=== PATIENT | male | born 1960 | race American Indian/Alaskan Native ===

== ENCOUNTER 2016-03-24 12:33 | Inpatient (IN) | payer SELFPAY ==
[2016-03-24] MEDS ORDERED: CORDARONE 150 MG in D5W 100 ML IV ONE (13:33)
[2016-03-24] MEDS ORDERED: LASIX IV ONE (13:33)
[2016-03-24] MEDS ORDERED: NITRO-BID 2% TP ONE (13:34)
--- NOTE | 2016-03-24 13:36 | Emergency Department Report ---
HPI - General Chief Complaint: Chest Pain Time Seen by Provider: 03/24/16 13:16 - HPI HPI: Chief complaint: Shortness of breath and chest pain HPI: Patient with a history of hypertension, atrial fibrillation, congestive heart failure and borderline diabetes states his been having chest pain and shortness of breath with increased swelling over the last 2 weeks. Patient states he has run out of all of his medications. Patient has been going to Hospital near his home in [facility] but his son brought him down here recently and he has not been seen in this hospital before. Patient describes the pain as a pressure and shortness of breath and pressure worse on exertion and patient is unable to lay flat. Mode of arrival: private car Source: Patient and nursing notes Began: 2 months Duration: Continuous Context: See above Quality: Pressure Severity: 10 out of 10 Improved with: Nothing Worsened with: See above Associated signs and symptoms: Increased pedal edema ED Past Medical Hx - Past Medical History Hx Hypertension: Yes Hx Congestive Heart Failure: Yes Hx Renal Disease: Yes Additional medical history: Atrial fibrillation, renal insufficiency - Medications Home Medications: Home Medications Medication Instructions Recorded Confirmed Last Taken Type Amiodarone [Cordarone 200 MG TAB] 200 mg PO QDAY 03/24/16 03/24/16 Unknown History Aspirin [Aspirin BABY CHEW TAB] 81 mg PO QDAY 03/24/16 03/24/16 Unknown History AtorvaSTATin [Lipitor] 20 mg PO QHS 03/24/16 03/24/16 Unknown History Ferrous Sulfate [Feosol] 325 mg PO BID 03/24/16 03/24/16 Unknown History Metoprolol Succinate 25 mg PO BID 03/24/16 03/24/16 Unknown History Potassium Chloride [Klor-Con 10] 20 meq PO QDAY 03/24/16 03/24/16 Unknown History Warfarin [Coumadin] 5 mg PO QDAY 03/24/16 03/24/16 Unknown History hydrALAZINE [Apresoline] 25 mg PO BID 03/24/16 03/24/16 Unknown History ED Review of Systems ROS: Stated complaint: CHF Other details as noted in HPI ROS Constitutional: No fever ENT: No uri symptoms Cardiovascular: chest pain Respiratory: No cough GI: No nausea vomiting or diarrhea : No dysuria frequency or urgency, Skin: No rash Neuro: No focal weakness or numbness Psych: No depression Eric/lymph: edema Physical Exam - Physical Exam Vital Signs: Vital Signs 03/24/16 13:05 Temperature 98.6 F Pulse Rate 134 H Respiratory 36 H Rate Blood Pressure 185/139 O2 Sat by Pulse 91 Oximetry Physical Exam: GENERAL: The patient is a morbidly obese -[place] male in respiratory distress HEENT: Normocephalic. Atraumatic. Extraocular motions are intact. Patient has moist mucous membranes. NECK: Supple. No meningitic signs are noted. There is no adenopathy noted. CHEST/LUNGS: Diminished throughout. There is mild to moderate respiratory distress noted. HEART/CARDIOVASCULAR: Regular. There is tachycardia. There is a gallop on no rub or murmur. ABDOMEN: Abdomen is soft, nontender. Patient has normal bowel sounds. There is no abdominal distention. SKIN: There is no rash. There is 2+ bilateral pedal edema. There is no diaphoresis. NEURO: The patient is awake, alert, and oriented. The patient is cooperative. The patient has no focal neurologic deficits. The patient has normal speech. MUSCULOSKELETAL: There is no tenderness or deformity. There is no evidence of acute injury. ED Course Vital Signs 03/24/16 13:05 Temperature 98.6 F Pulse Rate 134 H Respiratory 36 H Rate Blood Pressure 185/139 O2 Sat by Pulse 91 Oximetry - Reevaluation(s) Reevaluation #1: 03/24/16 13:42 Patient will be given 150 mg of IV amlodipine, 40 mg of Lasix and an inch of nitroglycerin paste. Patient will be admitted to the hospitalist. ED Medical Decision Making - EKG Data -: EKG Interpreted by Me Rate: tachycardia (134) - EKG Data When compared to previous EKG there are: previous EKG unavailable Interpretation: other (tachycardia possible atrial fibrillation or flutter. Right axis and nonspecific intraventricular block.) - Radiology Data interpreted by me: Chest x-ray shows cardiomegaly and bibasilar pulmonary edema. Critical care attestation.: If time is entered above; I have spent that time in minutes in the direct care of this critically ill patient, excluding procedure time. ED Disposition Clinical Impression: Acute on chronic congestive heart failure Qualifiers: Congestive heart failure type: unspecified congestive heart failure type Qualified Code(s): I50.9 - Heart failure, unspecified Disposition: OP ADMITTED IP TO THIS HOSP Is pt being admited?: Yes Does the pt Need Aspirin: Yes Condition: Fair Time of Disposition: 14:51 (admit to the hospitalist )
[2016-03-24] MEDS ORDERED: CORDARONE IV ONE (13:43)
[2016-03-24 14:00] LABS: Basophils % (Auto) 0.8 % (0.0-1.8); Eosinophils % (Auto) 0.3 % (0.0-4.3); Hematocrit 40.1 % (35.5-45.6); Hemoglobin 12.5 gm/dl (11.8-15.2); Mean Corpuscular HGB Conc 31 % (32-34); Mean Corpuscular Volume 72 fl (84-94); Platelet Count 244 K/mm3 (140-440); Red Blood Count 5.58 M/mm3 (3.65-5.03); Red Cell Distribution Width 15.8 % (13.2-15.2)
[2016-03-24 14:06] LABS: Mean Corpuscular Hemoglobin 22 pg (28-32)
[2016-03-24 14:08] LABS: INR 1.19 (0.87-1.13)
[2016-03-24 14:09] LABS: Partial Thromboplastin Time 26.4 Sec. (24.2-36.6)
[2016-03-24 14:16] LABS: BUN/Creatinine Ratio 23.12
--- NOTE | 2016-03-24 14:28 | XRay Report ---
AP chest History: Shortness of breath. Findings: Moderate cardiomegaly, moderate pulmonary venous congestion and small bilateral pleural effusions are identified. Impression: CHF.
[2016-03-24 14:50] LABS: Calcium 8.6 mg/dL (8.4-10.2); Chloride 104.1 mmol/L (98-107); Creatine Kinase MB 5.1 ng/mL (0.0-4.0); Potassium 4.5 mmol/L (3.6-5.0)
[2016-03-24] MEDS ORDERED: ASPIRIN PO ONE (15:08)
--- NOTE | 2016-03-24 15:27 | Admit Criteria Form ---
Admission Criteria Documentation: HEART FAILURE: COMMON COMPLICATIONS Clinical Indications for Inpatient Care (Place 'X' for any and all applicable criteria): Ongoing inpatient care may be indicated for heart failure with ANY ONE of the following (1)(2)(3)(4)(5): [ ]I. Ongoing need for care for primary condition requiring frequent therapy adjustments because of changes in cardiac function (eg, drug dosage changes for drugs that are renally metabolized) [ ]II. New-onset heart failure [ ]III. Heart failure with decreased urine output not responsive to attempts to optimize volume status [ ]IV. Acute cardiac ischemia causing or associated with failure [X ]V. Complications of heart failure, including ANY ONE of the following: [ ]a) Pericardial effusion [ ]b) Symptomatic pleural effusion [ ]c) O2 saturation <90% or PO2 < 60 mm Hg (8.0 kPa) on room air or require baseline supplemental O2 [ X]d) Tachypnea [ ]e) Dyspnea [ ]f) Syncope [ ]g) Change in mental status [ ]h) Acute renal insufficiency that is severe (reduction of more than 50% in estimated glomerular filtration rate from baseline) or progressive reduction of more than 25% in estimated glomerular filtration rate from baseline, with creatinine continuing to rise) [ ]i) Hemodynamic instability [ ]j) Anasarca [ ]k) Clinically significant metabolic abnormalities due to heart failure (eg, new-onset metabolic acidosis) Extended stay beyond goal length of stay for primary condition may be needed until ALL of the following are present(1)(3): [ ]a) Stable and effective diuretic regimen established (or patient on stable dialysis regimen if in chronic renal failure) [ ]b) Breathing comfortably at rest [ ]c) Saturation of arterial oxygen greater than 90% or at acceptable baseline [ ]d) Pulmonary edema absent or improved [ ]e) Hemodynamic stability [ ]f) Volume status acceptable on oral medication [ ]g) Peripheral or sacral edema absent or improved [ ]h) Renal function stable and manageable at a lower level of care [ ]i) Complications (eg, pleural effusion) resolved or manageable at a lower level of care [ ]j) Patient or caregiver has received written discharge instructions or educational material addressing activity level, diet, discharge medications, follow-up appointment, weight monitoring, and what to do if symptoms worsen The original [employer] content created by [employer] has been revised. The portions of the content which have been revised are identified through the use of italic text or in bold, and [facility] has neither reviewed nor approved the modified material.All other unmodified content is copyright [facility]. Please see references footnoted in the original [facility] edition 2016 Admission Criteria Met: Yes
--- NOTE | 2016-03-24 22:34 | Event Note ---
Date: 03/24/16 See H/p in reports HTN emergency Ac resp failure Chf exacerbation
[2016-03-24] MEDS ORDERED: ALUM-MAG HYDROX-SIMETH 200-200-20MG/5ML PO PRN (22:42)
[2016-03-24] MEDS ORDERED: MILK OF MAGNESIA PO PRN (22:42)
[2016-03-24] MEDS ORDERED: DULCOLAX PR PRN (22:42)
[2016-03-24] MEDS ORDERED: DILAUDID IV PRN (22:42)
[2016-03-24] MEDS ORDERED: DUONEB 0.5 MG-3 MG/3 ML SOLN IH PRN (22:47)
[2016-03-24] MEDS ORDERED: PROVENTIL IH PRN (22:55)
[2016-03-24] MEDS ORDERED: DUONEB 0.5 MG-3 MG/3 ML SOLN IH ONE (23:36)
[2016-03-24] MEDS: DUONEB 0.5 MG-3 MG/3 ML SOLN IH SCH (23:45)
[2016-03-25] MEDS: CARDENE DRIP 40 MG/200 ML 200 ML IV SCH ×2 (00:10→03:32)
[2016-03-25] MEDS: FEOSOL PO SCH ×3 (01:18→22:12)
[2016-03-25] MEDS: K-DUR PO SCH ×3 (01:18→22:13)
[2016-03-25] MEDS: TOPROL XL PO SCH ×2 (01:19→13:30)
[2016-03-25] MEDS: DILAUDID IV PRN (01:29)
[2016-03-25] MEDS: DUONEB 0.5 MG-3 MG/3 ML SOLN IH SCH ×4 (02:18→21:05)
[2016-03-25 04:50] LABS: Basophils % (Auto) 1.1 % (0.0-1.8); Eosinophils % (Auto) 0.6 % (0.0-4.3); Hematocrit 38.7 % (35.5-45.6); Hemoglobin 11.9 gm/dl (11.8-15.2); Mean Corpuscular HGB Conc 31 % (32-34); Mean Corpuscular Volume 72 fl (84-94); Platelet Count 225 K/mm3 (140-440); Red Blood Count 5.35 M/mm3 (3.65-5.03); Red Cell Distribution Width 16.1 % (13.2-15.2)
[2016-03-25 04:54] LABS: Mean Corpuscular Hemoglobin 22 pg (28-32)
[2016-03-25 04:59] LABS: Albumin 3.5 g/dL (3.9-5); Albumin/Globulin Ratio 1.1 %; BUN/Creatinine Ratio 19.47; Bilirubin,Total 1.3 mg/dL (0.1-1.2); Calcium 8.2 mg/dL (8.4-10.2); Potassium 4.3 mmol/L (3.6-5.0); Total Protein 6.7 g/dL (6.3-8.2)
[2016-03-25] MEDS: LASIX IV SCH ×2 (06:31→18:04)
--- NOTE | 2016-03-25 09:32 | Progress Note ---
Assessment and Plan Assessment and plan: 1. Accelerated hypertension. We will wean Cardene drip and start home medications of hydralazine and metoprolol. 2. Acute CHF exacerbation. Etiology is unknown whether it is systolic or diastolic. Check echocardiogram. Patient with elevated BNP > 4000. Continue Lasix daily. Chest x-ray revealed bilateral pleural effusions and pulmonary vascular congestion. Patient also with cardiomegaly. 3. Acute hypoxic respiratory failure compensated with O2. Continue O2 for supportive care. BiPAP when necessary. 4. DVT prophylaxis. Continue Lovenox. The high probability of a clinically significant, sudden or life threatening deterioration of the [cardiovascular] system(s) required my full and direct attention, intervention and personal management. The aggregate critical care time was [31] minutes. This time is in addition to time spent performing reported procedures but includes the following: [x] Data Review and interpretation [x] Patient assessment and monitoring of vital signs [x] Documentation [x] Medication orders and management History Interval history: 55-year-old male admitted with acute respiratory failure, accelerated hypertension requiring Cardizem drip and acute CHF exacerbation. Patient currently denies any chest pain or shortness of breath. Hospitalist Physical - Constitutional Vitals: Temp Pulse Resp BP Pulse Ox 98.2 F 133 H 21 127/94 97 03/25/16 08:00 03/25/16 09:00 03/25/16 09:00 03/25/16 09:00 03/25/16 09:00 General appearance: Present: no acute distress, well-nourished - EENT Eyes: Present: PERRL, EOM intact ENT: hearing intact, clear oral mucosa, dentition normal - Neck Neck: Present: supple, normal ROM - Respiratory Respiratory effort: normal Respiratory: bilateral: diminished, rales, rhonchi - Cardiovascular Rhythm: regular Heart Sounds: Present: S1 & S2. Absent: gallop, rub - Extremities Extremities: no ischemia, No edema, Full ROM - Abdominal General gastrointestinal: soft, non-tender, non-distended, normal bowel sounds - Integumentary Integumentary: Present: clear, warm, dry - Neurologic Neurologic: CNII-XII intact, moves all extremities Results - Labs CBC & Chem 7: 03/25/16 04:21 03/25/16 04:21 Labs: Laboratory Last Values WBC 8.0 K/mm3 (4.5-11.0) 03/25/16 04:21 RBC 5.35 M/mm3 (3.65-5.03) H 03/25/16 04:21 Hgb 11.9 gm/dl (11.8-15.2) 03/25/16 04:21 Hct 38.7 % (35.5-45.6) 03/25/16 04:21 MCV 72 fl (84-94) L 03/25/16 04:21 MCH 22 pg (28-32) L 03/25/16 04:21 MCHC 31 % (32-34) L 03/25/16 04:21 RDW 16.1 % (13.2-15.2) H 03/25/16 04:21 Plt Count 225 K/mm3 (140-440) 03/25/16 04:21 Lymph % (Auto) 16.3 % (13.4-35.0) 03/25/16 04:21 [place] % (Auto) 13.4 % (0.0-7.3) H 03/25/16 04:21 Eos % (Auto) 0.6 % (0.0-4.3) 03/25/16 04:21 Baso % (Auto) 1.1 % (0.0-1.8) 03/25/16 04:21 Lymph # 1.3 K/mm3 (1.2-5.4) 03/25/16 04:21 [place] # 1.1 K/mm3 (0.0-0.8) H 03/25/16 04:21 Eos # 0.0 K/mm3 (0.0-0.4) 03/25/16 04:21 Baso # 0.1 K/mm3 (0.0-0.1) 03/25/16 04:21 Seg Neutrophils % 68.6 % (40.0-70.0) 03/25/16 04:21 Seg Neutrophils # 5.5 K/mm3 (1.8-7.7) 03/25/16 04:21 PT 15.0 Sec. (12.2-14.9) H 03/24/16 13:35 INR 1.19 (0.87-1.13) H 03/24/16 13:35 APTT 26.4 Sec. (24.2-36.6) 03/24/16 13:35 Sodium 142 mmol/L (137-145) 03/25/16 04:21 Potassium 4.3 mmol/L (3.6-5.0) 03/25/16 04:21 Chloride 103.0 mmol/L (98-107) 03/25/16 04:21 Carbon Dioxide 25 mmol/L (22-30) 03/25/16 04:21 Anion Gap 18 mmol/L 03/25/16 04:21 BUN 37 mg/dL (9-20) H 03/25/16 04:21 Creatinine 1.9 mg/dL (0.8-1.5) H 03/25/16 04:21 Estimated GFR 45 ml/min 03/25/16 04:21 BUN/Creatinine Ratio 19.47 % 03/25/16 04:21 Glucose 113 mg/dL (75-100) H 03/25/16 04:21 POC Glucose 111 (70-105) H 03/25/16 08:21 Calcium 8.2 mg/dL (8.4-10.2) L 03/25/16 04:21 Total Bilirubin 1.3 mg/dL (0.1-1.2) H 03/25/16 04:21 AST 73 units/L (5-40) H 03/25/16 04:21 ALT 108 units/L (7-56) H 03/25/16 04:21 Alkaline Phosphatase 47 units/L (35-129) 03/25/16 04:21 Total Creatine Kinase 199 units/L (55-170) H 03/24/16 13:35 CK-MB (CK-2) 5.1 ng/mL (0.0-4.0) H 03/24/16 13:35 CK-MB (CK-2) Rel Index 2.5 (0-4) 03/24/16 13:35 Troponin T 0.052 ng/mL (0.00-0.029) H 03/24/16 13:35 NT-Pro-B Natriuret Pep 4652 pg/mL (0-900) H 03/24/16 13:35 Total Protein 6.7 g/dL (6.3-8.2) 03/25/16 04:21 Albumin 3.5 g/dL (3.9-5) L 03/25/16 04:21 Albumin/Globulin Ratio 1.1 % 03/25/16 04:21 Triglycerides 62 mg/dL (2-149) 03/24/16 13:35 Cholesterol 160 mg/dL (50-199) 03/24/16 13:35 LDL Cholesterol Direct 114 mg/dL (50-130) 03/24/16 13:35 HDL Cholesterol 37 mg/dL (40-59) L 03/24/16 13:35 Cholesterol/HDL Ratio 4.32 % 03/24/16 13:35
[2016-03-25] MEDS ORDERED: NON-FORMULARY (Potassium Chloride [Klor-Con 10] 20 MEQ) PO SCH (10:00)
[2016-03-25] MEDS ORDERED: K-DUR PO SCH (10:00)
[2016-03-25] MEDS: CORDARONE PO SCH (10:15)
[2016-03-25] MEDS: BABY ASPIRIN PO SCH (10:16)
[2016-03-25] MEDS: LOVENOX SUB-Q SCH (10:22)
--- NOTE | 2016-03-25 10:56 | Consultation ---
History of Present Illness Consult date: 03/25/16 Requesting physician: RUSSELL MEZA Reason for consult: other (Hypertensive Emergency) History of present illness: PULMONARY/CCM CONSULT NOTE (Full dictation # [id number]) Please see dictated notes for full details Medications and Allergies Allergies Allergy/AdvReac Type Severity Reaction Status Date / Time No Known Allergies Allergy Unverified 03/24/16 13:05 Home Medications Medication Instructions Recorded Confirmed Last Taken Type Amiodarone [Cordarone 200 MG TAB] 200 mg PO QDAY 03/24/16 03/24/16 Unknown History Aspirin [Aspirin BABY CHEW TAB] 81 mg PO QDAY 03/24/16 03/24/16 Unknown History AtorvaSTATin [Lipitor] 20 mg PO QHS 03/24/16 03/24/16 Unknown History Ferrous Sulfate [Feosol] 325 mg PO BID 03/24/16 03/24/16 Unknown History Metoprolol Succinate 25 mg PO BID 03/24/16 03/24/16 Unknown History Potassium Chloride [Klor-Con 10] 20 meq PO QDAY 03/24/16 03/24/16 Unknown History Warfarin [Coumadin] 5 mg PO QDAY 03/24/16 03/24/16 Unknown History hydrALAZINE [Apresoline] 25 mg PO BID 03/24/16 03/24/16 Unknown History Active Meds: Active Medications Al Hydrox/Mg Hydrox/Simethicone (Alum-Mag Hydrox-Simeth 201-937-20zg/5ml) 30 ml PO Q4H PRN PRN Reason: Indigestion Albuterol (Proventil) 2.5 mg IH Q3HRT PRN PRN Reason: Wheezing Albuterol/Ipratropium (Duoneb 0.5 Mg-3 Mg/3 Ml Soln) 1 ampul IH Q6HRT [facility] Last Admin: 03/25/16 08:45 Dose: 1 ampul Amiodarone HCl (Cordarone) 200 mg PO QDAY [facility] Last Admin: 03/25/16 10:15 Dose: 200 mg Aspirin (Baby Aspirin) 81 mg PO QDAY [facility] Last Admin: 03/25/16 10:16 Dose: 81 mg Atorvastatin Calcium (Lipitor) 20 mg PO QHS [facility] Bisacodyl (Dulcolax) 10 mg CO QDAY PRN PRN Reason: constipation unrelieved by MOM Enoxaparin Sodium (Lovenox) 40 mg SUB-Q QDAY [facility] Last Admin: 03/25/16 10:22 Dose: 40 mg Famotidine (Pepcid) 20 mg PO BID NORMA Ferrous Sulfate (Feosol) 325 mg PO BID [facility] Last Admin: 03/25/16 10:16 Dose: 325 mg Furosemide (Lasix) 40 mg IV 0600,1800 [facility] Last Admin: 03/25/16 06:31 Dose: 40 mg Hydralazine HCl (Apresoline) 25 mg PO Q12HR [facility] Hydromorphone HCl (Dilaudid) 0.5 mg IV Q3H PRN PRN Reason: Pain , Severe (7-10) Last Admin: 03/25/16 01:29 Dose: 0.5 mg Nicardipine/Sodium Chloride (Cardene Drip 40 Mg/200 Ml) 200 mls @ 25 mls/hr IV TITR NORMA; 5 MG/HR PRN Reason: Protocol Last Admin: 03/25/16 03:32 Dose: 25 mls/hr Influenza Virus Vaccine Quadrival (Fluarix Quad [id number](36 Mos+)) 60 mcg IM .ONCE ONE Stop: 03/25/16 12:01 Magnesium Hydroxide (Milk Of Magnesia) 30 ml PO Q4H PRN PRN Reason: Constipation Metoprolol Succinate (Toprol Xl) 25 mg PO BID [facility] Last Admin: 03/25/16 01:19 Dose: 25 mg Potassium Chloride (K-Dur) 20 meq PO Q12HR [facility] Last Admin: 03/25/16 10:19 Dose: 20 meq Warfarin Sodium (Coumadin) 5 mg PO QDAY@1700 NORMA PRN Reason: Protocol Physical Examination Vital signs: Vital Signs Temp Pulse Resp BP Pulse Ox 98.6 F 134 H 36 H 185/139 91 03/24/16 13:05 03/24/16 13:05 03/24/16 13:05 03/24/16 13:05 03/24/16 13:05 Results - Laboratory Findings CBC and BMP: 03/25/16 04:21 03/25/16 04:21 PT/INR, D-dimer PT 15.0 Sec. (12.2-14.9) H 03/24/16 13:35 INR 1.19 (0.87-1.13) H 03/24/16 13:35 Abnormal lab findings: Abnormal Labs 03/25/16 03/25/16 03/25/16 04:21 04:21 08:21 RBC 5.35 H MCV 72 L MCH 22 L MCHC 31 L RDW 16.1 H [place] % (Auto) 13.4 H [place] # 1.1 H BUN 37 H Creatinine 1.9 H Glucose 113 H POC Glucose 111 H Calcium 8.2 L Total Bilirubin 1.3 H AST 73 H ALT 108 H Albumin 3.5 L
[2016-03-25] MEDS ORDERED: FLUARIX QUAD 2016-2017(36 MOS+) IM ONE (12:00)
[2016-03-25] MEDS: APRESOLINE PO SCH ×2 (13:30→22:12)
[2016-03-25] MEDS ORDERED: CARDIZEM IV ONE (14:04)
--- NOTE | 2016-03-25 14:10 | History and Physical Report ---
CHIEF COMPLAINT: Severe shortness of breath. HISTORY OF PRESENT ILLNESS: A 55-year-old male with history of hypertension, atrial fibrillation, congestive heart failure, borderline diabetes, has been having chest pain and shortness of breath with increased swelling over the last 2 weeks. The patient stated that he ran out of all of his medications. He has been going to the hospital near his home in [facility], but his son brought him down here recently. He has not been in this hospital before. He complains of chest pain as a pressure. Also, low oxygen levels. Cough productive of mucoid sputum. PAST MEDICAL HISTORY: Significant for hypertension, congestive heart failure, renal disease, atrial fibrillation, and renal insufficiency. CURRENT MEDICATIONS: Cordarone 200 mg p.o. daily, aspirin 81 mg p.o. daily, Lipitor 20 mg p.o. at bedtime, ferrous sulfate 325 mg twice a day, metoprolol 25 mg twice a day, potassium 20 mEq p.o. daily, Coumadin 5 mg p.o. daily, hydralazine 25 mg twice a day. REVIEW OF SYSTEMS: Significant for severe shortness of breath and increased wheezing and respiratory distress at rest. Other than the shortness of breath and wheezing, review of systems is essentially negative. All systems reviewed. PHYSICAL EXAMINATION: GENERAL: Middle aged male, cooperative during examination, in moderate respiratory distress. VITAL SIGNS: Pulse is 134, temperature is 98.6, blood pressure is 185/139, respiratory rate is . HEENT: Unremarkable. Pupils equal and reactive. NECK: Supple, no lymphadenopathy, no thyromegaly. LUNGS: Clear to auscultation and percussion. Good air entry. CARDIOVASCULAR: S1, S2 heard. No gallop, no murmur, no rub. Apical impulse in left fifth intercostal space and midclavicular line. ABDOMEN: Soft and benign. No hepatosplenomegaly. No guarding, no rigidity. Hernial orifices are normal. EXTREMITIES: Good pedal pulses. No pedal edema. CENTRAL NERVOUS SYSTEM: Alert and oriented x 4. Nonfocal exam. SKIN: Normal. DIAGNOSTIC DATA: EKG shows sinus tachycardia with atrial fibrillation/flutter. Nonspecific intraventricular block. Chest x-ray shows cardiomegaly and bibasilar pulmonary edema. LABORATORY DATA: Significant for white count of 7000, H and H is 12.5 and 40.1, platelet count is 244,000. Protime is 15, INR is 1.19, PTT is 26.4. Sodium is 144, potassium is 4.5, chloride is 104, BUN and creatinine 37 and 1.6, glucose is 105. Creatinine kinase is 199. CK-MB is 5.1, troponin 0.052. BNP is 4652. ASSESSMENT AND PLAN: 1. Hypertensive emergency. The patient needs to be on Cardene drip. Cardizem drip was initiated because the blood pressure was not coming down. 2. Congestive heart failure exacerbation. Lasix 40 mg q. 12 ordered. 3. Atrial fibrillation. Amiodarone initiated again. 4. Hyperlipidemia. Continue 40 mg daily. 5. Chronic obstructive pulmonary disease. The patient on DuoNeb. ABG was not done, but patient was hypoxic 5. Renal insufficiency. IV fluid, gentle IV hydration. PROGNOSIS: Fair. CRITICAL CARE STATEMENT: The high probability of a clinically significant, sudden or life-threatening deterioration of the cardiorespiratory system required my full and direct attention, intervention, and personal management. The aggregate critical care time was 36 minutes. The time is in addition to time spent performing reported procedures, but includes the followin. Data review and interpretation. 2. The patient's assessment and monitoring of vital signs. 3. Documentation. 4. Medication orders and management. JOB# [id number] BARTOLO/[email or web address]
[2016-03-25] MEDS ORDERED: CARDIZEM/D5W 100MG/100ML 100 ML IV SCH (15:00)
--- NOTE | 2016-03-25 16:44 | Consultation ---
History of Present Illness Consult date: 03/25/16 Consult reason: hypertension History of present illness: This is a 55yr old male who presented to this hospital 03/24 with worsening shortness of breath admitted with CHF. Cardiac consultation requested for hypertension management. It's reported patient ran out of his medications. Systolic BP 185 on presentation. Currently on intravenous Cardene. His presenting ECG shows atrial tachycardia. On evaluation, his atrial tachycardia persists, rate 130s. Home medications include amiodarone, metoprolol and warfarin for unknown arrhythmia. Patient denies prior cardiac workup. He denies a history of coronary disease. Medications and Allergies Allergies Allergy/AdvReac Type Severity Reaction Status Date / Time No Known Allergies Allergy Unverified 03/24/16 13:05 Home Medications Medication Instructions Recorded Confirmed Last Taken Type Amiodarone [Cordarone 200 MG TAB] 200 mg PO QDAY 03/24/16 03/24/16 Unknown History Aspirin [Aspirin BABY CHEW TAB] 81 mg PO QDAY 03/24/16 03/24/16 Unknown History AtorvaSTATin [Lipitor] 20 mg PO QHS 03/24/16 03/24/16 Unknown History Ferrous Sulfate [Feosol] 325 mg PO BID 03/24/16 03/24/16 Unknown History Metoprolol Succinate 25 mg PO BID 03/24/16 03/24/16 Unknown History Potassium Chloride [Klor-Con 10] 20 meq PO QDAY 03/24/16 03/24/16 Unknown History Warfarin [Coumadin] 5 mg PO QDAY 03/24/16 03/24/16 Unknown History hydrALAZINE [Apresoline] 25 mg PO BID 03/24/16 03/24/16 Unknown History Active Meds: Active Medications Al Hydrox/Mg Hydrox/Simethicone (Alum-Mag Hydrox-Simeth 380-723-00th/5ml) 30 ml PO Q4H PRN PRN Reason: Indigestion Albuterol (Proventil) 2.5 mg IH Q3HRT PRN PRN Reason: Wheezing Albuterol/Ipratropium (Duoneb 0.5 Mg-3 Mg/3 Ml Soln) 1 ampul IH Q6HRT [facility] Last Admin: 03/25/16 14:45 Dose: 1 ampul Amiodarone HCl (Cordarone) 200 mg PO QDAY [facility] Last Admin: 03/25/16 10:15 Dose: 200 mg Aspirin (Baby Aspirin) 81 mg PO QDAY [facility] Last Admin: 03/25/16 10:16 Dose: 81 mg Atorvastatin Calcium (Lipitor) 20 mg PO QHS [facility]MA Bisacodyl (Dulcolax) 10 mg AR QDAY PRN PRN Reason: constipation unrelieved by MOM Enoxaparin Sodium (Lovenox) 40 mg SUB-Q QDAY [facility] Last Admin: 03/25/16 10:22 Dose: 40 mg Famotidine (Pepcid) 20 mg PO BID [facility]MA Ferrous Sulfate (Feosol) 325 mg PO BID [facility] Last Admin: 03/25/16 10:16 Dose: 325 mg Furosemide (Lasix) 40 mg IV 0600,1800 [facility] Last Admin: 03/25/16 06:31 Dose: 40 mg Hydralazine HCl (Apresoline) 25 mg PO Q12HR [facility] Last Admin: 03/25/16 13:30 Dose: 25 mg Hydromorphone HCl (Dilaudid) 0.5 mg IV Q3H PRN PRN Reason: Pain , Severe (7-10) Last Admin: 03/25/16 01:29 Dose: 0.5 mg Nicardipine/Sodium Chloride (Cardene Drip 40 Mg/200 Ml) 200 mls @ 25 mls/hr IV TITR NORMA; 5 MG/HR PRN Reason: Protocol Last Admin: 03/25/16 03:32 Dose: 25 mls/hr Diltiazem HCl (Cardizem/D5w 100mg/100ml) 100 mls @ 5 mls/hr IV TITR NORMA; 5 MG/ HR PRN Reason: Protocol Last Admin: 03/25/16 15:25 Dose: 5 mls/hr Magnesium Hydroxide (Milk Of Magnesia) 30 ml PO Q4H PRN PRN Reason: Constipation Metoprolol Succinate (Toprol Xl) 25 mg PO BID [facility] Last Admin: 03/25/16 13:30 Dose: 25 mg Potassium Chloride (K-Dur) 20 meq PO Q12HR [facility] Last Admin: 03/25/16 10:19 Dose: 20 meq Warfarin Sodium (Coumadin) 5 mg PO QDAY@1700 ONRMA PRN Reason: Protocol Physical Examination Vital Signs Temp Pulse Resp BP Pulse Ox 98.6 F 134 H 36 H 185/139 91 03/24/16 13:05 03/24/16 13:05 03/24/16 13:05 03/24/16 13:05 03/24/16 13:05 General appearance: mild distress HEENT: Positive: PERRL Cardiac: Positive: Tachycardia Results 03/25/16 04:21 03/25/16 04:21 Cardiac Enzymes 03/25/16 Range/Units 04:21 AST 73 H (5-40) units/L CBC 03/25/16 Range/Units 04:21 WBC 8.0 (4.5-11.0) K/mm3 RBC 5.35 H (3.65-5.03) M/mm3 Hgb 11.9 (11.8-15.2) gm/dl Hct 38.7 (35.5-45.6) % Plt Count 225 (140-440) K/mm3 Lymph # 1.3 (1.2-5.4) K/mm3 [place] # 1.1 H (0.0-0.8) K/mm3 Eos # 0.0 (0.0-0.4) K/mm3 Baso # 0.1 (0.0-0.1) K/mm3 Comprehensive Metabolic Panel 03/25/16 Range/Units 04:21 Sodium 142 (137-145) mmol/L Potassium 4.3 (3.6-5.0) mmol/L Chloride 103.0 (98-107) mmol/L Carbon Dioxide 25 (22-30) mmol/L BUN 37 H (9-20) mg/dL Creatinine 1.9 H (0.8-1.5) mg/dL Glucose 113 H (75-100) mg/dL Calcium 8.2 L (8.4-10.2) mg/dL AST 73 H (5-40) units/L ALT 108 H (7-56) units/L Alkaline Phosphatase 47 (35-129) units/L Total Protein 6.7 (6.3-8.2) g/dL Albumin 3.5 L (3.9-5) g/dL Assessment and Plan CHF exacerbation Persistent Atrial tachycardia given Adenosine 6mg then 12mg Hypertension -uncontrolled on IV cardene Non compliant with medications Recommendations Echocardiogram for LVEF assessment. We'll initiate IV cardizem for rate control of tachycardia. Obtain prior cardiac records for review.
[2016-03-25] MEDS: COUMADIN PO SCH (18:04)
--- NOTE | 2016-03-25 18:09 | Echocardiography Report ---
Transthoracic Echocardiogram Indication: CHF BP: 132/81 Conclusions *1. 4 chamber cardiomyopathy, EF 15%. *2. Moderate MR. *3. Moderate TR. *4. Mild pulm HTN. Findings Left Ventricle: The left ventricular chamber size is severely dilated. Moderate concentric left ventricular hypertrophy is observed. There is evidence of a dilated cardiomyopathy. Severe global hypokinesis of the left ventricle is observed. Global left ventricular systolic function is severely decreased. The estimated ejection fraction is 10-15%. Abnormal left ventricular diastolic function is observed. Left Atrium: The left atrium is severely dilated. Right Ventricle: The right ventricle is moderate to severely dilated. The right ventricular global systolic function is moderately reduced. Right Atrium: The right atrial cavity size is severely dilated. Aortic Valve: The aortic valve is trileaflet. The aortic valve leaflets are mildly thickened. There is no evidence of aortic regurgitation. There is no evidence of aortic stenosis. Mitral Valve: The mitral valve leaflets appear myxomatous. The mitral valve leaflets are mildly thickened. There is moderate mitral regurgitation. There is no evidence of mitral stenosis. Tricuspid Valve: The tricuspid valve leaflets are normal. There is moderate tricuspid regurgitation. The right ventricular systolic pressure is calculated at 38 mmHg. There is evidence of mild pulmonary hypertension. There is no tricuspid stenosis. Pulmonic Valve: The pulmonic valve appears normal. There is no evidence of pulmonic regurgitation. There is no pulmonic stenosis. Pericardium: There is no pericardial effusion. Aorta: There is no dilatation of the aortic root. Venous: The inferior vena cava is dilated. There is no change in the dimension of the inferior vena cava with respiration consistent with markedly increased right atrial pressure. Measurements Chambers MM Name Value Normal Range Ao root diameter (MM) 3.6 cm (2 - 3.7) LA dimension (AP) MM 5.1 cm (1.9 - 4) LA:Ao ratio (MM) 1.42 ratio - AV cusp separation (MM) 1.9 cm (1.5 - 2.6) Chambers 2D Name Value Normal Range RVIDd (AP) 2D 3.63 cm (0.9 - 2.6) IVSd (2D) 1.58 cm (0.6 - 1.1) LVPWd (2D) 1.64 cm (0.6 - 1.1) IVS:LVPW ratio (2D) 0.96 ratio - LVIDd (2D) 6.47 cm (3.7 - 5.6) LVIDs (2D) 6.05 cm (2 - 3.8) LV FS (Teichholz) (2D) 6.49 % - LV FS (cube) (2D) 6.49 % - EF Teichholz (2D) 14.5 % - Ao root diameter (2D) 3.3 cm (2 - 3.7) LA dimension (AP) 2D 5.2 cm (1.9 - 4) LA:Ao ratio (2D) 1.58 ratio - Volumes/Mass Name Value Normal Range LA ESV SP 4CH (MOD) 139 ml - LA ESV SP 2CH (MOD) 128 ml - LA ESV BP (MOD) 134 ml - LA ESV BP (MOD) index 51.5 ml/m2 - Diastolic/Systolic Function Name Value Normal Range MV E-wave Vmax 1.05 m/sec - MV deceleration time 92 msec - LV septal e' Vmax 0.06 m/sec - LV lateral e' Vmax 0.08 m/sec - LV E:e' septal ratio 17.9 ratio - LV E:e' lateral ratio 13.1 ratio - Aortic Valve Name Value Normal Range AV VTI 16.8 cm - AV mean gradient 4 mmHg - LVOT diameter 2.2 cm - LVOT VTI 11.9 cm - LVOT mean gradient 2 mmHg - SV LVOT 45 ml - AMILCAR (continuity VTI) 2.69 cm2 - Mitral Valve Name Value Normal Range MV PHT 48 msec - MR Vmax 4.67 m/sec - MR VTI 115 cm - MVA (PHT) 4.58 cm2 - Tricuspid Valve Name Value Normal Range TR Vmax 2.41 m/sec - TR peak gradient 23 mmHg - RAP 15 mmHg - RVSP 38 mmHg - Pulmonic Valve/Qp:Qs Name Value Normal Range PV Vmax 0.95 m/sec - PV peak gradient 4 mmHg - PV acceleration time 123 msec -
[2016-03-25] MEDS ORDERED: LOPRESSOR IV PRN (18:14)
[2016-03-25] MEDS: DIOVAN PO SCH (20:25)
[2016-03-25] MEDS: COREG PO SCH (22:12)
[2016-03-25] MEDS: PEPCID PO SCH (22:20)
[2016-03-26] MEDS: DUONEB 0.5 MG-3 MG/3 ML SOLN IH SCH ×4 (02:29→21:17)
[2016-03-26 05:05] LABS: Basophils % (Auto) 0.4 % (0.0-1.8); Eosinophils % (Auto) 1.5 % (0.0-4.3); Hematocrit 34.6 % (35.5-45.6); Hemoglobin 10.6 gm/dl (11.8-15.2); Mean Corpuscular HGB Conc 31 % (32-34); Mean Corpuscular Volume 73 fl (84-94); Red Blood Count 4.74 M/mm3 (3.65-5.03); Red Cell Distribution Width 16.2 % (13.2-15.2); White Blood Count 5.5 K/mm3 (4.5-11.0)
[2016-03-26 05:06] LABS: Mean Corpuscular Hemoglobin 22 pg (28-32); Platelet Count 200 K/mm3 (140-440)
[2016-03-26 05:18] LABS: BUN/Creatinine Ratio 20.62; Calcium 7.5 mg/dL (8.4-10.2); Chloride 106.4 mmol/L (98-107); Potassium 4.4 mmol/L (3.6-5.0)
[2016-03-26 05:20] LABS: INR 1.14 (0.87-1.13)
[2016-03-26] MEDS: LASIX IV SCH ×2 (05:41→19:25)
[2016-03-26] MEDS: PRIMACOR 20 MG in D5W 80 ML IV SCH ×3 (07:58→21:09)
[2016-03-26] MEDS: FEOSOL PO SCH ×2 (09:35→22:21)
[2016-03-26] MEDS: CORDARONE PO SCH (09:35)
[2016-03-26] MEDS: COREG PO SCH ×2 (09:36→23:35)
[2016-03-26] MEDS: PEPCID PO SCH ×2 (09:36→22:21)
[2016-03-26] MEDS: BABY ASPIRIN PO SCH (09:36)
[2016-03-26] MEDS: K-DUR PO SCH ×2 (09:36→22:21)
[2016-03-26] MEDS: DIOVAN PO SCH (09:38)
[2016-03-26] MEDS: LOVENOX SUB-Q SCH (09:40)
--- NOTE | 2016-03-26 09:41 | Progress Note ---
Assessment and Plan - Patient Problems (1) Acute on chronic congestive heart failure Current Visit: Yes Status: Acute Qualifiers: Congestive heart failure type: unspecified congestive heart failure type Qualified Code(s): I50.9 - Heart failure, unspecified Plan to address problem: - continue diuresis - on milrinone - per cardiology recs (2) Atrial fibrillation Current Visit: Yes Status: Acute Plan to address problem: - on cardizem drip - per cardiology recs (3) RAJANI (obstructive sleep apnea) Current Visit: Yes Status: Acute Plan to address problem: - outpatient PSG - weight loss counselled ....transfer out of ICU once off vasoactive drugs if being titrated Subjective Date of service: 03/26/16 Principal diagnosis: Hypertensive Urgency; SVT Interval history: Seen and examined at bedside; 24 hour events reviewed; nursing and respiratory care staff consulted; no adverse overnight events reported to me; reamisn on cardizem drip; denies acute chest pains or increased SOB Objective Vital Signs - 12hr 03/25/16 03/25/16 03/25/16 22:00 22:06 22:12 Temperature Pulse Rate 101 H 130 H 100 H Pulse Rate [ Anterior Bilateral Throughout] Respiratory 26 H 26 H Rate Respiratory Rate [Anterior Bilateral Throughout] Blood Pressure 134/80 134/80 134/80 O2 Sat by Pulse 96 88 Oximetry 03/25/16 03/25/16 03/25/16 22:14 23:00 23:54 Temperature Pulse Rate 131 H 84 98 H Pulse Rate [ Anterior Bilateral Throughout] Respiratory 23 28 H 19 Rate Respiratory Rate [Anterior Bilateral Throughout] Blood Pressure 134/80 123/82 121/76 O2 Sat by Pulse 95 95 95 Oximetry 03/26/16 03/26/16 03/26/16 00:00 00:01 00:04 Temperature 98.2 F Pulse Rate 94 H 92 H 93 H Pulse Rate [ Anterior Bilateral Throughout] Respiratory 15 13 27 H Rate Respiratory Rate [Anterior Bilateral Throughout] Blood Pressure 128/72 128/72 128/72 O2 Sat by Pulse 95 95 97 Oximetry 03/26/16 03/26/16 03/26/16 00:06 00:28 01:00 Temperature Pulse Rate 96 H 107 H 87 Pulse Rate [ Anterior Bilateral Throughout] Respiratory 28 H 25 H 16 Rate Respiratory Rate [Anterior Bilateral Throughout] Blood Pressure 128/72 113/80 123/70 O2 Sat by Pulse 97 94 97 Oximetry 03/26/16 03/26/16 03/26/16 01:22 01:24 01:34 Temperature Pulse Rate 66 82 65 Pulse Rate [ Anterior Bilateral Throughout] Respiratory 15 14 16 Rate Respiratory Rate [Anterior Bilateral Throughout] Blood Pressure 127/95 127/95 137/90 O2 Sat by Pulse 96 96 96 Oximetry 03/26/16 03/26/16 03/26/16 01:36 01:42 01:44 Temperature Pulse Rate 87 87 88 Pulse Rate [ Anterior Bilateral Throughout] Respiratory 17 18 18 Rate Respiratory Rate [Anterior Bilateral Throughout] Blood Pressure 137/90 137/90 137/90 O2 Sat by Pulse 95 97 97 Oximetry 03/26/16 03/26/16 03/26/16 01:56 02:00 02:29 Temperature Pulse Rate 87 84 Pulse Rate [ 88 Anterior Bilateral Throughout] Respiratory 16 17 Rate Respiratory 16 Rate [Anterior Bilateral Throughout] Blood Pressure 126/80 130/77 O2 Sat by Pulse 96 96 Oximetry 03/26/16 03/26/16 03/26/16 02:37 03:00 03:12 Temperature Pulse Rate 86 87 Pulse Rate [ 88 Anterior Bilateral Throughout] Respiratory 15 22 Rate Respiratory 16 Rate [Anterior Bilateral Throughout] Blood Pressure 122/80 132/81 O2 Sat by Pulse 95 96 Oximetry 03/26/16 03/26/16 03/26/16 03:24 04:00 04:01 Temperature 97.2 F L Pulse Rate 87 89 Pulse Rate [ Anterior Bilateral Throughout] Respiratory 16 16 18 Rate Respiratory Rate [Anterior Bilateral Throughout] Blood Pressure 136/88 129/81 O2 Sat by Pulse 96 100 96 Oximetry 03/26/16 03/26/16 03/26/16 04:36 05:00 05:40 Temperature Pulse Rate 107 H 88 100 H Pulse Rate [ Anterior Bilateral Throughout] Respiratory 23 43 H 23 Rate Respiratory Rate [Anterior Bilateral Throughout] Blood Pressure 124/79 123/80 119/72 O2 Sat by Pulse 95 96 98 Oximetry 03/26/16 03/26/16 03/26/16 05:51 05:52 06:00 Temperature Pulse Rate 88 100 H 95 H Pulse Rate [ Anterior Bilateral Throughout] Respiratory 23 26 H 23 Rate Respiratory Rate [Anterior Bilateral Throughout] Blood Pressure 135/77 135/77 135/77 O2 Sat by Pulse 97 97 99 Oximetry 03/26/16 03/26/16 03/26/16 06:40 06:45 07:00 Temperature Pulse Rate 98 H 91 H 119 H Pulse Rate [ Anterior Bilateral Throughout] Respiratory 23 25 H 25 H Rate Respiratory Rate [Anterior Bilateral Throughout] Blood Pressure 144/94 132/90 133/104 O2 Sat by Pulse 97 98 98 Oximetry 03/26/16 03/26/16 03/26/16 07:16 07:30 07:46 Temperature Pulse Rate 108 H 107 H 128 H Pulse Rate [ Anterior Bilateral Throughout] Respiratory 25 H 25 H 26 H Rate Respiratory Rate [Anterior Bilateral Throughout] Blood Pressure 128/92 129/91 142/97 O2 Sat by Pulse 98 99 97 Oximetry 03/26/16 03/26/16 03/26/16 07:47 08:01 08:15 Temperature 98.2 F Pulse Rate 98 H 101 H Pulse Rate [ Anterior Bilateral Throughout] Respiratory 23 24 Rate Respiratory Rate [Anterior Bilateral Throughout] Blood Pressure 129/94 119/95 O2 Sat by Pulse 94 97 Oximetry 03/26/16 03/26/16 03/26/16 08:31 08:33 08:34 Temperature Pulse Rate 126 H Pulse Rate [ 97 H Anterior Bilateral Throughout] Respiratory 19 Rate Respiratory 18 Rate [Anterior Bilateral Throughout] Blood Pressure 115/73 O2 Sat by Pulse 95 92 Oximetry 03/26/16 03/26/16 03/26/16 08:45 09:01 09:36 Temperature Pulse Rate 132 H 131 H 134 H Pulse Rate [ Anterior Bilateral Throughout] Respiratory 28 H 24 Rate Respiratory Rate [Anterior Bilateral Throughout] Blood Pressure 112/67 139/58 131/66 O2 Sat by Pulse 100 99 Oximetry 03/26/16 09:38 Temperature Pulse Rate 134 H Pulse Rate [ Anterior Bilateral Throughout] Respiratory Rate Respiratory Rate [Anterior Bilateral Throughout] Blood Pressure 131/66 O2 Sat by Pulse Oximetry Constitutional: no acute distress Eyes: non-icteric ENT: oropharynx moist Neck: supple, no lymphadenopathy Effort: normal Ascultation: Bilateral: clear Cardiovascular: regular rate and rhythm Gastrointestinal: normoactive bowel sounds, soft, non-tender Integumentary: normal Extremities: no cyanosis, no edema, pulses normal, no ischemia or petechiae Neurologic: normal mental status, non-focal exam, pupils equal and round, motor strength normal and Psychiatric: mood appropriate, affect normal CBC and BMP: 03/26/16 04:36 03/26/16 04:36 ABG, PT/INR, D-dimer: PT/INR, D-dimer PT 14.5 Sec. (12.2-14.9) 03/26/16 04:36 INR 1.14 (0.87-1.13) H 03/26/16 04:36 Abnormal lab findings: Abnormal Labs 03/25/16 03/25/16 03/25/16 04:21 04:21 08:21 RBC 5.35 H Hgb Hct MCV 72 L MCH 22 L MCHC 31 L RDW 16.1 H [place] % (Auto) 13.4 H Lymph # [place] # 1.1 H Seg Neutrophils % INR Heparin Anti-Xa Level BUN 37 H Creatinine 1.9 H Glucose 113 H POC Glucose 111 H Calcium 8.2 L Total Bilirubin 1.3 H AST 73 H ALT 108 H Albumin 3.5 L 03/25/16 03/25/16 03/26/16 11:35 15:30 04:36 RBC Hgb 10.6 L Hct 34.6 L MCV 73 L MCH 22 L MCHC 31 L RDW 16.2 H [place] % (Auto) 11.7 H Lymph # 0.9 L [place] # Seg Neutrophils % 70.3 H INR Heparin Anti-Xa Level BUN Creatinine Glucose POC Glucose 141 H 121 H Calcium Total Bilirubin AST ALT Albumin 03/26/16 03/26/16 04:36 04:36 RBC Hgb Hct MCV MCH MCHC RDW [place] % (Auto) Lymph # [place] # Seg Neutrophils % INR 1.14 H Heparin Anti-Xa Level < 0.10 L BUN 33 H Creatinine 1.6 H Glucose POC Glucose Calcium 7.5 L Total Bilirubin AST ALT Albumin
--- NOTE | 2016-03-26 09:42 | Progress Note ---
Assessment and Plan Assessment and plan: 1. SVT. Patient received adenosine yesterday with no relief. Patient's rate is controlled with Cardizem. Follow-up echocardiogram. Cardiology following. Obtain old records for previous ischemic cardiac workup. 2. Accelerated hypertension. Resolved. Blood pressure improved with Cardizem drip. 3. Acute CHF exacerbation. Etiology is unknown whether it is systolic or diastolic. Check echocardiogram. Patient with elevated BNP > 4000. Continue Lasix daily. Chest x-ray revealed bilateral pleural effusions and pulmonary vascular congestion. Patient also with cardiomegaly. 4. Acute hypoxic respiratory failure compensated with O2. Continue O2 for supportive care. BiPAP when necessary. 5. DVT prophylaxis. Continue Lovenox. The high probability of a clinically significant, sudden or life threatening deterioration of the [cardiovascular] system(s) required my full and direct attention, intervention and personal management. The aggregate critical care time was [31] minutes. This time is in addition to time spent performing reported procedures but includes the following: [x] Data Review and interpretation [x] Patient assessment and monitoring of vital signs [x] Documentation [x] Medication orders and management History Interval history: 55-year-old male admitted with acute respiratory failure, accelerated hypertension requiring Cardizem drip and acute CHF exacerbation. Patient currently denies any chest pain or shortness of breath. Hospitalist Physical - Constitutional Vitals: Temp Pulse Resp BP Pulse Ox 98.2 F 134 H 24 131/66 99 03/26/16 07:47 03/26/16 09:38 03/26/16 09:01 03/26/16 09:38 03/26/16 09:01 General appearance: Present: mild distress - EENT Eyes: Present: PERRL, EOM intact ENT: hearing intact, clear oral mucosa, dentition normal - Neck Neck: Present: supple, normal ROM - Respiratory Respiratory effort: normal Respiratory: bilateral: CTA - Cardiovascular Rhythm: irregularly irregular Heart Sounds: Present: S1 & S2. Absent: gallop, rub - Extremities Extremities: no ischemia, No edema, Full ROM - Abdominal General gastrointestinal: soft, non-tender, non-distended, normal bowel sounds - Integumentary Integumentary: Present: clear, warm, dry - Neurologic Neurologic: CNII-XII intact, moves all extremities Results - Labs CBC & Chem 7: 03/26/16 04:36 03/26/16 04:36 Labs: Laboratory Last Values WBC 5.5 K/mm3 (4.5-11.0) 03/26/16 04:36 RBC 4.74 M/mm3 (3.65-5.03) 03/26/16 04:36 Hgb 10.6 gm/dl (11.8-15.2) L 03/26/16 04:36 Hct 34.6 % (35.5-45.6) L 03/26/16 04:36 MCV 73 fl (84-94) L 03/26/16 04:36 MCH 22 pg (28-32) L 03/26/16 04:36 MCHC 31 % (32-34) L 03/26/16 04:36 RDW 16.2 % (13.2-15.2) H 03/26/16 04:36 Plt Count 200 K/mm3 (140-440) 03/26/16 04:36 Lymph % (Auto) 16.1 % (13.4-35.0) 03/26/16 04:36 [place] % (Auto) 11.7 % (0.0-7.3) H 03/26/16 04:36 Eos % (Auto) 1.5 % (0.0-4.3) 03/26/16 04:36 Baso % (Auto) 0.4 % (0.0-1.8) 03/26/16 04:36 Lymph # 0.9 K/mm3 (1.2-5.4) L 03/26/16 04:36 [place] # 0.6 K/mm3 (0.0-0.8) 03/26/16 04:36 Eos # 0.1 K/mm3 (0.0-0.4) 03/26/16 04:36 Baso # 0.0 K/mm3 (0.0-0.1) 03/26/16 04:36 Seg Neutrophils % 70.3 % (40.0-70.0) H 03/26/16 04:36 Seg Neutrophils # 3.9 K/mm3 (1.8-7.7) 03/26/16 04:36 PT 14.5 Sec. (12.2-14.9) 03/26/16 04:36 INR 1.14 (0.87-1.13) H 03/26/16 04:36 APTT 26.4 Sec. (24.2-36.6) 03/24/16 13:35 Heparin Anti-Xa Level < 0.10 U.I./ml (0.3-0.7) L 03/26/16 04:36 Sodium 145 mmol/L (137-145) 03/26/16 04:36 Potassium 4.4 mmol/L (3.6-5.0) 03/26/16 04:36 Chloride 106.4 mmol/L (98-107) 03/26/16 04:36 Carbon Dioxide 27 mmol/L (22-30) 03/26/16 04:36 Anion Gap 16 mmol/L 03/26/16 04:36 BUN 33 mg/dL (9-20) H 03/26/16 04:36 Creatinine 1.6 mg/dL (0.8-1.5) H 03/26/16 04:36 Estimated GFR 54 ml/min 03/26/16 04:36 BUN/Creatinine Ratio 20.62 % 03/26/16 04:36 Glucose 95 mg/dL (75-100) 03/26/16 04:36 POC Glucose 93 (70-105) 03/26/16 07:36 Calcium 7.5 mg/dL (8.4-10.2) L 03/26/16 04:36 Total Bilirubin 1.3 mg/dL (0.1-1.2) H 03/25/16 04:21 AST 73 units/L (5-40) H 03/25/16 04:21 ALT 108 units/L (7-56) H 03/25/16 04:21 Alkaline Phosphatase 47 units/L (35-129) 03/25/16 04:21 Total Creatine Kinase 199 units/L (55-170) H 03/24/16 13:35 CK-MB (CK-2) 5.1 ng/mL (0.0-4.0) H 03/24/16 13:35 CK-MB (CK-2) Rel Index 2.5 (0-4) 03/24/16 13:35 Troponin T 0.052 ng/mL (0.00-0.029) H 03/24/16 13:35 NT-Pro-B Natriuret Pep 4652 pg/mL (0-900) H 03/24/16 13:35 Total Protein 6.7 g/dL (6.3-8.2) 03/25/16 04:21 Albumin 3.5 g/dL (3.9-5) L 03/25/16 04:21 Albumin/Globulin Ratio 1.1 % 03/25/16 04:21 Triglycerides 62 mg/dL (2-149) 03/24/16 13:35 Cholesterol 160 mg/dL (50-199) 03/24/16 13:35 LDL Cholesterol Direct 114 mg/dL (50-130) 03/24/16 13:35 HDL Cholesterol 37 mg/dL (40-59) L 03/24/16 13:35 Cholesterol/HDL Ratio 4.32 % 03/24/16 13:35
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
--- NOTE | 2016-03-26 10:03 | Progress Note ---
Assessment and Plan CHF exacerbation initiated on IV milrinone Persistent Atrial tachycardia given Adenosine 6mg then 12mg on IV cardizem Hypertension Non compliant with medications Recommendations IV cardizem for rate control of tachycardia. Obtain prior cardiac records for review of left ventricle function assessment and previous ischemic cardiac workup. Strict I's and O's Daily weights Subjective Date of service: 03/26/16 Principal diagnosis: Hypertensive Urgency; SVT Interval history: Atrial tachycardia persists on telemetry monitoring. Objective Vital Signs Temp Pulse Pulse Pulse Pulse Pulse Pulse 03/26/16 09:38 134 H 03/26/16 09:36 134 H 03/26/16 09:01 131 H 03/26/16 08:45 132 H 03/26/16 08:34 03/26/16 08:33 97 H 03/26/16 08:31 126 H 03/26/16 08:15 101 H 03/26/16 08:01 98 H 03/26/16 07:47 98.2 F 03/26/16 07:46 128 H 03/26/16 07:30 107 H 03/26/16 07:16 108 H 03/26/16 07:00 119 H 03/26/16 06:45 91 H 03/26/16 06:40 98 H 03/26/16 06:00 95 H 03/26/16 05:52 100 H 03/26/16 05:51 88 03/26/16 05:40 100 H 03/26/16 05:00 88 03/26/16 04:36 107 H 03/26/16 04:01 89 03/26/16 04:00 97.2 F L 03/26/16 03:24 87 03/26/16 03:12 87 03/26/16 03:00 86 03/26/16 02:37 88 03/26/16 02:29 88 03/26/16 02:00 84 03/26/16 01:56 87 03/26/16 01:44 88 03/26/16 01:42 87 03/26/16 01:36 87 03/26/16 01:34 65 03/26/16 01:24 82 03/26/16 01:22 66 03/26/16 01:00 87 03/26/16 00:28 107 H 03/26/16 00:06 96 H 03/26/16 00:04 93 H 03/26/16 00:01 92 H 03/26/16 00:00 98.2 F 94 H 03/25/16 23:54 98 H 03/25/16 23:00 84 03/25/16 22:14 131 H 03/25/16 22:12 100 H 03/25/16 22:06 130 H 03/25/16 22:00 101 H 03/25/16 21:26 03/25/16 21:20 99 H 03/25/16 21:07 88 03/25/16 21:00 88 03/25/16 20:25 101 H 03/25/16 20:20 102 H 03/25/16 20:00 98.3 F 94 H 20 L 20 L 20 L 20 L 03/25/16 19:56 89 03/25/16 19:00 92 H 03/25/16 18:00 101 H 03/25/16 17:22 100 H 03/25/16 17:00 104 H 03/25/16 16:00 100 H 03/25/16 15:43 97.6 F 03/25/16 15:25 131 H 03/25/16 15:24 131 H 03/25/16 15:00 131 H 03/25/16 14:00 131 H 03/25/16 13:30 132 H 03/25/16 13:00 131 H 03/25/16 12:00 131 H 03/25/16 11:47 97.3 F L 03/25/16 11:00 130 H Resp Resp BP Pulse Ox 03/26/16 09:38 131/66 03/26/16 09:36 131/66 03/26/16 09:01 24 139/58 99 03/26/16 08:45 28 H 112/67 100 03/26/16 08:34 92 03/26/16 08:33 18 03/26/16 08:31 19 115/73 95 03/26/16 08:15 24 119/95 97 03/26/16 08:01 23 129/94 94 03/26/16 07:47 03/26/16 07:46 26 H 142/97 97 03/26/16 07:30 25 H 129/91 99 03/26/16 07:16 25 H 128/92 98 03/26/16 07:00 25 H 133/104 98 03/26/16 06:45 25 H 132/90 98 03/26/16 06:40 23 144/94 97 03/26/16 06:00 23 135/77 99 03/26/16 05:52 26 H 135/77 97 03/26/16 05:51 23 135/77 97 03/26/16 05:40 23 119/72 98 03/26/16 05:00 43 H 123/80 96 03/26/16 04:36 23 124/79 95 03/26/16 04:01 18 129/81 96 03/26/16 04:00 16 100 03/26/16 03:24 16 136/88 96 03/26/16 03:12 22 132/81 96 03/26/16 03:00 15 122/80 95 03/26/16 02:37 16 03/26/16 02:29 16 03/26/16 02:00 17 130/77 96 03/26/16 01:56 16 126/80 96 03/26/16 01:44 18 137/90 97 03/26/16 01:42 18 137/90 97 03/26/16 01:36 17 137/90 95 03/26/16 01:34 16 137/90 96 03/26/16 01:24 14 127/95 96 03/26/16 01:22 15 127/95 96 03/26/16 01:00 16 123/70 97 03/26/16 00:28 25 H 113/80 94 03/26/16 00:06 28 H 128/72 97 03/26/16 00:04 27 H 128/72 97 03/26/16 00:01 13 128/72 95 03/26/16 00:00 15 128/72 95 03/25/16 23:54 19 121/76 95 03/25/16 23:00 28 H 123/82 95 03/25/16 22:14 23 134/80 95 03/25/16 22:12 134/80 03/25/16 22:06 26 H 134/80 88 03/25/16 22:00 26 H 134/80 96 03/25/16 21:26 97 03/25/16 21:20 19 03/25/16 21:07 16 03/25/16 21:00 20 120/77 88 12/29/16 20:25 120/87 03/25/16 20:20 22 120/87 96 03/25/16 20:00 24 121/85 100 03/25/16 19:56 19 103/82 96 03/25/16 19:00 19 123/86 94 03/25/16 18:00 25 H 100/76 95 03/25/16 17:22 18 162/87 95 03/25/16 17:00 22 157/85 95 03/25/16 16:00 25 H 140/82 94 03/25/16 15:43 03/25/16 15:25 140/96 03/25/16 15:24 140/96 03/25/16 15:00 16 130/107 97 03/25/16 14:00 25 H 158/104 94 03/25/16 13:30 146/104 03/25/16 13:00 29 H 144/92 94 03/25/16 12:00 20 121/79 94 03/25/16 11:47 03/25/16 11:00 18 135/78 66 L - Physical Examination General: No Apparent Distress HEENT: Positive: PERRL Cardiac: Positive: Tachycardia - Labs and Meds Coagulation 03/26/16 Range/Units 04:36 PT 14.5 (12.2-14.9) Sec. INR 1.14 H (0.87-1.13) CBC 03/26/16 Range/Units 04:36 WBC 5.5 (4.5-11.0) K/mm3 RBC 4.74 (3.65-5.03) M/mm3 Hgb 10.6 L (11.8-15.2) gm/dl Hct 34.6 L (35.5-45.6) % Plt Count 200 (140-440) K/mm3 Lymph # 0.9 L (1.2-5.4) K/mm3 [place] # 0.6 (0.0-0.8) K/mm3 Eos # 0.1 (0.0-0.4) K/mm3 Baso # 0.0 (0.0-0.1) K/mm3 Comprehensive Metabolic Panel 03/26/16 Range/Units 04:36 Sodium 145 (137-145) mmol/L Potassium 4.4 (3.6-5.0) mmol/L Chloride 106.4 (98-107) mmol/L Carbon Dioxide 27 (22-30) mmol/L BUN 33 H (9-20) mg/dL Creatinine 1.6 H (0.8-1.5) mg/dL Glucose 95 (75-100) mg/dL Calcium 7.5 L (8.4-10.2) mg/dL
[2016-03-26] MEDS: APRESOLINE PO SCH (11:30)
[2016-03-26] MEDS ORDERED: NACL 0.9% 500 ML IV ONE (14:00)
[2016-03-26] MEDS ORDERED: CORDARONE 150 MG in D5W 97 ML IV ONE (14:21)
[2016-03-26] MEDS: LANOXIN IV SCH ×2 (15:17→18:58)
[2016-03-26] MEDS: CORDARONE 900 MG in D5W 482 ML IV SCH ×2 (16:15→22:15)
[2016-03-26] MEDS: COUMADIN PO SCH (17:57)
[2016-03-27] MEDS: DUONEB 0.5 MG-3 MG/3 ML SOLN IH SCH ×4 (02:29→20:17)
[2016-03-27] MEDS: PRIMACOR 20 MG in D5W 80 ML IV SCH ×2 (03:53→11:06)
[2016-03-27] MEDS: LASIX IV SCH ×2 (05:58→17:42)
[2016-03-27 06:03] LABS: INR 1.17 (0.87-1.13)
--- NOTE | 2016-03-27 09:26 | Progress Note ---
Assessment and Plan Assessment and plan: 1. Persistent atrial tachycardia. Patient with narrow complex tachycardia which required IV Cardizem therapy. Continue regular control with Cardizem, digoxin, amiodarone and beta blockers. Cardiology following. 2. Hypotension. Etiology cardiogenic. Continue milrinone per cardiology. 3. Severe dilated cardiomyopathy. Echocardiogram reveals ejection fraction of 15%. Continue milrinone and diuretic therapy. 4. Acute systolic CHF exacerbation. As above. 5. Acute hypoxic respiratory failure compensated with O2. Continue O2 for supportive care. BiPAP when necessary. 6. DVT prophylaxis. Continue Lovenox. The high probability of a clinically significant, sudden or life threatening deterioration of the [cardiovascular] system(s) required my full and direct attention, intervention and personal management. The aggregate critical care time was [31] minutes. This time is in addition to time spent performing reported procedures but includes the following: [x] Data Review and interpretation [x] Patient assessment and monitoring of vital signs [x] Documentation [x] Medication orders and management History Interval history: 55-year-old male admitted with acute respiratory failure, accelerated hypertension requiring Cardizem drip and acute CHF exacerbation. Patient currently denies any chest pain or shortness of breath. Hospitalist Physical - Constitutional Vitals: Temp Pulse Resp BP Pulse Ox 98.3 F 130 H 18 104/70 97 03/27/16 04:00 03/27/16 07:54 03/27/16 07:54 03/27/16 06:00 03/27/16 07:55 General appearance: Present: mild distress - EENT Eyes: Present: PERRL, EOM intact ENT: hearing intact, clear oral mucosa, dentition normal - Neck Neck: Present: supple, normal ROM - Respiratory Respiratory effort: normal Respiratory: bilateral: diminished, rales - Cardiovascular Rhythm: regular Heart Sounds: Present: S1 & S2. Absent: gallop, rub - Extremities Extremities: no ischemia, No edema, Full ROM - Abdominal General gastrointestinal: soft, non-tender, non-distended, normal bowel sounds - Integumentary Integumentary: Present: clear, warm, dry - Neurologic Neurologic: CNII-XII intact, moves all extremities Results - Labs CBC & Chem 7: 03/26/16 04:36 03/26/16 04:36 Labs: Laboratory Last Values WBC 5.5 K/mm3 (4.5-11.0) 03/26/16 04:36 RBC 4.74 M/mm3 (3.65-5.03) 03/26/16 04:36 Hgb 10.6 gm/dl (11.8-15.2) L 03/26/16 04:36 Hct 34.6 % (35.5-45.6) L 03/26/16 04:36 MCV 73 fl (84-94) L 03/26/16 04:36 MCH 22 pg (28-32) L 03/26/16 04:36 MCHC 31 % (32-34) L 03/26/16 04:36 RDW 16.2 % (13.2-15.2) H 03/26/16 04:36 Plt Count 200 K/mm3 (140-440) 03/26/16 04:36 Lymph % (Auto) 16.1 % (13.4-35.0) 03/26/16 04:36 [place] % (Auto) 11.7 % (0.0-7.3) H 03/26/16 04:36 Eos % (Auto) 1.5 % (0.0-4.3) 03/26/16 04:36 Baso % (Auto) 0.4 % (0.0-1.8) 03/26/16 04:36 Lymph # 0.9 K/mm3 (1.2-5.4) L 03/26/16 04:36 [place] # 0.6 K/mm3 (0.0-0.8) 03/26/16 04:36 Eos # 0.1 K/mm3 (0.0-0.4) 03/26/16 04:36 Baso # 0.0 K/mm3 (0.0-0.1) 03/26/16 04:36 Seg Neutrophils % 70.3 % (40.0-70.0) H 03/26/16 04:36 Seg Neutrophils # 3.9 K/mm3 (1.8-7.7) 03/26/16 04:36 PT 14.8 Sec. (12.2-14.9) 03/27/16 05:17 INR 1.17 (0.87-1.13) H 03/27/16 05:17 APTT 26.4 Sec. (24.2-36.6) 03/24/16 13:35 Heparin Anti-Xa Level < 0.10 U.I./ml (0.3-0.7) L 03/26/16 04:36 Sodium 145 mmol/L (137-145) 03/26/16 04:36 Potassium 4.4 mmol/L (3.6-5.0) 03/26/16 04:36 Chloride 106.4 mmol/L (98-107) 03/26/16 04:36 Carbon Dioxide 27 mmol/L (22-30) 03/26/16 04:36 Anion Gap 16 mmol/L 03/26/16 04:36 BUN 33 mg/dL (9-20) H 03/26/16 04:36 Creatinine 1.6 mg/dL (0.8-1.5) H 03/26/16 04:36 Estimated GFR 54 ml/min 03/26/16 04:36 BUN/Creatinine Ratio 20.62 % 03/26/16 04:36 Glucose 95 mg/dL (75-100) 03/26/16 04:36 POC Glucose 111 (70-105) H 03/26/16 21:20 Calcium 7.5 mg/dL (8.4-10.2) L 03/26/16 04:36 Total Bilirubin 1.3 mg/dL (0.1-1.2) H 03/25/16 04:21 AST 73 units/L (5-40) H 03/25/16 04:21 ALT 108 units/L (7-56) H 03/25/16 04:21 Alkaline Phosphatase 47 units/L (35-129) 03/25/16 04:21 Total Creatine Kinase 199 units/L (55-170) H 03/24/16 13:35 CK-MB (CK-2) 5.1 ng/mL (0.0-4.0) H 03/24/16 13:35 CK-MB (CK-2) Rel Index 2.5 (0-4) 03/24/16 13:35 Troponin T 0.052 ng/mL (0.00-0.029) H 03/24/16 13:35 NT-Pro-B Natriuret Pep 4652 pg/mL (0-900) H 03/24/16 13:35 Total Protein 6.7 g/dL (6.3-8.2) 03/25/16 04:21 Albumin 3.5 g/dL (3.9-5) L 03/25/16 04:21 Albumin/Globulin Ratio 1.1 % 03/25/16 04:21 Triglycerides 62 mg/dL (2-149) 03/24/16 13:35 Cholesterol 160 mg/dL (50-199) 03/24/16 13:35 LDL Cholesterol Direct 114 mg/dL (50-130) 03/24/16 13:35 HDL Cholesterol 37 mg/dL (40-59) L 03/24/16 13:35 Cholesterol/HDL Ratio 4.32 % 03/24/16 13:35
[2016-03-27] MEDS: COREG PO SCH ×2 (10:19→22:00)
[2016-03-27] MEDS: K-DUR PO SCH ×2 (10:19→22:00)
[2016-03-27] MEDS: BABY ASPIRIN PO SCH (10:19)
[2016-03-27] MEDS: PEPCID PO SCH ×2 (10:19→22:00)
[2016-03-27] MEDS: FEOSOL PO SCH ×2 (10:19→22:00)
[2016-03-27] MEDS: LOVENOX SUB-Q SCH (10:20)
[2016-03-27] MEDS: DIOVAN PO SCH (10:20)
--- NOTE | 2016-03-27 11:17 | Progress Note ---
Assessment and Plan Assessment and Plan CHF exacerbation Persistent Atrial tachycardia Hypertension Non compliant with medications Recommendations Continue present management Subjective Date of service: 03/27/16 Principal diagnosis: Hypertensive Urgency; SVT Interval history: No cardiac complains. Objective Vital Signs Temp Pulse Pulse Pulse Pulse Pulse Pulse 03/27/16 08:00 98.0 F 61 03/27/16 07:55 03/27/16 07:54 130 H 03/27/16 07:40 131 H 03/27/16 06:00 102 H 03/27/16 05:45 100 H 03/27/16 05:31 129 H 03/27/16 05:15 129 H 03/27/16 05:01 128 H 03/27/16 04:45 94 H 03/27/16 04:30 114 H 03/27/16 04:23 128 H 03/27/16 04:15 122 H 03/27/16 04:00 98.3 F 129 H 03/27/16 03:45 116 H 03/27/16 03:43 99 H 03/27/16 03:31 104 H 03/27/16 03:15 76 03/27/16 03:00 121 H 03/27/16 02:46 88 03/27/16 02:45 86 03/27/16 02:31 100 H 88 03/27/16 02:15 90 03/27/16 02:01 130 H 03/27/16 01:45 107 H 03/27/16 01:35 130 H 03/27/16 01:31 130 H 03/27/16 01:15 131 H 03/27/16 01:01 130 H 03/27/16 00:45 130 H 03/27/16 00:31 130 H 03/27/16 00:15 130 H 03/27/16 00:01 130 H 03/27/16 00:00 98.7 F 03/26/16 23:45 130 H 03/26/16 23:35 132 H 03/26/16 23:30 129 H 03/26/16 23:15 128 H 03/26/16 23:01 113 H 03/26/16 22:45 114 H 03/26/16 22:30 122 H 03/26/16 22:15 85 03/26/16 22:01 127 H 03/26/16 21:45 107 H 03/26/16 21:35 109 H 03/26/16 21:31 100 H 03/26/16 21:19 124 H 03/26/16 21:18 124 H 03/26/16 21:17 124 H 03/26/16 21:15 128 H 03/26/16 21:03 125 H 03/26/16 21:01 113 H 03/26/16 20:56 90 03/26/16 20:45 128 H 03/26/16 20:31 104 H 03/26/16 20:15 104 H 03/26/16 20:01 122 H 03/26/16 20:00 98.2 F 105 H 111 H 108 H 113 H 03/26/16 19:45 98 H 03/26/16 19:31 97 H 03/26/16 19:15 85 03/26/16 19:05 117 H 03/26/16 19:01 107 H 03/26/16 18:58 116 H 03/26/16 18:54 102 H 03/26/16 18:45 117 H 03/26/16 18:31 104 H 03/26/16 18:15 110 H 03/26/16 18:01 103 H 03/26/16 17:45 88 03/26/16 17:31 108 H 03/26/16 17:15 76 03/26/16 17:01 112 H 03/26/16 16:45 131 H 03/26/16 16:30 120 H 03/26/16 16:15 117 H 03/26/16 16:14 96 H 03/26/16 16:01 114 H 03/26/16 16:00 97.0 F L 03/26/16 15:45 118 H 03/26/16 15:31 110 H 03/26/16 15:17 133 H 03/26/16 15:15 132 H 03/26/16 15:00 132 H 03/26/16 14:45 131 H 03/26/16 14:30 131 H 03/26/16 14:15 131 H 03/26/16 14:00 133 H 03/26/16 13:45 133 H 03/26/16 13:30 132 H 03/26/16 13:19 133 H 03/26/16 13:15 133 H 03/26/16 13:00 135 H 03/26/16 12:45 134 H 12/30/16 12:30 135 H 03/26/16 12:15 134 H 03/26/16 12:01 134 H 03/26/16 12:00 97.4 F L 03/26/16 11:45 134 H 03/26/16 11:31 134 H 03/26/16 11:30 133 H 03/26/16 11:15 134 H Resp Resp BP BP Pulse Ox 03/27/16 08:00 20 157/80 93 03/27/16 07:55 97 03/27/16 07:54 18 03/27/16 07:40 21 03/27/16 06:00 21 104/70 96 03/27/16 05:45 22 110/69 96 03/27/16 05:31 20 116/68 96 03/27/16 05:15 16 116/68 96 03/27/16 05:01 35 H 102/63 97 03/27/16 04:45 20 92/63 96 03/27/16 04:30 22 99/71 94 03/27/16 04:23 20 100/72 95 03/27/16 04:15 13 100/72 94 03/27/16 04:00 21 97/67 95 03/27/16 03:45 19 96/50 95 03/27/16 03:43 19 96/50 95 03/27/16 03:31 18 96/50 93 03/27/16 03:15 19 96/46 83 L 03/27/16 03:00 20 98/54 94 03/27/16 02:46 20 03/27/16 02:45 20 98/54 96 03/27/16 02:31 19 18 92/52 100 03/27/16 02:15 14 78/46 96 03/27/16 02:01 24 78/46 95 03/27/16 01:45 22 109/66 96 03/27/16 01:35 21 109/66 96 03/27/16 01:31 22 109/66 96 03/27/16 01:15 25 H 124/73 96 03/27/16 01:01 24 146/93 96 03/27/16 00:45 25 H 148/69 95 03/27/16 00:31 19 155/83 97 03/27/16 00:15 22 157/85 96 03/27/16 00:01 28 H 157/85 94 03/27/16 00:00 100 03/26/16 23:45 25 H 157/85 98 03/26/16 23:35 156/81 03/26/16 23:30 22 148/91 96 03/26/16 23:15 21 148/91 96 03/26/16 23:01 21 144/81 99 03/26/16 22:45 23 163/85 95 03/26/16 22:30 21 132/81 97 03/26/16 22:15 18 102/59 94 03/26/16 22:01 18 115/70 97 03/26/16 21:45 32 H 102/59 96 03/26/16 21:35 19 03/26/16 21:31 26 H 105/65 100 03/26/16 21:19 16 105/65 100 03/26/16 21:18 19 96 03/26/16 21:17 24 105/65 98 03/26/16 21:15 26 H 105/65 97 03/26/16 21:03 20 105/61 97 03/26/16 21:01 17 115/68 97 03/26/16 20:56 21 115/68 96 03/26/16 20:45 17 136/90 97 03/26/16 20:31 26 H 125/62 92 03/26/16 20:15 22 125/62 97 03/26/16 20:01 32 H 128/63 95 03/26/16 20:00 21 100 03/26/16 19:45 29 H 146/91 93 03/26/16 19:31 29 H 146/91 88 03/26/16 19:15 20 106/61 96 03/26/16 19:05 20 106/61 95 03/26/16 19:01 17 106/61 94 03/26/16 18:58 97/67 03/26/16 18:54 21 97/67 94 03/26/16 18:45 21 97/67 95 03/26/16 18:31 24 98/51 97 03/26/16 18:15 19 99/62 94 03/26/16 18:01 21 100/71 94 03/26/16 17:45 16 112/54 93 03/26/16 17:31 20 112/54 94 03/26/16 17:15 22 104/67 90 03/26/16 17:01 22 91/32 95 03/26/16 16:45 17 83/39 96 03/26/16 16:30 20 77/45 100 03/26/16 16:15 20 78/34 99 03/26/16 16:14 21 03/26/16 16:01 17 70/50 95 03/26/16 16:00 18 96 03/26/16 15:45 20 69/40 96 03/26/16 15:31 20 92/48 94 03/26/16 15:17 98/66 03/26/16 15:15 22 98/66 96 03/26/16 15:00 28 H 98/66 95 03/26/16 14:45 25 H 84/63 95 03/26/16 14:30 13 89/60 95 03/26/16 14:15 16 83/39 96 03/26/16 14:00 22 87/39 96 03/26/16 13:45 18 71/44 95 03/26/16 13:30 17 82/49 96 03/26/16 13:19 23 81/42 94 03/26/16 13:15 22 81/42 94 03/26/16 13:00 19 113/74 95 03/26/16 12:45 22 113/74 93 03/26/16 12:30 18 113/74 95 03/26/16 12:15 19 110/61 92 03/26/16 12:01 17 92/62 94 03/26/16 12:00 20 03/26/16 11:45 22 92/62 95 03/26/16 11:31 26 H 83/44 95 03/26/16 11:30 83/44 03/26/16 11:15 19 98/22 95 - Physical Examination General: No Apparent Distress HEENT: Positive: PERRL Neck: Positive: neck supple, trachea midline Cardiac: Positive: Regular Rate, S1/S2, Laterally Displaced Lungs: Positive: clear to auscultation, No Wheeze, Rales, Rhonchi Neuro: Positive: Grossly Intact Abdomen: Positive: Unremarkable, Active Bowel Sounds - Labs and Meds Coagulation 03/27/16 Range/Units 05:17 PT 14.8 (12.2-14.9) Sec. INR 1.17 H (0.87-1.13)
--- NOTE | 2016-03-27 11:19 | Progress Note ---
Assessment and Plan (1) Acute on chronic congestive heart failure Current Visit: Yes Status: Acute Qualifiers: Congestive heart failure type: unspecified congestive heart failure type Qualified Code(s): I50.9 - Heart failure, unspecified Plan to address problem: - continue diuresis - repeat CXT prn - supplemental oxygen to keep sats > 92% - per cardiology recs (2) Atrial fibrillation Current Visit: Yes Status: Acute Plan to address problem: - on amiodarone - per cardiology recs (3) RAJANI (obstructive sleep apnea) Current Visit: Yes Status: Acute Plan to address problem: - outpatient PSG - weight loss counselled Subjective Date of service: 03/27/16 Principal diagnosis: Hypertensive Urgency; SVT Interval history: Seen and examined at bedside; 24 hour events reviewed; nursing and respiratory care staff consulted; no adverse overnight events reported to me; states that he feels better; on supplemental oxygen; no N/V/F/C/acute chest pains Objective Vital Signs - 12hr 03/26/16 03/26/16 03/26/16 23:30 23:35 23:45 Temperature Pulse Rate 129 H 132 H 130 H Pulse Rate [ Anterior Bilateral Throughout] Pulse Rate [ Right Dorsalis Pedis] Respiratory 22 25 H Rate Respiratory Rate [Anterior Bilateral Throughout] Blood Pressure 148/91 156/81 157/85 Blood Pressure [Left Arm] O2 Sat by Pulse 96 98 Oximetry 03/27/16 03/27/16 03/27/16 00:00 00:01 00:15 Temperature 98.7 F Pulse Rate 130 H 130 H Pulse Rate [ Anterior Bilateral Throughout] Pulse Rate [ Right Dorsalis Pedis] Respiratory 28 H 22 Rate Respiratory Rate [Anterior Bilateral Throughout] Blood Pressure 157/85 157/85 Blood Pressure [Left Arm] O2 Sat by Pulse 100 94 96 Oximetry 03/27/16 03/27/16 03/27/16 00:31 00:45 01:01 Temperature Pulse Rate 130 H 130 H 130 H Pulse Rate [ Anterior Bilateral Throughout] Pulse Rate [ Right Dorsalis Pedis] Respiratory 19 25 H 24 Rate Respiratory Rate [Anterior Bilateral Throughout] Blood Pressure 155/83 148/69 146/93 Blood Pressure [Left Arm] O2 Sat by Pulse 97 95 96 Oximetry 03/27/16 03/27/16 03/27/16 01:15 01:31 01:35 Temperature Pulse Rate 131 H 130 H 130 H Pulse Rate [ Anterior Bilateral Throughout] Pulse Rate [ Right Dorsalis Pedis] Respiratory 25 H 22 21 Rate Respiratory Rate [Anterior Bilateral Throughout] Blood Pressure 124/73 109/66 109/66 Blood Pressure [Left Arm] O2 Sat by Pulse 96 96 96 Oximetry 03/27/16 03/27/16 03/27/16 01:45 02:01 02:15 Temperature Pulse Rate 107 H 130 H 90 Pulse Rate [ Anterior Bilateral Throughout] Pulse Rate [ Right Dorsalis Pedis] Respiratory 22 24 14 Rate Respiratory Rate [Anterior Bilateral Throughout] Blood Pressure 109/66 78/46 78/46 Blood Pressure [Left Arm] O2 Sat by Pulse 96 95 96 Oximetry 03/27/16 03/27/16 03/27/16 02:31 02:45 02:46 Temperature Pulse Rate 100 H 86 Pulse Rate [ 88 88 Anterior Bilateral Throughout] Pulse Rate [ Right Dorsalis Pedis] Respiratory 19 20 Rate Respiratory 18 20 Rate [Anterior Bilateral Throughout] Blood Pressure 92/52 98/54 Blood Pressure [Left Arm] O2 Sat by Pulse 100 96 Oximetry 03/27/16 03/27/16 03/27/16 03:00 03:15 03:31 Temperature Pulse Rate 121 H 76 104 H Pulse Rate [ Anterior Bilateral Throughout] Pulse Rate [ Right Dorsalis Pedis] Respiratory 20 19 18 Rate Respiratory Rate [Anterior Bilateral Throughout] Blood Pressure 98/54 96/46 96/50 Blood Pressure [Left Arm] O2 Sat by Pulse 94 83 L 93 Oximetry 03/27/16 03/27/16 03/27/16 03:43 03:45 04:00 Temperature 98.3 F Pulse Rate 99 H 116 H 129 H Pulse Rate [ Anterior Bilateral Throughout] Pulse Rate [ Right Dorsalis Pedis] Respiratory 19 19 21 Rate Respiratory Rate [Anterior Bilateral Throughout] Blood Pressure 96/50 96/50 97/67 Blood Pressure [Left Arm] O2 Sat by Pulse 95 95 95 Oximetry 03/27/16 03/27/16 03/27/16 04:15 04:23 04:30 Temperature Pulse Rate 122 H 128 H 114 H Pulse Rate [ Anterior Bilateral Throughout] Pulse Rate [ Right Dorsalis Pedis] Respiratory 13 20 22 Rate Respiratory Rate [Anterior Bilateral Throughout] Blood Pressure 100/72 100/72 99/71 Blood Pressure [Left Arm] O2 Sat by Pulse 94 95 94 Oximetry 03/27/16 03/27/16 03/27/16 04:45 05:01 05:15 Temperature Pulse Rate 94 H 128 H 129 H Pulse Rate [ Anterior Bilateral Throughout] Pulse Rate [ Right Dorsalis Pedis] Respiratory 20 35 H 16 Rate Respiratory Rate [Anterior Bilateral Throughout] Blood Pressure 92/63 102/63 116/68 Blood Pressure [Left Arm] O2 Sat by Pulse 96 97 96 Oximetry 03/27/16 03/27/16 03/27/16 05:31 05:45 06:00 Temperature Pulse Rate 129 H 100 H 102 H Pulse Rate [ Anterior Bilateral Throughout] Pulse Rate [ Right Dorsalis Pedis] Respiratory 20 22 21 Rate Respiratory Rate [Anterior Bilateral Throughout] Blood Pressure 116/68 110/69 104/70 Blood Pressure [Left Arm] O2 Sat by Pulse 96 96 96 Oximetry 03/27/16 03/27/16 03/27/16 07:40 07:54 07:55 Temperature Pulse Rate Pulse Rate [ 131 H 130 H Anterior Bilateral Throughout] Pulse Rate [ Right Dorsalis Pedis] Respiratory Rate Respiratory 21 18 Rate [Anterior Bilateral Throughout] Blood Pressure Blood Pressure [Left Arm] O2 Sat by Pulse 97 Oximetry 03/27/16 08:00 Temperature 98.0 F Pulse Rate Pulse Rate [ Anterior Bilateral Throughout] Pulse Rate [ 61 Right Dorsalis Pedis] Respiratory 20 Rate Respiratory Rate [Anterior Bilateral Throughout] Blood Pressure Blood Pressure 157/80 [Left Arm] O2 Sat by Pulse 93 Oximetry Constitutional: no acute distress, alert Eyes: non-icteric ENT: oropharynx moist Neck: supple, no lymphadenopathy Effort: mildly labored Ascultation: Bilateral: diminished breath sounds, rhonchi (bases) Cardiovascular: regular rate and rhythm Gastrointestinal: normoactive bowel sounds, soft, non-tender, non-distended Integumentary: normal Extremities: no cyanosis, pulses normal, no ischemia or petechiae, edema (trace) Neurologic: normal mental status, non-focal exam, pupils equal and round, motor strength normal and Psychiatric: mood appropriate, affect normal CBC and BMP: 03/26/16 04:36 03/26/16 04:36 ABG, PT/INR, D-dimer: PT/INR, D-dimer PT 14.8 Sec. (12.2-14.9) 03/27/16 05:17 INR 1.17 (0.87-1.13) H 03/27/16 05:17 Abnormal lab findings: Abnormal Labs 03/25/16 03/25/16 03/25/16 04:21 04:21 08:21 RBC 5.35 H Hgb Hct MCV 72 L MCH 22 L MCHC 31 L RDW 16.1 H [place] % (Auto) 13.4 H Lymph # [place] # 1.1 H Seg Neutrophils % INR Heparin Anti-Xa Level BUN 37 H Creatinine 1.9 H Glucose 113 H POC Glucose 111 H Calcium 8.2 L Total Bilirubin 1.3 H AST 73 H ALT 108 H Albumin 3.5 L 03/25/16 03/25/16 03/26/16 11:35 15:30 04:36 RBC Hgb 10.6 L Hct 34.6 L MCV 73 L MCH 22 L MCHC 31 L RDW 16.2 H [place] % (Auto) 11.7 H Lymph # 0.9 L [place] # Seg Neutrophils % 70.3 H INR Heparin Anti-Xa Level BUN Creatinine Glucose POC Glucose 141 H 121 H Calcium Total Bilirubin AST ALT Albumin 03/26/16 03/26/16 03/26/16 04:36 04:36 16:13 RBC Hgb Hct MCV MCH MCHC RDW [place] % (Auto) Lymph # [place] # Seg Neutrophils % INR 1.14 H Heparin Anti-Xa Level < 0.10 L BUN 33 H Creatinine 1.6 H Glucose POC Glucose 138 H Calcium 7.5 L Total Bilirubin AST ALT Albumin 03/26/16 03/27/16 21:20 05:17 RBC Hgb Hct MCV MCH MCHC RDW [place] % (Auto) Lymph # [place] # Seg Neutrophils % INR 1.17 H Heparin Anti-Xa Level BUN Creatinine Glucose POC Glucose 111 H Calcium Total Bilirubin AST ALT Albumin Chest x-ray: image reviewed
[2016-03-27] MEDS ORDERED: PROVENTIL IH PRN (14:32)
[2016-03-27] MEDS: LANOXIN PO SCH (17:41)
[2016-03-27] MEDS: COUMADIN PO SCH (17:41)
[2016-03-28] MEDS: PRIMACOR 20 MG in D5W 80 ML IV SCH ×4 (01:34→23:40)
[2016-03-28] MEDS: DUONEB 0.5 MG-3 MG/3 ML SOLN IH SCH ×4 (01:58→20:03)
[2016-03-28] MEDS: LASIX IV SCH ×2 (06:00→18:06)
--- NOTE | 2016-03-28 10:33 | Progress Note ---
Assessment and Plan Assessment and plan: 1. Persistent atrial tachycardia. Patient with narrow complex tachycardia which required IV Cardizem therapy. Continue regular control with Cardizem, digoxin, amiodarone and beta blockers. Cardiology following. 2. Hypotension. Etiology cardiogenic. Continue milrinone per cardiology. 3. Severe dilated cardiomyopathy. Echocardiogram reveals ejection fraction of 15%. Continue milrinone and diuretic therapy per cardiology. 4. Acute systolic CHF exacerbation. As above. 5. Acute hypoxic respiratory failure compensated with O2. Continue O2 for supportive care. BiPAP when necessary. 6. DVT prophylaxis. Continue Lovenox. History Interval history: 55-year-old male admitted with acute respiratory failure, accelerated hypertension and acute CHF exacerbation. Patient currently denies any chest pain or shortness of breath. Patient currently on milrinone and Cardizem drips Hospitalist Physical - Constitutional Vitals: Temp Pulse Resp BP Pulse Ox 98.3 F 66 20 142/93 99 03/28/16 08:33 03/28/16 10:23 03/28/16 10:23 03/28/16 08:33 03/28/16 10:12 General appearance: Present: no acute distress - EENT Eyes: Present: PERRL, EOM intact ENT: hearing intact, clear oral mucosa, dentition normal - Neck Neck: Present: supple, normal ROM - Respiratory Respiratory effort: normal Respiratory: bilateral: diminished, rales - Cardiovascular Rhythm: regular Heart Sounds: Present: S1 & S2. Absent: gallop, rub - Extremities Extremities: no ischemia, No edema, Full ROM - Abdominal General gastrointestinal: soft, non-tender, non-distended, normal bowel sounds - Integumentary Integumentary: Present: clear, warm, dry - Neurologic Neurologic: CNII-XII intact, moves all extremities Results - Labs CBC & Chem 7: 03/26/16 04:36 03/26/16 04:36 Labs: Laboratory Last Values WBC 5.5 K/mm3 (4.5-11.0) 03/26/16 04:36 RBC 4.74 M/mm3 (3.65-5.03) 03/26/16 04:36 Hgb 10.6 gm/dl (11.8-15.2) L 03/26/16 04:36 Hct 34.6 % (35.5-45.6) L 03/26/16 04:36 MCV 73 fl (84-94) L 03/26/16 04:36 MCH 22 pg (28-32) L 03/26/16 04:36 MCHC 31 % (32-34) L 03/26/16 04:36 RDW 16.2 % (13.2-15.2) H 03/26/16 04:36 Plt Count 200 K/mm3 (140-440) 03/26/16 04:36 Lymph % (Auto) 16.1 % (13.4-35.0) 03/26/16 04:36 [place] % (Auto) 11.7 % (0.0-7.3) H 03/26/16 04:36 Eos % (Auto) 1.5 % (0.0-4.3) 03/26/16 04:36 Baso % (Auto) 0.4 % (0.0-1.8) 03/26/16 04:36 Lymph # 0.9 K/mm3 (1.2-5.4) L 03/26/16 04:36 [place] # 0.6 K/mm3 (0.0-0.8) 03/26/16 04:36 Eos # 0.1 K/mm3 (0.0-0.4) 03/26/16 04:36 Baso # 0.0 K/mm3 (0.0-0.1) 03/26/16 04:36 Seg Neutrophils % 70.3 % (40.0-70.0) H 03/26/16 04:36 Seg Neutrophils # 3.9 K/mm3 (1.8-7.7) 03/26/16 04:36 PT 14.8 Sec. (12.2-14.9) 03/27/16 05:17 INR 1.17 (0.87-1.13) H 03/27/16 05:17 APTT 26.4 Sec. (24.2-36.6) 03/24/16 13:35 Heparin Anti-Xa Level < 0.10 U.I./ml (0.3-0.7) L 03/26/16 04:36 Sodium 145 mmol/L (137-145) 03/26/16 04:36 Potassium 4.4 mmol/L (3.6-5.0) 03/26/16 04:36 Chloride 106.4 mmol/L (98-107) 03/26/16 04:36 Carbon Dioxide 27 mmol/L (22-30) 03/26/16 04:36 Anion Gap 16 mmol/L 03/26/16 04:36 BUN 33 mg/dL (9-20) H 03/26/16 04:36 Creatinine 1.6 mg/dL (0.8-1.5) H 03/26/16 04:36 Estimated GFR 54 ml/min 03/26/16 04:36 BUN/Creatinine Ratio 20.62 % 03/26/16 04:36 Glucose 95 mg/dL (75-100) 03/26/16 04:36 POC Glucose 126 (70-105) H 03/27/16 22:11 Calcium 7.5 mg/dL (8.4-10.2) L 03/26/16 04:36 Total Bilirubin 1.3 mg/dL (0.1-1.2) H 03/25/16 04:21 AST 73 units/L (5-40) H 03/25/16 04:21 ALT 108 units/L (7-56) H 03/25/16 04:21 Alkaline Phosphatase 47 units/L (35-129) 03/25/16 04:21 Total Creatine Kinase 199 units/L (55-170) H 03/24/16 13:35 CK-MB (CK-2) 5.1 ng/mL (0.0-4.0) H 03/24/16 13:35 CK-MB (CK-2) Rel Index 2.5 (0-4) 03/24/16 13:35 Troponin T 0.052 ng/mL (0.00-0.029) H 03/24/16 13:35 NT-Pro-B Natriuret Pep 4652 pg/mL (0-900) H 03/24/16 13:35 Total Protein 6.7 g/dL (6.3-8.2) 03/25/16 04:21 Albumin 3.5 g/dL (3.9-5) L 03/25/16 04:21 Albumin/Globulin Ratio 1.1 % 03/25/16 04:21 Triglycerides 62 mg/dL (2-149) 03/24/16 13:35 Cholesterol 160 mg/dL (50-199) 03/24/16 13:35 LDL Cholesterol Direct 114 mg/dL (50-130) 03/24/16 13:35 HDL Cholesterol 37 mg/dL (40-59) L 03/24/16 13:35 Cholesterol/HDL Ratio 4.32 % 03/24/16 13:35
[2016-03-28] MEDS: COREG PO SCH ×2 (10:46→21:19)
[2016-03-28] MEDS: FEOSOL PO SCH ×2 (10:46→21:21)
[2016-03-28] MEDS: PEPCID PO SCH ×2 (10:46→21:19)
[2016-03-28] MEDS: DIOVAN PO SCH (10:46)
[2016-03-28] MEDS: BABY ASPIRIN PO SCH (10:46)
[2016-03-28] MEDS: K-DUR PO SCH ×2 (10:47→21:21)
[2016-03-28] MEDS: CORDARONE PO SCH (10:47)
[2016-03-28] MEDS: LOVENOX SUB-Q SCH (10:47)
[2016-03-28 11:04] LABS: INR > 17.67 (0.87-1.13)
--- NOTE | 2016-03-28 12:46 | Progress Note ---
Assessment and Plan 1. Acute decompensated chronic combined systolic and diastolic heart failure. 2. Dilated cardiomyopathy with four-chamber dilation LV ejection fraction 10-15 % 3. Persistent Atrial fibrillation a rapid ventricular response 114 4. Essential hypertension 5. Moderate to severe obesity 6. Obstructive sleep apnea Plan. Patient's [place] better. We will continue diuresis and IV Milirone drip. Continue to monitor daily weight. Subjective Date of service: 03/28/16 Principal diagnosis: Cardiomyopathy Interval history: No cardiac complains. Objective Vital Signs Temp Pulse Pulse Pulse Pulse Resp Resp 03/28/16 10:46 118 H 03/28/16 10:23 66 20 03/28/16 10:13 86 20 03/28/16 10:12 03/28/16 08:33 98.3 F 67 20 03/28/16 08:20 118 H 18 03/28/16 08:13 118 H 03/28/16 00:31 98.8 F 65 18 03/27/16 22:00 122 H 03/27/16 20:43 03/27/16 20:19 67 20 03/27/16 20:00 98.2 F 129 H 19 03/27/16 17:41 122 H 03/27/16 16:00 98.9 F 126 H 20 03/27/16 14:35 60 20 03/27/16 14:30 03/27/16 14:24 103 H 20 BP BP Pulse Ox 03/28/16 10:46 142/92 03/28/16 10:23 03/28/16 10:13 03/28/16 10:12 99 03/28/16 08:33 142/93 97 03/28/16 08:20 98 03/28/16 08:13 03/28/16 00:31 104/53 03/27/16 22:00 125/94 03/27/16 20:43 95 03/27/16 20:19 03/27/16 20:00 122/80 99 03/27/16 17:41 147/78 03/27/16 16:00 129/89 96 03/27/16 14:35 03/27/16 14:30 94 03/27/16 14:24 - Physical Examination General: No Apparent Distress, Other (Obese) HEENT: Positive: PERRL Neck: Positive: neck supple, trachea midline. Negative: JVD/HJR Cardiac: Positive: irregularly irregular, S1/S2, S3, Gallop, PMI, Dilated, Laterally Displaced Lungs: Positive: clear to auscultation, No Wheeze, Rales, Rhonchi Neuro: Positive: Grossly Intact Abdomen: Positive: Unremarkable, Active Bowel Sounds Extremities: Present: +2 Edema - Labs and Meds Coagulation 03/28/16 Range/Units 09:13 PT > 120.0 H (12.2-14.9) Sec. INR > 17.67 H* (0.87-1.13) - Telemetry EKG Rhythm: Atrial Fibrillation
--- NOTE | 2016-03-28 14:10 | Progress Note ---
Assessment and Plan - Patient Problems (1) Acute on chronic congestive heart failure Current Visit: Yes Status: Acute Qualifiers: Congestive heart failure type: unspecified congestive heart failure type Qualified Code(s): I50.9 - Heart failure, unspecified Plan to address problem: - continue diuresis - on milrinone - follow cardiology recs (2) Atrial fibrillation Current Visit: Yes Status: Acute Plan to address problem: - on amiodarone now - on coreg re: CHF - per cardiology recs (3) RAJANI (obstructive sleep apnea) Current Visit: Yes Status: Acute Plan to address problem: - outpatient PSG - weight loss counselled - home oxygen evaluation before discharge Subjective Date of service: 03/28/16 Principal diagnosis: RAJANI; Cardiomyopathy Interval history: Seen and examined at bedside; 24 hour events reviewed; nursing and respiratory care staff consulted; no adverse overnight events reported to me;feels a little better; on milrinone; no chest pains or hemoptysis Objective Vital Signs - 12hr 03/28/16 03/28/16 03/28/16 08:13 08:20 08:33 Temperature 98.3 F Pulse Rate 118 H Pulse Rate [ Anterior Bilateral Throughout] Pulse Rate [ 67 Right Dorsalis Pedis] Pulse Rate [ 118 H Right Radial] Respiratory 18 20 Rate Respiratory Rate [Anterior Bilateral Throughout] Respiratory Rate [Chest] Blood Pressure Blood Pressure 142/93 [Left Arm] O2 Sat by Pulse 98 97 Oximetry 03/28/16 03/28/16 03/28/16 10:00 10:12 10:13 Temperature Pulse Rate 94 H Pulse Rate [ 86 Anterior Bilateral Throughout] Pulse Rate [ Right Dorsalis Pedis] Pulse Rate [ Right Radial] Respiratory Rate Respiratory 20 Rate [Anterior Bilateral Throughout] Respiratory 20 Rate [Chest] Blood Pressure Blood Pressure [Left Arm] O2 Sat by Pulse 99 Oximetry 03/28/16 03/28/16 10:23 10:46 Temperature Pulse Rate 118 H Pulse Rate [ 66 Anterior Bilateral Throughout] Pulse Rate [ Right Dorsalis Pedis] Pulse Rate [ Right Radial] Respiratory Rate Respiratory 20 Rate [Anterior Bilateral Throughout] Respiratory Rate [Chest] Blood Pressure 142/92 Blood Pressure [Left Arm] O2 Sat by Pulse Oximetry Constitutional: no acute distress Eyes: non-icteric ENT: oropharynx moist Neck: supple, no lymphadenopathy Effort: mildly labored Ascultation: Bilateral: diminished breath sounds, rhonchi (bases) Cardiovascular: regular rate and rhythm Gastrointestinal: normoactive bowel sounds, soft, non-tender Integumentary: normal Extremities: no cyanosis, no edema, pulses normal, no ischemia or petechiae Neurologic: normal mental status, non-focal exam, pupils equal and round, motor strength normal and Psychiatric: mood appropriate, affect normal CBC and BMP: 03/26/16 04:36 03/26/16 04:36 ABG, PT/INR, D-dimer: PT/INR, D-dimer PT > 120.0 Sec. (12.2-14.9) H 03/28/16 09:13 INR > 17.67 (0.87-1.13) H* 03/28/16 09:13 Abnormal lab findings: Abnormal Labs 03/25/16 03/25/16 03/25/16 04:21 04:21 08:21 RBC 5.35 H Hgb Hct MCV 72 L MCH 22 L MCHC 31 L RDW 16.1 H [place] % (Auto) 13.4 H Lymph # [place] # 1.1 H Seg Neutrophils % PT INR Heparin Anti-Xa Level BUN 37 H Creatinine 1.9 H Glucose 113 H POC Glucose 111 H Calcium 8.2 L Total Bilirubin 1.3 H AST 73 H ALT 108 H Albumin 3.5 L 03/25/16 03/25/16 03/26/16 11:35 15:30 04:36 RBC Hgb 10.6 L Hct 34.6 L MCV 73 L MCH 22 L MCHC 31 L RDW 16.2 H [place] % (Auto) 11.7 H Lymph # 0.9 L [place] # Seg Neutrophils % 70.3 H PT INR Heparin Anti-Xa Level BUN Creatinine Glucose POC Glucose 141 H 121 H Calcium Total Bilirubin AST ALT Albumin 03/26/16 03/26/16 03/26/16 04:36 04:36 16:13 RBC Hgb Hct MCV MCH MCHC RDW [place] % (Auto) Lymph # [place] # Seg Neutrophils % PT INR 1.14 H Heparin Anti-Xa Level < 0.10 L BUN 33 H Creatinine 1.6 H Glucose POC Glucose 138 H Calcium 7.5 L Total Bilirubin AST ALT Albumin 03/26/16 03/27/16 03/27/16 21:20 05:17 08:54 RBC Hgb Hct MCV MCH MCHC RDW [place] % (Auto) Lymph # [place] # Seg Neutrophils % PT INR 1.17 H Heparin Anti-Xa Level BUN Creatinine Glucose POC Glucose 111 H 136 H Calcium Total Bilirubin AST ALT Albumin 03/27/16 03/27/16 03/27/16 11:49 17:11 22:11 RBC Hgb Hct MCV MCH MCHC RDW [place] % (Auto) Lymph # [place] # Seg Neutrophils % PT INR Heparin Anti-Xa Level BUN Creatinine Glucose POC Glucose 109 H 108 H 126 H Calcium Total Bilirubin AST ALT Albumin 03/28/16 09:13 RBC Hgb Hct MCV MCH MCHC RDW [place] % (Auto) Lymph # [place] # Seg Neutrophils % PT > 120.0 H INR > 17.67 H* Heparin Anti-Xa Level BUN Creatinine Glucose POC Glucose Calcium Total Bilirubin AST ALT Albumin
[2016-03-28 16:29] LABS: INR 1.23 (0.87-1.13)
[2016-03-28] MEDS: LANOXIN PO SCH (18:05)
[2016-03-29] MEDS: DUONEB 0.5 MG-3 MG/3 ML SOLN IH SCH ×4 (02:57→20:04)
[2016-03-29] MEDS: PRIMACOR 20 MG in D5W 80 ML IV SCH ×2 (05:51→18:13)
[2016-03-29] MEDS: LASIX IV SCH ×2 (05:51→17:19)
[2016-03-29 08:09] LABS: INR 1.21 (0.87-1.13)
[2016-03-29] MEDS: CORDARONE PO SCH (09:00)
[2016-03-29] MEDS: BABY ASPIRIN PO SCH (09:00)
[2016-03-29] MEDS: K-DUR PO SCH ×2 (09:00→22:38)
[2016-03-29] MEDS: PEPCID PO SCH ×2 (09:01→23:39)
[2016-03-29] MEDS: DIOVAN PO SCH (09:01)
[2016-03-29] MEDS: FEOSOL PO SCH ×2 (09:01→22:40)
[2016-03-29] MEDS: COREG PO SCH ×2 (10:20→22:39)
[2016-03-29] MEDS: LOVENOX SUB-Q SCH (10:50)
--- NOTE | 2016-03-29 10:53 | Progress Note ---
Assessment and Plan 1. Acute decompensated chronic combined systolic and diastolic heart failure. 2. Dilated cardiomyopathy with four-chamber dilation LV ejection fraction 10-15 % 3. Persistent Atrial fibrillation a rapid ventricular response 114 4. Essential hypertension 5. Moderate to severe obesity 6. Obstructive sleep apnea Plan. Patient's [place] better. We will continue diuresis and IV Milirone drip. Continue to monitor daily weight. Subjective Date of service: 03/29/16 Principal diagnosis: RAJANI; Cardiomyopathy Interval history: No cardiac complains. He states he feels much better Objective Vital Signs Temp Pulse Pulse Pulse Pulse Resp Resp 03/29/16 09:01 60 03/29/16 08:00 98.2 F 60 20 03/29/16 07:56 60 20 03/29/16 07:46 03/29/16 07:43 107 H 18 03/29/16 05:50 98.6 F 58 L 20 03/29/16 03:12 61 17 03/29/16 02:56 61 16 03/29/16 01:10 97.6 F 65 18 03/28/16 22:00 119 H 119 H 18 03/28/16 21:19 119 H 03/28/16 20:25 66 18 03/28/16 20:24 98.9 F 63 20 03/28/16 18:05 110 H 03/28/16 16:44 97.6 F 63 20 03/28/16 15:07 63 18 03/28/16 14:52 60 18 03/28/16 11:30 97.7 F 66 20 Resp BP BP Pulse Ox 03/29/16 09:01 144/93 03/29/16 08:00 144/93 96 03/29/16 07:56 03/29/16 07:46 95 03/29/16 07:43 03/29/16 05:50 110/84 100 03/29/16 03:12 03/29/16 02:56 03/29/16 01:10 131/71 92 03/28/16 22:00 20 98 03/28/16 21:19 128/69 03/28/16 20:25 03/28/16 20:24 128/69 93 03/28/16 18:05 03/28/16 16:44 113/67 97 03/28/16 15:07 03/28/16 14:52 03/28/16 11:30 100/53 92 - Physical Examination General: No Apparent Distress, Other (Obese) HEENT: Positive: PERRL Neck: Positive: neck supple, trachea midline. Negative: JVD/HJR Cardiac: Positive: Regular Rate, S1/S2, PMI, Laterally Displaced Lungs: Positive: clear to auscultation, No Wheeze, Rales, Rhonchi Neuro: Positive: Grossly Intact Abdomen: Positive: Unremarkable, Soft, Active Bowel Sounds Extremities: Present: +2 Edema - Labs and Meds Coagulation 03/28/16 03/28/16 03/29/16 Range/Units 09:13 15:04 07:29 PT > 120.0 H 15.4 H 15.2 H (12.2-14.9) Sec. INR > 17.67 H* 1.23 H 1.21 H (0.87-1.13)
--- NOTE | 2016-03-29 13:08 | Progress Note ---
Assessment and Plan Assessment and plan: 1. Persistent atrial tachycardia. Patient with narrow complex tachycardia which required IV Cardizem therapy. Continue rate control with Cardizem, digoxin, amiodarone and beta blockers. Cardiology following. 2. Hypotension. Etiology cardiogenic. Continue milrinone per cardiology. 3. Severe dilated cardiomyopathy. Echocardiogram reveals ejection fraction of 15%. Continue milrinone and diuretic therapy per cardiology. 4. Acute systolic CHF exacerbation. As above. 5. Acute hypoxic respiratory failure compensated with O2. Continue O2 for supportive care. BiPAP when necessary. 6. DVT prophylaxis. Continue Lovenox. History Interval history: 55-year-old male admitted with acute respiratory failure, accelerated hypertension and acute CHF exacerbation. Patient currently denies any chest pain or shortness of breath. Patient currently on milrinone drip Hospitalist Physical - Constitutional Vitals: Temp Pulse Resp BP Pulse Ox 98.2 F 60 20 144/93 96 03/29/16 08:00 03/29/16 09:01 03/29/16 08:00 03/29/16 09:01 03/29/16 08:00 General appearance: Present: no acute distress - EENT Eyes: Present: PERRL, EOM intact ENT: hearing intact, clear oral mucosa, dentition normal - Neck Neck: Present: supple, normal ROM - Respiratory Respiratory effort: normal Respiratory: bilateral: CTA - Cardiovascular Rhythm: regular Heart Sounds: Present: S1 & S2. Absent: gallop, rub - Extremities Extremities: no ischemia, No edema, Full ROM - Abdominal General gastrointestinal: soft, non-tender, non-distended, normal bowel sounds - Integumentary Integumentary: Present: clear, warm, dry - Neurologic Neurologic: CNII-XII intact, moves all extremities Results - Labs CBC & Chem 7: 03/26/16 04:36 03/26/16 04:36 Labs: Laboratory Last Values WBC 5.5 K/mm3 (4.5-11.0) 03/26/16 04:36 RBC 4.74 M/mm3 (3.65-5.03) 03/26/16 04:36 Hgb 10.6 gm/dl (11.8-15.2) L 03/26/16 04:36 Hct 34.6 % (35.5-45.6) L 03/26/16 04:36 MCV 73 fl (84-94) L 03/26/16 04:36 MCH 22 pg (28-32) L 03/26/16 04:36 MCHC 31 % (32-34) L 03/26/16 04:36 RDW 16.2 % (13.2-15.2) H 03/26/16 04:36 Plt Count 200 K/mm3 (140-440) 03/26/16 04:36 Lymph % (Auto) 16.1 % (13.4-35.0) 03/26/16 04:36 [place] % (Auto) 11.7 % (0.0-7.3) H 03/26/16 04:36 Eos % (Auto) 1.5 % (0.0-4.3) 03/26/16 04:36 Baso % (Auto) 0.4 % (0.0-1.8) 03/26/16 04:36 Lymph # 0.9 K/mm3 (1.2-5.4) L 03/26/16 04:36 [place] # 0.6 K/mm3 (0.0-0.8) 03/26/16 04:36 Eos # 0.1 K/mm3 (0.0-0.4) 03/26/16 04:36 Baso # 0.0 K/mm3 (0.0-0.1) 03/26/16 04:36 Seg Neutrophils % 70.3 % (40.0-70.0) H 03/26/16 04:36 Seg Neutrophils # 3.9 K/mm3 (1.8-7.7) 03/26/16 04:36 PT 15.2 Sec. (12.2-14.9) H 03/29/16 07:29 INR 1.21 (0.87-1.13) H 03/29/16 07:29 APTT 26.4 Sec. (24.2-36.6) 03/24/16 13:35 Heparin Anti-Xa Level < 0.10 U.I./ml (0.3-0.7) L 03/26/16 04:36 Sodium 145 mmol/L (137-145) 03/26/16 04:36 Potassium 4.4 mmol/L (3.6-5.0) 03/26/16 04:36 Chloride 106.4 mmol/L (98-107) 03/26/16 04:36 Carbon Dioxide 27 mmol/L (22-30) 03/26/16 04:36 Anion Gap 16 mmol/L 03/26/16 04:36 BUN 33 mg/dL (9-20) H 03/26/16 04:36 Creatinine 1.6 mg/dL (0.8-1.5) H 03/26/16 04:36 Estimated GFR 54 ml/min 03/26/16 04:36 BUN/Creatinine Ratio 20.62 % 03/26/16 04:36 Glucose 95 mg/dL (75-100) 03/26/16 04:36 POC Glucose 145 (70-105) H 03/28/16 23:35 Calcium 7.5 mg/dL (8.4-10.2) L 03/26/16 04:36 Total Bilirubin 1.3 mg/dL (0.1-1.2) H 03/25/16 04:21 AST 73 units/L (5-40) H 03/25/16 04:21 ALT 108 units/L (7-56) H 03/25/16 04:21 Alkaline Phosphatase 47 units/L (35-129) 03/25/16 04:21 Total Creatine Kinase 199 units/L (55-170) H 03/24/16 13:35 CK-MB (CK-2) 5.1 ng/mL (0.0-4.0) H 03/24/16 13:35 CK-MB (CK-2) Rel Index 2.5 (0-4) 03/24/16 13:35 Troponin T 0.052 ng/mL (0.00-0.029) H 03/24/16 13:35 NT-Pro-B Natriuret Pep 4652 pg/mL (0-900) H 03/24/16 13:35 Total Protein 6.7 g/dL (6.3-8.2) 03/25/16 04:21 Albumin 3.5 g/dL (3.9-5) L 03/25/16 04:21 Albumin/Globulin Ratio 1.1 % 03/25/16 04:21 Triglycerides 62 mg/dL (2-149) 03/24/16 13:35 Cholesterol 160 mg/dL (50-199) 03/24/16 13:35 LDL Cholesterol Direct 114 mg/dL (50-130) 03/24/16 13:35 HDL Cholesterol 37 mg/dL (40-59) L 03/24/16 13:35 Cholesterol/HDL Ratio 4.32 % 03/24/16 13:35
--- NOTE | 2016-03-29 13:56 | Progress Note ---
Assessment and Plan Patient awake. Presently receiving aerosol treatment.O2 satuaration 98% on 2 litres O2. No acute respiratory distress at rest. Patient has Cardiomyopathy and CHF.Management as per cardiology. Patient Obese, Patient may have sleep apnea. Recommend sleep study as outpatient. Subjective Date of service: 03/29/16 Principal diagnosis: RAJANI; Cardiomyopathy Interval history: Patient awake. Presently receiving aerosol treatment.O2 satuaration 98% on 2 litres O2. No acute respiratory distress at rest. Objective Vital Signs - 12hr 03/29/16 03/29/16 03/29/16 02:56 03:12 05:50 Temperature 98.6 F Pulse Rate Pulse Rate [ 61 61 Anterior Bilateral Throughout] Pulse Rate [ 58 L Right Dorsalis Pedis] Respiratory 20 Rate Respiratory 16 17 Rate [Anterior Bilateral Throughout] Blood Pressure Blood Pressure 110/84 [Left Arm] O2 Sat by Pulse 100 Oximetry 03/29/16 03/29/16 03/29/16 07:43 07:46 07:56 Temperature Pulse Rate Pulse Rate [ 107 H 60 Anterior Bilateral Throughout] Pulse Rate [ Right Dorsalis Pedis] Respiratory Rate Respiratory 18 20 Rate [Anterior Bilateral Throughout] Blood Pressure Blood Pressure [Left Arm] O2 Sat by Pulse 95 Oximetry 03/29/16 03/29/16 03/29/16 08:00 09:01 10:20 Temperature 98.2 F Pulse Rate 60 60 Pulse Rate [ Anterior Bilateral Throughout] Pulse Rate [ 60 Right Dorsalis Pedis] Respiratory 20 Rate Respiratory Rate [Anterior Bilateral Throughout] Blood Pressure 144/93 144/93 Blood Pressure 144/93 [Left Arm] O2 Sat by Pulse 96 Oximetry 03/29/16 11:30 Temperature 97.3 F L Pulse Rate Pulse Rate [ Anterior Bilateral Throughout] Pulse Rate [ 65 Right Dorsalis Pedis] Respiratory 20 Rate Respiratory Rate [Anterior Bilateral Throughout] Blood Pressure Blood Pressure 157/101 [Left Arm] O2 Sat by Pulse 98 Oximetry Constitutional: no acute distress, alert Eyes: non-icteric ENT: oropharynx moist Neck: supple, no lymphadenopathy Effort: normal Ascultation: Bilateral: rales Cardiovascular: regular rate and rhythm Gastrointestinal: normoactive bowel sounds, soft, non-tender Integumentary: normal Extremities: no cyanosis, pulses normal, no ischemia or petechiae, edema Neurologic: normal mental status, non-focal exam, pupils equal and round, motor strength normal and Psychiatric: mood appropriate, affect normal CBC and BMP: 03/26/16 04:36 03/26/16 04:36 ABG, PT/INR, D-dimer: PT/INR, D-dimer PT 15.2 Sec. (12.2-14.9) H 03/29/16 07:29 INR 1.21 (0.87-1.13) H 03/29/16 07:29 Abnormal lab findings: Abnormal Labs 03/25/16 03/25/16 03/25/16 04:21 04:21 08:21 RBC 5.35 H Hgb Hct MCV 72 L MCH 22 L MCHC 31 L RDW 16.1 H [place] % (Auto) 13.4 H Lymph # [place] # 1.1 H Seg Neutrophils % PT INR Heparin Anti-Xa Level BUN 37 H Creatinine 1.9 H Glucose 113 H POC Glucose 111 H Calcium 8.2 L Total Bilirubin 1.3 H AST 73 H ALT 108 H Albumin 3.5 L 03/25/16 03/25/16 03/26/16 11:35 15:30 04:36 RBC Hgb 10.6 L Hct 34.6 L MCV 73 L MCH 22 L MCHC 31 L RDW 16.2 H [place] % (Auto) 11.7 H Lymph # 0.9 L [place] # Seg Neutrophils % 70.3 H PT INR Heparin Anti-Xa Level BUN Creatinine Glucose POC Glucose 141 H 121 H Calcium Total Bilirubin AST ALT Albumin 03/26/16 03/26/16 03/26/16 04:36 04:36 16:13 RBC Hgb Hct MCV MCH MCHC RDW [place] % (Auto) Lymph # [place] # Seg Neutrophils % PT INR 1.14 H Heparin Anti-Xa Level < 0.10 L BUN 33 H Creatinine 1.6 H Glucose POC Glucose 138 H Calcium 7.5 L Total Bilirubin AST ALT Albumin 03/26/16 03/27/16 03/27/16 21:20 05:17 08:54 RBC Hgb Hct MCV MCH MCHC RDW [place] % (Auto) Lymph # [place] # Seg Neutrophils % PT INR 1.17 H Heparin Anti-Xa Level BUN Creatinine Glucose POC Glucose 111 H 136 H Calcium Total Bilirubin AST ALT Albumin 03/27/16 03/27/16 03/27/16 11:49 17:11 22:11 RBC Hgb Hct MCV MCH MCHC RDW [place] % (Auto) Lymph # [place] # Seg Neutrophils % PT INR Heparin Anti-Xa Level BUN Creatinine Glucose POC Glucose 109 H 108 H 126 H Calcium Total Bilirubin AST ALT Albumin 03/28/16 03/28/16 03/28/16 08:15 09:13 15:04 RBC Hgb Hct MCV MCH MCHC RDW [place] % (Auto) Lymph # [place] # Seg Neutrophils % PT > 120.0 H 15.4 H INR > 17.67 H* 1.23 H Heparin Anti-Xa Level BUN Creatinine Glucose POC Glucose 107 H Calcium Total Bilirubin AST ALT Albumin 03/28/16 03/28/16 03/29/16 16:17 23:35 07:29 RBC Hgb Hct MCV MCH MCHC RDW [place] % (Auto) Lymph # [place] # Seg Neutrophils % PT 15.2 H INR 1.21 H Heparin Anti-Xa Level BUN Creatinine Glucose POC Glucose 118 H 145 H Calcium Total Bilirubin AST ALT Albumin Chest x-ray: report reviewed (CHF), image reviewed
[2016-03-29] MEDS: COUMADIN PO SCH (17:19)
[2016-03-29] MEDS: LANOXIN PO SCH (17:41)
[2016-03-30] MEDS: PRIMACOR 20 MG in D5W 80 ML IV SCH ×4 (00:20→22:11)
[2016-03-30] MEDS: DUONEB 0.5 MG-3 MG/3 ML SOLN IH SCH ×4 (02:15→21:25)
[2016-03-30] MEDS: LASIX IV SCH ×2 (06:06→17:29)
[2016-03-30] MEDS: DILAUDID IV PRN (08:54)
[2016-03-30 09:02] LABS: Basophils % (Auto) 0.9 % (0.0-1.8); Hematocrit 35.6 % (35.5-45.6); Hemoglobin 10.9 gm/dl (11.8-15.2); Mean Corpuscular HGB Conc 31 % (32-34); Mean Corpuscular Volume 73 fl (84-94); Platelet Count 234 K/mm3 (140-440); Red Blood Count 4.88 M/mm3 (3.65-5.03); Red Cell Distribution Width 16.2 % (13.2-15.2); White Blood Count 6.1 K/mm3 (4.5-11.0)
[2016-03-30 09:11] LABS: Mean Corpuscular Hemoglobin 22 pg (28-32)
[2016-03-30 09:20] LABS: BUN/Creatinine Ratio 15.33; Calcium 8.2 mg/dL (8.4-10.2); Chloride 99.4 mmol/L (98-107); Potassium 3.9 mmol/L (3.6-5.0)
[2016-03-30 09:23] LABS: INR 1.16 (0.87-1.13)
[2016-03-30] MEDS: K-DUR PO SCH ×2 (09:52→22:12)
[2016-03-30] MEDS: BABY ASPIRIN PO SCH (09:52)
[2016-03-30] MEDS: COREG PO SCH ×2 (09:52→22:13)
[2016-03-30] MEDS: PEPCID PO SCH ×2 (09:52→22:12)
[2016-03-30] MEDS: CORDARONE PO SCH (09:52)
[2016-03-30] MEDS: FEOSOL PO SCH ×2 (09:53→22:12)
[2016-03-30] MEDS: DIOVAN PO SCH (09:53)
[2016-03-30] MEDS: LOVENOX SUB-Q SCH (09:53)
[2016-03-30 10:35] LABS: ISTAT Base Excess 11; ISTAT DEVICE 0; ISTAT HCO3 35.2; ISTAT PCO2 51.9 (35-45); ISTAT PO2 42 (80-105); ISTAT SO2 79; ISTAT TCO2 37
[2016-03-30 10:35] LABS: ISTAT Base Excess 8; ISTAT DEVICE 0; ISTAT HCO3 33.2; ISTAT PCO2 54.1 (35-45); ISTAT PH 7.395 (7.35-7.45); ISTAT PO2 60 (80-105); ISTAT SO2 90; ISTAT TCO2 35
--- NOTE | 2016-03-30 13:47 | Progress Note ---
Assessment and Plan - Patient Problems (1) Acute on chronic congestive heart failure Current Visit: Yes Status: Acute Qualifiers: Congestive heart failure type: unspecified congestive heart failure type Qualified Code(s): I50.9 - Heart failure, unspecified Plan to address problem: Continue medical therapy including diuretics, afterload reducing agents and beta blockers. We are still awaiting patient's records of prior cardiac workup. Persantine thallium stress test will be ordered to assess for ischemia as a basis for his underlying cardiomyopathy. (2) Atrial fibrillation Current Visit: Yes Status: Acute Plan to address problem: Continue rate control agents, and long-term oral anticoagulation. Subjective Date of service: 03/30/16 Principal diagnosis: RAJANI; Cardiomyopathy Interval history: The patient looks and feels comfortable, shortness of breath has greatly improved. He remains in atrial fibrillation, but now with a well-controlled ventricular response on oral medications. Milrinone drip at this ongoing for his heart failure and systolic LV dysfunction. Objective Vital Signs Temp Pulse Pulse Pulse Pulse Pulse Resp 03/30/16 13:37 59 L 03/30/16 12:16 98.6 F 49 L 20 03/30/16 10:06 14 03/30/16 10:05 101 H 03/30/16 09:24 101 H 03/30/16 09:09 101 H 03/30/16 08:36 58 L 03/30/16 08:08 98.7 F 69 20 03/30/16 08:00 57 L 03/30/16 06:04 98.4 F 57 L 18 03/30/16 01:18 97.5 F L 66 18 03/29/16 22:39 130 H 03/29/16 22:00 107 H 107 H 20 03/29/16 20:54 98.8 F 54 L 18 03/29/16 20:15 68 03/29/16 20:04 66 03/29/16 17:41 56 L 03/29/16 16:30 98.0 F 56 L 18 03/29/16 14:07 66 03/29/16 13:51 64 Resp BP BP BP Pulse Ox 03/30/16 13:37 18 03/30/16 12:16 132/64 96 03/30/16 10:06 03/30/16 10:05 03/30/16 09:24 03/30/16 09:09 03/30/16 08:36 17 03/30/16 08:08 106/82 94 03/30/16 08:00 17 03/30/16 06:04 142/94 94 03/30/16 01:18 117/81 92 03/29/16 22:39 151/84 03/29/16 22:00 03/29/16 20:54 151/84 94 03/29/16 20:15 20 03/29/16 20:04 18 97 03/29/16 17:41 03/29/16 16:30 146/70 89 03/29/16 14:07 18 03/29/16 13:51 18 - Physical Examination General: No Apparent Distress, Other (Obese) HEENT: Positive: PERRL Neck: Positive: neck supple, trachea midline. Negative: JVD/HJR Cardiac: Positive: irregularly irregular Lungs: Positive: Decreased Breath Sounds Neuro: Positive: Grossly Intact Abdomen: Positive: Unremarkable, Soft, Active Bowel Sounds Extremities: Present: +1 Edema - Labs and Meds Coagulation 03/30/16 Range/Units 08:46 PT 14.7 (12.2-14.9) Sec. INR 1.16 H (0.87-1.13) CBC 03/30/16 Range/Units 08:46 WBC 6.1 (4.5-11.0) K/mm3 RBC 4.88 (3.65-5.03) M/mm3 Hgb 10.9 L (11.8-15.2) gm/dl Hct 35.6 (35.5-45.6) % Plt Count 234 (140-440) K/mm3 Lymph # 1.0 L (1.2-5.4) K/mm3 [place] # 0.7 (0.0-0.8) K/mm3 Eos # 0.2 (0.0-0.4) K/mm3 Baso # 0.1 (0.0-0.1) K/mm3 Comprehensive Metabolic Panel 03/30/16 Range/Units 08:46 Sodium 141 (137-145) mmol/L Potassium 3.9 (3.6-5.0) mmol/L Chloride 99.4 (98-107) mmol/L Carbon Dioxide 31 H (22-30) mmol/L BUN 23 H (9-20) mg/dL Creatinine 1.5 (0.8-1.5) mg/dL Glucose 161 H (75-100) mg/dL Calcium 8.2 L (8.4-10.2) mg/dL
--- NOTE | 2016-03-30 14:26 | Progress Note ---
Assessment and Plan Patient sleeping at this time.O2 satuaration 96% on 2 litres O2. No acute respiratory distress .. Patient has Cardiomyopathy and CHF.Management as per cardiology. Patient Obese, Patient may have sleep apnea. Recommend sleep study as outpatient. - Patient Problems (1) Acute on chronic congestive heart failure Current Visit: Yes Status: Acute Qualifiers: Congestive heart failure type: unspecified congestive heart failure type Qualified Code(s): I50.9 - Heart failure, unspecified Plan to address problem: Management as per cardiology. (2) RAJANI (obstructive sleep apnea) Current Visit: Yes Status: Acute Plan to address problem: Recommend sleep study as out patient. Recommend to loose weight. Subjective Date of service: 03/30/16 Principal diagnosis: RAJANI; Cardiomyopathy Interval history: Patient sleeping at this time.O2 satuaration 96% on 2 litres O2. No acute respiratory distress .. Objective Vital Signs - 12hr 03/30/16 03/30/16 03/30/16 06:04 08:00 08:08 Temperature 98.4 F 98.7 F Pulse Rate Pulse Rate [ 57 L Anterior Bilateral Throughout] Pulse Rate [ Left Radial] Pulse Rate [ 57 L 69 Right Radial] Respiratory 18 20 Rate Respiratory 17 Rate [Anterior Bilateral Throughout] Blood Pressure [Left Arm] Blood Pressure 142/94 106/82 [Right Arm] O2 Sat by Pulse 94 94 Oximetry 03/30/16 03/30/16 03/30/16 08:36 09:09 09:24 Temperature Pulse Rate 101 H 101 H Pulse Rate [ 58 L Anterior Bilateral Throughout] Pulse Rate [ Left Radial] Pulse Rate [ Right Radial] Respiratory Rate Respiratory 17 Rate [Anterior Bilateral Throughout] Blood Pressure [Left Arm] Blood Pressure [Right Arm] O2 Sat by Pulse Oximetry 03/30/16 03/30/16 03/30/16 10:05 10:06 12:16 Temperature 98.6 F Pulse Rate 101 H Pulse Rate [ Anterior Bilateral Throughout] Pulse Rate [ 49 L Left Radial] Pulse Rate [ Right Radial] Respiratory 14 20 Rate Respiratory Rate [Anterior Bilateral Throughout] Blood Pressure 132/64 [Left Arm] Blood Pressure [Right Arm] O2 Sat by Pulse 96 Oximetry 03/30/16 13:37 Temperature Pulse Rate Pulse Rate [ 59 L Anterior Bilateral Throughout] Pulse Rate [ Left Radial] Pulse Rate [ Right Radial] Respiratory Rate Respiratory 18 Rate [Anterior Bilateral Throughout] Blood Pressure [Left Arm] Blood Pressure [Right Arm] O2 Sat by Pulse Oximetry Constitutional: no acute distress, alert Eyes: non-icteric ENT: oropharynx moist Neck: supple, no lymphadenopathy Effort: normal Ascultation: Bilateral: clear, diminished breath sounds, rales, rhonchi (bases) Cardiovascular: regular rate and rhythm Gastrointestinal: normoactive bowel sounds, soft, non-tender Integumentary: normal Extremities: no cyanosis, pulses normal, no ischemia or petechiae, edema Neurologic: normal mental status, non-focal exam, pupils equal and round, motor strength normal and Psychiatric: mood appropriate, affect normal CBC and BMP: 03/30/16 08:46 03/30/16 08:46 ABG, PT/INR, D-dimer: ABG POC ABG pH 7.395 (7.35-7.45) 03/30/16 10:27 POC ABG pCO2 54.1 (35-45) H 03/30/16 10:27 POC ABG pO2 60 (80-105) L 03/30/16 10:27 POC ABG HCO3 33.2 03/30/16 10:27 POC ABG Total CO2 35 03/30/16 10:27 POC ABG O2 Sat 90 03/30/16 10:27 PT/INR, D-dimer PT 14.7 Sec. (12.2-14.9) 03/30/16 08:46 INR 1.16 (0.87-1.13) H 03/30/16 08:46 Abnormal lab findings: Abnormal Labs 03/25/16 03/25/16 03/25/16 04:21 04:21 08:21 RBC 5.35 H Hgb Hct MCV 72 L MCH 22 L MCHC 31 L RDW 16.1 H [place] % (Auto) 13.4 H Lymph # [place] # 1.1 H Seg Neutrophils % PT INR Heparin Anti-Xa Level POC ABG pCO2 POC ABG pO2 Carbon Dioxide BUN 37 H Creatinine 1.9 H Glucose 113 H POC Glucose 111 H Calcium 8.2 L Total Bilirubin 1.3 H AST 73 H ALT 108 H Albumin 3.5 L 03/25/16 03/25/16 03/26/16 11:35 15:30 04:36 RBC Hgb 10.6 L Hct 34.6 L MCV 73 L MCH 22 L MCHC 31 L RDW 16.2 H [place] % (Auto) 11.7 H Lymph # 0.9 L [place] # Seg Neutrophils % 70.3 H PT INR Heparin Anti-Xa Level POC ABG pCO2 POC ABG pO2 Carbon Dioxide BUN Creatinine Glucose POC Glucose 141 H 121 H Calcium Total Bilirubin AST ALT Albumin 03/26/16 03/26/16 03/26/16 04:36 04:36 16:13 RBC Hgb Hct MCV MCH MCHC RDW [place] % (Auto) Lymph # [place] # Seg Neutrophils % PT INR 1.14 H Heparin Anti-Xa Level < 0.10 L POC ABG pCO2 POC ABG pO2 Carbon Dioxide BUN 33 H Creatinine 1.6 H Glucose POC Glucose 138 H Calcium 7.5 L Total Bilirubin AST ALT Albumin 03/26/16 03/27/16 03/27/16 21:20 05:17 08:54 RBC Hgb Hct MCV MCH MCHC RDW [place] % (Auto) Lymph # [place] # Seg Neutrophils % PT INR 1.17 H Heparin Anti-Xa Level POC ABG pCO2 POC ABG pO2 Carbon Dioxide BUN Creatinine Glucose POC Glucose 111 H 136 H Calcium Total Bilirubin AST ALT Albumin 03/27/16 03/27/16 03/27/16 11:49 17:11 22:11 RBC Hgb Hct MCV MCH MCHC RDW [place] % (Auto) Lymph # [place] # Seg Neutrophils % PT INR Heparin Anti-Xa Level POC ABG pCO2 POC ABG pO2 Carbon Dioxide BUN Creatinine Glucose POC Glucose 109 H 108 H 126 H Calcium Total Bilirubin AST ALT Albumin 03/28/16 03/28/16 03/28/16 08:15 09:13 15:04 RBC Hgb Hct MCV MCH MCHC RDW [place] % (Auto) Lymph # [place] # Seg Neutrophils % PT > 120.0 H 15.4 H INR > 17.67 H* 1.23 H Heparin Anti-Xa Level POC ABG pCO2 POC ABG pO2 Carbon Dioxide BUN Creatinine Glucose POC Glucose 107 H Calcium Total Bilirubin AST ALT Albumin 03/28/16 03/28/16 03/29/16 16:17 23:35 07:29 RBC Hgb Hct MCV MCH MCHC RDW [place] % (Auto) Lymph # [place] # Seg Neutrophils % PT 15.2 H INR 1.21 H Heparin Anti-Xa Level POC ABG pCO2 POC ABG pO2 Carbon Dioxide BUN Creatinine Glucose POC Glucose 118 H 145 H Calcium Total Bilirubin AST ALT Albumin 03/29/16 03/29/16 03/29/16 12:40 16:42 21:43 RBC Hgb Hct MCV MCH MCHC RDW [place] % (Auto) Lymph # [place] # Seg Neutrophils % PT INR Heparin Anti-Xa Level POC ABG pCO2 POC ABG pO2 Carbon Dioxide BUN Creatinine Glucose POC Glucose 110 H 232 H 120 H Calcium Total Bilirubin AST ALT Albumin 03/30/16 03/30/16 03/30/16 08:46 08:46 08:46 RBC Hgb 10.9 L Hct MCV 73 L MCH 22 L MCHC 31 L RDW 16.2 H [place] % (Auto) 12.2 H Lymph # 1.0 L [place] # Seg Neutrophils % PT INR 1.16 H Heparin Anti-Xa Level POC ABG pCO2 POC ABG pO2 Carbon Dioxide 31 H BUN 23 H Creatinine Glucose 161 H POC Glucose Calcium 8.2 L Total Bilirubin AST ALT Albumin 03/30/16 03/30/16 10:17 10:27 RBC Hgb Hct MCV MCH MCHC RDW [place] % (Auto) Lymph # [place] # Seg Neutrophils % PT INR Heparin Anti-Xa Level POC ABG pCO2 51.9 H 54.1 H POC ABG pO2 42 L 60 L Carbon Dioxide BUN Creatinine Glucose POC Glucose Calcium Total Bilirubin AST ALT Albumin
--- NOTE | 2016-03-30 16:32 | Progress Note ---
Assessment and Plan Assessment and plan: 1. P. Atrial fibrillation - cotn amidarone; digoxin; f/u cardiology; will need terminal make up operator anticoagulation as per cardiology 2. Severe dilated cardiomyopathy. Echocardiogram reveals ejection fraction of 15%. Continue milrinone and diuretic therapy per cardiology. COnt IV lasix; for ischemia eval prior to d/c as per cardiology 3. Acute systolic CHF exacerbation -manx as above; cotn coreg and loasarta; 4. Acute hypoxic respiratory failure compensated with O2. Continue O2 for supportive care. BiPAP when necessary. 5. DVT prophylaxis. Continue Lovenox. History Interval history: f/u CMP, EF 15%; Atrial tachycardia PAtient seen at the bedside; complained of painful swelling to LT UE where he had IV Hospitalist Physical - Constitutional Vitals: Temp Pulse Resp BP Pulse Ox 98.6 F 59 L 18 132/64 96 03/30/16 12:16 03/30/16 13:37 03/30/16 13:37 03/30/16 12:16 03/30/16 12:16 General appearance: Present: no acute distress, obese - EENT Eyes: Present: PERRL, EOM intact. Absent: scleral icterus, conjunctival injection ENT: hearing intact, clear oral mucosa, no oropharyngeal erythema, no poor dentition - Neck Neck: Present: supple, normal ROM. Absent: enlarged thyroid, masses or JVD - Respiratory Respiratory effort: normal Respiratory: negative: diminished, rales, rhonchi, wheezing - Cardiovascular Rhythm: regular Heart Sounds: Present: S1 & S2. Absent: gallop - Extremities Extremities: no ischemia, pulses intact, pulses symmetrical, abnormal (LT UE swollen; tender) Peripheral Pulses: within normal limits - Abdominal General gastrointestinal: soft, non-tender, non-distended - Integumentary Integumentary: Present: clear - Psychiatric Psychiatric: appropriate mood/affect, intact judgment & insight - Neurologic Neurologic: CNII-XII intact, moves all extremities Results - Labs CBC & Chem 7: 03/30/16 08:46 03/30/16 08:46 Labs: Laboratory Last Values WBC 6.1 K/mm3 (4.5-11.0) 03/30/16 08:46 RBC 4.88 M/mm3 (3.65-5.03) 03/30/16 08:46 Hgb 10.9 gm/dl (11.8-15.2) L 03/30/16 08:46 Hct 35.6 % (35.5-45.6) 03/30/16 08:46 MCV 73 fl (84-94) L 03/30/16 08:46 MCH 22 pg (28-32) L 03/30/16 08:46 MCHC 31 % (32-34) L 03/30/16 08:46 RDW 16.2 % (13.2-15.2) H 03/30/16 08:46 Plt Count 234 K/mm3 (140-440) 03/30/16 08:46 Lymph % (Auto) 16.9 % (13.4-35.0) 03/30/16 08:46 [place] % (Auto) 12.2 % (0.0-7.3) H 03/30/16 08:46 Eos % (Auto) 4.0 % (0.0-4.3) 03/30/16 08:46 Baso % (Auto) 0.9 % (0.0-1.8) 03/30/16 08:46 Lymph # 1.0 K/mm3 (1.2-5.4) L 03/30/16 08:46 [place] # 0.7 K/mm3 (0.0-0.8) 03/30/16 08:46 Eos # 0.2 K/mm3 (0.0-0.4) 03/30/16 08:46 Baso # 0.1 K/mm3 (0.0-0.1) 03/30/16 08:46 Seg Neutrophils % 66.0 % (40.0-70.0) 03/30/16 08:46 Seg Neutrophils # 4.0 K/mm3 (1.8-7.7) 03/30/16 08:46 PT 14.7 Sec. (12.2-14.9) 03/30/16 08:46 INR 1.16 (0.87-1.13) H 03/30/16 08:46 APTT 26.4 Sec. (24.2-36.6) 03/24/16 13:35 Heparin Anti-Xa Level < 0.10 U.I./ml (0.3-0.7) L 03/26/16 04:36 POC ABG pH 7.395 (7.35-7.45) 03/30/16 10:27 POC ABG pCO2 54.1 (35-45) H 03/30/16 10:27 POC ABG pO2 60 (80-105) L 03/30/16 10:27 POC ABG HCO3 33.2 03/30/16 10:27 POC ABG Total CO2 35 03/30/16 10:27 POC ABG O2 Sat 90 03/30/16 10:27 POC ABG Base Excess 8 03/30/16 10:27 FiO2 21 % 03/30/16 10:27 Sodium 141 mmol/L (137-145) 03/30/16 08:46 Potassium 3.9 mmol/L (3.6-5.0) 03/30/16 08:46 Chloride 99.4 mmol/L (98-107) 03/30/16 08:46 Carbon Dioxide 31 mmol/L (22-30) H 03/30/16 08:46 Anion Gap 15 mmol/L 03/30/16 08:46 BUN 23 mg/dL (9-20) H 03/30/16 08:46 Creatinine 1.5 mg/dL (0.8-1.5) 03/30/16 08:46 Estimated GFR 59 ml/min 03/30/16 08:46 BUN/Creatinine Ratio 15.33 % 03/30/16 08:46 Glucose 161 mg/dL (75-100) H 03/30/16 08:46 POC Glucose 120 (70-105) H 03/29/16 21:43 Calcium 8.2 mg/dL (8.4-10.2) L 03/30/16 08:46 Total Bilirubin 1.3 mg/dL (0.1-1.2) H 03/25/16 04:21 AST 73 units/L (5-40) H 03/25/16 04:21 ALT 108 units/L (7-56) H 03/25/16 04:21 Alkaline Phosphatase 47 units/L (35-129) 03/25/16 04:21 Total Creatine Kinase 199 units/L (55-170) H 03/24/16 13:35 CK-MB (CK-2) 5.1 ng/mL (0.0-4.0) H 03/24/16 13:35 CK-MB (CK-2) Rel Index 2.5 (0-4) 03/24/16 13:35 Troponin T 0.052 ng/mL (0.00-0.029) H 03/24/16 13:35 NT-Pro-B Natriuret Pep 4652 pg/mL (0-900) H 03/24/16 13:35 Total Protein 6.7 g/dL (6.3-8.2) 03/25/16 04:21 Albumin 3.5 g/dL (3.9-5) L 03/25/16 04:21 Albumin/Globulin Ratio 1.1 % 03/25/16 04:21 Triglycerides 62 mg/dL (2-149) 03/24/16 13:35 Cholesterol 160 mg/dL (50-199) 03/24/16 13:35 LDL Cholesterol Direct 114 mg/dL (50-130) 03/24/16 13:35 HDL Cholesterol 37 mg/dL (40-59) L 03/24/16 13:35 Cholesterol/HDL Ratio 4.32 % 03/24/16 13:35 VASCULAR LAB.PRELIMINARY REPORT.LUE VENOUS DUPLEX DONE.NO EVIDENCE OF DVT . SVT NOTED IN THE LT.CEPHALIC VEIN AT ANTECUBITAL FOSSA AND IN THE LT.BASILIC VEIN FROM TAKE-OFF UP TO THE LT.PROXIMAL FOREARM. Initialized on 03/30/16 12:57 - END OF NOTE
[2016-03-30] MEDS: LANOXIN PO SCH (17:29)
[2016-03-30] MEDS: COUMADIN PO SCH (17:29)
[2016-03-31] MEDS: PRIMACOR 20 MG in D5W 80 ML IV SCH (05:30)
[2016-03-31] MEDS: LASIX IV SCH ×2 (05:51→17:17)
[2016-03-31] MEDS: DUONEB 0.5 MG-3 MG/3 ML SOLN IH SCH ×3 (07:37→20:47)
[2016-03-31 07:51] LABS: INR 1.2 (0.87-1.13)
[2016-03-31 07:58] LABS: BUN/Creatinine Ratio 15.33; Calcium 8.3 mg/dL (8.4-10.2); Potassium 4.2 mmol/L (3.6-5.0)
[2016-03-31] MEDS: DIOVAN PO SCH (09:22)
[2016-03-31] MEDS: LOVENOX SUB-Q SCH (09:22)
[2016-03-31] MEDS: CORDARONE PO SCH (09:22)
[2016-03-31] MEDS: COREG PO SCH ×2 (09:22→21:10)
[2016-03-31] MEDS: BABY ASPIRIN PO SCH (09:22)
[2016-03-31] MEDS: FEOSOL PO SCH ×2 (09:22→21:09)
[2016-03-31] MEDS: PEPCID PO SCH ×2 (09:22→21:10)
[2016-03-31] MEDS: K-DUR PO SCH ×2 (09:39→21:10)
--- NOTE | 2016-03-31 11:00 | Progress Note ---
Assessment and Plan CHF exacerbation initiated on IV milrinone Patient is still volume overloaded Cardiomyopathy, LVEF 10-15% ? etiology Persistent Atrial fibrillation on amiodarone, carvedilol, digoxin and coumadin Hypertension Non compliant with medications Recommendations Discontinue amiodarone (patient is still in afib/flutter) Add metolazone to current diuretic regimen Add lisinopril for afterload reduction Ischemic work-up once stable from a heart failure standpoint Strict Is and Os Daily BMP Subjective Date of service: 03/31/16 Principal diagnosis: RAJANI; Cardiomyopathy Interval history: Patient reports feeling better although his edema appears to be stagnant and not improving Tele is showing afib/flutter Objective Vital Signs Temp Pulse Pulse Pulse Pulse Pulse Resp 03/31/16 10:06 89 03/31/16 09:35 03/31/16 08:10 88 03/31/16 08:00 89 03/31/16 07:37 98.5 F 70 20 03/31/16 04:00 98.5 F 81 18 03/31/16 00:21 98.0 F 42 L 18 03/31/16 00:03 03/30/16 22:13 81 03/30/16 21:30 87 03/30/16 21:21 92 H 03/30/16 20:09 78 03/30/16 20:00 98.2 F 81 81 18 03/30/16 17:37 88 03/30/16 13:37 59 L 03/30/16 12:16 98.6 F 49 L 20 Resp BP BP BP Pulse Ox 03/31/16 10:06 03/31/16 09:35 98 03/31/16 08:10 18 03/31/16 08:00 18 03/31/16 07:37 128/84 93 03/31/16 04:00 157/87 97 03/31/16 00:21 162/68 98 03/31/16 00:03 97 03/30/16 22:13 125/78 03/30/16 21:30 18 03/30/16 21:21 18 03/30/16 20:09 03/30/16 20:00 125/78 98 03/30/16 17:37 158/79 03/30/16 13:37 18 03/30/16 12:16 132/64 96 - Physical Examination General: No Apparent Distress, Other (Obese) HEENT: Positive: PERRL Neck: Positive: neck supple, trachea midline. Negative: JVD/HJR Cardiac: Positive: irregularly irregular Lungs: Positive: Normal Breath Sounds Neuro: Positive: Grossly Intact Abdomen: Positive: Unremarkable, Soft, Active Bowel Sounds Extremities: Present: +1 Edema - Labs and Meds Coagulation 03/31/16 Range/Units 06:37 PT 15.1 H (12.2-14.9) Sec. INR 1.20 H (0.87-1.13) Comprehensive Metabolic Panel 03/31/16 Range/Units 06:37 Sodium 140 (137-145) mmol/L Potassium 4.2 (3.6-5.0) mmol/L Chloride 98.0 (98-107) mmol/L Carbon Dioxide 30 (22-30) mmol/L BUN 23 H (9-20) mg/dL Creatinine 1.5 (0.8-1.5) mg/dL Glucose 116 H (75-100) mg/dL Calcium 8.3 L (8.4-10.2) mg/dL
[2016-03-31] MEDS: ZAROXOLYN PO SCH (11:27)
--- NOTE | 2016-03-31 11:29 | XRay Report ---
CHEST 2 VIEWS: FINDINGS: The heart remains enlarged. Compared to the previous study on March 24, there has been minimal improvement in vascular congestion with persistent small pleural effusions. IMPRESSION: Minimal improvement in CHF pattern.
--- NOTE | 2016-03-31 14:34 | Progress Note ---
Assessment and Plan Assessment and plan: 1. P. 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 Severe dilated cardiomyopathy. Echocardiogram reveals ejection fraction of 15%. Continue milrinone and diuretic therapy per cardiology. Started on metolazone as per cardiology; COnt IV lasix; for ischemia eval prior to d/c as per cardiology when stable 3. Acute systolic CHF exacerbation -manx as above; cotn coreg and losartan; lisinopril added by cardiology 4. Acute hypoxic respiratory failure compensated with O2. Continue O2 for supportive care. BiPAP when necessary. 5. DVT prophylaxis. Continue Lovenox. History Interval history: f/u CMP, EF 15%; Atrial tachycardia Patient seen at the bedside; complained of painful swelling to RT UE today; has warm compress on LT UE Hospitalist Physical - Constitutional Vitals: Temp Pulse Resp BP Pulse Ox 98.0 F 66 20 170/86 96 03/31/16 11:57 03/31/16 11:57 03/31/16 11:57 03/31/16 11:57 03/31/16 11:57 General appearance: Present: no acute distress, obese - EENT Eyes: Present: PERRL, EOM intact. Absent: scleral icterus, conjunctival injection ENT: hearing intact, clear oral mucosa, no oropharyngeal erythema, no poor dentition - Neck Neck: Present: supple, normal ROM. Absent: enlarged thyroid, masses or JVD - Respiratory Respiratory effort: normal Respiratory: negative: diminished, rales, rhonchi, wheezing - Cardiovascular Rhythm: regular Heart Sounds: Present: S1 & S2. Absent: gallop - Extremities Extremities: no ischemia, pulses intact, pulses symmetrical Peripheral Pulses: within normal limits - Abdominal General gastrointestinal: soft, non-tender, non-distended - Integumentary Integumentary: Present: clear - Psychiatric Psychiatric: appropriate mood/affect, intact judgment & insight, memory intact - Neurologic Neurologic: CNII-XII intact, moves all extremities Results - Labs CBC & Chem 7: 03/30/16 08:46 03/31/16 06:37 Labs: Laboratory Last Values WBC 6.1 K/mm3 (4.5-11.0) 03/30/16 08:46 RBC 4.88 M/mm3 (3.65-5.03) 03/30/16 08:46 Hgb 10.9 gm/dl (11.8-15.2) L 03/30/16 08:46 Hct 35.6 % (35.5-45.6) 03/30/16 08:46 MCV 73 fl (84-94) L 03/30/16 08:46 MCH 22 pg (28-32) L 03/30/16 08:46 MCHC 31 % (32-34) L 03/30/16 08:46 RDW 16.2 % (13.2-15.2) H 03/30/16 08:46 Plt Count 234 K/mm3 (140-440) 03/30/16 08:46 Lymph % (Auto) 16.9 % (13.4-35.0) 03/30/16 08:46 [place] % (Auto) 12.2 % (0.0-7.3) H 03/30/16 08:46 Eos % (Auto) 4.0 % (0.0-4.3) 03/30/16 08:46 Baso % (Auto) 0.9 % (0.0-1.8) 03/30/16 08:46 Lymph # 1.0 K/mm3 (1.2-5.4) L 03/30/16 08:46 [place] # 0.7 K/mm3 (0.0-0.8) 03/30/16 08:46 Eos # 0.2 K/mm3 (0.0-0.4) 03/30/16 08:46 Baso # 0.1 K/mm3 (0.0-0.1) 03/30/16 08:46 Seg Neutrophils % 66.0 % (40.0-70.0) 03/30/16 08:46 Seg Neutrophils # 4.0 K/mm3 (1.8-7.7) 03/30/16 08:46 PT 15.1 Sec. (12.2-14.9) H 03/31/16 06:37 INR 1.20 (0.87-1.13) H 03/31/16 06:37 APTT 26.4 Sec. (24.2-36.6) 03/24/16 13:35 Heparin Anti-Xa Level < 0.10 U.I./ml (0.3-0.7) L 03/26/16 04:36 POC ABG pH 7.395 (7.35-7.45) 03/30/16 10:27 POC ABG pCO2 54.1 (35-45) H 03/30/16 10:27 POC ABG pO2 60 (80-105) L 03/30/16 10:27 POC ABG HCO3 33.2 03/30/16 10:27 POC ABG Total CO2 35 03/30/16 10:27 POC ABG O2 Sat 90 03/30/16 10:27 POC ABG Base Excess 8 03/30/16 10:27 FiO2 21 % 03/30/16 10:27 Sodium 140 mmol/L (137-145) 03/31/16 06:37 Potassium 4.2 mmol/L (3.6-5.0) 03/31/16 06:37 Chloride 98.0 mmol/L (98-107) 03/31/16 06:37 Carbon Dioxide 30 mmol/L (22-30) 03/31/16 06:37 Anion Gap 16 mmol/L 03/31/16 06:37 BUN 23 mg/dL (9-20) H 03/31/16 06:37 Creatinine 1.5 mg/dL (0.8-1.5) 03/31/16 06:37 Estimated GFR 59 ml/min 03/31/16 06:37 BUN/Creatinine Ratio 15.33 % 03/31/16 06:37 Glucose 116 mg/dL (75-100) H 03/31/16 06:37 POC Glucose 113 (70-105) H 03/31/16 11:56 Calcium 8.3 mg/dL (8.4-10.2) L 03/31/16 06:37 Total Bilirubin 1.3 mg/dL (0.1-1.2) H 03/25/16 04:21 AST 73 units/L (5-40) H 03/25/16 04:21 ALT 108 units/L (7-56) H 03/25/16 04:21 Alkaline Phosphatase 47 units/L (35-129) 03/25/16 04:21 Total Creatine Kinase 199 units/L (55-170) H 03/24/16 13:35 CK-MB (CK-2) 5.1 ng/mL (0.0-4.0) H 03/24/16 13:35 CK-MB (CK-2) Rel Index 2.5 (0-4) 03/24/16 13:35 Troponin T 0.052 ng/mL (0.00-0.029) H 03/24/16 13:35 NT-Pro-B Natriuret Pep 4652 pg/mL (0-900) H 03/24/16 13:35 Total Protein 6.7 g/dL (6.3-8.2) 03/25/16 04:21 Albumin 3.5 g/dL (3.9-5) L 03/25/16 04:21 Albumin/Globulin Ratio 1.1 % 03/25/16 04:21 Triglycerides 62 mg/dL (2-149) 03/24/16 13:35 Cholesterol 160 mg/dL (50-199) 03/24/16 13:35 LDL Cholesterol Direct 114 mg/dL (50-130) 03/24/16 13:35 HDL Cholesterol 37 mg/dL (40-59) L 03/24/16 13:35 Cholesterol/HDL Ratio 4.32 % 03/24/16 13:35 VASCULAR LAB.PRELIMINARY REPORT.RUE VENOUS DUPLEX DONE. NO EVIDENCE OF DVT IN VESSELS VISUALIZED. SVT NOTED IN THE RT.CEPHALIC VEIN AT MID TO DISTAL FOREARM WHERE IV CATH IS LOCATED. Initialized on 03/31/16 14:06 - END OF NOTE
[2016-03-31] MEDS: COUMADIN PO SCH (17:16)
[2016-03-31] MEDS: LANOXIN PO SCH (17:16)
--- NOTE | 2016-03-31 20:24 | Progress Note ---
Assessment and Plan Patient resting at this time on room air..O2 satuaration 98%. No acute respiratory distress .. Patient has Cardiomyopathy and CHF.Management as per cardiology. Patient Obese, Patient may have sleep apnea. Recommend sleep study as outpatient. - Patient Problems (1) Acute on chronic congestive heart failure Current Visit: Yes Status: Acute Qualifiers: Congestive heart failure type: unspecified congestive heart failure type Qualified Code(s): I50.9 - Heart failure, unspecified Plan to address problem: Management as per cardiology. (2) RAJANI (obstructive sleep apnea) Current Visit: Yes Status: Acute Plan to address problem: Recommend sleep study as out patient. Recommend to loose weight. Subjective Date of service: 03/31/16 Principal diagnosis: RAJANI; Cardiomyopathy Interval history: Patient resting on room air at this time.O2 satuaration 98% on 2 litres O2. No acute respiratory distress .. Objective Vital Signs - 12hr 03/31/16 03/31/16 03/31/16 09:35 10:06 11:57 Temperature 98.0 F Pulse Rate 89 Pulse Rate [ Anterior Bilateral Throughout] Pulse Rate [ 66 Right Radial] Respiratory 20 Rate Respiratory Rate [Anterior Bilateral Throughout] Blood Pressure 170/86 [Right Arm] O2 Sat by Pulse 98 96 Oximetry 03/31/16 03/31/16 03/31/16 13:20 13:40 17:04 Temperature 98.5 F Pulse Rate Pulse Rate [ 72 74 Anterior Bilateral Throughout] Pulse Rate [ 56 L Right Radial] Respiratory 20 Rate Respiratory 18 16 Rate [Anterior Bilateral Throughout] Blood Pressure 138/76 [Right Arm] O2 Sat by Pulse 98 Oximetry Constitutional: no acute distress, alert Eyes: non-icteric ENT: oropharynx moist Neck: supple, no lymphadenopathy Effort: normal Ascultation: Bilateral: diminished breath sounds, rales, rhonchi (bases) Cardiovascular: regular rate and rhythm Gastrointestinal: normoactive bowel sounds, soft, non-tender Integumentary: normal Extremities: no cyanosis, pulses normal, no ischemia or petechiae, edema Neurologic: normal mental status, non-focal exam, pupils equal and round, motor strength normal and Psychiatric: mood appropriate, affect normal CBC and BMP: 03/30/16 08:46 03/31/16 06:37 ABG, PT/INR, D-dimer: ABG POC ABG pH 7.395 (7.35-7.45) 03/30/16 10:27 POC ABG pCO2 54.1 (35-45) H 03/30/16 10:27 POC ABG pO2 60 (80-105) L 03/30/16 10:27 POC ABG HCO3 33.2 03/30/16 10:27 POC ABG Total CO2 35 03/30/16 10:27 POC ABG O2 Sat 90 03/30/16 10:27 PT/INR, D-dimer PT 15.1 Sec. (12.2-14.9) H 03/31/16 06:37 INR 1.20 (0.87-1.13) H 03/31/16 06:37 Abnormal lab findings: Abnormal Labs 03/25/16 03/25/16 03/25/16 04:21 04:21 08:21 RBC 5.35 H Hgb Hct MCV 72 L MCH 22 L MCHC 31 L RDW 16.1 H [place] % (Auto) 13.4 H Lymph # [place] # 1.1 H Seg Neutrophils % PT INR Heparin Anti-Xa Level POC ABG pCO2 POC ABG pO2 Carbon Dioxide BUN 37 H Creatinine 1.9 H Glucose 113 H POC Glucose 111 H Calcium 8.2 L Total Bilirubin 1.3 H AST 73 H ALT 108 H Albumin 3.5 L 03/25/16 03/25/16 03/26/16 11:35 15:30 04:36 RBC Hgb 10.6 L Hct 34.6 L MCV 73 L MCH 22 L MCHC 31 L RDW 16.2 H [place] % (Auto) 11.7 H Lymph # 0.9 L [place] # Seg Neutrophils % 70.3 H PT INR Heparin Anti-Xa Level POC ABG pCO2 POC ABG pO2 Carbon Dioxide BUN Creatinine Glucose POC Glucose 141 H 121 H Calcium Total Bilirubin AST ALT Albumin 03/26/16 03/26/16 03/26/16 04:36 04:36 16:13 RBC Hgb Hct MCV MCH MCHC RDW [place] % (Auto) Lymph # [place] # Seg Neutrophils % PT INR 1.14 H Heparin Anti-Xa Level < 0.10 L POC ABG pCO2 POC ABG pO2 Carbon Dioxide BUN 33 H Creatinine 1.6 H Glucose POC Glucose 138 H Calcium 7.5 L Total Bilirubin AST ALT Albumin 03/26/16 03/27/16 03/27/16 21:20 05:17 08:54 RBC Hgb Hct MCV MCH MCHC RDW [place] % (Auto) Lymph # [place] # Seg Neutrophils % PT INR 1.17 H Heparin Anti-Xa Level POC ABG pCO2 POC ABG pO2 Carbon Dioxide BUN Creatinine Glucose POC Glucose 111 H 136 H Calcium Total Bilirubin AST ALT Albumin 03/27/16 03/27/16 03/27/16 11:49 17:11 22:11 RBC Hgb Hct MCV MCH MCHC RDW [place] % (Auto) Lymph # [place] # Seg Neutrophils % PT INR Heparin Anti-Xa Level POC ABG pCO2 POC ABG pO2 Carbon Dioxide BUN Creatinine Glucose POC Glucose 109 H 108 H 126 H Calcium Total Bilirubin AST ALT Albumin 03/28/16 03/28/16 03/28/16 08:15 09:13 15:04 RBC Hgb Hct MCV MCH MCHC RDW [place] % (Auto) Lymph # [place] # Seg Neutrophils % PT > 120.0 H 15.4 H INR > 17.67 H* 1.23 H Heparin Anti-Xa Level POC ABG pCO2 POC ABG pO2 Carbon Dioxide BUN Creatinine Glucose POC Glucose 107 H Calcium Total Bilirubin AST ALT Albumin 03/28/16 03/28/16 03/29/16 16:17 23:35 07:29 RBC Hgb Hct MCV MCH MCHC RDW [place] % (Auto) Lymph # [place] # Seg Neutrophils % PT 15.2 H INR 1.21 H Heparin Anti-Xa Level POC ABG pCO2 POC ABG pO2 Carbon Dioxide BUN Creatinine Glucose POC Glucose 118 H 145 H Calcium Total Bilirubin AST ALT Albumin 03/29/16 03/29/16 03/29/16 12:40 16:42 21:43 RBC Hgb Hct MCV MCH MCHC RDW [place] % (Auto) Lymph # [place] # Seg Neutrophils % PT INR Heparin Anti-Xa Level POC ABG pCO2 POC ABG pO2 Carbon Dioxide BUN Creatinine Glucose POC Glucose 110 H 232 H 120 H Calcium Total Bilirubin AST ALT Albumin 03/30/16 03/30/16 03/30/16 08:13 08:46 08:46 RBC Hgb 10.9 L Hct MCV 73 L MCH 22 L MCHC 31 L RDW 16.2 H [place] % (Auto) 12.2 H Lymph # 1.0 L [place] # Seg Neutrophils % PT INR 1.16 H Heparin Anti-Xa Level POC ABG pCO2 POC ABG pO2 Carbon Dioxide BUN Creatinine Glucose POC Glucose 156 H Calcium Total Bilirubin AST ALT Albumin 03/30/16 03/30/16 03/30/16 08:46 10:17 10:27 RBC Hgb Hct MCV MCH MCHC RDW [place] % (Auto) Lymph # [place] # Seg Neutrophils % PT INR Heparin Anti-Xa Level POC ABG pCO2 51.9 H 54.1 H POC ABG pO2 42 L 60 L Carbon Dioxide 31 H BUN 23 H Creatinine Glucose 161 H POC Glucose Calcium 8.2 L Total Bilirubin AST ALT Albumin 03/30/16 03/31/16 03/31/16 19:50 06:37 06:37 RBC Hgb Hct MCV MCH MCHC RDW [place] % (Auto) Lymph # [place] # Seg Neutrophils % PT 15.1 H INR 1.20 H Heparin Anti-Xa Level POC ABG pCO2 POC ABG pO2 Carbon Dioxide BUN 23 H Creatinine Glucose 116 H POC Glucose 125 H Calcium 8.3 L Total Bilirubin AST ALT Albumin 03/31/16 03/31/16 11:56 16:19 RBC Hgb Hct MCV MCH MCHC RDW [place] % (Auto) Lymph # [place] # Seg Neutrophils % PT INR Heparin Anti-Xa Level POC ABG pCO2 POC ABG pO2 Carbon Dioxide BUN Creatinine Glucose POC Glucose 113 H 125 H Calcium Total Bilirubin AST ALT Albumin Chest x-ray: report reviewed (Minimal improvement in CHF.), image reviewed
[2016-04-01] MEDS: LASIX IV SCH ×2 (05:16→17:35)
[2016-04-01 06:31] LABS: INR 1.3 (0.87-1.13)
[2016-04-01 06:34] LABS: BUN/Creatinine Ratio 13.33; Calcium 8.9 mg/dL (8.4-10.2); Chloride 97.6 mmol/L (98-107)
--- NOTE | 2016-04-01 08:47 | Vascular Lab Report ---
RIGHT UPPER EXTREMITY VENOUS DUPLEX: REASON FOR EXAM: Pain and swelling of the right upper extremity COMMENTS ON THE RIGHT: All arm veins visualized are freely compressible without evidence of internal echogenicity. The subclavian and internal jugular veins are free of thrombus. Flow is spontaneous and phasic throughout. Superficial thrombophlebitis noted in the very distal cephalic vein COMMENTS ON THE LEFT: The subclavian and internal jugular veins are free of thrombus. IMPRESSION: No evidence of acute or chronic deep venous thrombosis in the right upper extremity. Right superficial thrombophlebitis
--- NOTE | 2016-04-01 08:55 | Vascular Lab Report ---
LEFT UPPER EXTREMITY VENOUS DUPLEX: REASON FOR EXAM: Pain and swelling of the left upper extremity COMMENTS ON THE LEFT: All arm veins visualized are freely compressible without evidence of internal echogenicity. The subclavian and internal jugular veins are free of thrombus. Flow is spontaneous and phasic throughout. Superficial thrombophlebitis was noted the left cephalic and basilic veins COMMENTS ON THE RIGHT: The subclavian and internal jugular veins are free of thrombus. IMPRESSION: No evidence of acute or chronic deep venous thrombosis in the left upper extremity. Left upper extremity superficial phlebitis.
[2016-04-01] MEDS: DUONEB 0.5 MG-3 MG/3 ML SOLN IH SCH ×3 (09:43→20:33)
[2016-04-01] MEDS ORDERED: ZESTRIL PO SCH (10:00)
[2016-04-01] MEDS: DIOVAN PO SCH (10:03)
[2016-04-01] MEDS: ZAROXOLYN PO SCH (10:03)
[2016-04-01] MEDS: PEPCID PO SCH ×2 (10:04→21:44)
[2016-04-01] MEDS: K-DUR PO SCH ×2 (10:04→21:44)
[2016-04-01] MEDS: COREG PO SCH ×2 (10:04→21:44)
[2016-04-01] MEDS: BABY ASPIRIN PO SCH (10:04)
[2016-04-01] MEDS: FEOSOL PO SCH ×2 (10:06→21:44)
[2016-04-01] MEDS: LOVENOX SUB-Q SCH (10:07)
--- NOTE | 2016-04-01 11:45 | Progress Note ---
Assessment and Plan - Patient Problems (1) Acute on chronic congestive heart failure Current Visit: Yes Status: Acute Qualifiers: Congestive heart failure type: unspecified congestive heart failure type Qualified Code(s): I50.9 - Heart failure, unspecified Plan to address problem: Heart failure is resolved on medical therapy. (2) Atrial fibrillation Current Visit: Yes Status: Acute Plan to address problem: Continue rate control and oral anticoagulation. (3) Dilated cardiomyopathy Current Visit: Yes Status: Acute Plan to address problem: Persantine thallium in the morning for ischemic assessment of his cardiomyopathy. Subjective Date of service: 04/01/16 Principal diagnosis: RAJANI; Cardiomyopathy Interval history: Patient is comfortable, looks and feels better, his shortness of breath has resolved. Objective Vital Signs Temp Pulse Pulse Pulse Pulse Resp Resp 04/01/16 10:02 54 L 16 04/01/16 09:43 54 L 16 04/01/16 07:47 98.7 F 48 L 20 04/01/16 05:54 97.6 F 58 L 18 04/01/16 01:01 97.6 F 64 18 03/31/16 22:00 86 18 03/31/16 21:00 63 18 03/31/16 20:47 65 18 03/31/16 20:31 97.6 F 48 L 20 03/31/16 17:04 98.5 F 56 L 20 03/31/16 13:40 74 16 03/31/16 13:20 72 18 03/31/16 11:57 98.0 F 66 20 BP Pulse Ox 04/01/16 10:02 04/01/16 09:43 04/01/16 07:47 163/103 97 04/01/16 05:54 167/89 99 04/01/16 01:01 162/106 95 03/31/16 22:00 03/31/16 21:00 03/31/16 20:47 03/31/16 20:31 142/87 94 03/31/16 17:04 138/76 98 03/31/16 13:40 03/31/16 13:20 03/31/16 11:57 170/86 96 - Physical Examination General: No Apparent Distress, Other (Obese) HEENT: Positive: PERRL Neck: Positive: neck supple, trachea midline. Negative: JVD/HJR Cardiac: Positive: irregularly irregular Lungs: Positive: Decreased Breath Sounds Neuro: Positive: Grossly Intact Abdomen: Positive: Unremarkable, Soft, Active Bowel Sounds Skin: Positive: Clear Extremities: Absent: edema - Labs and Meds Coagulation 04/01/16 Range/Units 05:55 PT 16.1 H (12.2-14.9) Sec. INR 1.30 H (0.87-1.13) Comprehensive Metabolic Panel 04/01/16 Range/Units 05:55 Sodium 141 (137-145) mmol/L Potassium 4.0 (3.6-5.0) mmol/L Chloride 97.6 L (98-107) mmol/L Carbon Dioxide 33 H (22-30) mmol/L BUN 24 H (9-20) mg/dL Creatinine 1.8 H (0.8-1.5) mg/dL Glucose 107 H (75-100) mg/dL Calcium 8.9 (8.4-10.2) mg/dL
--- NOTE | 2016-04-01 13:27 | Progress Note ---
Assessment and Plan - Patient Problems (1) Acute on chronic congestive heart failure Current Visit: Yes Status: Acute Qualifiers: Congestive heart failure type: unspecified congestive heart failure type Qualified Code(s): I50.9 - Heart failure, unspecified (2) Atrial fibrillation Current Visit: Yes Status: Acute (3) RAJANI (obstructive sleep apnea) Current Visit: Yes Status: Acute Subjective Date of service: 04/01/16 Principal diagnosis: RAJANI; Cardiomyopathy Interval history: Seen and examined at bedside; 24 hour events reviewed; nursing and respiratory care staff consulted; no adverse overnight events reported to me; Objective Vital Signs - 12hr 04/01/16 04/01/16 04/01/16 05:54 07:47 09:43 Temperature 97.6 F 98.7 F Pulse Rate [ 54 L Anterior Bilateral Throughout] Pulse Rate [ 58 L 48 L Apical] Respiratory 18 20 Rate Respiratory 16 Rate [Anterior Bilateral Throughout] Blood Pressure 167/89 163/103 [Right Arm] O2 Sat by Pulse 99 97 Oximetry 04/01/16 04/01/16 10:02 11:44 Temperature 98.3 F Pulse Rate [ 54 L Anterior Bilateral Throughout] Pulse Rate [ 90 Apical] Respiratory 20 Rate Respiratory 16 Rate [Anterior Bilateral Throughout] Blood Pressure 146/74 [Right Arm] O2 Sat by Pulse 98 Oximetry Constitutional: no acute distress, alert Eyes: non-icteric ENT: oropharynx moist Neck: supple, no lymphadenopathy Effort: normal Ascultation: Bilateral: clear, diminished breath sounds, rales, rhonchi (bases) Cardiovascular: regular rate and rhythm Gastrointestinal: normoactive bowel sounds, soft, non-tender Integumentary: normal Extremities: no cyanosis, pulses normal, no ischemia or petechiae, edema Neurologic: normal mental status, non-focal exam, pupils equal and round, motor strength normal and Psychiatric: mood appropriate, affect normal CBC and BMP: 03/30/16 08:46 04/01/16 05:55 ABG, PT/INR, D-dimer: ABG POC ABG pH 7.395 (7.35-7.45) 03/30/16 10:27 POC ABG pCO2 54.1 (35-45) H 03/30/16 10:27 POC ABG pO2 60 (80-105) L 03/30/16 10:27 POC ABG HCO3 33.2 03/30/16 10:27 POC ABG Total CO2 35 03/30/16 10:27 POC ABG O2 Sat 90 03/30/16 10:27 PT/INR, D-dimer PT 16.1 Sec. (12.2-14.9) H 04/01/16 05:55 INR 1.30 (0.87-1.13) H 04/01/16 05:55 Abnormal lab findings: Abnormal Labs 03/25/16 03/25/16 03/25/16 04:21 04:21 08:21 RBC 5.35 H Hgb Hct MCV 72 L MCH 22 L MCHC 31 L RDW 16.1 H [place] % (Auto) 13.4 H Lymph # [place] # 1.1 H Seg Neutrophils % PT INR Heparin Anti-Xa Level POC ABG pCO2 POC ABG pO2 Chloride Carbon Dioxide BUN 37 H Creatinine 1.9 H Glucose 113 H POC Glucose 111 H Calcium 8.2 L Total Bilirubin 1.3 H AST 73 H ALT 108 H Albumin 3.5 L 03/25/16 03/25/16 03/26/16 11:35 15:30 04:36 RBC Hgb 10.6 L Hct 34.6 L MCV 73 L MCH 22 L MCHC 31 L RDW 16.2 H [place] % (Auto) 11.7 H Lymph # 0.9 L [place] # Seg Neutrophils % 70.3 H PT INR Heparin Anti-Xa Level POC ABG pCO2 POC ABG pO2 Chloride Carbon Dioxide BUN Creatinine Glucose POC Glucose 141 H 121 H Calcium Total Bilirubin AST ALT Albumin 03/26/16 03/26/16 03/26/16 04:36 04:36 16:13 RBC Hgb Hct MCV MCH MCHC RDW [place] % (Auto) Lymph # [place] # Seg Neutrophils % PT INR 1.14 H Heparin Anti-Xa Level < 0.10 L POC ABG pCO2 POC ABG pO2 Chloride Carbon Dioxide BUN 33 H Creatinine 1.6 H Glucose POC Glucose 138 H Calcium 7.5 L Total Bilirubin AST ALT Albumin 03/26/16 03/27/16 03/27/16 21:20 05:17 08:54 RBC Hgb Hct MCV MCH MCHC RDW [place] % (Auto) Lymph # [place] # Seg Neutrophils % PT INR 1.17 H Heparin Anti-Xa Level POC ABG pCO2 POC ABG pO2 Chloride Carbon Dioxide BUN Creatinine Glucose POC Glucose 111 H 136 H Calcium Total Bilirubin AST ALT Albumin 03/27/16 03/27/16 03/27/16 11:49 17:11 22:11 RBC Hgb Hct MCV MCH MCHC RDW [place] % (Auto) Lymph # [place] # Seg Neutrophils % PT INR Heparin Anti-Xa Level POC ABG pCO2 POC ABG pO2 Chloride Carbon Dioxide BUN Creatinine Glucose POC Glucose 109 H 108 H 126 H Calcium Total Bilirubin AST ALT Albumin 03/28/16 03/28/16 03/28/16 08:15 09:13 15:04 RBC Hgb Hct MCV MCH MCHC RDW [place] % (Auto) Lymph # [place] # Seg Neutrophils % PT > 120.0 H 15.4 H INR > 17.67 H* 1.23 H Heparin Anti-Xa Level POC ABG pCO2 POC ABG pO2 Chloride Carbon Dioxide BUN Creatinine Glucose POC Glucose 107 H Calcium Total Bilirubin AST ALT Albumin 03/28/16 03/28/16 03/29/16 16:17 23:35 07:29 RBC Hgb Hct MCV MCH MCHC RDW [place] % (Auto) Lymph # [place] # Seg Neutrophils % PT 15.2 H INR 1.21 H Heparin Anti-Xa Level POC ABG pCO2 POC ABG pO2 Chloride Carbon Dioxide BUN Creatinine Glucose POC Glucose 118 H 145 H Calcium Total Bilirubin AST ALT Albumin 03/29/16 03/29/16 03/29/16 12:40 16:42 21:43 RBC Hgb Hct MCV MCH MCHC RDW [place] % (Auto) Lymph # [place] # Seg Neutrophils % PT INR Heparin Anti-Xa Level POC ABG pCO2 POC ABG pO2 Chloride Carbon Dioxide BUN Creatinine Glucose POC Glucose 110 H 232 H 120 H Calcium Total Bilirubin AST ALT Albumin 03/30/16 03/30/16 03/30/16 08:13 08:46 08:46 RBC Hgb 10.9 L Hct MCV 73 L MCH 22 L MCHC 31 L RDW 16.2 H [place] % (Auto) 12.2 H Lymph # 1.0 L [place] # Seg Neutrophils % PT INR 1.16 H Heparin Anti-Xa Level POC ABG pCO2 POC ABG pO2 Chloride Carbon Dioxide BUN Creatinine Glucose POC Glucose 156 H Calcium Total Bilirubin AST ALT Albumin 03/30/16 03/30/16 03/30/16 08:46 10:17 10:27 RBC Hgb Hct MCV MCH MCHC RDW [place] % (Auto) Lymph # [place] # Seg Neutrophils % PT INR Heparin Anti-Xa Level POC ABG pCO2 51.9 H 54.1 H POC ABG pO2 42 L 60 L Chloride Carbon Dioxide 31 H BUN 23 H Creatinine Glucose 161 H POC Glucose Calcium 8.2 L Total Bilirubin AST ALT Albumin 03/30/16 03/31/16 03/31/16 19:50 06:37 06:37 RBC Hgb Hct MCV MCH MCHC RDW [place] % (Auto) Lymph # [place] # Seg Neutrophils % PT 15.1 H INR 1.20 H Heparin Anti-Xa Level POC ABG pCO2 POC ABG pO2 Chloride Carbon Dioxide BUN 23 H Creatinine Glucose 116 H POC Glucose 125 H Calcium 8.3 L Total Bilirubin AST ALT Albumin 03/31/16 03/31/16 03/31/16 11:56 16:19 21:37 RBC Hgb Hct MCV MCH MCHC RDW [place] % (Auto) Lymph # [place] # Seg Neutrophils % PT INR Heparin Anti-Xa Level POC ABG pCO2 POC ABG pO2 Chloride Carbon Dioxide BUN Creatinine Glucose POC Glucose 113 H 125 H 128 H Calcium Total Bilirubin AST ALT Albumin 04/01/16 04/01/16 04/01/16 05:55 05:55 11:27 RBC Hgb Hct MCV MCH MCHC RDW [place] % (Auto) Lymph # [place] # Seg Neutrophils % PT 16.1 H INR 1.30 H Heparin Anti-Xa Level POC ABG pCO2 POC ABG pO2 Chloride 97.6 L Carbon Dioxide 33 H BUN 24 H Creatinine 1.8 H Glucose 107 H POC Glucose 120 H Calcium Total Bilirubin AST ALT Albumin
[2016-04-01] MEDS: COUMADIN PO SCH (17:35)
[2016-04-01] MEDS: LANOXIN PO SCH (17:35)
--- NOTE | 2016-04-01 17:44 | Progress Note ---
Assessment and Plan Assessment and plan: 1. P. Atrial fibrillation-cardiology f/u noted; amiodarone stopped by cardiology ; digoxin; will need continuous churn buttermaker anticoagulation as per cardiology 2. Severe dilated cardiomyopathy. Echocardiogram reveals ejection fraction of 15%; diuretic therapy per cardiology. Cont on metolazone as per cardiology; Cont IV lasix; for ischemia eval prior to d/c as per cardiology when stable 3. Acute systolic CHF exacerbation -manx as above; cotn coreg and losartan; lisinopril; f/u by cardiology 4. Acute hypoxic respiratory failure compensated with O2. Continue O2 for supportive care. BiPAP when necessary. 5. DVT prophylaxis. Continue Lovenox. History Interval history: f/u CMP, EF 15%; Atrial tachycardia Patient seen at the bedside; no complaints today; off milrinone Hospitalist Physical - Constitutional Vitals: Temp Pulse Resp BP Pulse Ox 98.3 F 54 L 16 146/74 98 04/01/16 11:44 04/01/16 15:02 04/01/16 15:02 04/01/16 11:44 04/01/16 11:44 General appearance: Present: no acute distress, obese - EENT Eyes: Present: PERRL, EOM intact. Absent: scleral icterus, conjunctival injection ENT: hearing intact, clear oral mucosa, no oropharyngeal erythema, no poor dentition - Neck Neck: Present: supple, normal ROM. Absent: enlarged thyroid, masses or JVD - Respiratory Respiratory effort: normal Respiratory: negative: diminished, rales, rhonchi, wheezing - Cardiovascular Rhythm: regular Heart Sounds: Present: S1 & S2. Absent: gallop - Extremities Extremities: no ischemia, pulses intact, pulses symmetrical, No edema Peripheral Pulses: within normal limits - Abdominal General gastrointestinal: soft, non-tender, non-distended, normal bowel sounds - Integumentary Integumentary: Present: clear - Psychiatric Psychiatric: appropriate mood/affect, intact judgment & insight, cooperative - Neurologic Neurologic: CNII-XII intact, moves all extremities Results - Labs CBC & Chem 7: 03/30/16 08:46 04/01/16 05:55 Labs: Laboratory Last Values WBC 6.1 K/mm3 (4.5-11.0) 03/30/16 08:46 RBC 4.88 M/mm3 (3.65-5.03) 03/30/16 08:46 Hgb 10.9 gm/dl (11.8-15.2) L 03/30/16 08:46 Hct 35.6 % (35.5-45.6) 03/30/16 08:46 MCV 73 fl (84-94) L 03/30/16 08:46 MCH 22 pg (28-32) L 03/30/16 08:46 MCHC 31 % (32-34) L 03/30/16 08:46 RDW 16.2 % (13.2-15.2) H 03/30/16 08:46 Plt Count 234 K/mm3 (140-440) 03/30/16 08:46 Lymph % (Auto) 16.9 % (13.4-35.0) 03/30/16 08:46 [place] % (Auto) 12.2 % (0.0-7.3) H 03/30/16 08:46 Eos % (Auto) 4.0 % (0.0-4.3) 03/30/16 08:46 Baso % (Auto) 0.9 % (0.0-1.8) 03/30/16 08:46 Lymph # 1.0 K/mm3 (1.2-5.4) L 03/30/16 08:46 [place] # 0.7 K/mm3 (0.0-0.8) 03/30/16 08:46 Eos # 0.2 K/mm3 (0.0-0.4) 03/30/16 08:46 Baso # 0.1 K/mm3 (0.0-0.1) 03/30/16 08:46 Seg Neutrophils % 66.0 % (40.0-70.0) 03/30/16 08:46 Seg Neutrophils # 4.0 K/mm3 (1.8-7.7) 03/30/16 08:46 PT 16.1 Sec. (12.2-14.9) H 04/01/16 05:55 INR 1.30 (0.87-1.13) H 04/01/16 05:55 APTT 26.4 Sec. (24.2-36.6) 03/24/16 13:35 Heparin Anti-Xa Level < 0.10 U.I./ml (0.3-0.7) L 03/26/16 04:36 POC ABG pH 7.395 (7.35-7.45) 03/30/16 10:27 POC ABG pCO2 54.1 (35-45) H 03/30/16 10:27 POC ABG pO2 60 (80-105) L 03/30/16 10:27 POC ABG HCO3 33.2 03/30/16 10:27 POC ABG Total CO2 35 03/30/16 10:27 POC ABG O2 Sat 90 03/30/16 10:27 POC ABG Base Excess 8 03/30/16 10:27 FiO2 21 % 03/30/16 10:27 Sodium 141 mmol/L (137-145) 04/01/16 05:55 Potassium 4.0 mmol/L (3.6-5.0) 04/01/16 05:55 Chloride 97.6 mmol/L (98-107) L 04/01/16 05:55 Carbon Dioxide 33 mmol/L (22-30) H 04/01/16 05:55 Anion Gap 14 mmol/L 04/01/16 05:55 BUN 24 mg/dL (9-20) H 04/01/16 05:55 Creatinine 1.8 mg/dL (0.8-1.5) H 04/01/16 05:55 Estimated GFR 47 ml/min 04/01/16 05:55 BUN/Creatinine Ratio 13.33 % 04/01/16 05:55 Glucose 107 mg/dL (75-100) H 04/01/16 05:55 POC Glucose 120 (70-105) H 04/01/16 11:27 Calcium 8.9 mg/dL (8.4-10.2) 04/01/16 05:55 Total Bilirubin 1.3 mg/dL (0.1-1.2) H 03/25/16 04:21 AST 73 units/L (5-40) H 03/25/16 04:21 ALT 108 units/L (7-56) H 03/25/16 04:21 Alkaline Phosphatase 47 units/L (35-129) 03/25/16 04:21 Total Creatine Kinase 199 units/L (55-170) H 03/24/16 13:35 CK-MB (CK-2) 5.1 ng/mL (0.0-4.0) H 03/24/16 13:35 CK-MB (CK-2) Rel Index 2.5 (0-4) 03/24/16 13:35 Troponin T 0.052 ng/mL (0.00-0.029) H 03/24/16 13:35 NT-Pro-B Natriuret Pep 4652 pg/mL (0-900) H 03/24/16 13:35 Total Protein 6.7 g/dL (6.3-8.2) 03/25/16 04:21 Albumin 3.5 g/dL (3.9-5) L 03/25/16 04:21 Albumin/Globulin Ratio 1.1 % 03/25/16 04:21 Triglycerides 62 mg/dL (2-149) 03/24/16 13:35 Cholesterol 160 mg/dL (50-199) 03/24/16 13:35 LDL Cholesterol Direct 114 mg/dL (50-130) 03/24/16 13:35 HDL Cholesterol 37 mg/dL (40-59) L 03/24/16 13:35 Cholesterol/HDL Ratio 4.32 % 03/24/16 13:35
[2016-04-02] MEDS: LASIX IV SCH (05:54)
[2016-04-02 07:32] LABS: INR 1.22 (0.87-1.13)
[2016-04-02 07:48] LABS: Chloride 94.4 mmol/L (98-107); Potassium 4.1 mmol/L (3.6-5.0)
[2016-04-02] MEDS ORDERED: LEXISCAN IV ONE ×2 (08:03→08:05)
--- NOTE | 2016-04-02 08:31 | Progress Note ---
Assessment and Plan CHF exacerbation - resolved Cardiomyopathy, LVEF 10-15% ? etiology MPI results are pending Persistent Atrial fibrillation Patient reverted to SR today Hypertension - controlled Non compliant with medications Recommendations Resume po amiodarone now that patient is back in SR Change metolazone to every 48 hours Change lasix to po Demadex 40 mg daily Discontinue diovan and increase lisinopril to 10 mg po daily Check digoxin level Subjective Date of service: 04/02/16 Principal diagnosis: RAJANI; Cardiomyopathy Interval history: Patient is comfortable this morning. He denies chest pain or shortness of breath. His diuresis has improved significantly on metolazone. Objective Vital Signs Temp Pulse Pulse Pulse Pulse Resp Resp 04/02/16 05:17 98.2 F 84 21 04/02/16 00:00 98 F 78 20 04/01/16 22:00 64 04/01/16 20:48 57 L 16 04/01/16 20:33 56 L 16 04/01/16 20:00 98.9 F 60 21 04/01/16 15:02 54 L 16 04/01/16 14:50 45 L 16 04/01/16 11:44 98.3 F 90 20 04/01/16 10:02 54 L 16 04/01/16 10:00 97 H 04/01/16 09:43 54 L 16 BP Pulse Ox 04/02/16 05:17 115/71 96 04/02/16 00:00 126/84 91 04/01/16 22:00 04/01/16 20:48 04/01/16 20:33 04/01/16 20:00 138/72 98 04/01/16 15:02 04/01/16 14:50 04/01/16 11:44 146/74 98 04/01/16 10:02 04/01/16 10:00 04/01/16 09:43 - Physical Examination General: No Apparent Distress, Other (Obese) HEENT: Positive: PERRL Neck: Positive: neck supple, trachea midline. Negative: JVD/HJR Cardiac: Positive: Reg Rate and Rhythm Lungs: Positive: Normal Exam Neuro: Positive: Grossly Intact Abdomen: Positive: Unremarkable, Soft, Active Bowel Sounds Skin: Positive: Clear Extremities: Absent: edema - Labs and Meds Coagulation 04/02/16 Range/Units 07:02 PT 15.3 H (12.2-14.9) Sec. INR 1.22 H (0.87-1.13) Comprehensive Metabolic Panel 04/02/16 Range/Units 07:02 Sodium 141 (137-145) mmol/L Potassium 4.1 (3.6-5.0) mmol/L Chloride 94.4 L (98-107) mmol/L Carbon Dioxide 31 H (22-30) mmol/L BUN 27 H (9-20) mg/dL Creatinine 1.8 H (0.8-1.5) mg/dL Glucose 104 H (75-100) mg/dL Calcium 9.0 (8.4-10.2) mg/dL
[2016-04-02] MEDS ORDERED: ZESTRIL PO SCH (08:33)
[2016-04-02] MEDS ORDERED: ZAROXOLYN PO SCH (09:00)
[2016-04-02] MEDS ORDERED: CORDARONE PO SCH (10:00)
[2016-04-02] MEDS ORDERED: DEMADEX PO SCH (10:00)
[2016-04-02] MEDS: DUONEB 0.5 MG-3 MG/3 ML SOLN IH SCH ×2 (10:40→13:56)
--- NOTE | 2016-04-02 10:43 | Discharge Summary ---
Providers - Providers Date of Admission: 03/24/16 22:50 Date of discharge: 04/02/16 Attending physician: SOURAV BOWLING Primary care physician: MANAGER PLAY Hospitalization Reason for admission: hypertensive emergency, atrial fibrillation with rapid ventricular response Condition: Fair Pertinent studies: cxr- congestion Echocardiogram-moderate MR four-chamber cardiomyopathy, ejection fraction 15%. Moderate TR. Mild pulmonary hypertension Hospital course: Mr Caicedo is a 55-year-old gentleman who presented to the emergency room with shortness of breath and was diagnosed with hypertensive emergency with atrial fibrillation and rapid ventricular response. He was admitted to the ICU. He was started on IV amiodarone and IV antihypertensive medications. He was seen by the financial underwriter as well as the plumber and tinner. Patient subsequently converted to sinus. He was transferred to the telemetry floor where he was kind. To be treated. He also received milrinone for 48 hours. He was also given IV Lasix for diuresis. He had a stress test done which showed no ischemia. He shortness of breath resolved prior to discharge. He was cleared for discharge by the financial underwriter. condition at discharge-stable 32 minutes spent on dicharge Disposition: DISCHARGED TO HOME OR SELFCARE - Discharge Diagnoses (1) Acute on chronic congestive heart failure Status: Acute Qualifiers: Congestive heart failure type: unspecified congestive heart failure type Qualified Code(s): I50.9 - Heart failure, unspecified (2) Atrial fibrillation Status: Acute (3) Dilated cardiomyopathy Status: Acute Core Measure Documentation - Palliative Care Palliative Care/ Comfort Measures: Not Applicable - Core Measures Any of the following diagnoses?: none Exam - Constitutional Vitals: Temp Pulse Resp BP Pulse Ox 98.2 F 84 21 115/71 96 04/02/16 05:17 04/02/16 05:17 04/02/16 05:17 04/02/16 05:17 04/02/16 05:17 General appearance: Present: no acute distress - EENT Eyes: Present: PERRL, EOM intact. Absent: scleral icterus, conjunctival injection ENT: hearing intact, clear oral mucosa, no oropharyngeal erythema, no poor dentition - Neck Neck: Present: supple, normal ROM. Absent: enlarged thyroid, masses or JVD - Respiratory Respiratory effort: normal Respiratory: negative: diminished, rales, rhonchi, wheezing - Cardiovascular Rhythm: regular Heart Sounds: Present: S1 & S2. Absent: gallop - Extremities Extremities: no ischemia, pulses intact, pulses symmetrical, No edema Peripheral Pulses: within normal limits - Abdominal General gastrointestinal: Present: soft, non-tender, non-distended Male genitourinary: Present: deferred - Rectal Rectal Exam: deferred - Integumentary Integumentary: Present: clear - Musculoskeletal Musculoskeletal: strength equal bilaterally - Psychiatric Psychiatric: appropriate mood/affect, intact judgment & insight - Neurologic Neurologic: CNII-XII intact Plan Activity: no restrictions Diet: low salt Additional Instructions: f/u cardiology for INR check on 04/05/16 Follow up with: RACHELLE SULLIVAN MD [Staff Physician] - 04/05/16 PRIMARY CARE, [Primary Care Provider] - 7 Days Forms: Warfarin Discharge Instruction Prescriptions: Amiodarone [Cordarone 200 MG TAB] 200 mg PO BID #60 tablet Carvedilol [Coreg] 12.5 mg PO BID #60 tablet Digoxin [Lanoxin] 0.125 mg PO DAILY@1700 #30 tablet Famotidine [Pepcid] 20 mg PO BID #30 tablet Lisinopril [Zestril TAB] 10 mg PO QDAY #30 tablet Metolazone [Zaroxolyn] 5 mg PO Q48H 30 Days Potassium Chloride 20 meq PO QDAY #30 packet Torsemide [Demadex] 40 mg PO DAILY 30 Days Warfarin [Coumadin] 6 mg PO DAILY@1700 30 Days
[2016-04-02] MEDS: BABY ASPIRIN PO SCH (10:52)
[2016-04-02] MEDS: LOVENOX SUB-Q SCH (10:53)
[2016-04-02] MEDS: FEOSOL PO SCH (10:53)
[2016-04-02] MEDS: COREG PO SCH (10:53)
[2016-04-02] MEDS: PEPCID PO SCH (10:53)
[2016-04-02] MEDS: K-DUR PO SCH (10:53)
--- NOTE | 2016-04-02 12:06 | Treadmill Report ---
INDICATION: Cardiomyopathy, congestive heart failure. ORDERING PHYSICIAN: Natty Toussaint MD FINDINGS: There is no scintigraphic evidence of myocardial ischemia. There is evidence of a large fixed inferior and inferolateral wall defect likely secondary to diaphragmatic attenuation. The left ventricular cavity is dilated with the left ventricular ejection fraction measured at 25% and severe global left ventricular hypokinesis. CONCLUSION: 1. Dilated left ventricular cavity with severe global left ventricular hypokinesis and an ejection fraction measured at 25%. 2. No scintigraphic evidence of myocardial ischemia suggesting a nonischemic etiology of the patient's underlying cardiomyopathy. 3. Large fixed inferior and inferolateral wall defect likely due to diaphragmatic attenuation artifact. [facility]# [id number] NALDO/GABBIE
--- NOTE | 2016-04-02 12:21 | Progress Note ---
Assessment and Plan - Patient Problems (1) Acute on chronic congestive heart failure Current Visit: Yes Status: Acute Qualifiers: Congestive heart failure type: unspecified congestive heart failure type Qualified Code(s): I50.9 - Heart failure, unspecified (2) Atrial fibrillation Current Visit: Yes Status: Acute (3) RAJANI (obstructive sleep apnea) Current Visit: Yes Status: Acute Subjective Date of service: 04/02/16 Principal diagnosis: RAJANI; Cardiomyopathy Interval history: Seen and examined at bedside; 24 hour events reviewed; nursing and respiratory care staff consulted; no adverse overnight events reported to me; Objective Vital Signs - 12hr 04/02/16 04/02/16 04/02/16 05:17 08:20 08:25 Temperature 98.2 F Pulse Rate 68 76 Pulse Rate [ Apical] Pulse Rate [ 84 Right Radial] Respiratory 21 Rate Blood Pressure 149/95 145/94 Blood Pressure 115/71 [Right Arm] O2 Sat by Pulse 96 Oximetry 04/02/16 04/02/16 04/02/16 08:26 08:27 08:28 Temperature Pulse Rate 88 86 78 Pulse Rate [ Apical] Pulse Rate [ Right Radial] Respiratory Rate Blood Pressure 126/81 150/85 152/92 Blood Pressure [Right Arm] O2 Sat by Pulse Oximetry 04/02/16 04/02/16 04/02/16 08:29 10:00 10:30 Temperature 97.3 F L Pulse Rate 76 Pulse Rate [ 84 76 Apical] Pulse Rate [ Right Radial] Respiratory 20 Rate Blood Pressure 145/94 Blood Pressure 122/60 [Right Arm] O2 Sat by Pulse 97 Oximetry 04/02/16 10:44 Temperature Pulse Rate 74 Pulse Rate [ Apical] Pulse Rate [ Right Radial] Respiratory Rate Blood Pressure Blood Pressure [Right Arm] O2 Sat by Pulse Oximetry Constitutional: no acute distress, alert Eyes: non-icteric ENT: oropharynx moist Neck: supple, no lymphadenopathy Effort: normal Ascultation: Bilateral: clear, diminished breath sounds, rales, rhonchi (bases) Cardiovascular: regular rate and rhythm Gastrointestinal: normoactive bowel sounds, soft, non-tender Integumentary: normal Extremities: no cyanosis, pulses normal, no ischemia or petechiae, edema Neurologic: normal mental status, non-focal exam, pupils equal and round, motor strength normal and Psychiatric: mood appropriate, affect normal CBC and BMP: 03/30/16 08:46 04/02/16 07:02 ABG, PT/INR, D-dimer: ABG POC ABG pH 7.395 (7.35-7.45) 03/30/16 10:27 POC ABG pCO2 54.1 (35-45) H 03/30/16 10:27 POC ABG pO2 60 (80-105) L 03/30/16 10:27 POC ABG HCO3 33.2 03/30/16 10:27 POC ABG Total CO2 35 03/30/16 10:27 POC ABG O2 Sat 90 03/30/16 10:27 PT/INR, D-dimer PT 15.3 Sec. (12.2-14.9) H 04/02/16 07:02 INR 1.22 (0.87-1.13) H 04/02/16 07:02 Abnormal lab findings: Abnormal Labs 03/25/16 03/25/16 03/25/16 04:21 04:21 08:21 RBC 5.35 H Hgb Hct MCV 72 L MCH 22 L MCHC 31 L RDW 16.1 H [place] % (Auto) 13.4 H Lymph # [place] # 1.1 H Seg Neutrophils % PT INR Heparin Anti-Xa Level POC ABG pCO2 POC ABG pO2 Chloride Carbon Dioxide BUN 37 H Creatinine 1.9 H Glucose 113 H POC Glucose 111 H Calcium 8.2 L Total Bilirubin 1.3 H AST 73 H ALT 108 H Albumin 3.5 L 03/25/16 03/25/16 03/26/16 11:35 15:30 04:36 RBC Hgb 10.6 L Hct 34.6 L MCV 73 L MCH 22 L MCHC 31 L RDW 16.2 H [place] % (Auto) 11.7 H Lymph # 0.9 L [place] # Seg Neutrophils % 70.3 H PT INR Heparin Anti-Xa Level POC ABG pCO2 POC ABG pO2 Chloride Carbon Dioxide BUN Creatinine Glucose POC Glucose 141 H 121 H Calcium Total Bilirubin AST ALT Albumin 03/26/16 03/26/16 03/26/16 04:36 04:36 16:13 RBC Hgb Hct MCV MCH MCHC RDW [place] % (Auto) Lymph # [place] # Seg Neutrophils % PT INR 1.14 H Heparin Anti-Xa Level < 0.10 L POC ABG pCO2 POC ABG pO2 Chloride Carbon Dioxide BUN 33 H Creatinine 1.6 H Glucose POC Glucose 138 H Calcium 7.5 L Total Bilirubin AST ALT Albumin 03/26/16 03/27/16 03/27/16 21:20 05:17 08:54 RBC Hgb Hct MCV MCH MCHC RDW [place] % (Auto) Lymph # [place] # Seg Neutrophils % PT INR 1.17 H Heparin Anti-Xa Level POC ABG pCO2 POC ABG pO2 Chloride Carbon Dioxide BUN Creatinine Glucose POC Glucose 111 H 136 H Calcium Total Bilirubin AST ALT Albumin 03/27/16 03/27/16 03/27/16 11:49 17:11 22:11 RBC Hgb Hct MCV MCH MCHC RDW [place] % (Auto) Lymph # [place] # Seg Neutrophils % PT INR Heparin Anti-Xa Level POC ABG pCO2 POC ABG pO2 Chloride Carbon Dioxide BUN Creatinine Glucose POC Glucose 109 H 108 H 126 H Calcium Total Bilirubin AST ALT Albumin 03/28/16 03/28/16 03/28/16 08:15 09:13 15:04 RBC Hgb Hct MCV MCH MCHC RDW [place] % (Auto) Lymph # [place] # Seg Neutrophils % PT > 120.0 H 15.4 H INR > 17.67 H* 1.23 H Heparin Anti-Xa Level POC ABG pCO2 POC ABG pO2 Chloride Carbon Dioxide BUN Creatinine Glucose POC Glucose 107 H Calcium Total Bilirubin AST ALT Albumin 03/28/16 03/28/16 03/29/16 16:17 23:35 07:29 RBC Hgb Hct MCV MCH MCHC RDW [place] % (Auto) Lymph # [place] # Seg Neutrophils % PT 15.2 H INR 1.21 H Heparin Anti-Xa Level POC ABG pCO2 POC ABG pO2 Chloride Carbon Dioxide BUN Creatinine Glucose POC Glucose 118 H 145 H Calcium Total Bilirubin AST ALT Albumin 03/29/16 03/29/16 03/29/16 12:40 16:42 21:43 RBC Hgb Hct MCV MCH MCHC RDW [place] % (Auto) Lymph # [place] # Seg Neutrophils % PT INR Heparin Anti-Xa Level POC ABG pCO2 POC ABG pO2 Chloride Carbon Dioxide BUN Creatinine Glucose POC Glucose 110 H 232 H 120 H Calcium Total Bilirubin AST ALT Albumin 03/30/16 03/30/16 03/30/16 08:13 08:46 08:46 RBC Hgb 10.9 L Hct MCV 73 L MCH 22 L MCHC 31 L RDW 16.2 H [place] % (Auto) 12.2 H Lymph # 1.0 L [place] # Seg Neutrophils % PT INR 1.16 H Heparin Anti-Xa Level POC ABG pCO2 POC ABG pO2 Chloride Carbon Dioxide BUN Creatinine Glucose POC Glucose 156 H Calcium Total Bilirubin AST ALT Albumin 03/30/16 03/30/16 03/30/16 08:46 10:17 10:27 RBC Hgb Hct MCV MCH MCHC RDW [place] % (Auto) Lymph # [place] # Seg Neutrophils % PT INR Heparin Anti-Xa Level POC ABG pCO2 51.9 H 54.1 H POC ABG pO2 42 L 60 L Chloride Carbon Dioxide 31 H BUN 23 H Creatinine Glucose 161 H POC Glucose Calcium 8.2 L Total Bilirubin AST ALT Albumin 03/30/16 03/31/16 03/31/16 19:50 06:37 06:37 RBC Hgb Hct MCV MCH MCHC RDW [place] % (Auto) Lymph # [place] # Seg Neutrophils % PT 15.1 H INR 1.20 H Heparin Anti-Xa Level POC ABG pCO2 POC ABG pO2 Chloride Carbon Dioxide BUN 23 H Creatinine Glucose 116 H POC Glucose 125 H Calcium 8.3 L Total Bilirubin AST ALT Albumin 03/31/16 03/31/16 03/31/16 11:56 16:19 21:37 RBC Hgb Hct MCV MCH MCHC RDW [place] % (Auto) Lymph # [place] # Seg Neutrophils % PT INR Heparin Anti-Xa Level POC ABG pCO2 POC ABG pO2 Chloride Carbon Dioxide BUN Creatinine Glucose POC Glucose 113 H 125 H 128 H Calcium Total Bilirubin AST ALT Albumin 04/01/16 04/01/16 04/01/16 05:55 05:55 11:27 RBC Hgb Hct MCV MCH MCHC RDW [place] % (Auto) Lymph # [place] # Seg Neutrophils % PT 16.1 H INR 1.30 H Heparin Anti-Xa Level POC ABG pCO2 POC ABG pO2 Chloride 97.6 L Carbon Dioxide 33 H BUN 24 H Creatinine 1.8 H Glucose 107 H POC Glucose 120 H Calcium Total Bilirubin AST ALT Albumin 04/01/16 04/01/16 04/02/16 17:20 20:39 07:02 RBC Hgb Hct MCV MCH MCHC RDW [place] % (Auto) Lymph # [place] # Seg Neutrophils % PT INR Heparin Anti-Xa Level POC ABG pCO2 POC ABG pO2 Chloride 94.4 L Carbon Dioxide 31 H BUN 27 H Creatinine 1.8 H Glucose 104 H POC Glucose 107 H 128 H Calcium Total Bilirubin AST ALT Albumin 04/02/16 07:02 RBC Hgb Hct MCV MCH MCHC RDW [place] % (Auto) Lymph # [place] # Seg Neutrophils % PT 15.3 H INR 1.22 H Heparin Anti-Xa Level POC ABG pCO2 POC ABG pO2 Chloride Carbon Dioxide BUN Creatinine Glucose POC Glucose Calcium Total Bilirubin AST ALT Albumin
[2016-04-02 12:24] VITALS: BP 120/71
[2016-04-02] MEDS ORDERED: COUMADIN ONE ×2 (14:33)
[2016-04-02] MEDS ORDERED: COUMADIN PO SCH (17:00)
[2016-04-02] MEDS: LANOXIN PO SCH (17:47)
== END 2016-04-02 18:27 | disposition home or self-care (01) | DRG 291 ==
LOC: ED 12:33 → CC1 22:50 → 4A 03-27 09:11
PROVIDERS: ADMIT Internal Medicine; ATTEND Hospitalist
PROC: 4A02XM4 Measurement of Cardiac Total Activity, External Approach (ICD-10-PCS; principal; 2016-04-01)
DX: I11.0 Hypertensive heart disease with heart failure (principal); J96.01 Acute respiratory failure with hypoxia; I16.1 Hypertensive emergency; I47.1 Supraventricular tachycardia; I48.1 Persistent atrial fibrillation; Z68.41 Body mass index [BMI] 40.0-44.9, adult; I50.43 Acute on chronic combined systolic (congestive) and diastolic (congestive) heart failure; I42.0 Dilated cardiomyopathy; E11.9 Type 2 diabetes mellitus without complications; E78.5 Hyperlipidemia, unspecified; J44.9 Chronic obstructive pulmonary disease, unspecified; N28.9 Disorder of kidney and ureter, unspecified; I95.9 Hypotension, unspecified; E66.01 Morbid (severe) obesity due to excess calories; G47.33 Obstructive sleep apnea (adult) (pediatric); Z91.14 Patient's other noncompliance with medication regimen
CPT/HCPCS: 36415; 36600; 71010; 71020; 78452; 80048; 80053; 80061; 80162; 82550; 82553; 82803; 82962; 83880; 84484; 85025; 85520; 85610; 85730; 90686; 93005; 93010; 93017; 93306; 94640; 94760; 96365; 96375; A9270-GY; A9502; J0153; J0282; J1160; J1170; J1650; J1815; J1940; J2260; J2785; J7040; J7060

== ENCOUNTER 2016-04-29 10:34 | Inpatient (IN) | payer OTHER ==
[2016-04-29 11:30] LABS: Basophils % (Auto) 0.9 % (0.0-1.8); Eosinophils % (Auto) 1.1 % (0.0-4.3); Mean Corpuscular HGB Conc 31 % (32-34); Mean Corpuscular Volume 72 fl (84-94); Platelet Count 188 K/mm3 (140-440); Red Blood Count 5.39 M/mm3 (3.65-5.03); Red Cell Distribution Width 17.4 % (13.2-15.2); White Blood Count 5.3 K/mm3 (4.5-11.0)
--- NOTE | 2016-04-29 11:34 | XRay Report ---
CHEST 2 VIEWS INDICATION: Shortness of breath. COMPARISON: 03/30/2016 FINDINGS: Frontal and lateral chest radiographs now demonstrate mild congestive increased bronchovascular prominence while small hazy pleural effusions/opacities at the lung bases again noted, right more than left. Grossly stable cardiomediastinal silhouette/possible cardiomegaly, borders now somewhat indistinct. Stable bones, including mild thoracic dextroscoliosis apex about T7. CONCLUSION: Mild interval radiographic worsening of CHF pattern, as described. Please correlate. Thank you for the opportunity to participate in this patient's care.
[2016-04-29 11:35] LABS: INR 1.2 (0.87-1.13)
[2016-04-29 11:36] LABS: Partial Thromboplastin Time 23.4 Sec. (24.2-36.6)
[2016-04-29 11:47] LABS: Hematocrit 38.8 % (35.5-45.6); Hemoglobin 11.9 gm/dl (11.8-15.2); Mean Corpuscular Hemoglobin 22 pg (28-32)
[2016-04-29 11:50] LABS: Anion Gap 21 mmol/L; Blood Urea Nitrogen 30 mg/dL (9-20); Calcium 8.6 mg/dL (8.4-10.2); Carbon Dioxide 22 mmol/L (22-30); Chloride 104.2 mmol/L (98-107); Glucose 114 mg/dL (75-100); Potassium 3.7 mmol/L (3.6-5.0); Sodium 143 mmol/L (137-145)
[2016-04-29] MEDS ORDERED: LASIX IV ONE (12:12)
--- NOTE | 2016-04-29 12:26 | Emergency Department Report ---
HPI - General Chief Complaint: Dyspnea/Respdistress Time Seen by Provider: 04/29/16 12:11 - HPI HPI: The patient is a 55 yo male with a history of CHF, who presents for evaluation of dyspnea. The patient reports 2 weeks of progressive dyspnea, constant and severe for the past one day, exacerbated with lying flat or exertion, improved with sitting up and rest. He also complains of palpitations and increased leg swelling from baseline. The patient denies fever, syncope, chest pain, hemoptysis, unilateral leg swelling, recent immobilization, recent cancer. ED Past Medical Hx - Past Medical History Hx Hypertension: Yes Hx Congestive Heart Failure: Yes Hx Diabetes: Yes (pre-diabetic) Hx Renal Disease: Yes Hx Asthma: No Hx COPD: No Additional medical history: Atrial fibrillation, renal insufficiency. ENLARGED PROSTATE - Surgical History Past Surgical History?: No - Social History Smoking Status: Never Smoker Substance Use Type: None - Medications Home Medications: Home Medications Medication Instructions Recorded Confirmed Last Taken Type Aspirin [Aspirin BABY CHEW TAB] 81 mg PO QDAY 03/24/16 03/24/16 Unknown History AtorvaSTATin [Lipitor] 20 mg PO QHS 03/24/16 03/24/16 Unknown History Ferrous Sulfate [Feosol 325 MG tab] 325 mg PO BID 03/24/16 03/24/16 Unknown History Amiodarone [Cordarone 200 MG TAB] 200 mg PO BID #60 tablet 04/02/16 Unknown Rx Carvedilol [Coreg] 12.5 mg PO BID #60 tablet 04/02/16 Unknown Rx Digoxin [Lanoxin] 0.125 mg PO DAILY@1700 #30 tablet 04/02/16 Unknown Rx Famotidine [Pepcid] 20 mg PO BID #30 tablet 04/02/16 Unknown Rx Lisinopril [Zestril TAB] 10 mg PO QDAY #30 tablet 04/02/16 Unknown Rx Metolazone [Zaroxolyn] 5 mg PO Q48H 30 Days 04/02/16 Unknown Rx Potassium Chloride 20 meq PO QDAY #30 packet 04/02/16 Unknown Rx Torsemide [Demadex] 40 mg PO DAILY 30 Days 04/02/16 Unknown Rx Warfarin [Coumadin] 6 mg PO DAILY@1700 30 Days 04/02/16 Unknown Rx ED Review of Systems ROS: Stated complaint: CHF Other details as noted in HPI Constitutional: denies: fever ENT: denies: throat or neck pain Respiratory: reports shortness of breath Cardiovascular: denies: chest pain Endocrine: denies unexplained weight loss or gain Gastrointestinal: denies: abdominal pain, nausea Genitourinary: denies: dysuria Musculoskeletal: reports leg swelling Skin: denies: rash Neurological: denies: headache Hematological/Lymphatic: denies: easy bleeding or easy bruising Psych: denies sadness or hopelessness Physical Exam - Physical Exam Vital Signs: Vital Signs 04/29/16 10:42 Temperature 98.3 F Pulse Rate 115 H Respiratory 30 H Rate Blood Pressure 189/123 O2 Sat by Pulse 94 Oximetry Physical Exam: General: well-nourished, well-developed, no acute distress Head: Normocephalic, atraumatic Eyes: normal sclera ENT: Mucous membranes are pink and moist Neck: trachea midline, neck supple, No neck stiffness, no cervical adenopathy Respiratory: Diminished breath sounds and crackles present to basilar lung [place] bilaterally Cardio: S1 and S2 present, no murmurs, rubs, gallops, capillary refill is brisk Abdomen: Normoactive bowel sounds, soft abdomen, no rigidity, no guarding or rebound tenderness Musc: 1+ pitting edema of bilateral legs present Skin: No rash Neuro: no facial drooping, normal speech Psych: Normal affect ED Course Vital Signs 04/29/16 10:42 Temperature 98.3 F Pulse Rate 115 H Respiratory 30 H Rate Blood Pressure 189/123 O2 Sat by Pulse 94 Oximetry ED Medical Decision Making - Lab Data Result diagrams: 04/29/16 11:11 04/29/16 11:11 - Medical Decision Making The patient was seen and examined by myself. The patient is placed on a bus monitor and continuous pulse ox. On initial evaluation, the patient was found to be in no distress. Evaluation orders were placed. EKG is exhibits irregularly irregular narrow complex QRS with significant tachycardia, consistent with atrial fibrillation with RVR. An amiodarone bolus and drip are ordered for the patient. CXR exhibitsd pulm vasc congestion, and mild basilar pleural effusions. Lab results reveal elevated BNP 5200, consistent with CHF, and otherwise labs are grossly not concerning. The patient given IV Lasix for CHF. The on-call hospitalist service was contacted. They agreed to admit the patient for further treatment and close monitoring. The ED admit order was placed. The patient was admitted in guarded condition. Critical care attestation.: If time is entered above; I have spent that time in minutes in the direct care of this critically ill patient, excluding procedure time. ED Disposition Clinical Impression: Atrial fibrillation with rapid ventricular response, Hypertensive emergency Acute on chronic congestive heart failure Qualifiers: Congestive heart failure type: unspecified congestive heart failure type Qualified Code(s): I50.9 - Heart failure, unspecified Disposition: OP ADMITTED IP TO THIS HOSP Is pt being admited?: Yes Does the pt Need Aspirin: Yes Condition: Serious Time of Disposition: 12:21
--- NOTE | 2016-04-29 12:43 | Admit Criteria Form ---
Admission Criteria Documentation: HEART FAILURE: COMMON COMPLICATIONS Clinical Indications for Inpatient Care (Place 'X' for any and all applicable criteria): Ongoing inpatient care may be indicated for heart failure with ANY ONE of the following (1)(2)(3)(4)(5): [ ]I. Ongoing need for care for primary condition requiring frequent therapy adjustments because of changes in cardiac function (eg, drug dosage changes for drugs that are renally metabolized) [ ]II. New-onset heart failure [ ]III. Heart failure with decreased urine output not responsive to attempts to optimize volume status [ ]IV. Acute cardiac ischemia causing or associated with failure [ X]V. Complications of heart failure, including ANY ONE of the following: [ ]a) Pericardial effusion [ ]b) Symptomatic pleural effusion [ ]c) O2 saturation <90% or PO2 < 60 mm Hg (8.0 kPa) on room air or require baseline supplemental O2 [X]d) Tachypnea [X ]e) Dyspnea [ ]f) Syncope [ ]g) Change in mental status [ ]h) Acute renal insufficiency that is severe (reduction of more than 50% in estimated glomerular filtration rate from baseline) or progressive reduction of more than 25% in estimated glomerular filtration rate from baseline, with creatinine continuing to rise) [ ]i) Hemodynamic instability [ ]j) Anasarca [ ]k) Clinically significant metabolic abnormalities due to heart failure (eg, new-onset metabolic acidosis) Extended stay beyond goal length of stay for primary condition may be needed until ALL of the following are present(1)(3): [ ]a) Stable and effective diuretic regimen established (or patient on stable dialysis regimen if in chronic renal failure) [ ]b) Breathing comfortably at rest [ ]c) Saturation of arterial oxygen greater than 90% or at acceptable baseline [ ]d) Pulmonary edema absent or improved [ ]e) Hemodynamic stability [ ]f) Volume status acceptable on oral medication [ ]g) Peripheral or sacral edema absent or improved [ ]h) Renal function stable and manageable at a lower level of care [ ]i) Complications (eg, pleural effusion) resolved or manageable at a lower level of care [ ]j) Patient or caregiver has received written discharge instructions or educational material addressing activity level, diet, discharge medications, follow-up appointment, weight monitoring, and what to do if symptoms worsen The original [employer] content created by [employer] has been revised. The portions of the content which have been revised are identified through the use of italic text or in bold, and [facility] has neither reviewed nor approved the modified material.All other unmodified content is copyright [facility]. Please see references footnoted in the original [facility] edition 2016 Admission Criteria Met: Yes
[2016-04-29] MEDS ORDERED: BABY ASPIRIN PO ONE (12:47)
[2016-04-29 13:13] LABS: Cholesterol < 4 mg/dL (50-199); LDL Cholesterol,Direct 4 mg/dL (50-130); Triglycerides < 9 mg/dL (2-149)
[2016-04-29] MEDS ORDERED: CORDARONE 150 MG in D5W 100 ML IV ONE (13:22)
[2016-04-29 13:32] LABS: HDL Cholesterol 31 mg/dL (40-59)
[2016-04-29] MEDS ORDERED: CORDARONE 900 MG in D5W 482 ML IV SCH (14:00)
--- NOTE | 2016-04-29 17:16 | History and Physical Report ---
History of Present Illness Date of examination: 04/29/16 Date of admission: 04/29/16 12:48 Chief complaint: SOB History of present illness: Patient is a 55-year-old man with a history of atrial fibrillation, chronic kidney disease stage III, BPH, [id number] diabetes mellitus, heart failure, dyslipidemia and hypertension who presents with progressively worse Severe constant shortness of breath that started 1 week ago associated with left -sided chest pains that started 2 weeks ago but none today; there is no aggravating or relieving factors. CHF showing worse CHF. 03/24/16 TTE: 4 chamber cardiomyopathy, EF 15%, moderate MR, TR, mild pulm hypertension. 04/02/16 Stress test: Dilated left ventricle with severe global left ventricular hypokinesis, ef measured at 25%, large fixed inferior and inferolateral wall defect due to diaphragmatic artifact, no evidence of DE. Discharged on 04/02/16 Past History Past Medical History: other (as hpi) Past Surgical History: No surgical history Social history: full code. denies: smoking, alcohol abuse, prescription drug abuse, IV drug use Family history: no significant family history Medications and Allergies Allergies Allergy/AdvReac Type Severity Reaction Status Date / Time No Known Allergies Allergy Verified 04/29/16 10:41 Home Medications Medication Instructions Recorded Confirmed Last Taken Type Aspirin [Aspirin BABY CHEW TAB] 81 mg PO QDAY 03/24/16 03/24/16 Unknown History AtorvaSTATin [Lipitor] 20 mg PO QHS 03/24/16 03/24/16 Unknown History Ferrous Sulfate [Feosol 325 MG tab] 325 mg PO BID 03/24/16 03/24/16 Unknown History Amiodarone [Cordarone 200 MG TAB] 200 mg PO BID #60 tablet 04/02/16 Unknown Rx Carvedilol [Coreg] 12.5 mg PO BID #60 tablet 04/02/16 Unknown Rx Digoxin [Lanoxin] 0.125 mg PO DAILY@1700 #30 tablet 04/02/16 Unknown Rx Famotidine [Pepcid] 20 mg PO BID #30 tablet 04/02/16 Unknown Rx Lisinopril [Zestril TAB] 10 mg PO QDAY #30 tablet 04/02/16 Unknown Rx Metolazone [Zaroxolyn] 5 mg PO Q48H 30 Days 04/02/16 Unknown Rx Potassium Chloride 20 meq PO QDAY #30 packet 04/02/16 Unknown Rx Torsemide [Demadex] 40 mg PO DAILY 30 Days 04/02/16 Unknown Rx Warfarin [Coumadin] 6 mg PO DAILY@1700 30 Days 04/02/16 Unknown Rx Active Meds: Active Medications Amiodarone HCl 900 mg/ (Dextrose) 500 mls @ 33.33 mls/hr IV DIRECT NORMA; 1 MG /MIN PRN Reason: Protocol Last Admin: 04/29/16 13:58 Dose: 33.33 mls/hr Review of Systems All systems: negative (as HPI and all other ROS reviewed and negative.) Exam - Physical Exam Narrative exam: GEN: obese, ill appearing, NAD, AWAKE, ALERT, ORIENTATED x 3 HEENT: NCAT, PERRL, EOMI, OP CLEAR NECK: SUPPLE, NO THYROMEGALY, +JVD, NO LAD CVS: irregular irregular NORMAL S1S2 LUNGS/CHEST: bibasilar crackles, NORMAL CHEST EXPANSION B, diminished AIR ENTRY B ABD: SOFT NTND, GBS, NO REBOUND OR GUARDING EXT/SKIN: ble edema MSK: FROM X 4 EXTREMITIES NEURO: CN 2-12 GROSSLY INTACT, NO new FOCAL DEFICITS PSY: CALM - Constitutional Vitals: Temp Pulse Resp BP Pulse Ox 98.3 F 129 H 26 H 150/109 96 04/29/16 10:42 04/29/16 16:00 04/29/16 16:00 04/29/16 16:00 04/29/16 16:00 Results - Labs CBC & Chem 7: 04/29/16 11:11 04/29/16 11:11 - Imaging and Cardiology EKG: image reviewed Chest x-ray: report reviewed Assessment and Plan Patient is a 55-year-old man with a history of atrial fibrillation, chronic kidney disease stage III, BPH, [id number] diabetes mellitus, heart failure, dyslipidemia and hypertension who presents with progressively worse Severe constant shortness of breath that started 1 week ago associated with left -sided chest pains that started 2 weeks ago but none today; there is no aggravating or relieving factors. CHF showing worse CHF. prior records: Discharged on 04/02/16 03/24/16 TTE: 4 chamber cardiomyopathy, EF 15%, moderate MR, TR, mild pulm hypertension. 04/02/16 Stress test: Dilated left ventricle with severe global left ventricular hypokinesis, ef measured at 25%, large fixed inferior and inferolateral wall defect due to diaphragmatic artifact, no evidence of DE. 1. Acute on chronic combined heart failure: iv lasix and consult cardiology 2. Aflutter RVR: given amiodarone, counselled compliance 3. Accelerated hypertension related to the above
[2016-04-29] MEDS ORDERED: PNEUMOVAX 23 IM ONE (19:09)
[2016-04-29] MEDS: LASIX IV SCH (19:40)
[2016-04-29] MEDS ORDERED: DUONEB 0.5 MG-3 MG/3 ML SOLN IH SCH (20:00)
[2016-04-29] MEDS: ATROVENT IH SCH (20:51)
[2016-04-29] MEDS: PEPCID PO SCH (21:10)
[2016-04-29] MEDS: COREG PO SCH (21:10)
[2016-04-29] MEDS: ZAROXOLYN PO SCH (21:10)
[2016-04-29] MEDS: CORDARONE PO SCH (21:10)
[2016-04-30] MEDS: ATROVENT IH SCH ×3 (01:13→08:31)
[2016-04-30] MEDS: LASIX IV SCH ×2 (06:08→17:08)
[2016-04-30] MEDS ORDERED: PNEUMOVAX 23 IM ONE (06:15)
[2016-04-30 07:57] LABS: Mean Corpuscular HGB Conc 31 % (32-34); Mean Corpuscular Volume 73 fl (84-94); Platelet Count 184 K/mm3 (140-440); Red Blood Count 5.03 M/mm3 (3.65-5.03); Red Cell Distribution Width 16.8 % (13.2-15.2); White Blood Count 5.2 K/mm3 (4.5-11.0)
[2016-04-30 08:17] LABS: Hemoglobin 11.2 gm/dl (11.8-15.2)
[2016-04-30 08:18] LABS: Calcium 8.3 mg/dL (8.4-10.2); Chloride 104.5 mmol/L (98-107); Hematocrit 36.6 % (35.5-45.6); Mean Corpuscular Hemoglobin 22 pg (28-32); Potassium 3.8 mmol/L (3.6-5.0)
[2016-04-30] MEDS: PEPCID PO SCH ×2 (10:24→22:40)
[2016-04-30] MEDS: BABY ASPIRIN PO SCH (10:24)
[2016-04-30] MEDS: ZESTRIL PO SCH (10:24)
[2016-04-30] MEDS: CORDARONE PO SCH ×2 (10:24→22:40)
[2016-04-30] MEDS: POTASSIUM CHLORIDE PO SCH (10:24)
[2016-04-30] MEDS ORDERED: ATROVENT IH PRN (10:24)
[2016-04-30] MEDS: COREG PO SCH ×2 (10:24→22:40)
--- NOTE | 2016-04-30 12:07 | Consultation ---
History of Present Illness Consult date: 04/30/16 Consult reason: congestive heart failure History of present illness: This is a 55yr old man with a history of heart failure and paroxysmal atrial fibrillation/flutter on Coumadin therapy. Patient reports he has been poorly compliant dietary restrictions and with his medical therapy including his oral anticoagulation. Latest cardiac workup was done at this hospital a month ago. He had a persantine stress thallium that reports no ischemic. Left ventricular ejection fraction 10-15% on echocardiogram. He is admitted to the hospital at this time with shortness of breath, evidence of congestive heart failure. His ECG shows atrial flutter with a 2:1AV conduction. Patient reports his shortness of breath has improved since his initial treatment in the ED. He denies chest pain. Cardiology consultation requested for CHF. Past History Past Medical History: other (as hpi) Past Surgical History: No surgical history Social history: full code. denies: smoking, alcohol abuse, prescription drug abuse, IV drug use Family history: no significant family history Medications and Allergies Allergies Allergy/AdvReac Type Severity Reaction Status Date / Time No Known Allergies Allergy Verified 04/29/16 10:41 Home Medications Medication Instructions Recorded Confirmed Last Taken Type Aspirin [Aspirin BABY CHEW TAB] 81 mg PO QDAY 03/24/16 03/24/16 Unknown History AtorvaSTATin [Lipitor] 20 mg PO QHS 03/24/16 03/24/16 Unknown History Ferrous Sulfate [Feosol 325 MG tab] 325 mg PO BID 03/24/16 03/24/16 Unknown History Amiodarone [Cordarone 200 MG TAB] 200 mg PO BID #60 tablet 04/02/16 Unknown Rx Carvedilol [Coreg] 12.5 mg PO BID #60 tablet 04/02/16 Unknown Rx Digoxin [Lanoxin] 0.125 mg PO DAILY@1700 #30 tablet 04/02/16 Unknown Rx Famotidine [Pepcid] 20 mg PO BID #30 tablet 04/02/16 Unknown Rx Lisinopril [Zestril TAB] 10 mg PO QDAY #30 tablet 04/02/16 Unknown Rx Metolazone [Zaroxolyn] 5 mg PO Q48H 30 Days 04/02/16 Unknown Rx Potassium Chloride 20 meq PO QDAY #30 packet 04/02/16 Unknown Rx Torsemide [Demadex] 40 mg PO DAILY 30 Days 04/02/16 Unknown Rx Warfarin [Coumadin] 6 mg PO DAILY@1700 30 Days 04/02/16 Unknown Rx Active Meds: Active Medications Amiodarone HCl (Cordarone) 200 mg PO BID [facility] Last Admin: 04/30/16 10:24 Dose: 200 mg Aspirin (Baby Aspirin) 81 mg PO QDAY [facility] Last Admin: 04/30/16 10:24 Dose: 81 mg Atorvastatin Calcium (Lipitor) 20 mg PO QHS [facility] Last Admin: 04/29/16 21:10 Dose: 20 mg Carvedilol (Coreg) 12.5 mg PO BID [facility] Last Admin: 04/30/16 10:24 Dose: 12.5 mg Digoxin (Lanoxin) 0.125 mg PO DAILY@1700 [facility] Famotidine (Pepcid) 20 mg PO BID [facility] Last Admin: 04/30/16 10:24 Dose: 20 mg Furosemide (Lasix) 40 mg IV 0600,1800 [facility] Last Admin: 04/30/16 06:08 Dose: 40 mg Ipratropium [place] (Atrovent) 0.5 mg IH Q4HRT PRN PRN Reason: Shortness Of Breath Lisinopril (Zestril) 10 mg PO QDAY [facility] Last Admin: 04/30/16 10:24 Dose: 10 mg Metolazone (Zaroxolyn) 5 mg PO Q48H [facility] Last Admin: 04/29/16 21:10 Dose: 5 mg Potassium Chloride (Potassium Chloride) 20 meq PO QDAY [facility] Last Admin: 04/30/16 10:24 Dose: 20 meq Physical Examination Vital Signs Temp Pulse Resp BP Pulse Ox 98.3 F 115 H 30 H 189/123 94 04/29/16 10:42 04/29/16 10:42 04/29/16 10:42 04/29/16 10:42 04/29/16 10:42 General appearance: mild distress HEENT: Positive: PERRL Neck: Positive: trachea midline Cardiac: Positive: irregularly irregular Lungs: Positive: Decreased Breath Sounds Neuro: Positive: Grossly Intact Extremities: Present: edema Results 04/30/16 06:08 04/30/16 06:08 CBC 04/30/16 Range/Units 06:08 WBC 5.2 (4.5-11.0) K/mm3 RBC 5.03 (3.65-5.03) M/mm3 Hgb 11.2 L (11.8-15.2) gm/dl Hct 36.6 (35.5-45.6) % Plt Count 184 (140-440) K/mm3 Comprehensive Metabolic Panel 04/30/16 Range/Units 06:08 Sodium 145 (137-145) mmol/L Potassium 3.8 (3.6-5.0) mmol/L Carbon Dioxide 22 (22-30) mmol/L BUN 27 H (9-20) mg/dL Creatinine 1.8 H (0.8-1.5) mg/dL Glucose 98 (75-100) mg/dL Calcium 8.3 L (8.4-10.2) mg/dL Assessment and Plan CHF exacerbation Cardiomyopathy, LVEF 10-15% no ischemia on MPI done 03/2016 Paroxysmal Atrial fibrillation/flutter on warfarin at home for anticoagulation Hypertension Non compliant with medications and dietary restrictions
[2016-04-30] MEDS ORDERED: COUMADIN PO SCH (17:00)
[2016-04-30] MEDS ORDERED: LANOXIN PO SCH (17:00)
[2016-04-30] MEDS: COUMADIN PO SCH (17:08)
--- NOTE | 2016-04-30 19:54 | Progress Note ---
Assessment and Plan - Patient Problems (1) Acute on chronic congestive heart failure Current Visit: Yes Status: Acute Qualifiers: Congestive heart failure type: unspecified congestive heart failure type Qualified Code(s): I50.9 - Heart failure, unspecified Plan to address problem: CHF protocol: Cardiology consulted, fluid restriction, low sodium diet, diuretics, supportive care, monitor uop q shift, daily weights, telemetry (2) Atrial fibrillation with rapid ventricular response Current Visit: Yes Status: Acute Plan to address problem: uncontrolled: Increased digoxin, continue amiodarone, telemetry (3) Noncompliance Current Visit: Yes Status: Acute Plan to address problem: Pt counseled, (4) Hypertensive emergency Current Visit: Yes Status: Acute (5) RAJANI (obstructive sleep apnea) Current Visit: No Status: Acute Plan to address problem: NIPPV qhs, as clinically indicated, (6) DVT prophylaxis Current Visit: Yes Status: Acute History Interval history: Pt resting in bed, Pt denies CP, fever, chills, Palpitations, NVD, No reported nursing events. Hospitalist Physical - Constitutional Vitals: Temp Pulse Resp BP Pulse Ox 98.0 F 123 H 18 115/81 98 04/30/16 16:00 04/30/16 16:00 04/30/16 16:00 04/30/16 16:00 04/30/16 16:00 General appearance: Present: mild distress, obese - EENT Eyes: Present: PERRL, EOM intact ENT: hearing intact - Neck Neck: Present: supple - Respiratory Respiratory: bilateral: CTA - Cardiovascular Rhythm: irregularly irregular - Extremities Extremities: no ischemia Extremity abnormal: edema Peripheral Pulses: within normal limits - Abdominal General gastrointestinal: soft, non-tender, non-distended, no hepatomegaly, no splenomegaly - Integumentary Integumentary: Present: clear, warm, dry - Psychiatric Psychiatric: appropriate mood/affect, cooperative - Neurologic Neurologic: CNII-XII intact, moves all extremities Results - Labs CBC & Chem 7: 04/30/16 06:08 04/30/16 06:08 Labs: Laboratory Last Values WBC 5.2 K/mm3 (4.5-11.0) 04/30/16 06:08 RBC 5.03 M/mm3 (3.65-5.03) 04/30/16 06:08 Hgb 11.2 gm/dl (11.8-15.2) L 04/30/16 06:08 Hct 36.6 % (35.5-45.6) 04/30/16 06:08 MCV 73 fl (84-94) L 04/30/16 06:08 MCH 22 pg (28-32) L 04/30/16 06:08 MCHC 31 % (32-34) L 04/30/16 06:08 RDW 16.8 % (13.2-15.2) H 04/30/16 06:08 Plt Count 184 K/mm3 (140-440) 04/30/16 06:08 Lymph % (Auto) 17.4 % (13.4-35.0) 04/29/16 11:11 Bell % (Auto) 11.5 % (0.0-7.3) H 04/29/16 11:11 Eos % (Auto) 1.1 % (0.0-4.3) 04/29/16 11:11 Baso % (Auto) 0.9 % (0.0-1.8) 04/29/16 11:11 Lymph # 0.9 K/mm3 (1.2-5.4) L 04/29/16 11:11 Bell # 0.6 K/mm3 (0.0-0.8) 04/29/16 11:11 Eos # 0.1 K/mm3 (0.0-0.4) 04/29/16 11:11 Baso # 0.0 K/mm3 (0.0-0.1) 04/29/16 11:11 Seg Neutrophils % 69.1 % (40.0-70.0) 04/29/16 11:11 Seg Neutrophils # 3.7 K/mm3 (1.8-7.7) 04/29/16 11:11 PT 15.1 Sec. (12.2-14.9) H 04/29/16 11:11 INR 1.20 (0.87-1.13) H 04/29/16 11:11 APTT 23.4 Sec. (24.2-36.6) L 04/29/16 11:11 Sodium 145 mmol/L (137-145) 04/30/16 06:08 Potassium 3.8 mmol/L (3.6-5.0) 04/30/16 06:08 Chloride 104.2 mmol/L (98-107) 04/29/16 11:11 Carbon Dioxide 22 mmol/L (22-30) 04/30/16 06:08 Anion Gap 21 mmol/L 04/29/16 11:11 BUN 27 mg/dL (9-20) H 04/30/16 06:08 Creatinine 1.8 mg/dL (0.8-1.5) H 04/30/16 06:08 Estimated GFR 47 ml/min 04/30/16 06:08 BUN/Creatinine Ratio 15.00 % 04/30/16 06:08 Glucose 98 mg/dL (75-100) 04/30/16 06:08 POC Glucose 116 (70-105) H 04/29/16 10:50 Calcium 8.3 mg/dL (8.4-10.2) L 04/30/16 06:08 Troponin T 0.148 ng/mL (0.00-0.029) H* 04/30/16 06:08 NT-Pro-B Natriuret Pep 5293 pg/mL (0-900) H 04/29/16 11:11 Triglycerides < 9 mg/dL (2-149) 04/29/16 11:11 Cholesterol < 4 mg/dL (50-199) L 04/29/16 11:11 LDL Cholesterol Direct 4 mg/dL (50-130) L 04/29/16 11:11 HDL Cholesterol 31 mg/dL (40-59) L 04/29/16 11:11 Cholesterol/HDL Ratio 5.67 % 04/29/16 11:11
[2016-05-01] MEDS: LASIX IV SCH ×2 (06:31→17:41)
[2016-05-01 08:55] LABS: INR 1.18 (0.87-1.13)
[2016-05-01] MEDS: PEPCID PO SCH ×2 (10:47→21:40)
[2016-05-01] MEDS: BABY ASPIRIN PO SCH (10:47)
[2016-05-01] MEDS: COREG PO SCH ×2 (10:47→21:40)
[2016-05-01] MEDS: ZESTRIL PO SCH (10:47)
[2016-05-01] MEDS: POTASSIUM CHLORIDE PO SCH (10:47)
[2016-05-01] MEDS: CORDARONE PO SCH ×2 (10:47→21:40)
--- NOTE | 2016-05-01 13:04 | Progress Note ---
Assessment and Plan CHF exacerbation Cardiomyopathy, LVEF 10-15% no ischemia on MPI done 03/2016 Paroxysmal Atrial fibrillation/flutter on warfarin at home for anticoagulation Hypertension Profound non-compliance -Non compliant with medications and dietary restrictions Discussed extensively with patient Continue rate control with amiodarone and BB. Continue anticoagulation with coumadin. Goal INR 2-3. Continue medical therapy with BB, ACEi as tolerated. Gentle diuresis as needed. Subjective Date of service: 05/01/16 Interval history: No acute events. Resting comfortably. No chest pain or SOB. Objective Vital Signs Temp Pulse Pulse Pulse Resp BP BP 05/01/16 13:01 20 F L 101 H 20 05/01/16 10:52 102 H 05/01/16 10:00 102 H 05/01/16 08:50 96.9 F L 123 H 99 H 05/01/16 08:30 05/01/16 06:03 97.3 F L 123 H 22 106/75 05/01/16 01:28 97.5 F L 129 H 20 113/78 05/01/16 00:18 125 H 04/30/16 22:40 124 H 128/92 04/30/16 22:00 04/30/16 21:50 98.2 F 124 H 22 128/92 04/30/16 16:00 98.0 F 123 H 18 115/81 BP Pulse Ox 05/01/16 13:01 112/82 05/01/16 10:52 05/01/16 10:00 05/01/16 08:50 129/92 99 05/01/16 08:30 100 05/01/16 06:03 97 05/01/16 01:28 99 05/01/16 00:18 04/30/16 22:40 04/30/16 22:00 100 04/30/16 21:50 94 04/30/16 16:00 98 - Physical Examination HEENT: Positive: PERRL Neck: Positive: trachea midline Neuro: Positive: Grossly Intact Extremities: Present: edema - Labs and Meds Coagulation 05/01/16 Range/Units 08:22 PT 14.9 (12.2-14.9) Sec. INR 1.18 H (0.87-1.13) - Imaging and Cardiology EKG: image reviewed
[2016-05-01] MEDS: COUMADIN PO SCH (17:41)
[2016-05-01] MEDS: LANOXIN PO SCH (17:42)
[2016-05-01] MEDS: ZAROXOLYN PO SCH (19:27)
--- NOTE | 2016-05-02 00:13 | Progress Note ---
Assessment and Plan CHF exacerbation Cardiomyopathy, LVEF 10-15% no ischemia on MPI done 03/2016 Paroxysmal Atrial fibrillation/flutter on warfarin at home for anticoagulation Hypertension Profound non-compliance -Non compliant with medications and dietary restrictions Discussed extensively with patient Continue rate control with amiodarone and BB. Continue anticoagulation with coumadin. Goal INR 2-3. Patient may be discharged home with coumadin and lovenox bridge. Follow up in clinic on tuesday with INR check. Continue medical therapy with BB, ACEi as tolerated. Gentle diuresis as needed. Subjective Date of service: 05/02/16 Interval history: No acute events. Resting comfortably. No chest pain or SOB. Objective Vital Signs Temp Pulse Pulse Pulse Resp Resp BP 05/01/16 21:56 97.5 F L 124 H 20 05/01/16 21:40 124 H 112/75 05/01/16 19:29 114 H 20 20 05/01/16 19:08 103 H 05/01/16 13:01 20 F L 101 H 20 05/01/16 10:52 102 H 05/01/16 10:00 102 H 05/01/16 08:50 96.9 F L 123 H 99 H 05/01/16 08:30 05/01/16 06:03 97.3 F L 123 H 22 05/01/16 01:28 97.5 F L 129 H 20 05/01/16 00:18 125 H BP BP Pulse Ox 05/01/16 21:56 112/75 95 05/01/16 21:40 05/01/16 19:29 97 05/01/16 19:08 05/01/16 13:01 112/82 05/01/16 10:52 05/01/16 10:00 05/01/16 08:50 129/92 99 05/01/16 08:30 100 05/01/16 06:03 106/75 97 05/01/16 01:28 113/78 99 05/01/16 00:18 - Physical Examination HEENT: Positive: PERRL Neck: Positive: trachea midline Neuro: Positive: Grossly Intact Extremities: Present: edema - Labs and Meds Coagulation 05/01/16 Range/Units 08:22 PT 14.9 (12.2-14.9) Sec. INR 1.18 H (0.87-1.13) - Imaging and Cardiology EKG: image reviewed
[2016-05-02] MEDS: LASIX IV SCH ×2 (05:45→17:16)
--- NOTE | 2016-05-02 07:52 | Progress Note ---
Assessment and Plan - Patient Problems (1) Acute on chronic congestive heart failure Current Visit: Yes Status: Acute Qualifiers: Congestive heart failure type: unspecified congestive heart failure type Qualified Code(s): I50.9 - Heart failure, unspecified Plan to address problem: CHF protocol: Cardiology consulted, fluid restriction, low sodium diet, diuretics, supportive care, monitor uop q shift, daily weights, telemetry (2) Atrial fibrillation with rapid ventricular response Current Visit: Yes Status: Acute Plan to address problem: uncontrolled: Increased digoxin, continue amiodarone, telemetry (3) Noncompliance Current Visit: Yes Status: Acute Plan to address problem: Pt counseled, (4) Hypertensive emergency Current Visit: Yes Status: Acute (5) RAJANI (obstructive sleep apnea) Current Visit: No Status: Acute Plan to address problem: NIPPV qhs, as clinically indicated, (6) DVT prophylaxis Current Visit: Yes Status: Acute History Interval history: Pt resting in bed, Pt denies CP, fever, chills, Palpitations, NVD, No reported nursing events. Hospitalist Physical - Constitutional Vitals: Temp Pulse Resp BP Pulse Ox 97.7 F 116 H 22 133/87 98 05/02/16 06:09 05/02/16 07:45 05/02/16 06:09 05/02/16 06:09 05/02/16 06:09 General appearance: Present: mild distress, obese - EENT Eyes: Present: PERRL, EOM intact ENT: hearing intact - Neck Neck: Present: supple - Respiratory Respiratory effort: normal Respiratory: bilateral: diminished - Cardiovascular Rhythm: irregularly irregular - Extremities Extremities: no ischemia Extremity abnormal: edema Peripheral Pulses: within normal limits - Abdominal General gastrointestinal: soft, non-tender, non-distended - Integumentary Integumentary: Present: clear, dry - Psychiatric Psychiatric: appropriate mood/affect, cooperative - Neurologic Neurologic: CNII-XII intact Results - Labs CBC & Chem 7: 04/30/16 06:08 04/30/16 06:08 Labs: Laboratory Last Values WBC 5.2 K/mm3 (4.5-11.0) 04/30/16 06:08 RBC 5.03 M/mm3 (3.65-5.03) 04/30/16 06:08 Hgb 11.2 gm/dl (11.8-15.2) L 04/30/16 06:08 Hct 36.6 % (35.5-45.6) 04/30/16 06:08 MCV 73 fl (84-94) L 04/30/16 06:08 MCH 22 pg (28-32) L 04/30/16 06:08 MCHC 31 % (32-34) L 04/30/16 06:08 RDW 16.8 % (13.2-15.2) H 04/30/16 06:08 Plt Count 184 K/mm3 (140-440) 04/30/16 06:08 Lymph % (Auto) 17.4 % (13.4-35.0) 04/29/16 11:11 [place] % (Auto) 11.5 % (0.0-7.3) H 04/29/16 11:11 Eos % (Auto) 1.1 % (0.0-4.3) 04/29/16 11:11 Baso % (Auto) 0.9 % (0.0-1.8) 04/29/16 11:11 Lymph # 0.9 K/mm3 (1.2-5.4) L 04/29/16 11:11 [place] # 0.6 K/mm3 (0.0-0.8) 04/29/16 11:11 Eos # 0.1 K/mm3 (0.0-0.4) 04/29/16 11:11 Baso # 0.0 K/mm3 (0.0-0.1) 04/29/16 11:11 Seg Neutrophils % 69.1 % (40.0-70.0) 04/29/16 11:11 Seg Neutrophils # 3.7 K/mm3 (1.8-7.7) 04/29/16 11:11 PT 14.9 Sec. (12.2-14.9) 05/01/16 08:22 INR 1.18 (0.87-1.13) H 05/01/16 08:22 APTT 23.4 Sec. (24.2-36.6) L 04/29/16 11:11 Sodium 145 mmol/L (137-145) 04/30/16 06:08 Potassium 3.8 mmol/L (3.6-5.0) 04/30/16 06:08 Chloride 104.2 mmol/L (98-107) 04/29/16 11:11 Carbon Dioxide 22 mmol/L (22-30) 04/30/16 06:08 Anion Gap 21 mmol/L 04/29/16 11:11 BUN 27 mg/dL (9-20) H 04/30/16 06:08 Creatinine 1.8 mg/dL (0.8-1.5) H 04/30/16 06:08 Estimated GFR 47 ml/min 04/30/16 06:08 BUN/Creatinine Ratio 15.00 % 04/30/16 06:08 Glucose 98 mg/dL (75-100) 04/30/16 06:08 POC Glucose 116 (70-105) H 04/29/16 10:50 Calcium 8.3 mg/dL (8.4-10.2) L 04/30/16 06:08 Troponin T 0.148 ng/mL (0.00-0.029) H* 04/30/16 06:08 NT-Pro-B Natriuret Pep 5293 pg/mL (0-900) H 04/29/16 11:11 Triglycerides < 9 mg/dL (2-149) 04/29/16 11:11 Cholesterol < 4 mg/dL (50-199) L 04/29/16 11:11 LDL Cholesterol Direct 4 mg/dL (50-130) L 04/29/16 11:11 HDL Cholesterol 31 mg/dL (40-59) L 04/29/16 11:11 Cholesterol/HDL Ratio 5.67 % 04/29/16 11:11
[2016-05-02] MEDS: POTASSIUM CHLORIDE PO SCH (09:33)
[2016-05-02] MEDS: COREG PO SCH ×2 (09:33→21:10)
[2016-05-02] MEDS: PEPCID PO SCH ×2 (09:33→21:10)
[2016-05-02] MEDS: BABY ASPIRIN PO SCH (09:33)
[2016-05-02] MEDS: ZESTRIL PO SCH (09:33)
[2016-05-02] MEDS: CORDARONE PO SCH ×2 (09:33→21:11)
[2016-05-02 14:36] LABS: INR 1.18 (0.87-1.13)
--- NOTE | 2016-05-02 16:41 | Progress Note ---
Assessment and Plan - Patient Problems (1) Acute on chronic congestive heart failure Current Visit: Yes Status: Acute Qualifiers: Congestive heart failure type: unspecified congestive heart failure type Qualified Code(s): I50.9 - Heart failure, unspecified Plan to address problem: CHF protocol: Cardiology consulted, fluid restriction, low sodium diet, diuretics, supportive care, monitor uop q shift, daily weights, telemetry (2) Atrial fibrillation with rapid ventricular response Current Visit: Yes Status: Acute Plan to address problem: uncontrolled: Increased digoxin, continue amiodarone, telemetry (3) Noncompliance Current Visit: Yes Status: Acute Plan to address problem: Pt counseled, (4) Hypertensive emergency Current Visit: Yes Status: Acute (5) RAJANI (obstructive sleep apnea) Current Visit: No Status: Acute Plan to address problem: NIPPV qhs, as clinically indicated, (6) Hypercoagulable state Current Visit: Yes Status: Acute Plan to address problem: subtherapeutic INR. continue therapeutic anticoagulation (7) DVT prophylaxis Current Visit: Yes Status: Acute History Interval history: Pt resting in bed, Pt denies CP, fever, chills, Palpitations, NVD, No reported nursing events. Hospitalist Physical - Constitutional Vitals: Temp Pulse Resp BP Pulse Ox 97.9 F 116 H 16 110/77 95 05/02/16 08:39 05/02/16 07:45 05/02/16 08:39 05/02/16 08:39 05/02/16 10:00 General appearance: Present: mild distress, obese - EENT Eyes: Present: PERRL ENT: hearing intact - Neck Neck: Present: supple - Respiratory Respiratory effort: normal Respiratory: bilateral: CTA - Cardiovascular Rhythm: irregularly irregular - Extremities Extremities: no ischemia Peripheral Pulses: within normal limits - Abdominal General gastrointestinal: soft, non-tender, non-distended - Integumentary Integumentary: Present: clear, warm, dry - Psychiatric Psychiatric: appropriate mood/affect, cooperative - Neurologic Neurologic: CNII-XII intact Results - Labs CBC & Chem 7: 04/30/16 06:08 04/30/16 06:08 Labs: Laboratory Last Values WBC 5.2 K/mm3 (4.5-11.0) 04/30/16 06:08 RBC 5.03 M/mm3 (3.65-5.03) 04/30/16 06:08 Hgb 11.2 gm/dl (11.8-15.2) L 04/30/16 06:08 Hct 36.6 % (35.5-45.6) 04/30/16 06:08 MCV 73 fl (84-94) L 04/30/16 06:08 MCH 22 pg (28-32) L 04/30/16 06:08 MCHC 31 % (32-34) L 04/30/16 06:08 RDW 16.8 % (13.2-15.2) H 04/30/16 06:08 Plt Count 184 K/mm3 (140-440) 04/30/16 06:08 Lymph % (Auto) 17.4 % (13.4-35.0) 04/29/16 11:11 [place] % (Auto) 11.5 % (0.0-7.3) H 04/29/16 11:11 Eos % (Auto) 1.1 % (0.0-4.3) 04/29/16 11:11 Baso % (Auto) 0.9 % (0.0-1.8) 04/29/16 11:11 Lymph # 0.9 K/mm3 (1.2-5.4) L 04/29/16 11:11 [place] # 0.6 K/mm3 (0.0-0.8) 04/29/16 11:11 Eos # 0.1 K/mm3 (0.0-0.4) 04/29/16 11:11 Baso # 0.0 K/mm3 (0.0-0.1) 04/29/16 11:11 Seg Neutrophils % 69.1 % (40.0-70.0) 04/29/16 11:11 Seg Neutrophils # 3.7 K/mm3 (1.8-7.7) 04/29/16 11:11 PT 14.9 Sec. (12.2-14.9) 05/02/16 14:06 INR 1.18 (0.87-1.13) H 05/02/16 14:06 APTT 23.4 Sec. (24.2-36.6) L 04/29/16 11:11 Sodium 145 mmol/L (137-145) 04/30/16 06:08 Potassium 3.8 mmol/L (3.6-5.0) 04/30/16 06:08 Chloride 104.2 mmol/L (98-107) 04/29/16 11:11 Carbon Dioxide 22 mmol/L (22-30) 04/30/16 06:08 Anion Gap 21 mmol/L 04/29/16 11:11 BUN 27 mg/dL (9-20) H 04/30/16 06:08 Creatinine 1.8 mg/dL (0.8-1.5) H 04/30/16 06:08 Estimated GFR 47 ml/min 04/30/16 06:08 BUN/Creatinine Ratio 15.00 % 04/30/16 06:08 Glucose 98 mg/dL (75-100) 04/30/16 06:08 POC Glucose 116 (70-105) H 04/29/16 10:50 Calcium 8.3 mg/dL (8.4-10.2) L 04/30/16 06:08 Troponin T 0.148 ng/mL (0.00-0.029) H* 04/30/16 06:08 NT-Pro-B Natriuret Pep 5293 pg/mL (0-900) H 04/29/16 11:11 Triglycerides < 9 mg/dL (2-149) 04/29/16 11:11 Cholesterol < 4 mg/dL (50-199) L 04/29/16 11:11 LDL Cholesterol Direct 4 mg/dL (50-130) L 04/29/16 11:11 HDL Cholesterol 31 mg/dL (40-59) L 04/29/16 11:11 Cholesterol/HDL Ratio 5.67 % 04/29/16 11:11
[2016-05-02] MEDS ORDERED: COUMADIN PO SCH (17:00)
[2016-05-02] MEDS: LANOXIN PO SCH (17:16)
[2016-05-03] MEDS: LASIX IV SCH (06:11)
[2016-05-03 07:21] LABS: INR 1.34 (0.87-1.13)
[2016-05-03 10:23] VITALS: BP 91/50
[2016-05-03] MEDS: BABY ASPIRIN PO SCH (10:31)
[2016-05-03] MEDS: PEPCID PO SCH (10:32)
[2016-05-03] MEDS: COREG PO SCH (10:32)
[2016-05-03] MEDS: CORDARONE PO SCH (10:32)
[2016-05-03] MEDS: POTASSIUM CHLORIDE PO SCH (10:32)
[2016-05-03] MEDS: ZESTRIL PO SCH (10:33)
--- NOTE | 2016-05-03 11:18 | Discharge Summary ---
Providers - Providers Date of Admission: 04/29/16 12:48 Attending physician: IVAN STOKES 04/29/16 18:07 Consult to Physician [CONS] Routine Consulting Provider: ANDRY CURRAN Reason For Exam: chf, pt known to you Place consult to:: Breana CHRISTY Notified:: Breana CHRISTY Primary care physician: ROOM SERVICE MANAGER Hospitalization Condition: Serious Disposition: STILL A PATIENT - Discharge Diagnoses (1) Acute on chronic congestive heart failure Status: Acute Qualifiers: Congestive heart failure type: unspecified congestive heart failure type Qualified Code(s): I50.9 - Heart failure, unspecified (2) Atrial fibrillation with rapid ventricular response Status: Acute (3) Noncompliance Status: Acute (4) Hypertensive emergency Status: Acute (5) RAJANI (obstructive sleep apnea) Status: Acute (6) Hypercoagulable state Status: Acute (7) DVT prophylaxis Status: Acute Exam - Constitutional Vitals: Temp Pulse Resp BP Pulse Ox 97.5 F L 85 18 91/50 92 05/03/16 10:20 05/03/16 10:20 05/03/16 10:20 05/03/16 10:33 05/03/16 10:20 Plan Follow up with: NIKKI GARCÍA MD [Primary Care Provider] - 3-5 Days Forms: Warfarin Discharge Instruction Prescriptions: Apixaban [Eliquis] 2.5 mg PO BID #60 tablet
--- NOTE | 2016-05-03 11:46 | Progress Note ---
Assessment and Plan CHF exacerbation Cardiomyopathy, LVEF 10-15% no ischemia on MPI done 03/2016 Paroxysmal Atrial fibrillation/flutter on warfarin at home for anticoagulation Hypertension Non compliant with medications and dietary restrictions Recommendations: Dietary and fluid restrictions. Continue medical therapy for systolic heart failure. Continue warfarin for afib. Stable, cardiac almanza. F/U with [facility] as scheduled on May 07. Subjective Date of service: 05/03/16 Interval history: Patient reports he is feeling better. For planned discharge home today. Objective Vital Signs Temp Pulse Pulse Pulse Pulse Resp Resp 05/03/16 11:28 05/03/16 10:33 05/03/16 10:32 05/03/16 10:20 97.5 F L 85 18 05/03/16 09:56 05/03/16 05:52 97.3 F L 58 L 20 05/03/16 01:46 97.8 F 58 L 20 05/02/16 21:34 05/02/16 21:10 70 05/02/16 20:54 98 F 70 21 05/02/16 20:32 88 22 05/02/16 20:31 22 05/02/16 19:12 106 H 05/02/16 18:18 97.9 F 20 BP BP BP Pulse Ox 05/03/16 11:28 97 05/03/16 10:33 91/50 05/03/16 10:32 91/50 05/03/16 10:20 91/50 92 05/03/16 09:56 97 05/03/16 05:52 93/57 93 05/03/16 01:46 116/57 97 05/02/16 21:34 93 05/02/16 21:10 127/68 05/02/16 20:54 127/68 98 05/02/16 20:32 96 05/02/16 20:31 05/02/16 19:12 05/02/16 18:18 116/80 93 - Physical Examination General: No Apparent Distress HEENT: Positive: PERRL Neck: Positive: trachea midline Cardiac: Positive: irregularly irregular Lungs: Positive: Decreased Breath Sounds Neuro: Positive: Grossly Intact Extremities: Present: edema - Labs and Meds Coagulation 05/02/16 05/03/16 Range/Units 14:06 06:24 PT 14.9 16.5 H (12.2-14.9) Sec. INR 1.18 H 1.34 H (0.87-1.13) - Imaging and Cardiology EKG: image reviewed
[2016-05-03] MEDS ORDERED: ELIQUIS PO SCH (22:00)
== END 2016-05-03 13:30 | disposition home or self-care (01) | DRG 291 ==
LOC: ED 10:34 → 4A 12:48
PROVIDERS: ADMIT Internal Medicine; ATTEND Internal Medicine
DX: I13.0 Hypertensive heart and chronic kidney disease with heart failure and stage 1 through stage 4 chronic kidney disease, or unspecified chronic kidney disease (principal); I50.43 Acute on chronic combined systolic (congestive) and diastolic (congestive) heart failure; I16.1 Hypertensive emergency; D68.59 Other primary thrombophilia; I48.92 Unspecified atrial flutter; N40.0 Benign prostatic hyperplasia without lower urinary tract symptoms; E11.22 Type 2 diabetes mellitus with diabetic chronic kidney disease; N18.3 Chronic kidney disease, stage 3 (moderate); E78.5 Hyperlipidemia, unspecified; I48.0 Paroxysmal atrial fibrillation; I42.9 Cardiomyopathy, unspecified; G47.33 Obstructive sleep apnea (adult) (pediatric); Z91.14 Patient's other noncompliance with medication regimen
CPT/HCPCS: 36415; 71020; 80048; 80061; 82962; 83880; 84484; 85025; 85027; 85610; 85730; 90732; 93005; 93010; 94640; 94760; 96374; 96375; A9270-GY; J0282; J1940; J7060

== ENCOUNTER 2016-11-06 15:42 | Inpatient (IN) | payer OTHER ==
[2016-11-06 16:47] LABS: Basophils % (Auto) 0.8 % (0.0-1.8); Eosinophils % (Auto) 2.9 % (0.0-4.3); Hematocrit 40.7 % (35.5-45.6); Hemoglobin 12.6 gm/dl (11.8-15.2); Mean Corpuscular HGB Conc 31 % (32-34); Mean Corpuscular Volume 71 fl (84-94); Platelet Count 184 K/mm3 (140-440); Red Blood Count 5.72 M/mm3 (3.65-5.03); Red Cell Distribution Width 14.8 % (13.2-15.2); White Blood Count 4.8 K/mm3 (4.5-11.0)
[2016-11-06 17:07] LABS: Anion Gap 17 mmol/L; BUN/Creatinine Ratio 21.87; Blood Urea Nitrogen 35 mg/dL (9-20); Calcium 9.1 mg/dL (8.4-10.2); Carbon Dioxide 25 mmol/L (22-30); Chloride 106.8 mmol/L (98-107); Glucose 131 mg/dL (75-100); Potassium 3.9 mmol/L (3.6-5.0); Sodium 145 mmol/L (137-145)
[2016-11-06 17:11] LABS: Mean Corpuscular Hemoglobin 22 pg (28-32)
[2016-11-06] MEDS ORDERED: LASIX IV ONE (17:24)
--- NOTE | 2016-11-06 17:25 | Emergency Department Report ---
ED Chest Pain HPI - General Chief Complaint: Chest Pain Stated Complaint: CHEST PAIN/SOB Time Seen by Provider: 11/06/16 16:07 Source: patient Mode of arrival: Ambulatory Limitations: No Limitations - History of Present Illness Initial Comments: Patient is a 56-year-old male with medical history of congestive heart failure who presents with left-sided chest pain who presents with chest pain and shortness of breath has been going on for the last couple hours. He states that he is short of breath it is worse with exertion and rest makes it better. He also notices some leg swelling. Patient's left-sided chest pain as a 9 out of 10 sharp type of chest pain that radiates down his left arm. Nothing makes his chest pain better or worse. He denies having any nausea or vomiting. He has a history of atrial flutter and A. fib with RVR and takes Coumadin. Severity scale (0 -10): 9 - Related Data Home Medications Medication Instructions Recorded Confirmed Last Taken Aspirin [Aspirin BABY CHEW TAB] 81 mg PO QDAY 03/24/16 04/30/16 Unknown AtorvaSTATin [Lipitor] 20 mg PO QHS 03/24/16 04/30/16 Unknown Ferrous Sulfate [Feosol 325 MG tab] 325 mg PO BID 03/24/16 04/30/16 Unknown Previous Rx's Medication Instructions Recorded Last Taken Type Amiodarone [Cordarone 200 MG TAB] 200 mg PO BID #60 tablet 04/02/16 Unknown Rx Carvedilol [Coreg] 12.5 mg PO BID #60 tablet 04/02/16 Unknown Rx Digoxin [Lanoxin] 0.125 mg PO DAILY@1700 #30 tablet 04/02/16 Unknown Rx Famotidine [Pepcid] 20 mg PO BID #30 tablet 04/02/16 Unknown Rx Lisinopril [Zestril TAB] 10 mg PO QDAY #30 tablet 04/02/16 Unknown Rx Metolazone [Zaroxolyn] 5 mg PO Q48H 30 Days 04/02/16 Unknown Rx Potassium Chloride 20 meq PO QDAY #30 packet 04/02/16 Unknown Rx Torsemide [Demadex] 40 mg PO DAILY 30 Days 04/02/16 Unknown Rx Apixaban [Eliquis] 2.5 mg PO BID #60 tablet 05/03/16 Unknown Rx Allergies Allergy/AdvReac Type Severity Reaction Status Date / Time No Known Allergies Allergy Verified 04/29/16 10:41 Heart Score - HEART Score History: Moderately suspicious EKG: Non-specific Age: 45-65 Risk factors: > 3 risk factors or hx of atherosclerotic disease Troponin: < normal limit HEART Score: 5 ED Review of Systems ROS: Stated complaint: CHEST PAIN/SOB Other details as noted in HPI Constitutional: denies: chills, fever Eyes: denies: eye pain, eye discharge, vision change ENT: denies: ear pain, throat pain Respiratory: shortness of breath, SOB at rest. denies: cough, wheezing Cardiovascular: chest pain, palpitations Endocrine: no symptoms reported Gastrointestinal: denies: abdominal pain, nausea, diarrhea Genitourinary: denies: urgency, dysuria Musculoskeletal: denies: back pain, joint swelling, arthralgia Skin: denies: rash, lesions Neurological: denies: headache, weakness, paresthesias Psychiatric: denies: anxiety, depression Hematological/Lymphatic: denies: easy bleeding, easy bruising ED Past Medical Hx - Past Medical History Hx Hypertension: Yes Hx Congestive Heart Failure: Yes Hx Diabetes: Yes (pre-diabetic) Hx Renal Disease: Yes Hx Asthma: No Hx COPD: No Additional medical history: Atrial fibrillation, renal insufficiency. ENLARGED PROSTATE - Surgical History Past Surgical History?: No - Social History Smoking Status: Never Smoker Substance Use Type: None - Medications Home Medications: Home Medications Medication Instructions Recorded Confirmed Last Taken Type Aspirin [Aspirin BABY CHEW TAB] 81 mg PO QDAY 03/24/16 04/30/16 Unknown History AtorvaSTATin [Lipitor] 20 mg PO QHS 03/24/16 04/30/16 Unknown History Ferrous Sulfate [Feosol 325 MG tab] 325 mg PO BID 03/24/16 04/30/16 Unknown History Amiodarone [Cordarone 200 MG TAB] 200 mg PO BID #60 tablet 04/02/16 04/30/16 Unknown Rx Carvedilol [Coreg] 12.5 mg PO BID #60 tablet 04/02/16 04/30/16 Unknown Rx Digoxin [Lanoxin] 0.125 mg PO DAILY@1700 #30 tablet 04/02/16 04/30/16 Unknown Rx Famotidine [Pepcid] 20 mg PO BID #30 tablet 04/02/16 04/30/16 Unknown Rx Lisinopril [Zestril TAB] 10 mg PO QDAY #30 tablet 04/02/16 04/30/16 Unknown Rx Metolazone [Zaroxolyn] 5 mg PO Q48H 30 Days 04/02/16 04/30/16 Unknown Rx Potassium Chloride 20 meq PO QDAY #30 packet 04/02/16 04/30/16 Unknown Rx Torsemide [Demadex] 40 mg PO DAILY 30 Days 04/02/16 04/30/16 Unknown Rx Apixaban [Eliquis] 2.5 mg PO BID #60 tablet 05/03/16 Unknown Rx ED Physical Exam - General Limitations: No Limitations General appearance: alert, in no apparent distress - Head Head exam: Present: atraumatic, normocephalic - Eye Eye exam: Present: normal appearance, EOMI - ENT ENT exam: Present: normal exam - Neck Neck exam: Present: normal inspection - Cardiovascular Cardiovascular Exam: Present: tachycardia, irregular rhythm - GI/Abdominal GI/Abdominal exam: Present: soft - Rectal Rectal exam: Present: deferred - Extremities Exam Extremities exam: Present: pedal edema (2+ edema) - Back Exam Back exam: Present: normal inspection - Neurological Exam Neurological exam: Present: alert, oriented X3, CN II-XII intact ED Course Vital Signs 11/06/16 11/06/16 11/06/16 15:49 16:18 16:30 Temperature 98.2 F Pulse Rate 134 H 135 H Respiratory 22 24 Rate Blood Pressure 198/146 148/110 148/110 O2 Sat by Pulse 95 97 Oximetry 11/06/16 11/06/16 11/06/16 16:42 17:00 17:30 Temperature Pulse Rate 117 H 118 H Respiratory 18 22 23 Rate Blood Pressure 148/110 121/86 O2 Sat by Pulse 98 97 96 Oximetry 11/06/16 11/06/16 11/06/16 18:00 18:30 18:31 Temperature Pulse Rate 119 H 106 H Respiratory 18 13 18 Rate Blood Pressure 138/82 150/107 O2 Sat by Pulse 97 96 Oximetry - Reevaluation(s) Reevaluation #1: 11/06/16 17:29 Age and still states that he is short of breath and feels like a heart failure exacerbation PATIENT IV Lasix. Reevaluation #2: 11/06/16 20:02 We'll give patient IV metoprolol due to have an A. fib with RVR will discuss with hospitalist and patient will need admission. EV score - Ev Score Age > 65: (0) No Aspirin use within the Past 7 Days: (1) Yes 3 or more CAD Risk Factors: (1) Yes 2 or more Angina events in past 24 hrs: (1) Yes Known CAD with more than 50% Stenosis: (0) No Elevated Cardiac Markers: (0) No ST Deviation Greater than 0.5mm: (0) No EV Score: 3 ED Medical Decision Making - Lab Data Result diagrams: 11/06/16 16:35 11/06/16 16:35 Lab Results 11/06/16 11/06/16 Range/Units 16:35 16:35 WBC 4.8 (4.5-11.0) K/mm3 RBC 5.72 H (3.65-5.03) M/mm3 Hgb 12.6 (11.8-15.2) gm/dl Hct 40.7 (35.5-45.6) % MCV 71 L (84-94) fl MCH 22 L (28-32) pg MCHC 31 L (32-34) % RDW 14.8 (13.2-15.2) % Plt Count 184 (140-440) K/mm3 Lymph % (Auto) 33.5 (13.4-35.0) % [place] % (Auto) 10.9 H (0.0-7.3) % Eos % (Auto) 2.9 (0.0-4.3) % Baso % (Auto) 0.8 (0.0-1.8) % Lymph # 1.6 (1.2-5.4) K/mm3 [place] # 0.5 (0.0-0.8) K/mm3 Eos # 0.1 (0.0-0.4) K/mm3 Baso # 0.0 (0.0-0.1) K/mm3 Seg Neutrophils % 51.9 (40.0-70.0) % Seg Neutrophils # 2.5 (1.8-7.7) K/mm3 Sodium 145 (137-145) mmol/L Potassium 3.9 (3.6-5.0) mmol/L Chloride 106.8 (98-107) mmol/L Carbon Dioxide 25 (22-30) mmol/L Anion Gap 17 mmol/L BUN 35 H (9-20) mg/dL Creatinine 1.6 H (0.8-1.5) mg/dL Estimated GFR 54 ml/min BUN/Creatinine Ratio 21.87 % Glucose 131 H (75-100) mg/dL Calcium 9.1 (8.4-10.2) mg/dL Troponin T < 0.010 (0.00-0.029) ng/mL - EKG Data -: EKG Interpreted by Me - EKG Data 11/06/16 17:30 EKG shows atrial fibrillation with RVR 11/06/16 20:08 - Radiology Data Radiology results: image reviewed Chest x-ray shows: Cardiomegaly no findings of pulmonary edema. - Medical Decision Making Chief medical diagnosis: Non-STEMI Differential diagnosis: Congestive heart failure, pericarditis, pneumothorax, hypertensive urgency I will get CBC, CMP, troponin, EKG, IV Lasix, Patient's clinical symptoms and history are concerning for atrial fibrillation with RVR. The patient will require IV metoprolol, IV morphine, and IV Lasix and admission to the hospital. Critical Care Time: Yes Critical care time in (mins) excluding proc time.: 30 Critical care attestation.: If time is entered above; I have spent that time in minutes in the direct care of this critically ill patient, excluding procedure time. Time spent at patient's bedside 20 minutes Time spent with consultants 5 minutes Time spent reviewing laboratory findings 5 minutes I'm time spent with patient's family at 0 minutes ED Disposition Clinical Impression: Atrial fibrillation with rapid ventricular response Acute on chronic congestive heart failure Qualifiers: Congestive heart failure type: systolic Qualified Code(s): I50.23 - Acute on chronic systolic (congestive) heart failure Chest pain Qualifiers: Chest pain type: other chest pain Qualified Code(s): R07.89 - Other chest pain Disposition: 09 OP ADMIT IP TO THIS HOSP Is pt being admited?: No Does the pt Need Aspirin: No Condition: Stable Instructions: Chest Pain (ED) Referrals: PRIMARY CARE, [Primary Care Provider] - 3-5 Days Time of Disposition: 20:08
[2016-11-06] MEDS ORDERED: MORPHINE IV ONE (17:33)
[2016-11-06] MEDS ORDERED: LOPRESSOR IV ONE (17:34)
[2016-11-06 18:01] LABS: INR 1.08 (0.87-1.13)
[2016-11-06 18:02] LABS: Partial Thromboplastin Time 27.5 Sec. (24.2-36.6)
[2016-11-06] MEDS ORDERED: BABY ASPIRIN PO ONE (20:05)
--- NOTE | 2016-11-06 20:34 | History and Physical Report ---
History of Present Illness Date of examination: 11/06/16 Date of admission: 11/06/16 Chief complaint: L sided chest pain-3 hrs Palpitations 3 hrs History of present illness: - History of Present Illness Initial Comments: Patient is a 56-year-old male with past medical history of congestive heart failure presents with left-sided chest pain and shortness of breath for the last couple hours. He states that he is short of breath and is worse with exertion and rest makes it better. He also notices some leg swelling. Patient' s left-sided chest pain as a 9 out of 10 sharp type of chest pain that radiates down his left arm. Nothing makes his chest pain better or worse. He denies having any nausea or vomiting. He has a history of atrial flutter and A. fib with RVR and takes Eliquis Severity scale (0 -10): 9 HEART Score History: Moderately suspicious EKG: Non-specific Age: 45-65 Risk factors: > 3 risk factors or hx of atherosclerotic disease Troponin: < normal limit HEART Score: 5 - Past Medical History Hx Hypertension: Yes Hx Congestive Heart Failure: Yes Hx Diabetes: Yes (pre-diabetic) Hx Renal Disease: Yes Hx Asthma: No Hx COPD: No Additional medical history: Atrial fibrillation, renal insufficiency. ENLARGED PROSTATE - Surgical History Past Surgical History?: No - Social History Smoking Status: Never Smoker Substance Use Type: None - Medications Home Medications: Home Medications Medication Instructions Recorded Confirmed Last Taken Type Aspirin [Aspirin BABY CHEW TAB] 81 mg PO QDAY 03/24/16 04/30/16 Unknown History AtorvaSTATin [Lipitor] 20 mg PO QHS 03/24/16 04/30/16 Unknown History Ferrous Sulfate [Feosol 325 MG tab] 325 mg PO BID 03/24/16 04/30/16 Unknown History Amiodarone [Cordarone 200 MG TAB] 200 mg PO BID #60 tablet 04/02/16 04/30/16 Unknown Rx Carvedilol [Coreg] 12.5 mg PO BID #60 tablet 04/02/16 04/30/16 Unknown Rx Digoxin [Lanoxin] 0.125 mg PO DAILY@1700 #30 tablet 04/02/16 04/30/16 Unknown Rx Famotidine [Pepcid] 20 mg PO BID #30 tablet 04/02/16 04/30/16 Unknown Rx Lisinopril [Zestril TAB] 10 mg PO QDAY #30 tablet 04/02/16 04/30/16 Unknown Rx Metolazone [Zaroxolyn] 5 mg PO Q48H 30 Days 04/02/16 04/30/16 Unknown Rx Potassium Chloride 20 meq PO QDAY #30 packet 04/02/16 04/30/16 Unknown Rx Torsemide [Demadex] 40 mg PO DAILY 30 Days 04/02/16 04/30/16 Unknown Rx Apixaban [Eliquis] 2.5 mg PO BID #60 tablet 05/03/16 Unknown Rx Review of Systems Stated complaint: CHEST PAIN/SOB Other details as noted in HPI Constitutional: denies: chills, fever Eyes: denies: eye pain, eye discharge, vision change ENT: denies: ear pain, throat pain Respiratory: shortness of breath, SOB at rest. denies: cough, wheezing Cardiovascular: chest pain, palpitations Endocrine: no symptoms reported Gastrointestinal: denies: abdominal pain, nausea, diarrhea Genitourinary: denies: urgency, dysuria Musculoskeletal: denies: back pain, joint swelling, arthralgia Skin: denies: rash, lesions Neurological: denies: headache, weakness, paresthesias Psychiatric: denies: anxiety, depression Hematological/Lymphatic: denies: easy bleeding, easy bruisin Medications and Allergies Allergies Allergy/AdvReac Type Severity Reaction Status Date / Time No Known Allergies Allergy Verified 04/29/16 10:41 Home Medications Medication Instructions Recorded Confirmed Last Taken Type Aspirin [Aspirin BABY CHEW TAB] 81 mg PO QDAY 03/24/16 11/06/16 10/23/16 History AtorvaSTATin [Lipitor] 20 mg PO QHS 03/24/16 11/06/16 10/23/16 History Ferrous Sulfate [Feosol 325 MG tab] 325 mg PO BID 03/24/16 11/06/16 10/23/16 History Amiodarone [Cordarone 200 MG TAB] 200 mg PO BID #60 tablet 04/02/16 11/06/16 Rx Carvedilol [Coreg] 12.5 mg PO BID #60 tablet 04/02/16 11/06/16 10/23/16 Rx Digoxin [Lanoxin] 0.125 mg PO DAILY@1700 #30 tablet 04/02/16 11/06/16 10/23/16 Rx Famotidine [Pepcid] 20 mg PO BID #30 tablet 04/02/16 11/06/16 10/23/16 Rx Lisinopril [Zestril TAB] 10 mg PO QDAY #30 tablet 04/02/16 11/06/16 10/23/16 Rx Metolazone [Zaroxolyn] 5 mg PO Q48H 30 Days 04/02/16 11/06/16 10/23/16 Rx Potassium Chloride 20 meq PO QDAY #30 packet 04/02/16 11/06/16 10/23/16 Rx Torsemide [Demadex] 40 mg PO DAILY 30 Days 04/02/16 11/06/16 10/23/16 Rx Apixaban [Eliquis] 2.5 mg PO BID #60 tablet 05/03/16 11/06/16 10/23/16 Rx Exam - Physical Exam Narrative exam: Lying comfortably - Constitutional Vitals: Temp Pulse Resp BP Pulse Ox 98.2 F 106 H 18 150/107 96 11/06/16 15:49 11/06/16 18:30 11/06/16 18:31 11/06/16 18:30 11/06/16 18:30 General appearance: Present: no acute distress, well-nourished - EENT Eyes: Present: PERRL ENT: hearing intact, clear oral mucosa - Neck Neck: Present: supple, normal ROM - Respiratory Respiratory effort: normal Respiratory: bilateral: CTA - Cardiovascular Heart rate: 72 (Was 136/min resolved with IV Lopressor 5 mg) Rhythm: irregularly irregular Heart Sounds: Present: S1 & S2. Absent: rub, click - Extremities Extremities: pulses symmetrical, No edema Peripheral Pulses: within normal limits - Abdominal General gastrointestinal: Present: soft, non-tender, non-distended, normal bowel sounds Male genitourinary: Present: normal - Integumentary Integumentary: Present: clear, warm, dry - Musculoskeletal Musculoskeletal: gait normal, strength equal bilaterally - Psychiatric Psychiatric: appropriate mood/affect, intact judgment & insight - Neurologic Neurologic: CNII-XII intact, moves all extremities - Allied Health Allied health notes reviewed: nursing, case management Results - Labs CBC & Chem 7: 11/07/16 03:00 11/07/16 03:00 Labs: Laboratory Last Values WBC 4.8 K/mm3 (4.5-11.0) 11/06/16 16:35 RBC 5.72 M/mm3 (3.65-5.03) H 11/06/16 16:35 Hgb 12.6 gm/dl (11.8-15.2) 11/06/16 16:35 Hct 40.7 % (35.5-45.6) 11/06/16 16:35 MCV 71 fl (84-94) L 11/06/16 16:35 MCH 22 pg (28-32) L 11/06/16 16:35 MCHC 31 % (32-34) L 11/06/16 16:35 RDW 14.8 % (13.2-15.2) 11/06/16 16:35 Plt Count 184 K/mm3 (140-440) 11/06/16 16:35 Lymph % (Auto) 33.5 % (13.4-35.0) 11/06/16 16:35 [place] % (Auto) 10.9 % (0.0-7.3) H 11/06/16 16:35 Eos % (Auto) 2.9 % (0.0-4.3) 11/06/16 16:35 Baso % (Auto) 0.8 % (0.0-1.8) 11/06/16 16:35 Lymph # 1.6 K/mm3 (1.2-5.4) 11/06/16 16:35 [place] # 0.5 K/mm3 (0.0-0.8) 11/06/16 16:35 Eos # 0.1 K/mm3 (0.0-0.4) 11/06/16 16:35 Baso # 0.0 K/mm3 (0.0-0.1) 11/06/16 16:35 Seg Neutrophils % 51.9 % (40.0-70.0) 11/06/16 16:35 Seg Neutrophils # 2.5 K/mm3 (1.8-7.7) 11/06/16 16:35 PT 13.9 Sec. (12.2-14.9) 11/06/16 17:41 INR 1.08 (0.87-1.13) 11/06/16 17:41 APTT 27.5 Sec. (24.2-36.6) 11/06/16 17:41 Sodium 145 mmol/L (137-145) 11/06/16 16:35 Potassium 3.9 mmol/L (3.6-5.0) 11/06/16 16:35 Chloride 106.8 mmol/L (98-107) 11/06/16 16:35 Carbon Dioxide 25 mmol/L (22-30) 11/06/16 16:35 Anion Gap 17 mmol/L 11/06/16 16:35 BUN 35 mg/dL (9-20) H 11/06/16 16:35 Creatinine 1.6 mg/dL (0.8-1.5) H 11/06/16 16:35 Estimated GFR 54 ml/min 11/06/16 16:35 BUN/Creatinine Ratio 21.87 % 11/06/16 16:35 Glucose 131 mg/dL (75-100) H 11/06/16 16:35 Calcium 9.1 mg/dL (8.4-10.2) 11/06/16 16:35 Troponin T < 0.010 ng/mL (0.00-0.029) 11/06/16 18:48 NT-Pro-B Natriuret Pep 743.6 pg/mL (0-900) 11/06/16 16:35 - Imaging and Cardiology EKG: report reviewed (SVT with fusion complexes incompleteLBBb) Chest x-ray: report reviewed (Mild PVC) Assessment and Plan Advance Directives: Yes (Full code) VTE prophylaxis?: Chemical - Patient Problems (1) Atrial fibrillation with rapid ventricular response Current Visit: No Status: Acute Plan to address problem: Resolved in ER with one dose of IV Lopressor 5mg Patient on Amiodarone and Digoxin (2) Acute coronary syndrome Current Visit: Yes Status: Acute Plan to address problem: Patient to get serial CE's and Lexiscan in AM (3) CHF (congestive heart failure) Current Visit: Yes Status: Chronic Qualifiers: Congestive heart failure type: combined Congestive heart failure chronicity : acute on chronic Qualified Code(s): I50.43 - Acute on chronic combined systolic (congestive) and diastolic (congestive) heart failure Plan to address problem: Will cut down Torsemide to 20 mg po qd b/c of increasing creatinine to 1.7.Willincrease to 40 mg if CHF worsens. Echo ordered (4) CABRERA (acute kidney injury) Current Visit: Yes Status: Acute Plan to address problem: Sec to Torsemide of 40 mg .Will decrease to 20mg po qd (5) Atrial fibrillation Current Visit: No Status: Chronic Qualifiers: Atrial fibrillation type: chronic Qualified Code(s): I48.2 - Chronic atrial fibrillation Plan to address problem: Patient on Amiodarone Digoxin and Eliquis (6) HTN (hypertension) Current Visit: Yes Status: Chronic Qualifiers: Hypertension type: essential hypertension Qualified Code(s): I10 - Essential (primary) hypertension Plan to address problem: Cont Coreg Lisinopril (7) T2DM (type 2 diabetes mellitus) Current Visit: Yes Status: Chronic Qualifiers: Diabetes mellitus complication status: without complication Diabetes mellitus complication detail: D Diabetic retinopathy severity: D Proliferative retinopathy type: P Diabetes mellitus macular edema: D Diabetes mellitus usp insulin use: D Laterality: L Chronic kidney disease stage: C Plan to address problem: Hba1c below 6.0 (8) Anemia Current Visit: Yes Status: Chronic Qualifiers: Anemia type: iron deficiency Iron deficiency anemia type: I Vitamin B12 deficiency anemia type: V Folate deficiency anemia type: F Bone marrow failure anemia type: B Hemolytic anemia type: H Other causes of anemia: O Chronic kidney disease stage: C Plan to address problem: On Iron supplement (9) DVT prophylaxis Current Visit: Yes Status: Acute Plan to address problem: On Eliquis
[2016-11-06] MEDS ORDERED: TYLENOL PO PRN (20:37)
[2016-11-06] MEDS ORDERED: AMBIEN PO PRN (20:37)
[2016-11-06] MEDS ORDERED: ZOFRAN IV PRN (20:37)
[2016-11-06] MEDS ORDERED: DULCOLAX PR PRN (20:37)
[2016-11-06] MEDS ORDERED: DILAUDID IV PRN (20:37)
[2016-11-06] MEDS ORDERED: MILK OF MAGNESIA PO PRN (20:37)
[2016-11-06 21:19] LABS: Creatine Kinase MB 2.5 ng/mL (0.0-4.0)
[2016-11-06 21:21] LABS: Creatine Kinase 331 units/L (55-170)
[2016-11-06] MEDS ORDERED: PEPCID ONE (21:23)
[2016-11-06] MEDS ORDERED: BABY ASPIRIN ONE (21:23)
[2016-11-06] MEDS ORDERED: COREG ONE (21:23)
[2016-11-06] MEDS: BABY ASPIRIN PO SCH (21:31)
[2016-11-06] MEDS: COREG PO SCH (22:14)
[2016-11-06] MEDS: ELIQUIS PO SCH (23:12)
[2016-11-06] MEDS: ZAROXOLYN PO SCH (23:13)
[2016-11-06] MEDS: FEOSOL PO SCH (23:13)
[2016-11-06] MEDS: CORDARONE PO SCH (23:13)
[2016-11-07 03:18] LABS: Basophils % (Auto) 1.2 % (0.0-1.8); Eosinophils % (Auto) 3.4 % (0.0-4.3); Hematocrit 41.3 % (35.5-45.6); Hemoglobin 13.1 gm/dl (11.8-15.2); Mean Corpuscular HGB Conc 32 % (32-34); Mean Corpuscular Volume 71 fl (84-94); Platelet Count 168 K/mm3 (140-440); Red Blood Count 5.86 M/mm3 (3.65-5.03); Red Cell Distribution Width 15.4 % (13.2-15.2); White Blood Count 4.2 K/mm3 (4.5-11.0)
[2016-11-07 03:50] LABS: Mean Corpuscular Hemoglobin 22 pg (28-32)
[2016-11-07 04:04] LABS: Creatine Kinase MB 2.3 ng/mL (0.0-4.0)
[2016-11-07 04:07] LABS: Albumin 3.9 g/dL (3.9-5); Albumin/Globulin Ratio 1.1 %; Bilirubin,Total 0.3 mg/dL (0.1-1.2); Calcium 8.7 mg/dL (8.4-10.2); Creatine Kinase 305 units/L (55-170); Potassium 4.2 mmol/L (3.6-5.0); Total Protein 7.5 g/dL (6.3-8.2)
[2016-11-07] MEDS ORDERED: LEXISCAN IV ONE ×2 (08:09→08:27)
--- NOTE | 2016-11-07 09:14 | XRay Report ---
Single view chest: Compared to 04/29/16. History: Difficulty breathing. Findings: Cardiomegaly. Trachea is midline. No consolidation, pneumothorax or pleural effusion. Impression: Cardiomegaly. No definite acute lung changes.
[2016-11-07] MEDS ORDERED: LOVENOX SUB-Q SCH (10:00)
[2016-11-07] MEDS ORDERED: K-DUR PO SCH (10:00)
--- NOTE | 2016-11-07 12:17 | Progress Note ---
Assessment and Plan Assessment and plan: 56M w pmh of sytolic chf ef of 10%, PAF on eliquis, CKD stage 2-3, recent negative MPI on 04/13 who presents with CP Paroxysmal Atrial fibrillation with rapid ventricular response Resolved in ER with one dose of IV Lopressor 5mg Patient on Amiodarone and Digoxin check dig level cardiology consult, may need ICD Chest pain Acute coronary syndrome ruled out serial troponins negative fup MPI CHF (congestive heart failure) continue CRISTIAN and diuretics and digoxin Fup cardiology consult CKD stage 2-3 CABRERA (acute kidney injury) ruled out creatinine at BL continue current meds HTN (hypertension) Cont Coreg and Lisinopril Pre- T2DM (type 2 diabetes mellitus) Hba1c below 6.0, continue lifestyle modification Anemia On Iron supplement DVT prophylaxis fully anticoagulated, On Eliquis History Interval history: Chest pain has now resolved, denies shortness of breath Hospitalist Physical - Physical exam Narrative exam: General: Patient appears well in no distress HEENT: MMM, EOMI cardiac: S1-S2 heard lungs: clear to auscultation, abdomen: soft, nontender, nondistended bowel sounds positive extremities: no edema clubbing or cyanosis Skin: no rash or lesion Neuro: no focal deficit Psych: appropriate behavior and mood, cognition intact - Constitutional Vitals: Temp Pulse Resp BP Pulse Ox 98.0 F 87 20 141/90 97 11/07/16 08:35 11/07/16 10:08 11/07/16 08:35 11/07/16 10:08 11/07/16 08:35 General appearance: Present: no acute distress, well-nourished Results - Labs CBC & Chem 7: 11/07/16 03:00 11/07/16 03:00 Labs: Laboratory Last Values WBC 4.2 K/mm3 (4.5-11.0) L 11/07/16 03:00 RBC 5.86 M/mm3 (3.65-5.03) H 11/07/16 03:00 Hgb 13.1 gm/dl (11.8-15.2) 11/07/16 03:00 Hct 41.3 % (35.5-45.6) 11/07/16 03:00 MCV 71 fl (84-94) L 11/07/16 03:00 MCH 22 pg (28-32) L 11/07/16 03:00 MCHC 32 % (32-34) 11/07/16 03:00 RDW 15.4 % (13.2-15.2) H 11/07/16 03:00 Plt Count 168 K/mm3 (140-440) 11/07/16 03:00 Lymph % (Auto) 42.6 % (13.4-35.0) H 11/07/16 03:00 [place] % (Auto) 10.9 % (0.0-7.3) H 11/07/16 03:00 Eos % (Auto) 3.4 % (0.0-4.3) 11/07/16 03:00 Baso % (Auto) 1.2 % (0.0-1.8) 11/07/16 03:00 Lymph # 1.8 K/mm3 (1.2-5.4) 11/07/16 03:00 [place] # 0.5 K/mm3 (0.0-0.8) 11/07/16 03:00 Eos # 0.1 K/mm3 (0.0-0.4) 11/07/16 03:00 Baso # 0.1 K/mm3 (0.0-0.1) 11/07/16 03:00 Seg Neutrophils % 41.9 % (40.0-70.0) 11/07/16 03:00 Seg Neutrophils # 1.8 K/mm3 (1.8-7.7) 11/07/16 03:00 PT 13.9 Sec. (12.2-14.9) 11/06/16 17:41 INR 1.08 (0.87-1.13) 11/06/16 17:41 APTT 27.5 Sec. (24.2-36.6) 11/06/16 17:41 Sodium 143 mmol/L (137-145) 11/07/16 03:00 Potassium 4.2 mmol/L (3.6-5.0) 11/07/16 03:00 Chloride 104.0 mmol/L (98-107) 11/07/16 03:00 Carbon Dioxide 26 mmol/L (22-30) 11/07/16 03:00 Anion Gap 17 mmol/L 11/07/16 03:00 BUN 32 mg/dL (9-20) H 11/07/16 03:00 Creatinine 1.6 mg/dL (0.8-1.5) H 11/07/16 03:00 Estimated GFR 54 ml/min 11/07/16 03:00 BUN/Creatinine Ratio 20.00 % 11/07/16 03:00 Glucose 101 mg/dL (75-100) H 11/07/16 03:00 Hemoglobin A1c 5.6 % (4-6) 11/06/16 20:53 Calcium 8.7 mg/dL (8.4-10.2) 11/07/16 03:00 Total Bilirubin 0.30 mg/dL (0.1-1.2) 11/07/16 03:00 AST 18 units/L (5-40) 11/07/16 03:00 ALT 11 units/L (7-56) 11/07/16 03:00 Alkaline Phosphatase 40 units/L (35-129) 11/07/16 03:00 Total Creatine Kinase 305 units/L (55-170) H 11/07/16 03:00 CK-MB (CK-2) 2.3 ng/mL (0.0-4.0) 11/07/16 03:00 CK-MB (CK-2) Rel Index 0.7 (0-4) 11/07/16 03:00 Troponin T < 0.010 ng/mL (0.00-0.029) 11/07/16 03:00 NT-Pro-B Natriuret Pep 743.6 pg/mL (0-900) 11/06/16 16:35 Total Protein 7.5 g/dL (6.3-8.2) 11/07/16 03:00 Albumin 3.9 g/dL (3.9-5) 11/07/16 03:00 Albumin/Globulin Ratio 1.1 % 11/07/16 03:00
[2016-11-07] MEDS: DEMADEX PO SCH (12:37)
[2016-11-07] MEDS: ZESTRIL PO SCH (12:38)
[2016-11-07] MEDS: FEOSOL PO SCH ×2 (12:38→21:48)
[2016-11-07] MEDS: BABY ASPIRIN PO SCH (12:39)
[2016-11-07] MEDS: PEPCID PO SCH (12:39)
[2016-11-07] MEDS: ELIQUIS PO SCH ×2 (12:39→21:48)
[2016-11-07] MEDS: COREG PO SCH ×2 (12:43→21:48)
[2016-11-07] MEDS: CORDARONE PO SCH ×2 (12:43→21:48)
[2016-11-07] MEDS: LANOXIN PO SCH (18:01)
--- NOTE | 2016-11-08 01:43 | Treadmill Report ---
LEXISCAN STRESS TEST REASON FOR STUDY: Chest pain. STRESS TEST PROTOCOL: The patient received 0.4 mg of Lexiscan intravenously over 10 seconds. Technetium-99 Tetrofosmin was subsequently injected. Baseline EKG, atrial flutter with nonspecific ST segment and T-wave abnormalities. Lexiscan EKG, no significant change from baseline. No chest pain. No arrhythmias other than baseline atrial fibrillation. IMPRESSION: Nondiagnostic due to baseline EKG abnormalities. Nuclear imaging report to follow. [facility]# [id number] AGO/NTS
--- NOTE | 2016-11-08 01:58 | Admit Criteria Form ---
Admission Criteria Documentation: CHEST PAIN Clinical Indications for Admission to Inpatient Care ([place]/check or initial the applicable condition/criteria) Admission is indicated for chest pain and ANY ONE of the following (1)(2)(3)(4)( 5)(6)(7): [X]I. Angina with acute coronary syndrome (Also use Myocardial Infarction or Angina guideline) [ ]II. Hemodynamic instability [ ]III. Respiratory distress [ ]IV. Chest pain indicative of serious diagnosis other than coronary artery disease (e.g., aorticdissection) Extended stay beyond goal length of stay may be needed for(3)(4)(10)(45)(48) [ ]a) Unstable angina [ ]b) Continued suspicion of acute coronary syndrome with inability to complete needed cardiac evaluation (eg, patient clinically unable to undergo stress testing) [ ]c) Myocardial infarction [ ]d) Specific condition diagnosed after evaluation (eg, pulmonary embolism, aortic dissection)(49)(50)(51) The original [facility] content created by [employer] has been revised. The portions of the content which have been revised are identified through the use of italic text or in bold, and [employer] has neither reviewed nor approved the modified material. All other unmodified content is copyright [employer]. Please see references footnoted in the original [employer] edition 2017 Admission Criteria Met: Yes
--- NOTE | 2016-11-08 02:00 | Treadmill Report ---
THALLIUM REPORT REASON FOR STUDY: Chest pain. IMAGING PROTOCOL: The patient received Tc-99m Tetrofosmin for rest and stress imaging. Imaging for all procedures ____. NUCLEAR IMAGING RESULTS: The left ventricular cavity appears mildly dilated with stress imaging. There is no significant change with rest imaging. Distribution of radionuclide within the left ventricle revealed a large area of photo-induction involving the inferior and inferoapical wall. The degree of photo-induction is moderate to severe. Rest imaging showed only minimal to mild improvement in this defect. There is also a small area of photo-induction involving the inferolateral wall. The degree of photo-induction is moderate to severe. Rest imaging does not show any significant improvement in this defect. Gated SPECT imaging revealed severe global left ventricular systolic dysfunction with akinesis of the apex while all the LV manjarrez appear severely hypokinetic. The calculated left ventricular ejection fraction is 17%. IMPRESSION: Dilated left ventricular cavity. Large, predominantly fixed, minimally reversible inferior and inferoapical defect. Small fixed inferolateral defect. Severe global left ventricular systolic dysfunction with septal akinesis. EF 17%. These findings suggest prior infarction with minimal residual ischemia in the right coronary artery territory. A small area of prior infarction may also be present in the left circumflex coronary artery territory. In addition, a cardiomyopathic process may be present in this patient. JOB# [id number] MOOKIE/NTS
--- NOTE | 2016-11-08 09:56 | Progress Note ---
Assessment and Plan Assessment and plan: 56M w pmh of sytolic chf ef of 10%, PAF on eliquis, CKD stage 2-3, recent negative MPI on 04/13 who presents with CP Paroxysmal Atrial fibrillation with rapid ventricular response Resolved in ER with one dose of IV Lopressor 5mg Patient on Amiodarone and Digoxin check dig level cardiology consult appreciated Chest pain Acute coronary syndrome ruled out serial troponins negative For cath on tuesday, eliquis must be on hold for 48 hours eliquis dc today CHF (congestive heart failure) continue CRISTIAN and diuretics and digoxin Fup cardiology consult, ICD eval as outpatient CKD stage 2-3 CABRERA (acute kidney injury) ruled out creatinine at BL continue current meds HTN (hypertension) Cont Coreg and Lisinopril Pre- T2DM (type 2 diabetes mellitus) Hba1c below 6.0, continue lifestyle modification Anemia On Iron supplement DVT prophylaxis fully anticoagulated, On Eliquis History Interval history: Chest pain has now resolved, denies shortness of breath Hospitalist Physical - Physical exam Narrative exam: General: Patient appears well in no distress HEENT: MMM, EOMI cardiac: S1-S2 heard lungs: clear to auscultation, abdomen: soft, nontender, nondistended bowel sounds positive extremities: no edema clubbing or cyanosis Skin: no rash or lesion Neuro: no focal deficit Psych: appropriate behavior and mood, cognition intact - Constitutional Vitals: Temp Pulse Resp BP Pulse Ox 97.3 F L 56 L 20 116/57 96 11/08/16 04:00 11/08/16 04:00 11/08/16 04:00 11/08/16 04:00 11/08/16 04:00 General appearance: Present: no acute distress, well-nourished Results - Labs CBC & Chem 7: 11/07/16 03:00 11/07/16 03:00 Labs: Laboratory Last Values WBC 4.2 K/mm3 (4.5-11.0) L 11/07/16 03:00 RBC 5.86 M/mm3 (3.65-5.03) H 11/07/16 03:00 Hgb 13.1 gm/dl (11.8-15.2) 11/07/16 03:00 Hct 41.3 % (35.5-45.6) 11/07/16 03:00 MCV 71 fl (84-94) L 11/07/16 03:00 MCH 22 pg (28-32) L 11/07/16 03:00 MCHC 32 % (32-34) 11/07/16 03:00 RDW 15.4 % (13.2-15.2) H 11/07/16 03:00 Plt Count 168 K/mm3 (140-440) 11/07/16 03:00 Lymph % (Auto) 42.6 % (13.4-35.0) H 11/07/16 03:00 [place] % (Auto) 10.9 % (0.0-7.3) H 11/07/16 03:00 Eos % (Auto) 3.4 % (0.0-4.3) 11/07/16 03:00 Baso % (Auto) 1.2 % (0.0-1.8) 11/07/16 03:00 Lymph # 1.8 K/mm3 (1.2-5.4) 11/07/16 03:00 [place] # 0.5 K/mm3 (0.0-0.8) 11/07/16 03:00 Eos # 0.1 K/mm3 (0.0-0.4) 11/07/16 03:00 Baso # 0.1 K/mm3 (0.0-0.1) 11/07/16 03:00 Seg Neutrophils % 41.9 % (40.0-70.0) 11/07/16 03:00 Seg Neutrophils # 1.8 K/mm3 (1.8-7.7) 11/07/16 03:00 PT 13.9 Sec. (12.2-14.9) 11/06/16 17:41 INR 1.08 (0.87-1.13) 11/06/16 17:41 APTT 27.5 Sec. (24.2-36.6) 11/06/16 17:41 Sodium 143 mmol/L (137-145) 11/07/16 03:00 Potassium 4.2 mmol/L (3.6-5.0) 11/07/16 03:00 Chloride 104.0 mmol/L (98-107) 11/07/16 03:00 Carbon Dioxide 26 mmol/L (22-30) 11/07/16 03:00 Anion Gap 17 mmol/L 11/07/16 03:00 BUN 32 mg/dL (9-20) H 11/07/16 03:00 Creatinine 1.6 mg/dL (0.8-1.5) H 11/07/16 03:00 Estimated GFR 54 ml/min 11/07/16 03:00 BUN/Creatinine Ratio 20.00 % 11/07/16 03:00 Glucose 101 mg/dL (75-100) H 11/07/16 03:00 Hemoglobin A1c 5.6 % (4-6) 11/06/16 20:53 Calcium 8.7 mg/dL (8.4-10.2) 11/07/16 03:00 Total Bilirubin 0.30 mg/dL (0.1-1.2) 11/07/16 03:00 AST 18 units/L (5-40) 11/07/16 03:00 ALT 11 units/L (7-56) 11/07/16 03:00 Alkaline Phosphatase 40 units/L (35-129) 11/07/16 03:00 Total Creatine Kinase 305 units/L (55-170) H 11/07/16 03:00 CK-MB (CK-2) 2.3 ng/mL (0.0-4.0) 11/07/16 03:00 CK-MB (CK-2) Rel Index 0.7 (0-4) 11/07/16 03:00 Troponin T < 0.010 ng/mL (0.00-0.029) 11/07/16 03:00 NT-Pro-B Natriuret Pep 743.6 pg/mL (0-900) 11/06/16 16:35 Total Protein 7.5 g/dL (6.3-8.2) 11/07/16 03:00 Albumin 3.9 g/dL (3.9-5) 11/07/16 03:00 Albumin/Globulin Ratio 1.1 % 11/07/16 03:00 Digoxin 0.4 ng/mL (0.9-2.0) L 11/07/16 12:55
[2016-11-08] MEDS: BABY ASPIRIN PO SCH (10:41)
[2016-11-08] MEDS: ZESTRIL PO SCH (10:41)
[2016-11-08] MEDS: DEMADEX PO SCH (10:41)
[2016-11-08] MEDS: CORDARONE PO SCH ×2 (10:42→22:48)
[2016-11-08] MEDS: PEPCID PO SCH (10:42)
[2016-11-08] MEDS: COREG PO SCH ×2 (10:42→22:46)
[2016-11-08] MEDS: ELIQUIS PO SCH (10:42)
[2016-11-08] MEDS: FEOSOL PO SCH ×2 (10:43→22:46)
--- NOTE | 2016-11-08 14:49 | Consultation ---
History of Present Illness Consult date: 11/08/16 Consult reason: atrial fibrillation, chest pain History of present illness: This is a 56yr old man with a history of nonischemic cardiomyopathy and paroxysmal atrial fibrillation/flutter on eliquis therapy for oral anticoagulation. He presents to this hospital with syncope. Patient reports he was dizzy just prior to passing out. His ECG shows atrial flutter with mild rapid ventricular response. Cardiac consultation requested. Medications and Allergies Allergies Allergy/AdvReac Type Severity Reaction Status Date / Time No Known Allergies Allergy Verified 04/29/16 10:41 Home Medications Medication Instructions Recorded Confirmed Last Taken Type Aspirin [Aspirin BABY CHEW TAB] 81 mg PO QDAY 03/24/16 11/06/16 10/23/16 History AtorvaSTATin [Lipitor] 20 mg PO QHS 03/24/16 11/06/16 10/23/16 History Ferrous Sulfate [Feosol 325 MG tab] 325 mg PO BID 03/24/16 11/06/16 10/23/16 History Amiodarone [Cordarone 200 MG TAB] 200 mg PO BID #60 tablet 04/02/16 11/06/16 Rx Carvedilol [Coreg] 12.5 mg PO BID #60 tablet 04/02/16 11/06/16 10/23/16 Rx Digoxin [Lanoxin] 0.125 mg PO DAILY@1700 #30 tablet 04/02/16 11/06/16 10/23/16 Rx Famotidine [Pepcid] 20 mg PO BID #30 tablet 04/02/16 11/06/16 10/23/16 Rx Lisinopril [Zestril TAB] 10 mg PO QDAY #30 tablet 04/02/16 11/06/16 10/23/16 Rx Metolazone [Zaroxolyn] 5 mg PO Q48H 30 Days 04/02/16 11/06/16 10/23/16 Rx Potassium Chloride 20 meq PO QDAY #30 packet 04/02/16 11/06/16 10/23/16 Rx Torsemide [Demadex] 40 mg PO DAILY 30 Days 04/02/16 11/06/16 10/23/16 Rx Apixaban [Eliquis] 2.5 mg PO BID #60 tablet 05/03/16 11/06/16 10/23/16 Rx Active Meds: Active Medications Acetaminophen (Tylenol) 650 mg PO Q4H PRN PRN Reason: Pain MILD(1-3)/Fever >100.5/REINA Amiodarone HCl (Cordarone) 200 mg PO BID [facility] Last Admin: 11/08/16 10:42 Dose: 200 mg Apixaban (Eliquis) 2.5 mg PO BID [facility] PRN Reason: Protocol Last Admin: 11/08/16 10:42 Dose: 2.5 mg Aspirin (Baby Aspirin) 81 mg PO QDAY [facility] Last Admin: 11/08/16 10:41 Dose: 81 mg Atorvastatin Calcium (Lipitor) 20 mg PO QHS [facility] Last Admin: 11/07/16 22:07 Dose: Not Given Bisacodyl (Dulcolax) 10 mg [facility] QDAY PRN PRN Reason: Constipation unrelieved by MOM Carvedilol (Coreg) 12.5 mg PO BID [facility] Last Admin: 11/08/16 10:42 Dose: 12.5 mg Digoxin (Lanoxin) 0.125 mg PO DAILY@1700 [facility] Last Admin: 11/07/16 18:01 Dose: 0.125 mg Famotidine (Pepcid) 20 mg PO QAM [facility] Last Admin: 11/08/16 10:42 Dose: 20 mg Ferrous Sulfate (Feosol) 325 mg PO BID [facility] Last Admin: 11/08/16 10:43 Dose: 325 mg Hydromorphone HCl (Dilaudid) 0.5 mg IV Q3H PRN PRN Reason: Pain , Severe (7-10) Lisinopril (Zestril) 10 mg PO QDAY [facility] Last Admin: 11/08/16 10:41 Dose: 10 mg Magnesium Hydroxide (Milk Of Magnesia) 30 ml PO Q4H PRN PRN Reason: Constipation Metolazone (Zaroxolyn) 5 mg PO Q48H [facility] Last Admin: 11/06/16 23:13 Dose: 5 mg Ondansetron HCl (Zofran) 4 mg IV Q8H PRN PRN Reason: N/V unrelieved by Reglan Oxycodone/Acetaminophen (Percocet 5/325) 1 tab PO Q6H PRN PRN Reason: Pain, Moderate (4-6) Torsemide (Demadex) 40 mg PO DAILY [facility] Last Admin: 11/08/16 10:41 Dose: 40 mg Zolpidem Tartrate (Ambien) 5 mg PO QHS PRN PRN Reason: Insomnia Physical Examination Vital Signs Temp Pulse Resp BP Pulse Ox 98.2 F 134 H 22 198/146 95 11/06/16 15:49 11/06/16 15:49 11/06/16 15:49 11/06/16 15:49 11/06/16 15:49 Results 11/07/16 03:00 11/07/16 03:00 Assessment and Plan Syncope Nonischemic Cardiomyopathy, LVEF 10-15% Paroxysmal Atrial fibrillation/flutter on eliquis at home for anticoagulation Hypertension
[2016-11-08] MEDS: LANOXIN PO SCH (17:48)
[2016-11-08] MEDS: ZAROXOLYN PO SCH (22:47)
--- NOTE | 2016-11-09 09:53 | Progress Note ---
Assessment and Plan Assessment and plan: 56M w pmh of sytolic chf ef of 10%, PAF on eliquis, CKD stage 2-3, recent negative MPI on 04/13 who presents with CP Paroxysmal Atrial fibrillation with rapid ventricular response Resolved in ER with one dose of IV Lopressor 5mg continue Amiodarone and Digoxin dig level is 0.4 cardiology consult appreciated Chest pain Acute coronary syndrome ruled out serial troponins negative For cath on tuesday, eliquis must be on hold for 48 hours eliquis on hold for cath on tuesday CHF (congestive heart failure) chronic systolic continue CRISTIAN and diuretics and digoxin cardiology consult appreciated, ICD eval as outpatient CKD stage 2-3 CABRERA (acute kidney injury) ruled out creatinine at BL continue current meds HTN (hypertension) Cont Coreg and Lisinopril Pre- T2DM (type 2 diabetes mellitus) Hba1c below 6.0, continue lifestyle modification Anemia On Iron supplement DVT prophylaxis fully anticoagulated, Eliquis to be restarted after cath History Interval history: Chest pain has now resolved, denies shortness of breath Hospitalist Physical - Physical exam Narrative exam: General: Patient appears well in no distress HEENT: MMM, EOMI cardiac: S1-S2 heard lungs: clear to auscultation, abdomen: soft, nontender, nondistended bowel sounds positive extremities: no edema clubbing or cyanosis Skin: no rash or lesion Neuro: no focal deficit Psych: appropriate behavior and mood, cognition intact - Constitutional Vitals: Temp Pulse Resp BP Pulse Ox 98.7 F 58 L 20 104/56 98 11/09/16 09:00 11/09/16 09:00 11/09/16 09:00 11/09/16 09:00 11/09/16 09:00 General appearance: Present: no acute distress, well-nourished Results - Labs CBC & Chem 7: 11/07/16 03:00 11/09/16 10:47 Labs: Laboratory Last Values WBC 4.2 K/mm3 (4.5-11.0) L 11/07/16 03:00 RBC 5.86 M/mm3 (3.65-5.03) H 11/07/16 03:00 Hgb 13.1 gm/dl (11.8-15.2) 11/07/16 03:00 Hct 41.3 % (35.5-45.6) 11/07/16 03:00 MCV 71 fl (84-94) L 11/07/16 03:00 MCH 22 pg (28-32) L 11/07/16 03:00 MCHC 32 % (32-34) 11/07/16 03:00 RDW 15.4 % (13.2-15.2) H 11/07/16 03:00 Plt Count 168 K/mm3 (140-440) 11/07/16 03:00 Lymph % (Auto) 42.6 % (13.4-35.0) H 11/07/16 03:00 [place] % (Auto) 10.9 % (0.0-7.3) H 11/07/16 03:00 Eos % (Auto) 3.4 % (0.0-4.3) 11/07/16 03:00 Baso % (Auto) 1.2 % (0.0-1.8) 11/07/16 03:00 Lymph # 1.8 K/mm3 (1.2-5.4) 11/07/16 03:00 [place] # 0.5 K/mm3 (0.0-0.8) 11/07/16 03:00 Eos # 0.1 K/mm3 (0.0-0.4) 11/07/16 03:00 Baso # 0.1 K/mm3 (0.0-0.1) 11/07/16 03:00 Seg Neutrophils % 41.9 % (40.0-70.0) 11/07/16 03:00 Seg Neutrophils # 1.8 K/mm3 (1.8-7.7) 11/07/16 03:00 PT 13.9 Sec. (12.2-14.9) 11/06/16 17:41 INR 1.08 (0.87-1.13) 11/06/16 17:41 APTT 27.5 Sec. (24.2-36.6) 11/06/16 17:41 Sodium 143 mmol/L (137-145) 11/07/16 03:00 Potassium 4.2 mmol/L (3.6-5.0) 11/07/16 03:00 Chloride 104.0 mmol/L (98-107) 11/07/16 03:00 Carbon Dioxide 26 mmol/L (22-30) 11/07/16 03:00 Anion Gap 17 mmol/L 11/07/16 03:00 BUN 32 mg/dL (9-20) H 11/07/16 03:00 Creatinine 1.6 mg/dL (0.8-1.5) H 11/07/16 03:00 Estimated GFR 54 ml/min 11/07/16 03:00 BUN/Creatinine Ratio 20.00 % 11/07/16 03:00 Glucose 101 mg/dL (75-100) H 11/07/16 03:00 Hemoglobin A1c 5.6 % (4-6) 11/06/16 20:53 Calcium 8.7 mg/dL (8.4-10.2) 11/07/16 03:00 Total Bilirubin 0.30 mg/dL (0.1-1.2) 11/07/16 03:00 AST 18 units/L (5-40) 11/07/16 03:00 ALT 11 units/L (7-56) 11/07/16 03:00 Alkaline Phosphatase 40 units/L (35-129) 11/07/16 03:00 Total Creatine Kinase 305 units/L (55-170) H 11/07/16 03:00 CK-MB (CK-2) 2.3 ng/mL (0.0-4.0) 11/07/16 03:00 CK-MB (CK-2) Rel Index 0.7 (0-4) 11/07/16 03:00 Troponin T < 0.010 ng/mL (0.00-0.029) 11/07/16 03:00 NT-Pro-B Natriuret Pep 743.6 pg/mL (0-900) 11/06/16 16:35 Total Protein 7.5 g/dL (6.3-8.2) 11/07/16 03:00 Albumin 3.9 g/dL (3.9-5) 11/07/16 03:00 Albumin/Globulin Ratio 1.1 % 11/07/16 03:00 Digoxin 0.4 ng/mL (0.9-2.0) L 11/07/16 12:55
[2016-11-09] MEDS: CORDARONE PO SCH ×2 (11:09→21:48)
[2016-11-09] MEDS: DEMADEX PO SCH (11:09)
[2016-11-09] MEDS: PEPCID PO SCH (11:09)
--- NOTE | 2016-11-09 11:09 | Progress Note ---
Assessment and Plan Chest pain Mostly fixed inferior and posterior lateral defect, with very mild reversibility on MPI this admission. Nonischemic Cardiomyopathy, LVEF 10-15% Paroxysmal Atrial fibrillation/flutter on eliquis at home for anticoagulation. Currently on hold for planned LHC. Hypertension Recommendations: We'll proceed with diagnostic coronary angiography for further evaluation of the abnormal perfusion defect on thallium testing. Eliquis was held for anticipation of cardiac catheterization on Tuesday. Subjective Date of service: 11/09/16 Interval history: Patient has no chest pain or shortness of breath. Objective Vital Signs Temp Pulse Resp BP Pulse Ox 11/09/16 09:00 98.7 F 58 L 20 104/56 98 11/09/16 06:00 97.8 F 55 L 18 104/58 98 11/09/16 00:00 97.8 F 63 18 115/56 97 11/08/16 20:00 97.6 F 63 18 106/57 97 11/08/16 19:49 98.0 F 62 18 103/71 95 - Physical Examination General: No Apparent Distress HEENT: Positive: PERRL Neck: Positive: trachea midline Cardiac: Positive: Reg Rate and Rhythm Neuro: Positive: Grossly Intact - Imaging and Cardiology EKG: report reviewed (SVT with fusion complexes incompleteLBBb)
[2016-11-09] MEDS: BABY ASPIRIN PO SCH (11:10)
[2016-11-09] MEDS: FEOSOL PO SCH ×2 (11:10→21:49)
[2016-11-09] MEDS: COREG PO SCH ×2 (11:15→21:50)
[2016-11-09] MEDS: ZESTRIL PO SCH (11:15)
[2016-11-09 11:41] LABS: BUN/Creatinine Ratio 17.33; Calcium 8.8 mg/dL (8.4-10.2); Chloride 95.5 mmol/L (98-107); Potassium 3.7 mmol/L (3.6-5.0)
[2016-11-09] MEDS ORDERED: NACL 0.9% 500 ML 500 ML IV SCH (12:00)
[2016-11-09] MEDS: LANOXIN PO SCH (18:06)
[2016-11-10] MEDS ORDERED: NACL 0.9% 500 ML 500 ML IV SCH (02:00)
[2016-11-10] MEDS ORDERED: BABY ASPIRIN PO ONE (06:00)
[2016-11-10 06:33] LABS: BUN/Creatinine Ratio 20.68; Calcium 8.7 mg/dL (8.4-10.2); Chloride 91.3 mmol/L (98-107); Potassium 3.3 mmol/L (3.6-5.0)
[2016-11-10 06:42] LABS: INR 1.05 (0.87-1.13)
--- NOTE | 2016-11-10 09:04 | Consultation ---
History of Present Illness - Reason for Consult Consult date: 11/10/16 acute renal failure, chronic renal failure Requesting physician: ANDRY CURRAN - History of Present Illness Patient is a 56-year-old male with past medical history of congestive heart failure presents with left-sided chest pain and shortness of breath for the last couple hours. He states that he is short of breath and is worse with exertion and rest makes it better. He also notices some leg swelling. Patient' s left-sided chest pain as a 9 out of 10 sharp type of chest pain that radiates down his left arm. Nothing makes his chest pain better or worse. He denies having any nausea or vomiting. He has a history of atrial flutter and A. fib with RVR and takes Eliquis Severity scale (0 -10): 9 HEART Score History: Moderately suspicious EKG: Non-specific Age: 45-65 Risk factors: > 3 risk factors or hx of atherosclerotic disease Troponin: < normal limit HEART Score: 5 - Past Medical History Hx Hypertension: Yes Hx Congestive Heart Failure: Yes Hx Diabetes: Yes (pre-diabetic) Hx Renal Disease: Yes Hx Asthma: No Hx COPD: No Additional medical history: Atrial fibrillation, renal insufficiency. ENLARGED PROSTATE - Surgical History Past Surgical History?: No - Social History Smoking Status: Never Smoker Substance Use Type: None - Medications Home Medications: Home Medications Medication Instructions Recorded Confirmed Last Taken Type Aspirin [Aspirin BABY CHEW TAB] 81 mg PO QDAY 03/24/16 04/30/16 Unknown History AtorvaSTATin [Lipitor] 20 mg PO QHS 03/24/16 04/30/16 Unknown History Ferrous Sulfate [Feosol 325 MG tab] 325 mg PO BID 03/24/16 04/30/16 Unknown History Amiodarone [Cordarone 200 MG TAB] 200 mg PO BID #60 tablet 04/02/16 04/30/16 Unknown Rx Carvedilol [Coreg] 12.5 mg PO BID #60 tablet 04/02/16 04/30/16 Unknown Rx Digoxin [Lanoxin] 0.125 mg PO DAILY@1700 #30 tablet 04/02/16 04/30/16 Unknown Rx Famotidine [Pepcid] 20 mg PO BID #30 tablet 04/02/16 04/30/16 Unknown Rx Lisinopril [Zestril TAB] 10 mg PO QDAY #30 tablet 04/02/16 04/30/16 Unknown Rx Metolazone [Zaroxolyn] 5 mg PO Q48H 30 Days 04/02/16 04/30/16 Unknown Rx Potassium Chloride 20 meq PO QDAY #30 packet 04/02/16 04/30/16 Unknown Rx Torsemide [Demadex] 40 mg PO DAILY 30 Days 04/02/16 04/30/16 Unknown Rx Apixaban [Eliquis] 2.5 mg PO BID #60 tablet 05/03/16 Unknown Rx Review of Systems Stated complaint: CHEST PAIN/SOB Other details as noted in HPI Constitutional: denies: chills, fever Eyes: denies: eye pain, eye discharge, vision change ENT: denies: ear pain, throat pain Respiratory: shortness of breath, SOB at rest. denies: cough, wheezing Cardiovascular: chest pain, palpitations Endocrine: no symptoms reported Gastrointestinal: denies: abdominal pain, nausea, diarrhea Genitourinary: denies: urgency, dysuria Musculoskeletal: denies: back pain, joint swelling, arthralgia Skin: denies: rash, lesions Neurological: denies: headache, weakness, paresthesias Psychiatric: denies: anxiety, depression Hematological/Lymphatic: denies: easy bleeding, easy bruisin Medications and Allergies Allergies Allergy/AdvReac Type Severity Reaction Status Date / Time No Known Allergies Allergy Verified 04/29/16 10:41 Home Medications Medication Instructions Recorded Confirmed Last Taken Type Aspirin [Aspirin BABY CHEW TAB] 81 mg PO QDAY 03/24/16 11/06/16 10/23/16 History AtorvaSTATin [Lipitor] 20 mg PO QHS 03/24/16 11/06/16 10/23/16 History Ferrous Sulfate [Feosol 325 MG tab] 325 mg PO BID 03/24/16 11/06/16 10/23/16 History Amiodarone [Cordarone 200 MG TAB] 200 mg PO BID #60 tablet 04/02/16 11/06/16 Rx Carvedilol [Coreg] 12.5 mg PO BID #60 tablet 04/02/16 11/06/16 10/23/16 Rx Digoxin [Lanoxin] 0.125 mg PO DAILY@1700 #30 tablet 04/02/16 11/06/16 10/23/16 Rx Famotidine [Pepcid] 20 mg PO BID #30 tablet 04/02/16 11/06/16 10/23/16 Rx Lisinopril [Zestril TAB] 10 mg PO QDAY #30 tablet 04/02/16 11/06/16 10/23/16 Rx Metolazone [Zaroxolyn] 5 mg PO Q48H 30 Days 04/02/16 11/06/16 10/23/16 Rx Potassium Chloride 20 meq PO QDAY #30 packet 04/02/16 11/06/16 10/23/16 Rx Torsemide [Demadex] 40 mg PO DAILY 30 Days 04/02/16 11/06/16 10/23/16 Rx Apixaban [Eliquis] 2.5 mg PO BID #60 tablet 05/03/16 11/06/16 10/23/16 Rx Active Meds: Active Medications Acetaminophen (Tylenol) 650 mg PO Q4H PRN PRN Reason: Pain MILD(1-3)/Fever >100.5/REINA Amiodarone HCl (Cordarone) 200 mg PO BID [facility] Last Admin: 11/09/16 21:48 Dose: 200 mg Aspirin (Baby Aspirin) 81 mg PO QDAY [facility] Atorvastatin Calcium (Lipitor) 20 mg PO QHS [facility] Last Admin: 11/09/16 21:49 Dose: 20 mg Bisacodyl (Dulcolax) 10 mg IN QDAY PRN PRN Reason: Constipation unrelieved by MOM Carvedilol (Coreg) 12.5 mg PO BID [facility] Last Admin: 11/09/16 21:50 Dose: Not Given Digoxin (Lanoxin) 0.125 mg PO DAILY@1700 [facility] Last Admin: 11/09/16 18:06 Dose: 0.125 mg Famotidine (Pepcid) 20 mg PO QAM [facility] Last Admin: 11/09/16 11:09 Dose: 20 mg Ferrous Sulfate (Feosol) 325 mg PO BID [facility] Last Admin: 11/09/16 21:49 Dose: 325 mg Hydromorphone HCl (Dilaudid) 0.5 mg IV Q3H PRN PRN Reason: Pain , Severe (7-10) Sodium Chloride (Nacl 0.9% 500 Ml) 500 mls @ 50 mls/hr IV DIRECT [facility] Stop: 11/10/16 11:59 Last Admin: 11/10/16 01:06 Dose: 50 mls/hr Ondansetron HCl (Zofran) 4 mg IV Q8H PRN PRN Reason: N/V unrelieved by Reglan Oxycodone/Acetaminophen (Percocet 5/325) 1 tab PO Q6H PRN PRN Reason: Pain, Moderate (4-6) Zolpidem Tartrate (Ambien) 5 mg PO QHS PRN PRN Reason: Insomnia Exam - Vital Signs Vital signs: Vital Signs Temp Pulse Resp BP Pulse Ox 98.2 F 134 H 22 198/146 95 11/06/16 15:49 11/06/16 15:49 11/06/16 15:49 11/06/16 15:49 11/06/16 15:49 - Physical Exam Narrative exam: General appearance: Present: no acute distress, well-nourished - EENT Eyes: Present: PERRL ENT: hearing intact, clear oral mucosa - Neck Neck: Present: supple, normal ROM - Respiratory Respiratory effort: normal Respiratory: bilateral: CTA - Cardiovascular Heart rate: 72 (Was 136/min resolved with IV Lopressor 5 mg) Rhythm: irregularly irregular Heart Sounds: Present: S1 & S2. Absent: rub, click - Extremities Extremities: pulses symmetrical, No edema Peripheral Pulses: within normal limits - Abdominal General gastrointestinal: Present: soft, non-tender, non-distended, normal bowel sounds Male genitourinary: Present: normal - Integumentary Integumentary: Present: clear, warm, dry - Musculoskeletal Musculoskeletal: gait normal, strength equal bilaterally - Psychiatric Psychiatric: appropriate mood/affect, intact judgment & insight - Neurologic Neurologic: CNII-XII intact, moves all extremities - Allied Health Allied health notes reviewed: nursing, case management Results - Lab Results 11/07/16 03:00 11/10/16 04:54 Most recent lab results Calcium 8.7 mg/dL (8.4-10.2) 11/10/16 04:54 Urine Creatinine 86.4 mg/dL (0.1-20.0) H 11/09/16 Unknown Urine Sodium 74 mEq/L 11/09/16 Unknown Assessment and Plan Impression: * CABRERA on ckd * cad * cardiomyopathy * ?cardiorenal syndrome * HTN * afib with rvr Plan: * cr 2.9, baseline cr 1.6 to 1.8 * avoid nephrotoxins * will be high risk for FLOYD, would hold LHC * optimized cardiac function, may have cardiorenal syndrome * follow up ua/renal us * renal diet
[2016-11-10] MEDS: CORDARONE PO SCH ×2 (10:02→22:03)
[2016-11-10] MEDS: FEOSOL PO SCH ×2 (10:02→22:03)
[2016-11-10] MEDS: COREG PO SCH ×2 (10:02→22:03)
[2016-11-10] MEDS: PEPCID PO SCH (10:02)
--- NOTE | 2016-11-10 10:42 | Progress Note ---
Assessment and Plan Assessment and plan: 56M w pmh of sytolic chf ef of 10%, PAF on eliquis, CKD stage 2-3, recent negative MPI on 04/13 who presents with CP Paroxysmal Atrial fibrillation with rapid ventricular response Resolved in ER with one dose of IV Lopressor 5mg continue Amiodarone and Digoxin dig level is 0.4 cardiology consult appreciated Chest pain Acute coronary syndrome ruled out serial troponins negative Cardiac cath planned, eliquis must be on hold for 48 hours however cath on hold due to CABRERA CHF (congestive heart failure) chronic systolic continue CRISTIAN and diuretics and digoxin cardiology consult appreciated, ICD eval as outpatient CKD stage 2-3 CABRERA (acute kidney injury) upon CKD stage 3/Vasomotor nephropathy BL creatinine is 1.6, currently 2.9 Nephrology input appreciated, fup Urine studies and renal US hold nephrotoxic agents, trial of IVF dc diuretics and CRISTIAN HTN (hypertension) Cont Coreg Pre- T2DM (type 2 diabetes mellitus) Hba1c below 6.0, continue lifestyle modification Hypokalemia replete PO Anemia On Iron supplement DVT prophylaxis fully anticoagulated, Eliquis to be restarted after cath History Interval history: Chest pain has now resolved, denies shortness of breath Hospitalist Physical - Physical exam Narrative exam: General: Patient appears well in no distress HEENT: MMM, EOMI cardiac: S1-S2 heard lungs: clear to auscultation, abdomen: soft, nontender, nondistended bowel sounds positive extremities: no edema clubbing or cyanosis Skin: no rash or lesion Neuro: no focal deficit Psych: appropriate behavior and mood, cognition intact - Constitutional Vitals: Temp Pulse Resp BP Pulse Ox 97.4 F L 58 L 20 139/81 92 11/10/16 08:00 11/10/16 08:00 11/10/16 08:00 11/10/16 08:00 11/10/16 08:00 General appearance: Present: no acute distress, well-nourished Results - Labs CBC & Chem 7: 11/07/16 03:00 11/10/16 04:54 Labs: Laboratory Last Values WBC 4.2 K/mm3 (4.5-11.0) L 11/07/16 03:00 RBC 5.86 M/mm3 (3.65-5.03) H 11/07/16 03:00 Hgb 13.1 gm/dl (11.8-15.2) 11/07/16 03:00 Hct 41.3 % (35.5-45.6) 11/07/16 03:00 MCV 71 fl (84-94) L 11/07/16 03:00 MCH 22 pg (28-32) L 11/07/16 03:00 MCHC 32 % (32-34) 11/07/16 03:00 RDW 15.4 % (13.2-15.2) H 11/07/16 03:00 Plt Count 168 K/mm3 (140-440) 11/07/16 03:00 Lymph % (Auto) 42.6 % (13.4-35.0) H 11/07/16 03:00 [place] % (Auto) 10.9 % (0.0-7.3) H 11/07/16 03:00 Eos % (Auto) 3.4 % (0.0-4.3) 11/07/16 03:00 Baso % (Auto) 1.2 % (0.0-1.8) 11/07/16 03:00 Lymph # 1.8 K/mm3 (1.2-5.4) 11/07/16 03:00 [place] # 0.5 K/mm3 (0.0-0.8) 11/07/16 03:00 Eos # 0.1 K/mm3 (0.0-0.4) 11/07/16 03:00 Baso # 0.1 K/mm3 (0.0-0.1) 11/07/16 03:00 Seg Neutrophils % 41.9 % (40.0-70.0) 11/07/16 03:00 Seg Neutrophils # 1.8 K/mm3 (1.8-7.7) 11/07/16 03:00 PT 13.6 Sec. (12.2-14.9) 11/10/16 04:54 INR 1.05 (0.87-1.13) 11/10/16 04:54 APTT 27.5 Sec. (24.2-36.6) 11/06/16 17:41 Sodium 140 mmol/L (137-145) 11/10/16 04:54 Potassium 3.3 mmol/L (3.6-5.0) L 11/10/16 04:54 Chloride 91.3 mmol/L (98-107) L 11/10/16 04:54 Carbon Dioxide 28 mmol/L (22-30) 11/10/16 04:54 Anion Gap 24 mmol/L 11/10/16 04:54 BUN 60 mg/dL (9-20) H 11/10/16 04:54 Creatinine 2.9 mg/dL (0.8-1.5) H 11/10/16 04:54 Estimated GFR 27 ml/min 11/10/16 04:54 BUN/Creatinine Ratio 20.68 % 11/10/16 04:54 Glucose 94 mg/dL (75-100) 11/10/16 04:54 POC Glucose 135 (70-105) H 11/09/16 16:50 Hemoglobin A1c 5.6 % (4-6) 11/06/16 20:53 Uric Acid 11.0 mg/dL (3.5-7.6) H 11/09/16 20:31 Calcium 8.7 mg/dL (8.4-10.2) 11/10/16 04:54 Total Bilirubin 0.30 mg/dL (0.1-1.2) 11/07/16 03:00 AST 18 units/L (5-40) 11/07/16 03:00 ALT 11 units/L (7-56) 11/07/16 03:00 Alkaline Phosphatase 40 units/L (35-129) 11/07/16 03:00 Total Creatine Kinase 305 units/L (55-170) H 11/07/16 03:00 CK-MB (CK-2) 2.3 ng/mL (0.0-4.0) 11/07/16 03:00 CK-MB (CK-2) Rel Index 0.7 (0-4) 11/07/16 03:00 Troponin T < 0.010 ng/mL (0.00-0.029) 11/07/16 03:00 NT-Pro-B Natriuret Pep 743.6 pg/mL (0-900) 11/06/16 16:35 Total Protein 7.5 g/dL (6.3-8.2) 11/07/16 03:00 Albumin 3.9 g/dL (3.9-5) 11/07/16 03:00 Albumin/Globulin Ratio 1.1 % 11/07/16 03:00 Urine Osmolality 341 Mosm/kg 11/09/16 Unknown Urine Creatinine 86.4 mg/dL (0.1-20.0) H 11/09/16 Unknown Urine Sodium 74 mEq/L 11/09/16 Unknown Digoxin 0.4 ng/mL (0.9-2.0) L 11/07/16 12:55
--- NOTE | 2016-11-10 10:46 | Progress Note ---
Assessment and Plan Chest pain Mostly fixed inferior and posterior lateral defect, with very mild reversibility on MPI this admission. Nonischemic Cardiomyopathy, LVEF 10-15% ACEi and diuretics held due to acute renal failure Paroxysmal Atrial fibrillation/flutter on eliquis at home for anticoagulation. Currently on hold for planned LHC. Hypertension Acute renal failure Recommendation: Nephrology consultation. Continue medical therapy for his cardiomyopathy and paroxysmal afib/fluter. Subjective Date of service: 11/10/16 Interval history: Cardiac cath cancelled due to rise in creatinine. Patient denies chest pain and shortness of breath. Objective Vital Signs Temp Pulse Resp BP Pulse Ox 11/10/16 08:00 97.4 F L 58 L 20 139/81 92 11/10/16 04:52 97.8 F 66 20 131/76 100 11/10/16 00:31 98.2 F 60 20 139/82 95 11/09/16 21:50 54 L 11/09/16 20:57 97.7 F 56 L 20 142/71 95 11/09/16 18:06 63 11/09/16 17:00 98.4 F 67 20 108/67 99 11/09/16 12:00 97.9 F 65 20 126/68 97 11/09/16 11:15 58 L 104/56 - Physical Examination General: No Apparent Distress HEENT: Positive: PERRL Neck: Positive: trachea midline Cardiac: Positive: Reg Rate and Rhythm Lungs: Positive: Decreased Breath Sounds Neuro: Positive: Grossly Intact - Labs and Meds Coagulation 11/10/16 Range/Units 04:54 PT 13.6 (12.2-14.9) Sec. INR 1.05 (0.87-1.13) Comprehensive Metabolic Panel 11/09/16 11/10/16 Range/Units 10:47 04:54 Sodium 142 140 (137-145) mmol/L Potassium 3.7 3.3 L (3.6-5.0) mmol/L Chloride 95.5 L 91.3 L (98-107) mmol/L Carbon Dioxide 29 28 (22-30) mmol/L BUN 52 H 60 H (9-20) mg/dL Creatinine 3.0 H D 2.9 H (0.8-1.5) mg/dL Glucose 60 L 94 (75-100) mg/dL Calcium 8.8 8.7 (8.4-10.2) mg/dL - Imaging and Cardiology EKG: report reviewed (SVT with fusion complexes incompleteLBBb)
[2016-11-10] MEDS ORDERED: K-DUR PO NR (12:00)
[2016-11-10 12:40] LABS: Bilirubin,Urine NEG (Negative); Blood,Urine NEG (Negative); Ketones,Urine NEG (Negative); Leukocyte Esterase,Urine NEG (Negative); Nitrite,Urine NEG (Negative); Protein,Urine <15 mg/dL mg/dL (Negative); RBC,Urine < 1.0 /HPF (0.0-6.0); Urobilinogen,Urine < 2.0 mg/dL (<2.0)
[2016-11-10 13:06] LABS: WBC,Urine < 1.0 /HPF (0.0-6.0)
[2016-11-10] MEDS: LANOXIN PO SCH (16:23)
[2016-11-11 06:07] LABS: BUN/Creatinine Ratio 22.5; Calcium 8.6 mg/dL (8.4-10.2); Chloride 93.7 mmol/L (98-107); Potassium 3.4 mmol/L (3.6-5.0)
--- NOTE | 2016-11-11 07:51 | Ultrasound Report ---
ULTRASOUND RENAL BILATERAL ULTRASOUND BLADDER RESIDUAL HISTORY: Renal failure. TECHNIQUE: transabdominal ultrasound with color Doppler interrogation. FINDINGS: The right kidney measures 10.7 x 4.5 x 5.3cm. Right renal cortex: 1.4cm. The left kidney measures 10.8 x 5.5 x 5.2cm. Left renal cortex: 1.7cm. Both kidneys are normal size, contour and position. There is an mild increased renal parenchymal echotexture bilaterally consistent with medical renal disease. No evidence for cyst, mass, calculus or hydronephrosis. Color Doppler interrogation of the kidneys suggest decreased cortical perfusion bilaterally. No bladder abnormality is detected. Pre-void bladder volume measures 517 cc. Post void residual measures 138 cc. IMPRESSION: Normal size but slightly echogenic kidneys consistent with nonspecific renal parenchymal disease. No focal renal lesion or hydronephrosis. Moderate to large postvoid residual measuring 138 cc.
--- NOTE | 2016-11-11 09:36 | Progress Note ---
Assessment and Plan Impression: * CABRERA on ckd * cad * cardiomyopathy * ?cardiorenal syndrome * HTN * afib with rvr Plan: * cr 2.4 and better, was 2.9, baseline cr 1.6 to 1.8 * avoid nephrotoxins * replete k today * will be high risk for FLOYD, would hold LHC until cr at baseline * optimized cardiac function, may have cardiorenal syndrome * follow up ua/renal us * renal diet Subjective Date of service: 11/11/16 Principal diagnosis: ckd with cabrera Interval history: resting well in bed today Objective - Exam Narrative Exam: General appearance: Present: no acute distress, well-nourished - EENT Eyes: Present: PERRL ENT: hearing intact, clear oral mucosa - Neck Neck: Present: supple, normal ROM - Respiratory Respiratory effort: normal Respiratory: bilateral: CTA - Cardiovascular Heart rate: 72 (Was 136/min resolved with IV Lopressor 5 mg) Rhythm: irregularly irregular Heart Sounds: Present: S1 & S2. Absent: rub, click - Extremities Extremities: pulses symmetrical, No edema Peripheral Pulses: within normal limits - Abdominal General gastrointestinal: Present: soft, non-tender, non-distended, normal bowel sounds Male genitourinary: Present: normal - Integumentary Integumentary: Present: clear, warm, dry - Musculoskeletal Musculoskeletal: gait normal, strength equal bilaterally - Psychiatric Psychiatric: appropriate mood/affect, intact judgment & insight - Neurologic Neurologic: CNII-XII intact, moves all extremities - Allied Health Allied health notes reviewed: nursing, case management - Vital Signs Vital signs: Vital Signs - 12hr 11/10/16 11/11/16 11/11/16 22:00 00:18 05:00 Temperature 97.6 F 98.0 F Pulse Rate 55 L 55 L Respiratory 18 18 18 Rate Blood Pressure 143/89 143/77 O2 Sat by Pulse Oximetry 11/11/16 07:55 Temperature 98.2 F Pulse Rate 54 L Respiratory 20 Rate Blood Pressure 131/82 O2 Sat by Pulse 97 Oximetry - Lab 11/07/16 03:00 11/11/16 04:53 Most recent lab results Calcium 8.6 mg/dL (8.4-10.2) 11/11/16 04:53 Urine Creatinine 86.4 mg/dL (0.1-20.0) H 11/09/16 Unknown Urine Sodium 74 mEq/L 11/09/16 Unknown
[2016-11-11] MEDS ORDERED: K-DUR PO ONE (10:00)
[2016-11-11] MEDS: CORDARONE PO SCH ×2 (10:04→21:15)
[2016-11-11] MEDS: FEOSOL PO SCH ×2 (10:05→21:14)
[2016-11-11] MEDS: PEPCID PO SCH (10:05)
[2016-11-11] MEDS: BABY ASPIRIN PO SCH (10:05)
[2016-11-11] MEDS: COREG PO SCH ×2 (10:06→21:14)
--- NOTE | 2016-11-11 12:04 | Progress Note ---
Assessment and Plan Assessment and plan: 56M w pmh of sytolic chf ef of 10%, PAF on eliquis, CKD stage 2-3, recent negative MPI on 04/13 who presents with CP Paroxysmal Atrial fibrillation with rapid ventricular response Resolved in ER with one dose of IV Lopressor 5mg continue Amiodarone and Digoxin dig level is 0.4 cardiology consult appreciated Chest pain Acute coronary syndrome ruled out serial troponins negative Cardiac cath planned, eliquis must be on hold for 48 hours however cath on hold due to CABRERA -will discuss with cardiology as getting cath at this time appears to be very risky with limited benefit. It could push patient into Worsening renal failure. Would recommend other methods of cardiac risk stratification such as Stress test CHF (congestive heart failure) chronic systolic continue CRISTIAN and diuretics and digoxin cardiology consult appreciated, ICD eval as outpatient CABRERA (acute kidney injury) upon CKD stage 3/Vasomotor nephropathy BL creatinine is 1.6, Peak cr was 3, now down to 2.1 with IVF Nephrology input appreciated, renal US cw medicorenal disease hold nephrotoxic agents, dc diuretics and CRISTIAN will discuss with cardiology as getting cath at this time appears to be very risky with limited benefit. It could push patient into Worsening renal failure. Would recommend other methods of cardiac risk stratification such as Stress test HTN (hypertension) Cont Coreg Pre- T2DM (type 2 diabetes mellitus) Hba1c below 6.0, continue lifestyle modification Hypokalemia replete PO Anemia On Iron supplement DVT prophylaxis fully anticoagulated, Eliquis to be restarted after cath History Interval history: Chest pain has now resolved, denies shortness of breath Hospitalist Physical - Physical exam Narrative exam: General: Patient appears well in no distress HEENT: MMM, EOMI cardiac: S1-S2 heard lungs: clear to auscultation, abdomen: soft, nontender, nondistended bowel sounds positive extremities: no edema clubbing or cyanosis Skin: no rash or lesion Neuro: no focal deficit Psych: appropriate behavior and mood, cognition intact - Constitutional Vitals: Temp Pulse Resp BP Pulse Ox 98.2 F 54 L 20 130/82 98 11/11/16 07:55 11/11/16 10:06 11/11/16 10:00 11/11/16 10:06 11/11/16 10:00 General appearance: Present: no acute distress, well-nourished Results - Labs CBC & Chem 7: 11/07/16 03:00 11/12/16 05:05 Labs: Laboratory Last Values WBC 4.2 K/mm3 (4.5-11.0) L 11/07/16 03:00 RBC 5.86 M/mm3 (3.65-5.03) H 11/07/16 03:00 Hgb 13.1 gm/dl (11.8-15.2) 11/07/16 03:00 Hct 41.3 % (35.5-45.6) 11/07/16 03:00 MCV 71 fl (84-94) L 11/07/16 03:00 MCH 22 pg (28-32) L 11/07/16 03:00 MCHC 32 % (32-34) 11/07/16 03:00 RDW 15.4 % (13.2-15.2) H 11/07/16 03:00 Plt Count 168 K/mm3 (140-440) 11/07/16 03:00 Lymph % (Auto) 42.6 % (13.4-35.0) H 11/07/16 03:00 [place] % (Auto) 10.9 % (0.0-7.3) H 11/07/16 03:00 Eos % (Auto) 3.4 % (0.0-4.3) 11/07/16 03:00 Baso % (Auto) 1.2 % (0.0-1.8) 11/07/16 03:00 Lymph # 1.8 K/mm3 (1.2-5.4) 11/07/16 03:00 [place] # 0.5 K/mm3 (0.0-0.8) 11/07/16 03:00 Eos # 0.1 K/mm3 (0.0-0.4) 11/07/16 03:00 Baso # 0.1 K/mm3 (0.0-0.1) 11/07/16 03:00 Seg Neutrophils % 41.9 % (40.0-70.0) 11/07/16 03:00 Seg Neutrophils # 1.8 K/mm3 (1.8-7.7) 11/07/16 03:00 PT 13.6 Sec. (12.2-14.9) 11/10/16 04:54 INR 1.05 (0.87-1.13) 11/10/16 04:54 APTT 27.5 Sec. (24.2-36.6) 11/06/16 17:41 Sodium 141 mmol/L (137-145) 11/11/16 04:53 Potassium 3.4 mmol/L (3.6-5.0) L 11/11/16 04:53 Chloride 93.7 mmol/L (98-107) L 11/11/16 04:53 Carbon Dioxide 33 mmol/L (22-30) H 11/11/16 04:53 Anion Gap 18 mmol/L 11/11/16 04:53 BUN 54 mg/dL (9-20) H 11/11/16 04:53 Creatinine 2.4 mg/dL (0.8-1.5) H 11/11/16 04:53 Estimated GFR 34 ml/min 11/11/16 04:53 BUN/Creatinine Ratio 22.50 % 11/11/16 04:53 Glucose 106 mg/dL (75-100) H 11/11/16 04:53 POC Glucose 135 (70-105) H 11/09/16 16:50 Hemoglobin A1c 5.6 % (4-6) 11/06/16 20:53 Uric Acid 11.0 mg/dL (3.5-7.6) H 11/09/16 20:31 Calcium 8.6 mg/dL (8.4-10.2) 11/11/16 04:53 Total Bilirubin 0.30 mg/dL (0.1-1.2) 11/07/16 03:00 AST 18 units/L (5-40) 11/07/16 03:00 ALT 11 units/L (7-56) 11/07/16 03:00 Alkaline Phosphatase 40 units/L (35-129) 11/07/16 03:00 Total Creatine Kinase 305 units/L (55-170) H 11/07/16 03:00 CK-MB (CK-2) 2.3 ng/mL (0.0-4.0) 11/07/16 03:00 CK-MB (CK-2) Rel Index 0.7 (0-4) 11/07/16 03:00 Troponin T < 0.010 ng/mL (0.00-0.029) 11/07/16 03:00 NT-Pro-B Natriuret Pep 743.6 pg/mL (0-900) 11/06/16 16:35 Total Protein 7.5 g/dL (6.3-8.2) 11/07/16 03:00 Albumin 3.9 g/dL (3.9-5) 11/07/16 03:00 Albumin/Globulin Ratio 1.1 % 11/07/16 03:00 Urine Color Straw (Yellow) 11/10/16 09:00 Urine Turbidity Clear (Clear) 11/10/16 09:00 Urine pH 5.0 (5.0-7.0) 11/10/16 09:00 Ur Specific [place] 1.010 (1.003-1.030) 11/10/16 09:00 Urine Protein <15 mg/dl mg/dL (Negative) 11/10/16 09:00 Urine Glucose (UA) Neg mg/dL (Negative) 11/10/16 09:00 Urine Ketones Neg mg/dL (Negative) 11/10/16 09:00 Urine Blood Neg (Negative) 11/10/16 09:00 Urine Nitrite Neg (Negative) 11/10/16 09:00 Urine Bilirubin Neg (Negative) 11/10/16 09:00 Urine Urobilinogen < 2.0 mg/dL (<2.0) 11/10/16 09:00 Ur Leukocyte Esterase Neg (Negative) 11/10/16 09:00 Urine WBC (Auto) < 1.0 /HPF (0.0-6.0) 11/10/16 09:00 Urine RBC (Auto) < 1.0 /HPF (0.0-6.0) 11/10/16 09:00 U Epithel Cells (Auto) < 1.0 /HPF (0-13.0) 11/10/16 09:00 Urine Eosinophils None seen (None Seen) 11/10/16 09:00 Urine Osmolality 341 Mosm/kg 11/09/16 Unknown Urine Creatinine 86.4 mg/dL (0.1-20.0) H 11/09/16 Unknown Urine Sodium 74 mEq/L 11/09/16 Unknown Digoxin 0.4 ng/mL (0.9-2.0) L 11/07/16 12:55 - Imaging and Cardiology US - abdomen: image reviewed (medicorenal ds)
--- NOTE | 2016-11-11 14:10 | Progress Note ---
Assessment and Plan Chest pain Mostly fixed inferior and posterior lateral defect, with very mild reversibility on MPI this admission. Nonischemic Cardiomyopathy, LVEF 10-15% ACEi and diuretics held due to acute renal failure Paroxysmal Atrial fibrillation/flutter on eliquis at home for anticoagulation. Currently on hold for planned LHC. Hypertension Acute renal failure Recommendation: Continue medical therapy for his cardiomyopathy and paroxysmal afib/flutter. Subjective Date of service: 11/11/16 Principal diagnosis: ckd with paulo Interval history: Patient denies chest pain and shortness of breath. Objective Vital Signs Temp Pulse Resp Resp BP Pulse Ox 11/11/16 11:40 98.3 F 58 L 20 141/80 96 11/11/16 10:06 54 L 130/82 11/11/16 10:00 20 20 98 11/11/16 07:55 98.2 F 54 L 20 131/82 97 11/11/16 05:00 98.0 F 55 L 18 143/77 11/11/16 00:18 97.6 F 55 L 18 143/89 11/10/16 22:00 18 11/10/16 21:00 97.6 F 63 18 140/78 11/10/16 17:00 98.1 F 62 18 122/72 99 11/10/16 16:23 65 - Physical Examination General: No Apparent Distress HEENT: Positive: PERRL Neck: Positive: trachea midline Cardiac: Positive: Reg Rate and Rhythm Lungs: Positive: Decreased Breath Sounds Neuro: Positive: Grossly Intact - Labs and Meds Comprehensive Metabolic Panel 11/11/16 Range/Units 04:53 Sodium 141 (137-145) mmol/L Potassium 3.4 L (3.6-5.0) mmol/L Chloride 93.7 L (98-107) mmol/L Carbon Dioxide 33 H (22-30) mmol/L BUN 54 H (9-20) mg/dL Creatinine 2.4 H (0.8-1.5) mg/dL Glucose 106 H (75-100) mg/dL Calcium 8.6 (8.4-10.2) mg/dL - Imaging and Cardiology EKG: report reviewed (SVT with fusion complexes incompleteLBBb)
[2016-11-11] MEDS: LANOXIN PO SCH (17:26)
[2016-11-12 06:22] LABS: BUN/Creatinine Ratio 20.47; Calcium 8.2 mg/dL (8.4-10.2); Chloride 96.4 mmol/L (98-107); Potassium 3.4 mmol/L (3.6-5.0)
[2016-11-12] MEDS ORDERED: NACL 0.9% 1000 ML 1,000 ML IV SCH (09:00)
[2016-11-12] MEDS: FEOSOL PO SCH ×2 (10:03→21:01)
[2016-11-12] MEDS: BABY ASPIRIN PO SCH (10:03)
[2016-11-12] MEDS: PEPCID PO SCH (10:03)
[2016-11-12] MEDS: CORDARONE PO SCH ×2 (10:04→21:01)
[2016-11-12] MEDS: COREG PO SCH ×2 (10:04→21:01)
--- NOTE | 2016-11-12 10:47 | Progress Note ---
Subjective Principal diagnosis: ckd with paulo Interval history: Patient was evaluated today for follow-up on multiple renal related issues, time of evaluation 2 PM Events of this hospitalization were noted,denies any complaints of nausea vomiting Patient does not appear to be any acute distress Vital labs intake and output medications were reviewed Current medications: Reviewed Social history:Reviewed Family history: Reviewed HEENT: No uremic order oral mucosa moist Neck: Supple without any thyromegaly mass or JVD Chest: Clear to auscultation occasional basilar crackles posteriorly Heart: Regular rate and rhythm S1 and S2 heard no S3-S4 Abdomen: Soft nontender no voluntary guarding rigidity or rebound Extremity: Dry skin minimal edema Psychiatry: No agitation and aggression noted Assessment and plan Acute kidney injury in a patient who does have underlying chronic kidney disease baseline creatinine between 1.6-1.8, creatinine is around 2.1 Creatinine upon admission was 1.6 feet up to 2.9 and 3 currently at 2.1 Renal function appears to be improving likely appears to be a combination of cardiomyopathy, cardiorenal syndrome No evidence to suggest anemia hemoglobin was 13.1 on November 07 Patient my opinion will remain high risk candidate for any contrast exposure History of atrial fibrillation with rapid ventricular response Hypertension appears to be satisfactorily controlled Renal ultrasonogram obtained on November 10 shows evidence of chronic kidney disease Post void is dual volume is about 138 cc, please consider urology evaluation Objective - Vital Signs Vital signs: Vital Signs - 12hr 11/12/16 11/12/16 11/12/16 00:59 05:34 08:55 Temperature 98.8 F 97.8 F 98.5 F Pulse Rate 54 L 50 L 58 L Respiratory 18 18 20 Rate Blood Pressure 143/70 136/63 116/78 O2 Sat by Pulse 94 97 96 Oximetry 11/12/16 10:04 Temperature Pulse Rate 56 L Respiratory Rate Blood Pressure 138/70 O2 Sat by Pulse Oximetry - Lab 11/07/16 03:00 11/12/16 05:05 Most recent lab results Calcium 8.2 mg/dL (8.4-10.2) L 11/12/16 05:05 Magnesium 2.50 mg/dL (1.7-2.3) H 11/11/16 12:59 Urine Creatinine 86.4 mg/dL (0.1-20.0) H 11/09/16 Unknown Urine Sodium 74 mEq/L 11/09/16 Unknown
--- NOTE | 2016-11-12 11:25 | Progress Note ---
Assessment and Plan Chest pain Mostly fixed inferior and posterior lateral defect, with very mild reversibility on MPI this admission. Nonischemic Cardiomyopathy, LVEF 10-15% ACEi and diuretics held due to acute renal failure Paroxysmal Atrial fibrillation/flutter on eliquis at home for anticoagulation. Currently on hold for planned C. Hypertension Acute renal failure Recommendations: Continue to optimize renal status prior to anticipated cardiac catheterization and coronary angiography. Continue medical therapy for his cardiomyopathy and paroxysmal afib/flutter. Subjective Date of service: 11/12/16 Principal diagnosis: ckd with paulo Interval history: Patient denies chest pain and shortness of breath. Creatinine down to 2.1 today. Objective Vital Signs Temp Pulse Resp Resp BP Pulse Ox 11/12/16 10:04 56 L 138/70 11/12/16 10:00 18 20 96 11/12/16 08:55 98.5 F 58 L 20 116/78 96 11/12/16 05:34 97.8 F 50 L 18 136/63 97 11/12/16 00:59 98.8 F 54 L 18 143/70 94 11/11/16 20:36 97.6 F 52 L 20 137/75 99 11/11/16 17:26 62 11/11/16 16:05 98.5 F 54 L 20 131/71 99 11/11/16 11:40 98.3 F 58 L 20 141/80 96 - Physical Examination General: No Apparent Distress HEENT: Positive: PERRL Cardiac: Positive: Reg Rate and Rhythm Neuro: Positive: Grossly Intact - Labs and Meds Comprehensive Metabolic Panel 11/12/16 Range/Units 05:05 Sodium 140 (137-145) mmol/L Potassium 3.4 L (3.6-5.0) mmol/L Chloride 96.4 L (98-107) mmol/L Carbon Dioxide 32 H (22-30) mmol/L BUN 43 H (9-20) mg/dL Creatinine 2.1 H (0.8-1.5) mg/dL Glucose 103 H (75-100) mg/dL Calcium 8.2 L (8.4-10.2) mg/dL - Imaging and Cardiology EKG: report reviewed (SVT with fusion complexes incompleteLBBb)
[2016-11-12] MEDS ORDERED: K-DUR PO ONE ×2 (13:42→17:00)
[2016-11-12] MEDS: LANOXIN PO SCH (16:28)
[2016-11-12] MEDS: PERCOCET 5/325 PO PRN (21:00)
--- NOTE | 2016-11-13 08:05 | Progress Note ---
Assessment and Plan Chest pain Mostly fixed inferior and posterior lateral defect, with very mild reversibility on MPI this admission. Nonischemic Cardiomyopathy, LVEF 10-15% ACEi and diuretics held due to acute renal failure Paroxysmal Atrial fibrillation/flutter on eliquis at home for anticoagulation. Currently on hold for planned C. Hypertension Acute renal failure Recommendations: Continue to optimize renal status prior to anticipated cardiac catheterization and coronary angiography on tuesday Continue medical therapy for his cardiomyopathy and paroxysmal afib/flutter. Subjective Date of service: 11/13/16 Principal diagnosis: ckd with paulo Interval history: No interval changes Maintaining SR on tele Objective Vital Signs Temp Pulse Resp Resp BP Pulse Ox 11/13/16 04:00 98.2 F 52 L 18 168/103 97 11/13/16 00:00 97.9 F 56 L 18 160/92 97 11/12/16 22:00 20 98 11/12/16 21:01 85 140/91 11/12/16 20:00 97.7 F 85 18 140/91 98 11/12/16 16:28 58 L 140/84 11/12/16 13:11 97.3 F L 52 L 20 159/89 97 11/12/16 10:04 56 L 138/70 11/12/16 10:00 18 20 96 11/12/16 08:55 98.5 F 58 L 20 116/78 96 - Physical Examination General: No Apparent Distress HEENT: Positive: PERRL Neck: Positive: trachea midline Cardiac: Positive: Reg Rate and Rhythm Lungs: Positive: Normal Exam Neuro: Positive: Grossly Intact - Imaging and Cardiology EKG: report reviewed (SVT with fusion complexes incompleteLBBb)
[2016-11-13 08:36] LABS: BUN/Creatinine Ratio 15.55; Calcium 8.4 mg/dL (8.4-10.2); Chloride 98.5 mmol/L (98-107); Potassium 3.8 mmol/L (3.6-5.0)
--- NOTE | 2016-11-13 09:12 | Progress Note ---
Assessment and Plan Assessment and plan: 56M w pmh of sytolic chf ef of 10%, PAF on eliquis, CKD stage 2-3, recent negative MPI on 04/13 who presents with CP Paroxysmal Atrial fibrillation with rapid ventricular response Resolved in ER with one dose of IV Lopressor 5mg continue Amiodarone and Digoxin dig level is 0.4 cardiology consult appreciated Chest pain Acute coronary syndrome ruled out serial troponins negative Cardiac cath planned, eliquis must be on hold for 48 hours however cath on hold due to CABRERA -planned for cadiac on Tuesday CHF (congestive heart failure) chronic systolic continue CRISTIAN and diuretics and digoxin cardiology consult appreciated, ICD eval as outpatient CABRERA (acute kidney injury) upon CKD stage 3/Vasomotor nephropathy BL creatinine is 1.6, Peak cr was 3, now down to 1.8 with IVF Nephrology input appreciated, renal US cw medicorenal disease hold nephrotoxic agents, dc diuretics and CRISTIAN will discuss with cardiology as getting cath at this time appears to be very risky with limited benefit. It could push patient into Worsening renal failure. Would recommend other methods of cardiac risk stratification such as Stress test if they agree HTN (hypertension) Cont Coreg Pre- T2DM (type 2 diabetes mellitus) Hba1c below 6.0, continue lifestyle modification Hypokalemia repleted PO Anemia On Iron supplement DVT prophylaxis fully anticoagulated, Eliquis to be restarted after cath History Interval history: Chest pain has now resolved, denies shortness of breath Hospitalist Physical - Physical exam Narrative exam: General: Patient appears well in no distress HEENT: MMM, EOMI cardiac: S1-S2 heard lungs: clear to auscultation, abdomen: soft, nontender, nondistended bowel sounds positive extremities: no edema clubbing or cyanosis Skin: no rash or lesion Neuro: no focal deficit Psych: appropriate behavior and mood, cognition intact - Constitutional Vitals: Temp Pulse Resp BP Pulse Ox 97.8 F 58 L 20 200/109 95 11/13/16 08:11 11/13/16 08:11 11/13/16 08:11 11/13/16 08:11 11/13/16 08:11 General appearance: Present: no acute distress, well-nourished Results - Labs CBC & Chem 7: 11/07/16 03:00 11/13/16 07:52 Labs: Laboratory Last Values WBC 4.2 K/mm3 (4.5-11.0) L 11/07/16 03:00 RBC 5.86 M/mm3 (3.65-5.03) H 11/07/16 03:00 Hgb 13.1 gm/dl (11.8-15.2) 11/07/16 03:00 Hct 41.3 % (35.5-45.6) 11/07/16 03:00 MCV 71 fl (84-94) L 11/07/16 03:00 MCH 22 pg (28-32) L 11/07/16 03:00 MCHC 32 % (32-34) 11/07/16 03:00 RDW 15.4 % (13.2-15.2) H 11/07/16 03:00 Plt Count 168 K/mm3 (140-440) 11/07/16 03:00 Lymph % (Auto) 42.6 % (13.4-35.0) H 11/07/16 03:00 [place] % (Auto) 10.9 % (0.0-7.3) H 11/07/16 03:00 Eos % (Auto) 3.4 % (0.0-4.3) 11/07/16 03:00 Baso % (Auto) 1.2 % (0.0-1.8) 11/07/16 03:00 Lymph # 1.8 K/mm3 (1.2-5.4) 11/07/16 03:00 [place] # 0.5 K/mm3 (0.0-0.8) 11/07/16 03:00 Eos # 0.1 K/mm3 (0.0-0.4) 11/07/16 03:00 Baso # 0.1 K/mm3 (0.0-0.1) 11/07/16 03:00 Seg Neutrophils % 41.9 % (40.0-70.0) 11/07/16 03:00 Seg Neutrophils # 1.8 K/mm3 (1.8-7.7) 11/07/16 03:00 PT 13.6 Sec. (12.2-14.9) 11/10/16 04:54 INR 1.05 (0.87-1.13) 11/10/16 04:54 APTT 27.5 Sec. (24.2-36.6) 11/06/16 17:41 Sodium 140 mmol/L (137-145) 11/13/16 07:52 Potassium 3.8 mmol/L (3.6-5.0) 11/13/16 07:52 Chloride 98.5 mmol/L (98-107) 11/13/16 07:52 Carbon Dioxide 32 mmol/L (22-30) H 11/13/16 07:52 Anion Gap 13 mmol/L 11/13/16 07:52 BUN 28 mg/dL (9-20) H 11/13/16 07:52 Creatinine 1.8 mg/dL (0.8-1.5) H 11/13/16 07:52 Estimated GFR 47 ml/min 11/13/16 07:52 BUN/Creatinine Ratio 15.55 % 11/13/16 07:52 Glucose 91 mg/dL (75-100) 11/13/16 07:52 POC Glucose 135 (70-105) H 11/09/16 16:50 Hemoglobin A1c 5.6 % (4-6) 11/06/16 20:53 Uric Acid 11.0 mg/dL (3.5-7.6) H 11/09/16 20:31 Calcium 8.4 mg/dL (8.4-10.2) 11/13/16 07:52 Magnesium 2.50 mg/dL (1.7-2.3) H 11/11/16 12:59 Total Bilirubin 0.30 mg/dL (0.1-1.2) 11/07/16 03:00 AST 18 units/L (5-40) 11/07/16 03:00 ALT 11 units/L (7-56) 11/07/16 03:00 Alkaline Phosphatase 40 units/L (35-129) 11/07/16 03:00 Total Creatine Kinase 305 units/L (55-170) H 11/07/16 03:00 CK-MB (CK-2) 2.3 ng/mL (0.0-4.0) 11/07/16 03:00 CK-MB (CK-2) Rel Index 0.7 (0-4) 11/07/16 03:00 Troponin T < 0.010 ng/mL (0.00-0.029) 11/07/16 03:00 NT-Pro-B Natriuret Pep 743.6 pg/mL (0-900) 11/06/16 16:35 Total Protein 7.5 g/dL (6.3-8.2) 11/07/16 03:00 Albumin 3.9 g/dL (3.9-5) 11/07/16 03:00 Albumin/Globulin Ratio 1.1 % 11/07/16 03:00 Urine Color Straw (Yellow) 11/10/16 09:00 Urine Turbidity Clear (Clear) 11/10/16 09:00 Urine pH 5.0 (5.0-7.0) 11/10/16 09:00 Ur Specific [place] 1.010 (1.003-1.030) 11/10/16 09:00 Urine Protein <15 mg/dl mg/dL (Negative) 11/10/16 09:00 Urine Glucose (UA) Neg mg/dL (Negative) 11/10/16 09:00 Urine Ketones Neg mg/dL (Negative) 11/10/16 09:00 Urine Blood Neg (Negative) 11/10/16 09:00 Urine Nitrite Neg (Negative) 11/10/16 09:00 Urine Bilirubin Neg (Negative) 11/10/16 09:00 Urine Urobilinogen < 2.0 mg/dL (<2.0) 11/10/16 09:00 Ur Leukocyte Esterase Neg (Negative) 11/10/16 09:00 Urine WBC (Auto) < 1.0 /HPF (0.0-6.0) 11/10/16 09:00 Urine RBC (Auto) < 1.0 /HPF (0.0-6.0) 11/10/16 09:00 U Epithel Cells (Auto) < 1.0 /HPF (0-13.0) 11/10/16 09:00 Urine Eosinophils None seen (None Seen) 11/10/16 09:00 Urine Osmolality 341 Mosm/kg 11/09/16 Unknown Urine Creatinine 86.4 mg/dL (0.1-20.0) H 11/09/16 Unknown Urine Sodium 74 mEq/L 11/09/16 Unknown Digoxin 0.4 ng/mL (0.9-2.0) L 11/07/16 12:55
[2016-11-13] MEDS: FEOSOL PO SCH ×2 (10:43→22:18)
[2016-11-13] MEDS: COREG PO SCH ×2 (10:43→22:18)
[2016-11-13] MEDS: PEPCID PO SCH (10:44)
[2016-11-13] MEDS: K-DUR PO SCH (10:44)
[2016-11-13] MEDS: CORDARONE PO SCH ×2 (10:44→22:18)
[2016-11-13] MEDS: BABY ASPIRIN PO SCH (10:44)
--- NOTE | 2016-11-13 11:27 | Progress Note ---
Subjective Principal diagnosis: ckd with paulo Interval history: Patient was evaluated today for follow-up on multiple renal related issues, time of evaluation 2 PM Events of this hospitalization were noted,denies any complaints of nausea vomiting Patient does not appear to be any acute distress Vital labs intake and output medications were reviewed Current medications: Reviewed Social history:Reviewed Family history: Reviewed HEENT: No uremic order oral mucosa moist Neck: Supple without any thyromegaly mass or JVD Chest: Clear to auscultation occasional basilar crackles posteriorly Heart: Regular rate and rhythm S1 and S2 heard no S3-S4 Abdomen: Soft nontender no voluntary guarding rigidity or rebound Extremity: Dry skin minimal edema Psychiatry: No agitation and aggression noted Assessment and plan Acute kidney injury in a patient who does have underlying chronic kidney disease baseline creatinine between 1.6-1.8, Patient creatinine as of today is around 1.8 which is his baseline Creatinine went up to almost 3 during this admission overall doing much better Renal failure appears to be mostly due to a combination of cardiomyopathy, cardiorenal syndrome No evidence to suggest anemia hemoglobin was 13.1 on November 07 Patient my opinion will remain high risk candidate for any contrast exposure History of atrial fibrillation with rapid ventricular response, which can sometimes produce effective ejection fraction Hypertension appears to be satisfactorily controlled Renal ultrasonogram obtained on November 10 shows evidence of chronic kidney disease Post void is dual volume is about 138 cc, please consider urology evaluation Objective - Vital Signs Vital signs: Vital Signs - 12hr 11/13/16 11/13/16 11/13/16 00:00 04:00 08:11 Temperature 97.9 F 98.2 F 97.8 F Pulse Rate 56 L 52 L 58 L Respiratory 18 18 20 Rate Blood Pressure 160/92 168/103 200/109 O2 Sat by Pulse 97 97 95 Oximetry - Lab 11/07/16 03:00 11/13/16 07:52 Most recent lab results Calcium 8.4 mg/dL (8.4-10.2) 11/13/16 07:52 Magnesium 2.50 mg/dL (1.7-2.3) H 11/11/16 12:59 Urine Creatinine 86.4 mg/dL (0.1-20.0) H 11/09/16 Unknown Urine Sodium 74 mEq/L 11/09/16 Unknown
[2016-11-13] MEDS: LANOXIN PO SCH (18:51)
[2016-11-14 07:47] LABS: BUN/Creatinine Ratio 13.52; Calcium 8.4 mg/dL (8.4-10.2); Chloride 101.5 mmol/L (98-107); Potassium 4.2 mmol/L (3.6-5.0)
--- NOTE | 2016-11-14 09:00 | Progress Note ---
Assessment and Plan Assessment and plan: 56M w pmh of sytolic chf ef of 10%, PAF on eliquis, CKD stage 2-3, recent negative MPI on 04/13 who presents with CP Paroxysmal Atrial fibrillation with rapid ventricular response Resolved in ER with one dose of IV Lopressor 5mg continue Amiodarone and Digoxin dig level is 0.4 cardiology consult appreciated Chest pain Acute coronary syndrome ruled out serial troponins negative Cardiac cath planned, eliquis must be on hold for 48 hours however cath on hold due to CABRERA -planned for cadiac on Tuesday CHF (congestive heart failure) chronic systolic continue CRISTIAN and diuretics and digoxin cardiology consult appreciated, ICD eval as outpatient CABRERA (acute kidney injury) upon CKD stage 3/Vasomotor nephropathy BL creatinine is 1.6, Peak cr was 3, now down to 1.7 with IVF Nephrology input appreciated, renal US cw medicorenal disease hold nephrotoxic agents, dc diuretics and CRISTIAN will discuss with cardiology as getting cath at this time appears to be very risky with limited benefit. It could push patient into Worsening renal failure. Would recommend other methods of cardiac risk stratification such as Stress test if they agree HTN (hypertension) Cont Coreg Pre- T2DM (type 2 diabetes mellitus) Hba1c below 6.0, continue lifestyle modification Hypokalemia repleted PO Anemia On Iron supplement DVT prophylaxis fully anticoagulated, Eliquis to be restarted after cath History Interval history: Chest pain has now resolved, denies shortness of breath Hospitalist Physical - Physical exam Narrative exam: General: Patient appears well in no distress HEENT: MMM, EOMI cardiac: S1-S2 heard lungs: clear to auscultation, abdomen: soft, nontender, nondistended bowel sounds positive extremities: no edema clubbing or cyanosis Skin: no rash or lesion Neuro: no focal deficit Psych: appropriate behavior and mood, cognition intact - Constitutional Vitals: Temp Pulse Resp BP Pulse Ox 98.3 F 50 L 20 187/93 97 11/14/16 08:09 11/14/16 08:09 11/14/16 08:09 11/14/16 08:09 11/14/16 08:09 General appearance: Present: no acute distress, well-nourished Results - Labs CBC & Chem 7: 11/07/16 03:00 11/14/16 06:47 Labs: Laboratory Last Values WBC 4.2 K/mm3 (4.5-11.0) L 11/07/16 03:00 RBC 5.86 M/mm3 (3.65-5.03) H 11/07/16 03:00 Hgb 13.1 gm/dl (11.8-15.2) 11/07/16 03:00 Hct 41.3 % (35.5-45.6) 11/07/16 03:00 MCV 71 fl (84-94) L 11/07/16 03:00 MCH 22 pg (28-32) L 11/07/16 03:00 MCHC 32 % (32-34) 11/07/16 03:00 RDW 15.4 % (13.2-15.2) H 11/07/16 03:00 Plt Count 168 K/mm3 (140-440) 11/07/16 03:00 Lymph % (Auto) 42.6 % (13.4-35.0) H 11/07/16 03:00 [place] % (Auto) 10.9 % (0.0-7.3) H 11/07/16 03:00 Eos % (Auto) 3.4 % (0.0-4.3) 11/07/16 03:00 Baso % (Auto) 1.2 % (0.0-1.8) 11/07/16 03:00 Lymph # 1.8 K/mm3 (1.2-5.4) 11/07/16 03:00 [place] # 0.5 K/mm3 (0.0-0.8) 11/07/16 03:00 Eos # 0.1 K/mm3 (0.0-0.4) 11/07/16 03:00 Baso # 0.1 K/mm3 (0.0-0.1) 11/07/16 03:00 Seg Neutrophils % 41.9 % (40.0-70.0) 11/07/16 03:00 Seg Neutrophils # 1.8 K/mm3 (1.8-7.7) 11/07/16 03:00 PT 13.6 Sec. (12.2-14.9) 11/10/16 04:54 INR 1.05 (0.87-1.13) 11/10/16 04:54 APTT 27.5 Sec. (24.2-36.6) 11/06/16 17:41 Sodium 144 mmol/L (137-145) 11/14/16 06:47 Potassium 4.2 mmol/L (3.6-5.0) 11/14/16 06:47 Chloride 101.5 mmol/L (98-107) 11/14/16 06:47 Carbon Dioxide 33 mmol/L (22-30) H 11/14/16 06:47 Anion Gap 14 mmol/L 11/14/16 06:47 BUN 23 mg/dL (9-20) H 11/14/16 06:47 Creatinine 1.7 mg/dL (0.8-1.5) H 11/14/16 06:47 Estimated GFR 51 ml/min 11/14/16 06:47 BUN/Creatinine Ratio 13.52 % 11/14/16 06:47 Glucose 99 mg/dL (75-100) 11/14/16 06:47 POC Glucose 135 (70-105) H 11/09/16 16:50 Hemoglobin A1c 5.6 % (4-6) 11/06/16 20:53 Uric Acid 11.0 mg/dL (3.5-7.6) H 11/09/16 20:31 Calcium 8.4 mg/dL (8.4-10.2) 11/14/16 06:47 Magnesium 2.50 mg/dL (1.7-2.3) H 11/11/16 12:59 Total Bilirubin 0.30 mg/dL (0.1-1.2) 11/07/16 03:00 AST 18 units/L (5-40) 11/07/16 03:00 ALT 11 units/L (7-56) 11/07/16 03:00 Alkaline Phosphatase 40 units/L (35-129) 11/07/16 03:00 Total Creatine Kinase 305 units/L (55-170) H 11/07/16 03:00 CK-MB (CK-2) 2.3 ng/mL (0.0-4.0) 11/07/16 03:00 CK-MB (CK-2) Rel Index 0.7 (0-4) 11/07/16 03:00 Troponin T < 0.010 ng/mL (0.00-0.029) 11/07/16 03:00 NT-Pro-B Natriuret Pep 743.6 pg/mL (0-900) 11/06/16 16:35 Total Protein 7.5 g/dL (6.3-8.2) 11/07/16 03:00 Albumin 3.9 g/dL (3.9-5) 11/07/16 03:00 Albumin/Globulin Ratio 1.1 % 11/07/16 03:00 Urine Color Straw (Yellow) 11/10/16 09:00 Urine Turbidity Clear (Clear) 11/10/16 09:00 Urine pH 5.0 (5.0-7.0) 11/10/16 09:00 Ur Specific [place] 1.010 (1.003-1.030) 11/10/16 09:00 Urine Protein <15 mg/dl mg/dL (Negative) 11/10/16 09:00 Urine Glucose (UA) Neg mg/dL (Negative) 11/10/16 09:00 Urine Ketones Neg mg/dL (Negative) 11/10/16 09:00 Urine Blood Neg (Negative) 11/10/16 09:00 Urine Nitrite Neg (Negative) 11/10/16 09:00 Urine Bilirubin Neg (Negative) 11/10/16 09:00 Urine Urobilinogen < 2.0 mg/dL (<2.0) 11/10/16 09:00 Ur Leukocyte Esterase Neg (Negative) 11/10/16 09:00 Urine WBC (Auto) < 1.0 /HPF (0.0-6.0) 11/10/16 09:00 Urine RBC (Auto) < 1.0 /HPF (0.0-6.0) 11/10/16 09:00 U Epithel Cells (Auto) < 1.0 /HPF (0-13.0) 11/10/16 09:00 Urine Eosinophils None seen (None Seen) 11/10/16 09:00 Urine Osmolality 341 Mosm/kg 11/09/16 Unknown Urine Creatinine 86.4 mg/dL (0.1-20.0) H 11/09/16 Unknown Urine Sodium 74 mEq/L 11/09/16 Unknown Digoxin 0.4 ng/mL (0.9-2.0) L 11/07/16 12:55
[2016-11-14] MEDS: CORDARONE PO SCH ×2 (09:07→22:26)
[2016-11-14] MEDS: PEPCID PO SCH (09:07)
[2016-11-14] MEDS: K-DUR PO SCH (09:07)
[2016-11-14] MEDS: BABY ASPIRIN PO SCH (09:07)
[2016-11-14] MEDS: COREG PO SCH ×2 (09:07→22:26)
[2016-11-14] MEDS: FEOSOL PO SCH ×2 (09:08→22:26)
--- NOTE | 2016-11-14 09:16 | Progress Note ---
Assessment and Plan Chest pain Mostly fixed inferior and posterior lateral defect, with very mild reversibility on MPI this admission. Nonischemic Cardiomyopathy, LVEF 10-15% ACEi and diuretics held due to acute renal failure Paroxysmal Atrial fibrillation/flutter on eliquis at home for anticoagulation. Currently on hold for planned C. Hypertension Acute renal failure Recommendations: Continue to optimize renal status prior to anticipated cardiac catheterization and coronary angiography on tuesday (Cr is back to baseline) Continue medical therapy for his cardiomyopathy and paroxysmal afib/flutter. Subjective Date of service: 11/14/16 Principal diagnosis: ckd with paulo Interval history: No interval changes Objective Vital Signs Temp Pulse Pulse Resp Resp BP Pulse Ox 11/14/16 09:07 57 L 187/93 11/14/16 08:09 98.3 F 50 L 20 187/93 97 11/14/16 04:44 97.9 F 53 L 20 144/84 100 11/14/16 00:50 98.0 F 50 L 18 163/100 99 11/13/16 22:18 53 L 159/82 11/13/16 22:00 55 L 19 19 11/13/16 20:25 98.4 F 53 L 20 159/82 97 11/13/16 15:38 97.9 F 54 L 18 160/97 96 11/13/16 11:59 98.5 F 56 L 20 139/85 99 - Physical Examination General: No Apparent Distress HEENT: Positive: PERRL Neck: Positive: trachea midline Cardiac: Positive: Reg Rate and Rhythm Lungs: Positive: Normal Exam Neuro: Positive: Grossly Intact - Labs and Meds Comprehensive Metabolic Panel 11/14/16 Range/Units 06:47 Sodium 144 (137-145) mmol/L Potassium 4.2 (3.6-5.0) mmol/L Chloride 101.5 (98-107) mmol/L Carbon Dioxide 33 H (22-30) mmol/L BUN 23 H (9-20) mg/dL Creatinine 1.7 H (0.8-1.5) mg/dL Glucose 99 (75-100) mg/dL Calcium 8.4 (8.4-10.2) mg/dL - Imaging and Cardiology EKG: report reviewed (SVT with fusion complexes incompleteLBBb)
--- NOTE | 2016-11-14 11:05 | Progress Note ---
Subjective Principal diagnosis: ckd with paulo Interval history: Patient was evaluated today for follow-up on multiple renal related issues creatinine has improved he does not have a urologist Patient does not appear to be any acute distress Vital labs intake and output medications were reviewed Current medications: Reviewed Social history:Reviewed Family history: Reviewed HEENT: No uremic order oral mucosa moist Neck: Supple without any thyromegaly mass or JVD Chest: Clear to auscultation occasional basilar crackles posteriorly Heart: Regular rate and rhythm S1 and S2 heard no S3-S4 Abdomen: Soft nontender no voluntary guarding rigidity or rebound Extremity: Dry skin minimal edema Psychiatry: No agitation and aggression noted Assessment and plan Acute kidney injury in a patient who does have underlying chronic kidney disease ;creatinine is markedly improved baseline creatinine between 1.6-1.8, Patient creatinine as of today is around 1.8 which is his baseline Creatinine went up to almost 3 during this admission overall doing much better Renal failure appears to be mostly due to a combination of cardiomyopathy, cardiorenal syndrome No evidence to suggest anemia hemoglobin was 13.1 on November 07 Patient my opinion will remain high risk candidate for any contrast exposure History of atrial fibrillation with rapid ventricular response, which can sometimes produce effective ejection fraction Hypertension appears to be satisfactorily controlled Renal ultrasonogram obtained on November 10 shows evidence of chronic kidney disease Post void is dual volume is about 138 cc, please consider urology evaluation patient was advised to follow-up with urology Objective - Vital Signs Vital signs: Vital Signs - 12hr 11/14/16 11/14/16 11/14/16 00:50 04:44 08:09 Temperature 98.0 F 97.9 F 98.3 F Pulse Rate 50 L 53 L 50 L Respiratory 18 20 20 Rate Blood Pressure 163/100 144/84 187/93 O2 Sat by Pulse 99 100 97 Oximetry 11/14/16 09:07 Temperature Pulse Rate 57 L Respiratory Rate Blood Pressure 187/93 O2 Sat by Pulse Oximetry - Lab 11/07/16 03:00 11/14/16 06:47 Most recent lab results Calcium 8.4 mg/dL (8.4-10.2) 11/14/16 06:47 Magnesium 2.50 mg/dL (1.7-2.3) H 11/11/16 12:59 Urine Creatinine 86.4 mg/dL (0.1-20.0) H 11/09/16 Unknown Urine Sodium 74 mEq/L 11/09/16 Unknown
[2016-11-14] MEDS: APRESOLINE IV PRN ×2 (13:42→17:28)
[2016-11-14] MEDS: LANOXIN PO SCH (17:30)
[2016-11-15] MEDS: APRESOLINE IV PRN (01:11)
[2016-11-15 05:35] LABS: Basophils % (Auto) 0.9 % (0.0-1.8); Eosinophils % (Auto) 3.3 % (0.0-4.3); Hematocrit 40.2 % (35.5-45.6); Hemoglobin 12.8 gm/dl (11.8-15.2); Mean Corpuscular HGB Conc 32 % (32-34); Mean Corpuscular Volume 71 fl (84-94); Platelet Count 168 K/mm3 (140-440); Red Blood Count 5.68 M/mm3 (3.65-5.03); White Blood Count 4.2 K/mm3 (4.5-11.0)
[2016-11-15 05:36] LABS: Mean Corpuscular Hemoglobin 22 pg (28-32)
[2016-11-15 05:44] LABS: INR 0.97 (0.87-1.13)
[2016-11-15 05:45] LABS: Partial Thromboplastin Time 27.5 Sec. (24.2-36.6)
[2016-11-15 05:49] LABS: BUN/Creatinine Ratio 19.37; Calcium 8.9 mg/dL (8.4-10.2); Chloride 104.1 mmol/L (98-107); Potassium 3.8 mmol/L (3.6-5.0)
--- NOTE | 2016-11-15 09:03 | Progress Note ---
Assessment and Plan Assessment and plan: 56M w pmh of sytolic chf ef of 10%, PAF on eliquis, CKD stage 2-3, recent negative MPI on 04/13 who presents with CP Paroxysmal Atrial fibrillation with rapid ventricular response Resolved in ER with one dose of IV Lopressor 5mg continue Amiodarone and Digoxin dig level is 0.4 cardiology consult appreciated Chest pain Acute coronary syndrome ruled out serial troponins negative Cardiac cath planned, eliquis must be on hold for 48 hours however cath on hold due to CABRERA -planned for cadiac today CHF (congestive heart failure) chronic systolic continue CRISTIAN and diuretics and digoxin cardiology consult appreciated, ICD eval as outpatient CABRERA (acute kidney injury) upon CKD stage 3/Vasomotor nephropathy BL creatinine is 1.6, Peak cr was 3, now down to 1.7 with IVF Nephrology input appreciated, renal US cw medicorenal disease hold nephrotoxic agents, dc diuretics and CRISTIAN will discuss with cardiology as getting cath at this time appears to be very risky with limited benefit. It could push patient into Worsening renal failure. Would recommend other methods of cardiac risk stratification such as Stress test , however they clearly stated that cardiac angiogram is in his best interest at this time. As he has severe CHF and abnormal MPI. Ongoing coronary disease could lead to worsening heart failure if not addressed. HTN (hypertension) Cont Coreg Pre- T2DM (type 2 diabetes mellitus) Hba1c below 6.0, continue lifestyle modification Hypokalemia repleted PO Anemia On Iron supplement DVT prophylaxis fully anticoagulated, Eliquis to be restarted after cath History Interval history: Chest pain has now resolved, denies shortness of breath Hospitalist Physical - Physical exam Narrative exam: General: Patient appears well in no distress HEENT: MMM, EOMI cardiac: S1-S2 heard lungs: clear to auscultation, abdomen: soft, nontender, nondistended bowel sounds positive extremities: no edema clubbing or cyanosis Skin: no rash or lesion Neuro: no focal deficit Psych: appropriate behavior and mood, cognition intact - Constitutional Vitals: Temp Pulse Resp BP Pulse Ox 98.2 F 57 L 18 165/75 99 11/15/16 04:00 11/15/16 05:27 11/15/16 05:27 11/15/16 05:27 11/15/16 04:00 General appearance: Present: no acute distress, well-nourished Results - Labs CBC & Chem 7: 11/15/16 05:01 11/15/16 05:01 Labs: Laboratory Last Values WBC 4.2 K/mm3 (4.5-11.0) L 11/15/16 05:01 RBC 5.68 M/mm3 (3.65-5.03) H 11/15/16 05:01 Hgb 12.8 gm/dl (11.8-15.2) 11/15/16 05:01 Hct 40.2 % (35.5-45.6) 11/15/16 05:01 MCV 71 fl (84-94) L 11/15/16 05:01 MCH 22 pg (28-32) L 11/15/16 05:01 MCHC 32 % (32-34) 11/15/16 05:01 RDW 15.0 % (13.2-15.2) 11/15/16 05:01 Plt Count 168 K/mm3 (140-440) 11/15/16 05:01 Lymph % (Auto) 34.7 % (13.4-35.0) 11/15/16 05:01 [place] % (Auto) 14.2 % (0.0-7.3) H 11/15/16 05:01 Eos % (Auto) 3.3 % (0.0-4.3) 11/15/16 05:01 Baso % (Auto) 0.9 % (0.0-1.8) 11/15/16 05:01 Lymph # 1.4 K/mm3 (1.2-5.4) 11/15/16 05:01 [place] # 0.6 K/mm3 (0.0-0.8) 11/15/16 05:01 Eos # 0.1 K/mm3 (0.0-0.4) 11/15/16 05:01 Baso # 0.0 K/mm3 (0.0-0.1) 11/15/16 05:01 Seg Neutrophils % 46.9 % (40.0-70.0) 11/15/16 05:01 Seg Neutrophils # 2.0 K/mm3 (1.8-7.7) 11/15/16 05:01 PT 13.4 Sec. (12.2-14.9) 11/15/16 05:01 INR 0.97 (0.87-1.13) 11/15/16 05:01 APTT 27.5 Sec. (24.2-36.6) 11/15/16 05:01 Sodium 144 mmol/L (137-145) 11/15/16 05:01 Potassium 3.8 mmol/L (3.6-5.0) 11/15/16 05:01 Chloride 104.1 mmol/L (98-107) 11/15/16 05:01 Carbon Dioxide 27 mmol/L (22-30) 11/15/16 05:01 Anion Gap 17 mmol/L 11/15/16 05:01 BUN 31 mg/dL (9-20) H 11/15/16 05:01 Creatinine 1.6 mg/dL (0.8-1.5) H 11/15/16 05:01 Estimated GFR 54 ml/min 11/15/16 05:01 BUN/Creatinine Ratio 19.37 % 11/15/16 05:01 Glucose 98 mg/dL (75-100) 11/15/16 05:01 POC Glucose 98 (70-105) 11/15/16 05:24 Hemoglobin A1c 5.6 % (4-6) 11/06/16 20:53 Uric Acid 11.0 mg/dL (3.5-7.6) H 11/09/16 20:31 Calcium 8.9 mg/dL (8.4-10.2) 11/15/16 05:01 Magnesium 2.50 mg/dL (1.7-2.3) H 11/11/16 12:59 Total Bilirubin 0.30 mg/dL (0.1-1.2) 11/07/16 03:00 AST 18 units/L (5-40) 11/07/16 03:00 ALT 11 units/L (7-56) 11/07/16 03:00 Alkaline Phosphatase 40 units/L (35-129) 11/07/16 03:00 Total Creatine Kinase 305 units/L (55-170) H 11/07/16 03:00 CK-MB (CK-2) 2.3 ng/mL (0.0-4.0) 11/07/16 03:00 CK-MB (CK-2) Rel Index 0.7 (0-4) 11/07/16 03:00 Troponin T < 0.010 ng/mL (0.00-0.029) 11/07/16 03:00 NT-Pro-B Natriuret Pep 743.6 pg/mL (0-900) 11/06/16 16:35 Total Protein 7.5 g/dL (6.3-8.2) 11/07/16 03:00 Albumin 3.9 g/dL (3.9-5) 11/07/16 03:00 Albumin/Globulin Ratio 1.1 % 11/07/16 03:00 Urine Color Straw (Yellow) 11/10/16 09:00 Urine Turbidity Clear (Clear) 11/10/16 09:00 Urine pH 5.0 (5.0-7.0) 11/10/16 09:00 Ur Specific [place] 1.010 (1.003-1.030) 11/10/16 09:00 Urine Protein <15 mg/dl mg/dL (Negative) 11/10/16 09:00 Urine Glucose (UA) Neg mg/dL (Negative) 11/10/16 09:00 Urine Ketones Neg mg/dL (Negative) 11/10/16 09:00 Urine Blood Neg (Negative) 11/10/16 09:00 Urine Nitrite Neg (Negative) 11/10/16 09:00 Urine Bilirubin Neg (Negative) 11/10/16 09:00 Urine Urobilinogen < 2.0 mg/dL (<2.0) 11/10/16 09:00 Ur Leukocyte Esterase Neg (Negative) 11/10/16 09:00 Urine WBC (Auto) < 1.0 /HPF (0.0-6.0) 11/10/16 09:00 Urine RBC (Auto) < 1.0 /HPF (0.0-6.0) 11/10/16 09:00 U Epithel Cells (Auto) < 1.0 /HPF (0-13.0) 11/10/16 09:00 Urine Eosinophils None seen (None Seen) 11/10/16 09:00 Urine Osmolality 341 Mosm/kg 11/09/16 Unknown Urine Creatinine 86.4 mg/dL (0.1-20.0) H 11/09/16 Unknown Urine Sodium 74 mEq/L 11/09/16 Unknown Digoxin 0.4 ng/mL (0.9-2.0) L 11/07/16 12:55
[2016-11-15] MEDS: BABY ASPIRIN PO SCH (10:31)
--- NOTE | 2016-11-15 10:44 | Progress Note ---
Subjective Principal diagnosis: ckd with paulo Interval history: Patient was evaluated today for follow-up on multiple renal related issues, time of evaluation 2 PM he will be likely going for cardiac catheterization tomorrow Vital labs intake and output medications were reviewed Current medications: Reviewed Social history:Reviewed Family history: Reviewed HEENT: No uremic order oral mucosa moist Neck: Supple without any thyromegaly mass or JVD Chest: Clear to auscultation occasional basilar crackles posteriorly Heart: Regular rate and rhythm S1 and S2 heard no S3-S4 Abdomen: Soft nontender no voluntary guarding rigidity or rebound Extremity: Dry skin minimal edema Psychiatry: No agitation and aggression noted Assessment and plan Acute kidney injury in a patient who does have underlying chronic kidney disease baseline creatinine between 1.6-1.8, risk of radiocontrast cross nephropathy is moderate and is case educated Patient renal function is currently stable which is his baseline 1.6 He does need to see urologist for obstructive uropathy History of congestive heart failure atrial fibrillation with rapid ventricular response cardiomyopathy cardiorenal syndrome Must follow-up in the office upon discharge Ultrasonogram shows evidence of chronic kidney disease Patient did receive appropriate counseling and education regarding renal related issues In the absence of proper renal care he'll be prone to progression of renal failure over time Post void residual volume was 138 mL; please consider urology evaluation Objective - Vital Signs Vital signs: Vital Signs - 12hr 11/15/16 11/15/16 11/15/16 00:00 01:11 04:00 Temperature 98.9 F 98.2 F Pulse Rate 57 L 57 L 30 L Respiratory 20 20 Rate Blood Pressure 173/80 173/80 173/74 O2 Sat by Pulse 98 99 Oximetry 11/15/16 11/15/16 05:27 08:25 Temperature 98.2 F Pulse Rate 57 L 58 L Respiratory 18 20 Rate Blood Pressure 165/75 160/80 O2 Sat by Pulse 97 Oximetry - Lab 11/15/16 05:01 11/16/16 10:04 Most recent lab results Calcium 8.9 mg/dL (8.4-10.2) 11/15/16 05:01 Magnesium 2.50 mg/dL (1.7-2.3) H 11/11/16 12:59 Urine Creatinine 86.4 mg/dL (0.1-20.0) H 11/09/16 Unknown Urine Sodium 74 mEq/L 11/09/16 Unknown
[2016-11-15] MEDS ORDERED: HEPARIN/NS 5000 UNIT/500ML(CATH LAB) 1,000 ML IR ONE (11:39)
[2016-11-15] MEDS ORDERED: XYLOCAINE 2% INFILTRATI ONE (11:40)
[2016-11-15] MEDS ORDERED: HEPARIN 10,000 UNITS/10 ML ONE (11:40)
[2016-11-15] MEDS ORDERED: SUBLIMAZE ONE (11:40)
[2016-11-15] MEDS ORDERED: VERSED ONE (11:40)
[2016-11-15] MEDS ORDERED: NACL 0.9% 500 ML 500 ML ONE (11:40)
[2016-11-15] MEDS ORDERED: NITROGLYCERIN SYRINGE 0 ML ONE (11:40)
[2016-11-15] MEDS: NITROSTAT SL ONE ×2 (12:19→12:31)
--- NOTE | 2016-11-15 13:19 | Cardiac Catherization Report ---
CARDIAC CATHETERIZATION REPORT REASON FOR PROCEDURE: Abnormal thallium stress test, cardiomyopathy and congestive heart failure. PROCEDURE: The patient was recommended for a cardiac catheterization. Cardiac catheterization was delayed for several days due to the patient's chronic kidney disease. He underwent IV hydration, and evaluation by Nephrology. Today, his creatinine is at his baseline of 1.6. Due to continued risk of contrast nephropathy, he was recommended for coronary only angiography, and use of the Visipaque. In addition, the patient is fully aware of the elevated risk of contrast nephropathy, and consents to proceed with diagnostic coronary angiography. The patient was prepped and draped in a sterile fashion after informed consent. Right femoral artery was entered using the Seldinger technique followed by placement of a 6-Japanese sheath. Selective left and right coronary angiography was performed using a #4 left Hero, and a #4 right Hero catheter. Following coronary angiography, the catheters were removed, sheath withdrawn, hemostasis achieved using manual compression. The patient was returned to the postprocedure unit in stable condition. There were no complications. Total contrast used for the procedure was 25 mL of Visipaque. CORONARY ANGIOGRAPHY: The left main coronary artery was free of significant disease. There were mild luminal irregularities of the proximal and mid segments of the LAD, otherwise LAD and its diagonal branches were free of significant disease. A large ramus intermedius artery contained mild luminal irregularities. The circumflex artery contained a proximal, focal 20-30% stenosis. Following this, mild luminal irregularities were noted of the rest of the circumflex system. The right coronary artery was dominant. This vessel similarly contained mild luminal irregularities, but no significant obstructive lesions. CONCLUSION: 1. Mild nonobstructive irregularities as above. 2. No significant coronary artery disease. 3. Total contrast administered for the procedure was 25 mL. 4. Echocardiography has established presence of dilated nonischemic cardiomyopathy. RECOMMENDATION: Medical therapy and risk factor modification. JOB# [id number] CA/NTS
[2016-11-15] MEDS: FEOSOL PO SCH ×2 (13:43→22:42)
[2016-11-15] MEDS: PEPCID PO SCH (13:44)
[2016-11-15] MEDS: K-DUR PO SCH (13:44)
[2016-11-15] MEDS: COREG PO SCH ×2 (13:44→22:44)
[2016-11-15] MEDS: CORDARONE PO SCH ×2 (13:58→22:42)
[2016-11-15] MEDS: LANOXIN PO SCH (16:49)
--- NOTE | 2016-11-15 19:29 | Event Note ---
Date: 11/15/16 Cardiac catheterization performed successfully, no complications. Total contrast used was 25 mL. Findings: Mild irregularities, no significant obstructive coronary artery disease. Recommendations: Risk factor modification and medical therapy. Renal function will be checked post cath with a creatinine level in the a.m.
[2016-11-15] MEDS ORDERED: NACL 0.9% 1000 ML 1,000 ML IV SCH (20:00)
[2016-11-16] MEDS: BABY ASPIRIN PO SCH (09:34)
[2016-11-16] MEDS: COREG PO SCH ×2 (09:34→22:20)
[2016-11-16] MEDS: K-DUR PO SCH (09:35)
[2016-11-16] MEDS: FEOSOL PO SCH ×2 (09:35→22:19)
[2016-11-16] MEDS: CORDARONE PO SCH ×2 (09:35→22:20)
[2016-11-16] MEDS: PEPCID PO SCH (09:35)
[2016-11-16 09:50] LABS: Anion Gap 16 mmol/L; BUN/Creatinine Ratio 17.14; Blood Urea Nitrogen 24 mg/dL (9-20); Calcium 8.4 mg/dL (8.4-10.2); Carbon Dioxide 27 mmol/L (22-30); Chloride 104.7 mmol/L (98-107); Glucose 94 mg/dL (75-100); Potassium 4.1 mmol/L (3.6-5.0); Sodium 144 mmol/L (137-145)
--- NOTE | 2016-11-16 09:57 | Progress Note ---
Subjective Principal diagnosis: ckd with paulo Interval history: Patient was seen today for follow-up Creatinine is currently normalize he is status post cardiac catheterization today No complaints of any chest pain pressure or shortness of breath Vitals labs. Intake output. Medications were reviewed HEENT: Oral mucosa moist Neck: Supple Chest: Clear to auscultation Heart: Regular rate and rhythm. Abdomen: Soft, nontender. No renal bruit Extremity: No edema Assessment and plan Acute kidney injury, currently in remission. Creatinine is stable Status post-radiocontrast exposure. Monitor renal function. Maintain hydration Obstructive uropathy. Patient needs to see a neurologist in outpatient setting Accelerated hypertension requires better control Objective - Vital Signs Vital signs: Vital Signs - 12hr 11/15/16 11/15/16 11/15/16 22:00 22:44 23:00 Temperature 98.7 F Pulse Rate 54 L 55 L Pulse Rate [ 54 L Left Radial] Respiratory 18 20 Rate Blood Pressure 174/93 172/86 O2 Sat by Pulse 95 Oximetry 11/16/16 11/16/16 11/16/16 03:55 07:55 09:34 Temperature 98.9 F 98.2 F Pulse Rate 52 L 54 L Pulse Rate [ Left Radial] Respiratory 20 20 Rate Blood Pressure 173/106 156/88 156/88 O2 Sat by Pulse 97 96 Oximetry - Lab 11/15/16 05:01 11/16/16 10:04 Most recent lab results Calcium 8.4 mg/dL (8.4-10.2) 11/16/16 06:56 Magnesium 2.50 mg/dL (1.7-2.3) H 11/11/16 12:59 Urine Creatinine 86.4 mg/dL (0.1-20.0) H 11/09/16 Unknown Urine Sodium 74 mEq/L 11/09/16 Unknown
[2016-11-16 11:00] LABS: Anion Gap 16 mmol/L; BUN/Creatinine Ratio 16.42; Blood Urea Nitrogen 23 mg/dL (9-20); Calcium 8.6 mg/dL (8.4-10.2); Carbon Dioxide 27 mmol/L (22-30); Chloride 102.3 mmol/L (98-107); Glucose 101 mg/dL (75-100); Sodium 141 mmol/L (137-145)
--- NOTE | 2016-11-16 12:08 | Progress Note ---
Assessment and Plan Chest pain LHC: mild irregularities, no significant obstructive coronary artery disease. Nonischemic Cardiomyopathy, LVEF 10-15% ACEi and diuretics held due to acute renal failure Paroxysmal Atrial fibrillation/flutter on eliquis at home for anticoagulation. Hypertension Acute renal failure Recommendations: Resume anticoagulations if no contraindications. Continue medical therapy for his cardiomyopathy and paroxysmal afib/flutter. Subjective Date of service: 11/16/16 Principal diagnosis: ckd with paulo Interval history: Patient denies chest pain and shortness of breath. Creatinine down to 1.4 today. Objective Vital Signs Temp Pulse Pulse Resp Resp BP Pulse Ox 11/16/16 09:34 156/88 11/16/16 07:55 98.2 F 54 L 20 156/88 96 11/16/16 03:55 98.9 F 52 L 20 173/106 97 11/15/16 23:00 98.7 F 55 L 20 172/86 95 11/15/16 22:44 54 L 174/93 11/15/16 22:00 54 L 18 11/15/16 21:35 98.7 F 54 L 20 174/93 98 11/15/16 20:28 20 11/15/16 20:27 20 11/15/16 16:49 57 L 166/100 11/15/16 14:00 55 L 18 161/90 11/15/16 13:44 65 - Physical Examination General: No Apparent Distress HEENT: Positive: PERRL Neck: Positive: trachea midline Cardiac: Positive: Reg Rate and Rhythm Lungs: Positive: Decreased Breath Sounds Neuro: Positive: Grossly Intact - Labs and Meds Comprehensive Metabolic Panel 11/15/16 11/16/16 11/16/16 Range/Units 20:32 06:56 10:04 Sodium 144 141 (137-145) mmol/L Potassium 4.1 4.0 (3.6-5.0) mmol/L Chloride 104.7 102.3 (98-107) mmol/L Carbon Dioxide 27 27 (22-30) mmol/L BUN 24 H 23 H (9-20) mg/dL Creatinine 1.4 1.4 1.4 (0.8-1.5) mg/dL Glucose 94 101 H (75-100) mg/dL Calcium 8.4 8.6 (8.4-10.2) mg/dL - Imaging and Cardiology EKG: report reviewed (SVT with fusion complexes incompleteLBBb)
--- NOTE | 2016-11-16 16:11 | Discharge Summary ---
Providers - Providers Date of Admission: 11/06/16 20:37 Date of discharge: 11/17/16 Attending physician: SCOTT ALVARENGA 11/07/16 12:17 Consult to Physician [CONS] Routine Consulting Provider: ANDRY CURRAN Reason For Exam: CHF, Chest pain, Afib Place consult to:: Dr. Curran Notified:: Harriet DONOHUE Phone number called:: Was contact made?: Yes If yes, spoke with:: Joellen-answering service Time called:: 13:59 11/09/16 17:36 Consult to Physician [CONS] Routine Consulting Provider: BOB LIZAMA Reason For Exam: CABRERA Place consult to:: RENAL Notified:: A SERVICE Phone number called:: [phone] Was contact made?: Yes Time called:: 17:57 11/15/16 14:14 Consult to Cardiac Rehabilitation [CONS] Routine Reason For Exam: Cardiac Rehab Evaluation Primary care physician: CHIEF MEDICAL TECHNOLOGIST Hospitalization Condition: Stable Pertinent studies: Exercise stress test : Dilated left ventricular cavity large predominantly fixed minimally reversible inferior and inferoseptal defect. EF 17% 2-D echocardiogram, estimated EF 25-30% Renal ultrasound consistent with medical renal disease Chest x-ray, cardiomegaly no definite lung changes Procedures: LHC: mild irregularities, no significant obstructive coronary artery disease. Hospital course: 56M medical history of systolic CHF ejection fraction of 10%, paroxysmal atrial fibrillation on eliquis, CKD stage 2-3, recent negative MPI on 04/13 who presents with chest pain. He was admitted for chest pain evaluation. Discharge diagnoses and management Chest pain, could be due to GERD Acute coronary syndrome ruled out serial troponins negative Cardiac cath planned, eliquis was on hold for 48 hours however cath was postponed due to CABRERA Status post cardiac cath on 11/14/2016 showed no obstructed coronaries Accelerated HTN (hypertension) Cont Coreg 12.5 BID, norvasc 10mg and hydralazine 100 TID ACEI and diuretics on hold for CABRERA and h/o recent contrast during cath ACEI/diuretics can be resumed as out pt with close follow up Paroxysmal Atrial fibrillation with rapid ventricular response Resolved in ER with one dose of IV Lopressor 5mg continue Amiodarone, coreg and Digoxin dig level is 0.4 cardiology consult appreciated CHF (congestive heart failure) chronic systolic Nonischemic Cardiomyopathy with LVEF 10-15% LHC: mild irregularities, no significant obstructive coronary artery disease. ACEi and diuretics held due to acute renal failure Continue digoxin, BB ICD eval as outpatient CABRERA (acute kidney injury) upon CKD stage 3/Vasomotor nephropathy BL creatinine is 1.6, Peak cr was 3, now down to 1.4 with IVF Nephrology input appreciated, renal US showed medicorenal disease held nephrotoxic agents, discontinued diuretics and CRISTIAN Pre- T2DM (type 2 diabetes mellitus) Hba1c below 6.0, continue lifestyle modification Hypokalemia repleted PO Anemia On Iron supplement Disposition: DC TO HOME OR SELFCARE Time spent for discharge: 32 minutes Core Measure Documentation - Palliative Care Palliative Care/ Comfort Measures: Not Applicable - Core Measures Any of the following diagnoses?: heart failure - Heart Failure Discharge Requirements CRISTIAN/ARB for LVSD if EF <40%: No Reason for no CRISTIAN/ARB: Renal impairment Beta kadi at discharge: Yes Exam - Constitutional Vitals: Temp Pulse Resp BP Pulse Ox 98.0 F 52 L 20 141/76 94 11/16/16 12:05 11/16/16 12:05 11/16/16 12:05 11/16/16 12:05 11/16/16 12:05 General appearance: Present: no acute distress, well-nourished - EENT Eyes: Present: PERRL ENT: hearing intact, clear oral mucosa - Neck Neck: Present: supple, normal ROM - Respiratory Respiratory effort: normal Respiratory: bilateral: CTA - Cardiovascular Heart Sounds: Present: S1 & S2. Absent: rub, click - Extremities Extremities: pulses symmetrical, No edema Peripheral Pulses: within normal limits - Abdominal General gastrointestinal: Present: soft, non-tender, non-distended, normal bowel sounds - Integumentary Integumentary: Present: clear, warm, dry - Musculoskeletal Musculoskeletal: gait normal, strength equal bilaterally - Psychiatric Psychiatric: appropriate mood/affect, intact judgment & insight - Neurologic Neurologic: CNII-XII intact, moves all extremities Plan Activity: advance as tolerated Weight Bearing Status: Weight Bear as Tolerated Diet: low fat, low salt, diabetic Additional Instructions: Follow-up with enrollment services dean in 1 week. Resume diuretics with outpatient follow-up with your enrollment services dean. repeat BMP in 1 week Follow up with: PRIMARY CAREMD [Primary Care Provider] - 3-5 Days Forms: Ar PCI D/C Instructions Prescriptions: AtorvaSTATin [Lipitor] 20 mg PO QHS #30 tablet Amiodarone [Cordarone 200 MG TAB] 200 mg PO BID #60 tablet amLODIPine [Norvasc] 10 mg PO QDAY #30 tablet Apixaban [Eliquis] 2.5 mg PO BID #60 tablet Carvedilol [Coreg] 12.5 mg PO BID #60 tablet Digoxin [Lanoxin] 0.125 mg PO DAILY@1700 #30 tablet Famotidine [Pepcid] 20 mg PO BID #30 tablet Ferrous Sulfate [Feosol 325 MG tab] 325 mg PO BID #60 tablet hydrALAZINE [Apresoline TAB] 100 mg PO TID #90 tab
[2016-11-16] MEDS: LANOXIN PO SCH (17:08)
[2016-11-16] MEDS: APRESOLINE IV PRN (17:45)
[2016-11-16] MEDS ORDERED: COREG PO ONE (18:00)
[2016-11-17] MEDS: APRESOLINE IV PRN (00:04)
[2016-11-17] MEDS: PERCOCET 5/325 PO PRN (00:12)
[2016-11-17 07:14] LABS: Anion Gap 16 mmol/L; Blood Urea Nitrogen 21 mg/dL (9-20); Calcium 8.7 mg/dL (8.4-10.2); Carbon Dioxide 27 mmol/L (22-30); Chloride 101.2 mmol/L (98-107); Glucose 88 mg/dL (75-100); Potassium 4.2 mmol/L (3.6-5.0); Sodium 140 mmol/L (137-145)
--- NOTE | 2016-11-17 09:07 | Progress Note ---
Assessment and Plan Chest pain, could be due to GERD Acute coronary syndrome ruled out serial troponins negative Cardiac cath planned, eliquis must be on hold for 48 hours however cath was postponed due to CABRERA Status post cardiac cath on 11/14/2016 showed obstructed coronaries Accelerated HTN (hypertension) Cont Coreg 12.5 BID will add norvasc and hydralazine ACEI and diuretics on hold for CABRERA and h/o recent contrast during cath ACEI/diuretics can be resumed as out pt Paroxysmal Atrial fibrillation with rapid ventricular response Resolved in ER with one dose of IV Lopressor 5mg continue Amiodarone and Digoxin dig level is 0.4 cardiology consult appreciated CHF (congestive heart failure) chronic systolic continue to hold CRISTIAN and diuretics for CABRERA Continue digoxin cardiology consult appreciated, ICD eval as outpatient CABRERA (acute kidney injury) upon CKD stage 3/Vasomotor nephropathy BL creatinine is 1.6, Peak cr was 3, now down to 1.4 with IVF Nephrology input appreciated, renal US showed medicorenal disease held nephrotoxic agents, discontinued diuretics and CRISTIAN Pre- T2DM (type 2 diabetes mellitus) Hba1c below 6.0, continue lifestyle modification Hypokalemia repleted PO Anemia On Iron supplement Subjective Date of service: 11/16/16 Principal diagnosis: ckd with cabrera Interval history: Pt seen and examined d/c was hold due to uncontrolled BP denies any chest pain Objective - Constitutional Vitals: Vital Signs - 12hr 11/16/16 11/16/16 11/17/16 22:20 23:56 00:04 Temperature 98.2 F Pulse Rate 53 L 55 L Respiratory 18 Rate Blood Pressure 201/107 196/93 193/97 O2 Sat by Pulse 97 Oximetry 11/17/16 11/17/16 11/17/16 00:12 01:11 01:12 Temperature Pulse Rate 55 L Respiratory 20 20 Rate Blood Pressure O2 Sat by Pulse Oximetry 11/17/16 11/17/16 04:00 05:50 Temperature 97.8 F Pulse Rate 57 L 53 L Respiratory 18 Rate Blood Pressure 158/82 O2 Sat by Pulse 97 Oximetry General appearance: Present: no acute distress, well-nourished - EENT Eyes: PERRL, EOM intact ENT: hearing intact, clear oral mucosa Ears: bilateral: normal - Neck Neck: supple, normal ROM - Respiratory Respiratory effort: normal Respiratory: bilateral: CTA - Cardiovascular Heart Sounds: Present: S1 & S2. Absent: gallop, rub Extremities: pulses intact, No edema, normal color, Full ROM - Gastrointestinal General gastrointestinal: Present: soft, non-tender, non-distended, normal bowel sounds - Integumentary Integumentary: clear, warm, dry - Musculoskeletal Musculoskeletal: 1, strength equal bilaterally - Neurologic Neurologic: moves all extremities - Psychiatric Psychiatric: memory intact, appropriate mood/affect, intact judgment & insight - Labs CBC & Chem 7: 11/15/16 05:01 11/17/16 05:55 Labs: Abnormal lab results 11/16/16 11/16/16 11/17/16 Range/Units 06:56 10:04 05:55 BUN 24 H 23 H 21 H (9-20) mg/dL Glucose 101 H (75-100) mg/dL
[2016-11-17] MEDS: K-DUR PO SCH (09:44)
[2016-11-17] MEDS: FEOSOL PO SCH (09:44)
[2016-11-17] MEDS: PEPCID PO SCH (09:45)
[2016-11-17] MEDS: CORDARONE PO SCH (09:46)
[2016-11-17] MEDS: BABY ASPIRIN PO SCH (09:46)
[2016-11-17] MEDS ORDERED: NORVASC PO SCH (10:00)
--- NOTE | 2016-11-17 10:50 | Progress Note ---
Assessment and Plan Chest pain LHC: mild irregularities, no significant obstructive coronary artery disease. Nonischemic Cardiomyopathy, LVEF 10-15% ACEi and diuretics held due to acute renal failure Paroxysmal Atrial fibrillation/flutter on eliquis at home for anticoagulation. Hypertension Acute renal failure now resolved; creatinine now 1.4. Recommendations: Resume eliquis therapy. Continue medical therapy for his cardiomyopathy and paroxysmal afib/flutter. Subjective Date of service: 11/17/16 Principal diagnosis: ckd with paulo Interval history: Patient denies chest pain and shortness of breath. Objective Vital Signs Temp Pulse Pulse Resp BP Pulse Ox 11/17/16 09:48 58 L 18 96 11/17/16 09:46 58 L 178/95 11/17/16 08:15 98.4 F 52 L 20 178/95 96 11/17/16 05:50 53 L 11/17/16 04:00 97.8 F 57 L 18 158/82 97 11/17/16 01:12 20 11/17/16 01:11 55 L 11/17/16 00:12 20 11/17/16 00:04 193/97 11/16/16 23:56 98.2 F 55 L 18 196/93 97 11/16/16 22:20 53 L 201/107 11/16/16 20:07 20 100 11/16/16 20:00 98.2 F 58 L 18 180/98 97 11/16/16 17:57 221/115 11/16/16 17:45 221/115 11/16/16 17:05 98.2 F 56 L 22 221/115 98 11/16/16 12:05 98.0 F 52 L 20 141/76 94 - Physical Examination General: No Apparent Distress HEENT: Positive: PERRL Neck: Positive: trachea midline Cardiac: Positive: Reg Rate and Rhythm Neuro: Positive: Grossly Intact - Labs and Meds Comprehensive Metabolic Panel 11/16/16 11/17/16 Range/Units 10:04 05:55 Sodium 141 140 (137-145) mmol/L Potassium 4.0 4.2 (3.6-5.0) mmol/L Chloride 102.3 101.2 (98-107) mmol/L Carbon Dioxide 27 27 (22-30) mmol/L BUN 23 H 21 H (9-20) mg/dL Creatinine 1.4 1.4 (0.8-1.5) mg/dL Glucose 101 H 88 (75-100) mg/dL Calcium 8.6 8.7 (8.4-10.2) mg/dL - Imaging and Cardiology EKG: report reviewed (SVT with fusion complexes incompleteLBBb)
[2016-11-17] MEDS: APRESOLINE PO SCH ×2 (15:04→15:06)
[2016-11-17] MEDS: COREG PO SCH (15:05)
[2016-11-17] MEDS: LANOXIN PO SCH (17:45)
[2016-11-17 17:46] VITALS: BP 155/79
== END 2016-11-17 18:58 | disposition home or self-care (01) | DRG 391 ==
LOC: ED 15:42 → 4A 20:37
PROVIDERS: ADMIT Internal Medicine; ATTEND Internal Medicine
PROC: B2111ZZ Fluoroscopy of Multiple Coronary Arteries using Low Osmolar Contrast (ICD-10-PCS; principal; 2016-11-15)
PROC: 4A023N7 Measurement of Cardiac Sampling and Pressure, Left Heart, Percutaneous Approach (ICD-10-PCS; 2016-11-15)
DX: K21.9 Gastro-esophageal reflux disease without esophagitis (principal); I50.43 Acute on chronic combined systolic (congestive) and diastolic (congestive) heart failure; N17.0 Acute kidney failure with tubular necrosis; I42.9 Cardiomyopathy, unspecified; I13.10 Hypertensive heart and chronic kidney disease without heart failure, with stage 1 through stage 4 chronic kidney disease, or unspecified chronic kidney disease; R07.9 Chest pain, unspecified; D64.9 Anemia, unspecified; I48.0 Paroxysmal atrial fibrillation; N18.3 Chronic kidney disease, stage 3 (moderate); E11.22 Type 2 diabetes mellitus with diabetic chronic kidney disease; E87.6 Hypokalemia
CPT/HCPCS: 36415; 71010; 76770; 76857; 78452; 80048; 80053; 80162; 81001; 82550; 82553; 82565; 82570; 82962; 83036; 83735; 83880; 83935; 84300; 84484; 84550; 85025; 85610; 85730; 89050; 93005; 93010; 93017; 93306; 93454; 96374; 96375; A9270-GY; A9502; C1894; J0360; J1644; J1940; J2250; J2270; J2785; J3010; J7030; J7040; Q9967

== ENCOUNTER 2016-12-22 19:22 | Inpatient (IN) | payer SELFPAY ==
[2016-12-22] MEDS ORDERED: NORMODYNE IV ONE (21:03)
[2016-12-22] MEDS ORDERED: LASIX IV ONE (21:04)
--- NOTE | 2016-12-22 21:12 | Emergency Department Report ---
ED Chest Pain HPI - General Chief Complaint: Chest Pain Stated Complaint: CHEST PAIN Time Seen by Provider: 12/22/16 20:52 Source: patient Mode of arrival: Ambulatory Limitations: No Limitations - History of Present Illness Initial Comments: This is a 56 year-old male presents to the emergency department from home with complaint of shortness of breath and midsternal chest pain and been going on for the past 1-2 weeks. However usually the symptoms were intermittent but now it has become more constant. He has trouble with any type of exertion and cannot make it up a flight of stairs. He has a history of CHF, hypertension, prediabetes, atrial fibrillation, renal patients he. He is on Eliquis and says he has not missed any doses. No recent travel or sick contacts at home. 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 Severity scale (0 -10): 9 - Related Data Home Medications Medication Instructions Recorded Confirmed Last Taken Aspirin [Aspirin BABY CHEW TAB] 81 mg PO QDAY 03/24/16 11/06/16 10/23/16 Previous Rx's Medication Instructions Recorded Last Taken Type Amiodarone [Cordarone 200 MG TAB] 200 mg PO BID #60 tablet 11/16/16 Unknown Rx Apixaban [Eliquis] 2.5 mg PO BID #60 tablet 11/16/16 Unknown Rx AtorvaSTATin [Lipitor] 20 mg PO QHS #30 tablet 11/16/16 Unknown Rx Carvedilol [Coreg] 12.5 mg PO BID #60 tablet 11/16/16 Unknown Rx Digoxin [Lanoxin] 0.125 mg PO DAILY@1700 #30 tablet 11/16/16 Unknown Rx Famotidine [Pepcid] 20 mg PO BID #30 tablet 11/16/16 Unknown Rx Ferrous Sulfate [Feosol 325 MG tab] 325 mg PO BID #60 11/16/16 10/23/16 Rx Ferrous Sulfate [Feosol 325 MG tab] 325 mg PO BID #60 tablet 11/16/16 Unknown Rx amLODIPine [Norvasc] 10 mg PO QDAY #30 tablet 11/17/16 Unknown Rx hydrALAZINE [Apresoline TAB] 100 mg PO TID #90 tab 11/17/16 Unknown Rx Allergies Allergy/AdvReac Type Severity Reaction Status Date / Time No Known Allergies Allergy Verified 04/29/16 10:41 Heart Score - HEART Score History: Moderately suspicious EKG: Significant ST-depression Age: 45-65 Risk factors: 1-2 risk factors Troponin: < normal limit HEART Score: 5 - Critical Actions Critical Actions: 4-6 pts:12-16.6% risk of adverse cardiac event. Should be admitted ED Review of Systems ROS: Stated complaint: CHEST PAIN Other details as noted in HPI Comment: All other systems reviewed and negative Constitutional: denies: chills, fever Eyes: denies: eye pain, eye discharge, vision change ENT: denies: ear pain, throat pain Respiratory: orthopnea, shortness of breath, SOB with exertion. denies: cough Cardiovascular: chest pain, edema Gastrointestinal: denies: abdominal pain, nausea, diarrhea Genitourinary: denies: urgency, dysuria Musculoskeletal: denies: back pain, joint swelling, arthralgia Skin: denies: rash, lesions Neurological: denies: headache, weakness, paresthesias ED Past Medical Hx - Past Medical History Hx Hypertension: Yes Hx Congestive Heart Failure: Yes Hx Diabetes: Yes (pre-diabetic) Hx Renal Disease: Yes Hx Asthma: No Hx COPD: No Additional medical history: Atrial fibrillation, renal insufficiency. ENLARGED PROSTATE - Social History Smoking Status: Never Smoker Substance Use Type: None - Medications Home Medications: Home Medications Medication Instructions Recorded Confirmed Last Taken Type Aspirin [Aspirin BABY CHEW TAB] 81 mg PO QDAY 03/24/16 11/06/16 10/23/16 History Amiodarone [Cordarone 200 MG TAB] 200 mg PO BID #60 tablet 11/16/16 Unknown Rx Apixaban [Eliquis] 2.5 mg PO BID #60 tablet 11/16/16 Unknown Rx AtorvaSTATin [Lipitor] 20 mg PO QHS #30 tablet 11/16/16 Unknown Rx Carvedilol [Coreg] 12.5 mg PO BID #60 tablet 11/16/16 Unknown Rx Digoxin [Lanoxin] 0.125 mg PO DAILY@1700 #30 tablet 11/16/16 Unknown Rx Famotidine [Pepcid] 20 mg PO BID #30 tablet 11/16/16 Unknown Rx Ferrous Sulfate [Feosol 325 MG tab] 325 mg PO BID #60 11/16/16 11/06/16 Rx Ferrous Sulfate [Feosol 325 MG tab] 325 mg PO BID #60 tablet 11/16/16 Unknown Rx amLODIPine [Norvasc] 10 mg PO QDAY #30 tablet 11/17/16 Unknown Rx hydrALAZINE [Apresoline TAB] 100 mg PO TID #90 tab 11/17/16 Unknown Rx ED Physical Exam - General Limitations: No Limitations - Other Other exam information: GENERAL: The patient is well-developed well-nourished. HENT: Normocephalic. Atraumatic. Patient has moist mucous membranes. EYES: Extraocular motions are intact. Pupils equal reactive to light bilaterally. NECK: Supple. Trachea is midline. CHEST/LUNGS: Coarse breath sounds throughout the chest. There is some tachypnea but no excessive muscle use. There is no respiratory distress noted. HEART/CARDIOVASCULAR: Regular. There is no tachycardia. There is no gallop rub or murmur. ABDOMEN: Abdomen is soft, nontender. Patient has normal bowel sounds. There is no abdominal distention. SKIN: 1-2+ pitting edema to the bilateral lower extremity. Skin is warm and dry. NEURO: The patient is awake, alert, and oriented. The patient is cooperative. The patient has no focal neurologic deficits. The patient has normal speech. MUSCULOSKELETAL: There is no tenderness or deformity. There is no limitation range of motion. There is no evidence of acute injury. ED Course Vital Signs 12/22/16 12/22/16 12/22/16 19:29 19:45 20:31 Temperature 97.7 F 97.7 F Pulse Rate 134 H 134 H Respiratory 24 24 Rate Blood Pressure 176/133 Blood Pressure 176/133 [Right] O2 Sat by Pulse 91 91 95 Oximetry 12/22/16 12/22/16 12/22/16 20:46 20:58 21:00 Temperature 98.2 F Pulse Rate 126 H 124 H 126 H Respiratory 34 H 26 H 33 H Rate Blood Pressure 168/126 156/109 Blood Pressure 168/123 [Right] O2 Sat by Pulse 94 98 92 Oximetry 12/22/16 12/22/16 12/22/16 21:05 21:15 21:30 Temperature Pulse Rate 124 H 126 H 125 H Respiratory 32 H 24 Rate Blood Pressure 168/124 155/117 165/121 Blood Pressure [Right] O2 Sat by Pulse 90 93 Oximetry 12/22/16 12/22/16 12/22/16 21:45 21:56 22:00 Temperature Pulse Rate 121 H 120 H 120 H Respiratory 30 H 29 H 31 H Rate Blood Pressure 136/104 136/104 136/104 Blood Pressure [Right] O2 Sat by Pulse 95 96 97 Oximetry 12/22/16 12/22/16 12/22/16 22:11 22:51 23:00 Temperature Pulse Rate 124 H Respiratory Rate Blood Pressure 136/104 136/104 136/104 Blood Pressure [Right] O2 Sat by Pulse 96 96 Oximetry 12/22/16 12/22/16 23:10 23:20 Temperature Pulse Rate Respiratory Rate Blood Pressure 136/104 136/104 Blood Pressure [Right] O2 Sat by Pulse 93 97 Oximetry EV score - Ev Score Age > 65: (0) No Aspirin use within the Past 7 Days: (1) Yes 3 or more CAD Risk Factors: (1) Yes 2 or more Angina events in past 24 hrs: (1) Yes Known CAD with more than 50% Stenosis: (0) No Elevated Cardiac Markers: (0) No ST Deviation Greater than 0.5mm: (0) No EV Score: 3 ED Medical Decision Making - Lab Data Result diagrams: 12/22/16 21:36 12/22/16 21:36 - EKG Data -: EKG Interpreted by Me EKG shows normal: sinus rhythm, axis, intervals (prolonged QTC), QRS complexes ( LVH), ST-T waves (there are some ST depressions in the inferior leads but no reciprocal elevations) - EKG Data When compared to previous EKG there are: changes noted (there are some ST depressions in the inferior leads not seen previously 11/21/16) Interpretation: other (sinus rhythm, prolonged QTC, LVH, depressions to the inferior leads) - Radiology Data Radiology results: image reviewed interpreted by me: Chest x-ray shows pulmonary vascular congestion and some pleural effusions. No obvious pneumonia. - Medical Decision Making 56-year-old male presents with shortness of breath, some mild lower summary edema and some chest discomfort. His first EKG appeared to be regular rhythm but there was some tachycardia. However was concerning as there was some ST depressions in the inferior leads that were not seen on his previous EKG. No reciprocal elevations. His second EKG, later on, shows atrial fibrillation. At this point the patient was already admitted but some Cardizem was ordered for rate control. His chest x-ray and BNP appear consistent with CHF. He was given IV Lasix. When he had some more chest discomfort he was also given sublingual nitroglycerin which will both help with his chest pain as well as as a vasodilator. His troponins were slight elevated but are trending down. He has some mild renal sufficiency. He is already on Eliquis. He has been accepted for admission by the hospitalist, Dr Guy. - Differential Diagnosis CHF, WI, pneumonia Critical Care Time: No Critical care attestation.: If time is entered above; I have spent that time in minutes in the direct care of this critically ill patient, excluding procedure time. ED Disposition Clinical Impression: Atrial fibrillation with rapid ventricular response CHF (congestive heart failure) Qualifiers: Congestive heart failure type: combined Congestive heart failure chronicity: acute on chronic Qualified Code(s): I50.43 - Acute on chronic combined systolic (congestive) and diastolic (congestive) heart failure HTN (hypertension) Qualifiers: Hypertension type: essential hypertension Qualified Code(s): I10 - Essential ( primary) hypertension Disposition: OP ADMIT IP TO THIS HOSP Is pt being admited?: Yes Condition: Stable
[2016-12-22 21:54] LABS: Basophils % (Auto) 0.8 % (0.0-1.8); Eosinophils % (Auto) 0.6 % (0.0-4.3); Hematocrit 36.4 % (35.5-45.6); Hemoglobin 11.4 gm/dl (11.8-15.2); Mean Corpuscular HGB Conc 31 % (32-34); Mean Corpuscular Volume 71 fl (84-94); Platelet Count 235 K/mm3 (140-440); Red Cell Distribution Width 15.7 % (13.2-15.2); White Blood Count 5.6 K/mm3 (4.5-11.0)
[2016-12-22 22:00] LABS: Mean Corpuscular Hemoglobin 22 pg (28-32)
[2016-12-22] MEDS ORDERED: NITROSTAT SL ONE (22:08)
[2016-12-22 22:15] LABS: BUN/Creatinine Ratio 23.33; Calcium 8.7 mg/dL (8.4-10.2); Chloride 105.4 mmol/L (98-107)
[2016-12-22] MEDS ORDERED: MORPHINE IV PRN (23:15)
--- NOTE | 2016-12-23 00:16 | History and Physical Report ---
History of Present Illness Date of examination: 12/22/16 Date of admission: 12/22/16 23:11 Chief complaint: Chest pain and SOB History of present illness: 56-year-old -Malagasy male with past medical history significant for CAD, ischemic cardiomyopathy with ejection fraction of 10-15%, paroxysmal A. fib, hypertension presented to the emergency department complaining of midsternal chest pain for the last 4 days. Pain is sharp, 10 out of 10 intensity with no radiation, associated with exertional shortness of breath, diaphoresis, palpitation. Patient is also complaining worsening of leg swelling, more on the right side.Patient said he has been compliant with his medications. Patient has recent cardiac cath 2 months ago and shows nonobstructive CAD. Patient was discharged with medical management. Patient has paroxysmal A. fib and has been on eliquis. REVIEW OF SYSTEMS: GENERAL: no weight change, no fatigue, no fever HEAD: no head ache EYES: no blurry vision, no acute visual loss EARS: no hearing loss, no discharge, no earache NOSE: no stuffiness, no sneezing, no discharge MOUTH, THROAT AND NECK: no bleeding gums, no sore throat, no swollen neck CARDIAC: As stated in the HPI. RESPIRATORY: As stated in the HPI. GI: no decreased appetite, no nausea, no vomiting, no dysphagia, no diarrhea, no constipation, no abdominal pain URINARY: no change in frequency, no urgency, no polyuria, no hematuria, no incontinence MUSCULOSKELETAL: no muscle weakness, no pain, no joint stiffness NEUROLOGIC: no loss of sensation/numbness, no tingling, no tremors, no weakness/ paralysis HEMATOLOGIC: no anemia, no easy bruising SKIN: no rashes ENDOCRINE: no heat/cold intolerance, no polyuria, no polydipsia, no thyroid problems, no diabetes PSYCHIATRIC: no anxiety, no depression, no suicidal ideations Medications and Allergies Allergies Allergy/AdvReac Type Severity Reaction Status Date / Time No Known Allergies Allergy Verified 04/29/16 10:41 Home Medications Medication Instructions Recorded Confirmed Last Taken Type Aspirin [Aspirin BABY CHEW TAB] 81 mg PO QDAY 03/24/16 11/06/16 10/23/16 History Amiodarone [Cordarone 200 MG TAB] 200 mg PO BID #60 tablet 11/16/16 Unknown Rx Apixaban [Eliquis] 2.5 mg PO BID #60 tablet 11/16/16 Unknown Rx AtorvaSTATin [Lipitor] 20 mg PO QHS #30 tablet 11/16/16 Unknown Rx Carvedilol [Coreg] 12.5 mg PO BID #60 tablet 11/16/16 Unknown Rx Digoxin [Lanoxin] 0.125 mg PO DAILY@1700 #30 tablet 11/16/16 Unknown Rx Famotidine [Pepcid] 20 mg PO BID #30 tablet 11/16/16 Unknown Rx Ferrous Sulfate [Feosol 325 MG tab] 325 mg PO BID #60 11/16/16 11/06/16 Rx Ferrous Sulfate [Feosol 325 MG tab] 325 mg PO BID #60 tablet 11/16/16 Unknown Rx amLODIPine [Norvasc] 10 mg PO QDAY #30 tablet 11/17/16 Unknown Rx hydrALAZINE [Apresoline TAB] 100 mg PO TID #90 tab 11/17/16 Unknown Rx Active Meds: Active Medications Amiodarone HCl (Cordarone) 200 mg PO BID [facility] Amlodipine Besylate (Norvasc) 10 mg PO QDAY [facility] Apixaban (Eliquis) 2.5 mg PO BID [facility] PRN Reason: Protocol Aspirin (Baby Aspirin) 81 mg PO QDAY [facility] Atorvastatin Calcium (Lipitor) 20 mg PO QHS [facility] Carvedilol (Coreg) 12.5 mg PO BID [facility] Digoxin (Lanoxin) 0.125 mg PO DAILY@1700 [facility] Famotidine (Pepcid) 20 mg PO BID [facility] Ferrous Sulfate (Feosol) 325 mg PO BID [facility] Furosemide (Lasix) 40 mg IV BID@0600,1800 [facility] Hydralazine HCl (Apresoline) 100 mg PO TID [facility] Morphine Sulfate (Morphine) 2 mg IV Q4H PRN PRN Reason: Chest Pain Exam - Physical Exam Narrative exam: Not in cardiopulmonary distress. The patient appeared well nourished and normally developed. Vital signs as documented. Head exam is unremarkable. No scleral icterus . Neck is without jugular venous distension, thyromegaly, or carotid bruits. Lungs bibasilar rales. Cardiac exam reveals regular rate and Rhythm. Abdominal exam reveals normal bowel sounds, no masses, no organomegaly and no aortic enlargement. Extremities trace pedal and pretibial edema, which is scaling. [employer]: Alert and oriented 3. No focal weakness. - Constitutional Vitals: Temp Pulse Resp BP Pulse Ox 98.2 F 124 H 30 H 136/104 95 12/22/16 20:58 12/22/16 22:11 12/22/16 21:45 12/22/16 22:11 12/22/16 21:45 Results - Labs CBC & Chem 7: 12/22/16 21:36 12/22/16 21:36 Labs: Laboratory Last Values WBC 5.6 K/mm3 (4.5-11.0) 12/22/16 21:36 RBC 5.10 M/mm3 (3.65-5.03) H 12/22/16 21:36 Hgb 11.4 gm/dl (11.8-15.2) L 12/22/16 21:36 Hct 36.4 % (35.5-45.6) 12/22/16 21:36 MCV 71 fl (84-94) L 12/22/16 21:36 MCH 22 pg (28-32) L 12/22/16 21:36 MCHC 31 % (32-34) L 12/22/16 21:36 RDW 15.7 % (13.2-15.2) H 12/22/16 21:36 Plt Count 235 K/mm3 (140-440) 12/22/16 21:36 Lymph % (Auto) 19.2 % (13.4-35.0) 12/22/16 21:36 [place] % (Auto) 9.3 % (0.0-7.3) H 12/22/16 21:36 Eos % (Auto) 0.6 % (0.0-4.3) 12/22/16 21:36 Baso % (Auto) 0.8 % (0.0-1.8) 12/22/16 21:36 Lymph # 1.1 K/mm3 (1.2-5.4) L 12/22/16 21:36 [place] # 0.5 K/mm3 (0.0-0.8) 12/22/16 21:36 Eos # 0.0 K/mm3 (0.0-0.4) 12/22/16 21:36 Baso # 0.0 K/mm3 (0.0-0.1) 12/22/16 21:36 Seg Neutrophils % 70.1 % (40.0-70.0) H 12/22/16 21:36 Seg Neutrophils # 3.9 K/mm3 (1.8-7.7) 12/22/16 21:36 Sodium 143 mmol/L (137-145) 12/22/16 21:36 Potassium 4.0 mmol/L (3.6-5.0) 12/22/16 21:36 Chloride 105.4 mmol/L (98-107) 12/22/16 21:36 Carbon Dioxide 20 mmol/L (22-30) L 12/22/16 21:36 Anion Gap 22 mmol/L 12/22/16 21:36 BUN 35 mg/dL (9-20) H 12/22/16 21:36 Creatinine 1.5 mg/dL (0.8-1.5) 12/22/16 21:36 Estimated GFR 58 ml/min 12/22/16 21:36 BUN/Creatinine Ratio 23.33 % 12/22/16 21:36 Glucose 109 mg/dL (75-100) H 12/22/16 21:36 Calcium 8.7 mg/dL (8.4-10.2) 12/22/16 21:36 Troponin T 0.043 ng/mL (0.00-0.029) H 12/22/16 22:52 NT-Pro-B Natriuret Pep 5510 pg/mL (0-900) H 12/22/16 21:36 Triglycerides 64 mg/dL (2-149) 12/22/16 21:36 Cholesterol 145 mg/dL (50-199) 12/22/16 21:36 LDL Cholesterol Direct 108 mg/dL (50-130) 12/22/16 21:36 HDL Cholesterol 25 mg/dL (40-59) L 12/22/16 21:36 Cholesterol/HDL Ratio 5.80 % 12/22/16 21:36 - Imaging and Cardiology Chest x-ray: image reviewed (pulmonary venous congestion, cardiomegaly) Assessment and Plan Assessment and plan: Chest pain with elevated troponin level - We will repeat troponin - EKG normal sinus rhythm, no ST elevation - Patient has a recent cardiac workup - Cardiology consult Acute on chronic systolic CHF exacerbation - Patient is on IV Lasix - Continue home medications Hypertension - Controlled - Continue home medications Paroxysmal A. fib - Continue Eliquis DVT Prophylaxis -continue eliquis Disposition - Admit to telemetry floor Advance Directives: Yes VTE prophylaxis?: Chemical Plan of care discussed with patient/family: Yes
[2016-12-23] MEDS ORDERED: ROBITUSSIN PO PRN (00:21)
[2016-12-23] MEDS: LASIX IV SCH ×2 (05:25→17:56)
[2016-12-23 06:43] LABS: BUN/Creatinine Ratio 21.76; Calcium 8.7 mg/dL (8.4-10.2); Potassium 4.5 mmol/L (3.6-5.0)
--- NOTE | 2016-12-23 07:03 | XRay Report ---
Single view chest: Compared to 10/27/16. History: Shortness of breath/chest pain. Findings: Marked cardiomegaly. Trachea is midline. Pulmonary venous congestion , more pronounced on the right side. Right basilar atelectasis. Minimal blunting of right CP angle. Impression: Probable CHF.
[2016-12-23] MEDS: CORDARONE PO SCH ×2 (12:06→21:45)
[2016-12-23] MEDS: NORVASC PO SCH (12:06)
[2016-12-23] MEDS: PEPCID PO SCH ×2 (12:06→21:45)
[2016-12-23] MEDS: COREG PO SCH ×2 (12:06→21:44)
[2016-12-23] MEDS: ELIQUIS PO SCH ×2 (12:06→21:45)
[2016-12-23] MEDS: FEOSOL PO SCH ×2 (12:06→21:44)
[2016-12-23] MEDS: BABY ASPIRIN PO SCH (12:07)
[2016-12-23] MEDS: APRESOLINE PO SCH ×3 (12:15→21:43)
--- NOTE | 2016-12-23 13:13 | Consultation ---
History of Present Illness Consult date: 12/23/16 Consult reason: congestive heart failure History of present illness: 56yr old man with a history of nonischemic cardiomyopathy and paroxysmal atrial fibrillation/flutter. Patient is on eliquis therapy for oral anticoagulation. A month ago he underwent extensive cardiac workup. A cardiac cath that revealed no significant coronary artery disease. Decreased left ventricular systolic function, ejection fraction 25-30% on echocardiogram. He is readmitted a month later with CHF exacerbation. Patient admits to noncompliance with fluid restriction and has been out of his medications for several days. Cardiology consultation was requested. Medications and Allergies Allergies Allergy/AdvReac Type Severity Reaction Status Date / Time No Known Allergies Allergy Verified 04/29/16 10:41 Home Medications Medication Instructions Recorded Confirmed Last Taken Type Aspirin [Aspirin BABY CHEW TAB] 81 mg PO QDAY 03/24/16 12/23/16 1 Day Ago History Amiodarone [Cordarone 200 MG TAB] 200 mg PO BID #60 tablet 11/16/16 12/23/16 1 Day Ago Rx Apixaban [Eliquis] 2.5 mg PO BID #60 tablet 11/16/16 12/23/16 1 Day Ago Rx AtorvaSTATin [Lipitor] 20 mg PO QHS #30 tablet 11/16/16 12/23/16 1 Day Ago Rx Carvedilol [Coreg] 12.5 mg PO BID #60 tablet 11/16/16 12/23/16 1 Day Ago Rx Digoxin [Lanoxin] 0.125 mg PO DAILY@1700 #30 tablet 11/16/16 12/23/16 1 Day Ago Rx Famotidine [Pepcid] 20 mg PO BID #30 tablet 11/16/16 12/23/16 1 Day Ago Rx Ferrous Sulfate [Feosol 325 MG tab] 325 mg PO BID #60 tablet 11/16/16 12/23/16 1 Day Ago Rx amLODIPine [Norvasc] 10 mg PO QDAY #30 tablet 11/17/16 12/23/16 1 Day Ago Rx hydrALAZINE [Apresoline TAB] 100 mg PO TID #90 tab 11/17/16 12/23/16 1 Day Ago Rx Active Meds: Active Medications Amiodarone HCl (Cordarone) 200 mg PO BID [facility] Last Admin: 12/23/16 12:06 Dose: 200 mg Amlodipine Besylate (Norvasc) 10 mg PO QDAY [facility] Last Admin: 12/23/16 12:06 Dose: 10 mg Apixaban (Eliquis) 2.5 mg PO BID [facility] PRN Reason: Protocol Last Admin: 12/23/16 12:06 Dose: 2.5 mg Aspirin (Baby Aspirin) 81 mg PO QDAY [facility] Last Admin: 12/23/16 12:07 Dose: 81 mg Atorvastatin Calcium (Lipitor) 20 mg PO QHS [facility] Carvedilol (Coreg) 12.5 mg PO BID [facility] Last Admin: 12/23/16 12:06 Dose: 12.5 mg Digoxin (Lanoxin) 0.125 mg PO DAILY@1700 [facility] Famotidine (Pepcid) 20 mg PO BID [facility] Last Admin: 12/23/16 12:06 Dose: 20 mg Ferrous Sulfate (Feosol) 325 mg PO BID [facility] Last Admin: 12/23/16 12:06 Dose: 325 mg Furosemide (Lasix) 40 mg IV BID@0600,1800 [facility] Last Admin: 12/23/16 05:25 Dose: 40 mg Guaifenesin (Robitussin) 100 mg PO Q4H PRN PRN Reason: Cough Hydralazine HCl (Apresoline) 100 mg PO TID [facility] Last Admin: 12/23/16 12:15 Dose: 100 mg Morphine Sulfate (Morphine) 2 mg IV Q4H PRN PRN Reason: Chest Pain Last Admin: 12/23/16 00:49 Dose: 2 mg Physical Examination Vital Signs Temp Pulse Resp BP Pulse Ox 97.7 F 134 H 24 176/133 91 12/22/16 19:29 12/22/16 19:29 12/22/16 19:29 12/22/16 19:29 12/22/16 19:29 General appearance: no acute distress Cardiac: Positive: irregularly irregular Neuro: Positive: Grossly Intact Extremities: Present: +2 Edema Results 12/22/16 21:36 12/23/16 06:02 Comprehensive Metabolic Panel 12/23/16 Range/Units 06:02 Sodium 144 (137-145) mmol/L Potassium 4.5 (3.6-5.0) mmol/L Chloride 104.0 (98-107) mmol/L Carbon Dioxide 22 (22-30) mmol/L BUN 37 H (9-20) mg/dL Creatinine 1.7 H (0.8-1.5) mg/dL Glucose 139 H (75-100) mg/dL Calcium 8.7 (8.4-10.2) mg/dL Assessment and Plan Systolic Heart Failure s/t noncompliance with medications and fluid restrictions Nonischemic Cardiomyopathy, LVEF 20-25% Paroxysmal Atrial fibrillation/flutter on eliquis at home for anticoagulation. Hypertension
--- NOTE | 2016-12-23 17:35 | Consultation ---
History of Present Illness - Reason for Consult Consult date: 12/23/16 acute renal failure, chronic renal failure - History of Present Illness Mr. Caicedo is a 56yo with systolic heart failure and CKD who presented to the ED with SOB. He reports being in usual state of health until appx 6 days ago when he began experiencing intermittent SOB. Symptoms were associated with worsening orhtopnea and leg swelling. On day of presentation, he reports SOB and chest pain. Of note, he reports that he ran out medications. Past History Past Medical History: atrial fib, heart failure, hypertension, renal failure Social history: no significant social history Family history: no significant family history Medications and Allergies Allergies Allergy/AdvReac Type Severity Reaction Status Date / Time No Known Allergies Allergy Verified 04/29/16 10:41 Home Medications Medication Instructions Recorded Confirmed Last Taken Type Aspirin [Aspirin BABY CHEW TAB] 81 mg PO QDAY 03/24/16 12/23/16 1 Day Ago History Amiodarone [Cordarone 200 MG TAB] 200 mg PO BID #60 tablet 11/16/16 12/23/16 1 Day Ago Rx Apixaban [Eliquis] 2.5 mg PO BID #60 tablet 11/16/16 12/23/16 1 Day Ago Rx AtorvaSTATin [Lipitor] 20 mg PO QHS #30 tablet 11/16/16 12/23/16 1 Day Ago Rx Carvedilol [Coreg] 12.5 mg PO BID #60 tablet 11/16/16 12/23/16 1 Day Ago Rx Digoxin [Lanoxin] 0.125 mg PO DAILY@1700 #30 tablet 11/16/16 12/23/16 1 Day Ago Rx Famotidine [Pepcid] 20 mg PO BID #30 tablet 11/16/16 12/23/16 1 Day Ago Rx Ferrous Sulfate [Feosol 325 MG tab] 325 mg PO BID #60 tablet 11/16/16 12/23/16 1 Day Ago Rx amLODIPine [Norvasc] 10 mg PO QDAY #30 tablet 11/17/16 12/23/16 1 Day Ago Rx hydrALAZINE [Apresoline TAB] 100 mg PO TID #90 tab 11/17/16 12/23/16 1 Day Ago Rx Active Meds: Active Medications Amiodarone HCl (Cordarone) 200 mg PO BID [facility] Last Admin: 12/23/16 12:06 Dose: 200 mg Amlodipine Besylate (Norvasc) 10 mg PO QDAY [facility] Last Admin: 12/23/16 12:06 Dose: 10 mg Apixaban (Eliquis) 2.5 mg PO BID [facility] PRN Reason: Protocol Last Admin: 12/23/16 12:06 Dose: 2.5 mg Aspirin (Baby Aspirin) 81 mg PO QDAY [facility] Last Admin: 12/23/16 12:07 Dose: 81 mg Atorvastatin Calcium (Lipitor) 20 mg PO QHS [facility] Carvedilol (Coreg) 12.5 mg PO BID [facility] Last Admin: 12/23/16 12:06 Dose: 12.5 mg Digoxin (Lanoxin) 0.125 mg PO DAILY@1700 [facility] Famotidine (Pepcid) 20 mg PO BID [facility] Last Admin: 12/23/16 12:06 Dose: 20 mg Ferrous Sulfate (Feosol) 325 mg PO BID [facility] Last Admin: 12/23/16 12:06 Dose: 325 mg Furosemide (Lasix) 40 mg IV BID@0600,1800 [facility] Last Admin: 12/23/16 05:25 Dose: 40 mg Guaifenesin (Robitussin) 100 mg PO Q4H PRN PRN Reason: Cough Hydralazine HCl (Apresoline) 100 mg PO TID [facility] Last Admin: 12/23/16 12:15 Dose: 100 mg Morphine Sulfate (Morphine) 2 mg IV Q4H PRN PRN Reason: Chest Pain Last Admin: 12/23/16 00:49 Dose: 2 mg Review of Systems All systems: negative Cardiovascular: chest pain, orthopnea, edema, shortness of breath, dyspnea on exertion, leg edema Respiratory: cough Exam - Vital Signs Vital signs: Vital Signs Temp Pulse Resp BP Pulse Ox 97.7 F 134 H 24 176/133 91 12/22/16 19:29 12/22/16 19:29 12/22/16 19:29 12/22/16 19:29 12/22/16 19:29 - General Appearance General appearance: well-developed, well-nourished EENT: ATNC Respiratory: Other (faint inspiratory crackles) Heart: irregular Gastrointestinal: Present: obese. Absent: tenderness, distended Integumentary: other (chronic venous stasis) Neurologic: no focal deficit Musculoskeletal: Present: other (2+ edema) Psychiatric: cooperative Results - Lab Results 12/22/16 21:36 12/23/16 06:02 Most recent lab results Calcium 8.7 mg/dL (8.4-10.2) 12/23/16 06:02 Assessment and Plan Impression: * Acute kidney injury likely secondary to cardiorenal syndrome on stage III chronic kidney disease --Baseline SCr 1.4-1.5mg/dL * Acute on chronic systolic heart failure * Nonischemic Cardiomyopathy, LVEF 20-25% * Hypertension * Atrial fibrillation Plan: * Continue diuresis per cardiology * Monitor renal function * Optimization of cardiac function * Replete lytes prn * Sodium/fluid restricted diet * Avoid potential nephrotoxins
--- NOTE | 2016-12-23 17:51 | Progress Note ---
Assessment and Plan Assessment and plan: 56-year-old -[place]itanian male with past medical history significant for CAD, ischemic cardiomyopathy with ejection fraction of 10-15%, paroxysmal A. fib, hypertension presented to the emergency department complaining of midsternal chest pain, sob, LE edema, orthopnea and ROGEL Acute hypoxic respiratory failure -continue oxygen supplement, continue to diuresis - EKG normal sinus rhythm, no ST elevation - Patient has a recent cardiac workup, sp recent negative cath - Cardiology consult, [facility] Acute on chronic systolic CHF exacerbation - Patient is on IV Lasix - Continue home medications, cardiology consult - recent ischemic workup, cath was negative last negative Hypertension - Controlled - Continue home medications Paroxysmal A. fib with hyper-coaguable state - Continue Eliquis, continue rate control CKD stage 3 use diuretics judiciously, nephrology consult DVT Prophylaxis -continue eliquis History Interval history: still c/o dull chest pain, SOB, orthopnea, ROGEL, and LE edema Hospitalist Physical - Physical exam Narrative exam: General.: Appears well, no distress, nontoxic HEENT: Moist mucous membranes, extraocular muscles intact, no lymphadenopathy Neck: supple Cardiac: S1-S2 heard Lungs: crackles in bases bilaterally Abdomen: soft , nontender, nondistended, bowel sounds positive Extremities: 3 plus bipedal edema Skin: no rash or lesions Neurologic: no gross focal deficits Psych: appropriate behavior, appropriate mood, corporative, judgment intact - Constitutional Vitals: Temp Pulse Resp BP Pulse Ox 97.7 F 124 H 20 139/104 95 12/23/16 04:17 12/23/16 04:17 12/23/16 04:17 12/23/16 04:17 12/23/16 04:17 General appearance: Present: no acute distress Results - Labs CBC & Chem 7: 12/22/16 21:36 12/23/16 06:02 Labs: Laboratory Last Values WBC 5.6 K/mm3 (4.5-11.0) 12/22/16 21:36 RBC 5.10 M/mm3 (3.65-5.03) H 12/22/16 21:36 Hgb 11.4 gm/dl (11.8-15.2) L 12/22/16 21:36 Hct 36.4 % (35.5-45.6) 12/22/16 21:36 MCV 71 fl (84-94) L 12/22/16 21:36 MCH 22 pg (28-32) L 12/22/16 21:36 MCHC 31 % (32-34) L 12/22/16 21:36 RDW 15.7 % (13.2-15.2) H 12/22/16 21:36 Plt Count 235 K/mm3 (140-440) 12/22/16 21:36 Lymph % (Auto) 19.2 % (13.4-35.0) 12/22/16 21:36 [place] % (Auto) 9.3 % (0.0-7.3) H 12/22/16 21:36 Eos % (Auto) 0.6 % (0.0-4.3) 12/22/16 21:36 Baso % (Auto) 0.8 % (0.0-1.8) 12/22/16 21:36 Lymph # 1.1 K/mm3 (1.2-5.4) L 12/22/16 21:36 [place] # 0.5 K/mm3 (0.0-0.8) 12/22/16 21:36 Eos # 0.0 K/mm3 (0.0-0.4) 12/22/16 21:36 Baso # 0.0 K/mm3 (0.0-0.1) 12/22/16 21:36 Seg Neutrophils % 70.1 % (40.0-70.0) H 12/22/16 21:36 Seg Neutrophils # 3.9 K/mm3 (1.8-7.7) 12/22/16 21:36 Sodium 144 mmol/L (137-145) 12/23/16 06:02 Potassium 4.5 mmol/L (3.6-5.0) 12/23/16 06:02 Chloride 104.0 mmol/L (98-107) 12/23/16 06:02 Carbon Dioxide 22 mmol/L (22-30) 12/23/16 06:02 Anion Gap 23 mmol/L 12/23/16 06:02 BUN 37 mg/dL (9-20) H 12/23/16 06:02 Creatinine 1.7 mg/dL (0.8-1.5) H 12/23/16 06:02 Estimated GFR 51 ml/min 12/23/16 06:02 BUN/Creatinine Ratio 21.76 % 12/23/16 06:02 Glucose 139 mg/dL (75-100) H 12/23/16 06:02 Calcium 8.7 mg/dL (8.4-10.2) 12/23/16 06:02 Troponin T 0.036 ng/mL (0.00-0.029) H 12/23/16 06:02 NT-Pro-B Natriuret Pep 5510 pg/mL (0-900) H 12/22/16 21:36 Triglycerides 64 mg/dL (2-149) 12/22/16 21:36 Cholesterol 145 mg/dL (50-199) 12/22/16 21:36 LDL Cholesterol Direct 108 mg/dL (50-130) 12/22/16 21:36 HDL Cholesterol 25 mg/dL (40-59) L 12/22/16 21:36 Cholesterol/HDL Ratio 5.80 % 12/22/16 21:36
[2016-12-23] MEDS: LANOXIN PO SCH (17:56)
[2016-12-24] MEDS: LASIX IV SCH ×2 (06:14→18:58)
[2016-12-24 08:35] LABS: BUN/Creatinine Ratio 21.11; Calcium 8.5 mg/dL (8.4-10.2); Chloride 103.5 mmol/L (98-107); Potassium 3.8 mmol/L (3.6-5.0)
[2016-12-24] MEDS: APRESOLINE PO SCH ×3 (08:36→20:07)
[2016-12-24] MEDS: ROBITUSSIN PO PRN ×2 (08:51→19:05)
--- NOTE | 2016-12-24 10:17 | Progress Note ---
Assessment and Plan Assessment and plan: 56-year-old -[place]ander male with past medical history significant for CAD, ischemic cardiomyopathy with ejection fraction of 10-15%, paroxysmal A. fib, hypertension presented to the emergency department complaining of midsternal chest pain, sob, LE edema, orthopnea and ROGEL Acute hypoxic respiratory failure -continue oxygen supplement, continue to diuresis - EKG normal sinus rhythm, no ST elevation - Patient has a recent cardiac workup, sp recent negative cath - Cardiology consult appreciated Acute on chronic systolic CHF exacerbation - Patient is on IV Lasix - Continue home medications, cardiology consult - recent ischemic workup, cath was negative last negative Hypertension - Controlled - Continue home medications Paroxysmal A. fib with hyper-coaguable state - Continue Eliquis, continue rate control CKD stage 3 use diuretics judiciously, nephrology consult appreciated DVT Prophylaxis -continue eliquis History Interval history: still c/o dull chest pain, SOB, orthopnea, ROGEL, and LE edema Hospitalist Physical - Physical exam Narrative exam: General.: Appears well, no distress, nontoxic HEENT: Moist mucous membranes, extraocular muscles intact, no lymphadenopathy Neck: supple Cardiac: S1-S2 heard Lungs: crackles in bases bilaterally Abdomen: soft , nontender, nondistended, bowel sounds positive Extremities: 3 plus bipedal edema Skin: no rash or lesions Neurologic: no gross focal deficits Psych: appropriate behavior, appropriate mood, corporative, judgment intact - Constitutional Vitals: Temp Pulse Resp BP Pulse Ox 98.4 F 121 H 18 134/88 93 12/24/16 04:50 12/24/16 04:50 12/24/16 04:50 12/24/16 04:50 12/24/16 04:50 General appearance: Present: mild distress Results - Labs CBC & Chem 7: 12/22/16 21:36 12/24/16 06:56 Labs: Laboratory Last Values WBC 5.6 K/mm3 (4.5-11.0) 12/22/16 21:36 RBC 5.10 M/mm3 (3.65-5.03) H 12/22/16 21:36 Hgb 11.4 gm/dl (11.8-15.2) L 12/22/16 21:36 Hct 36.4 % (35.5-45.6) 12/22/16 21:36 MCV 71 fl (84-94) L 12/22/16 21:36 MCH 22 pg (28-32) L 12/22/16 21:36 MCHC 31 % (32-34) L 12/22/16 21:36 RDW 15.7 % (13.2-15.2) H 12/22/16 21:36 Plt Count 235 K/mm3 (140-440) 12/22/16 21:36 Lymph % (Auto) 19.2 % (13.4-35.0) 12/22/16 21:36 [place] % (Auto) 9.3 % (0.0-7.3) H 12/22/16 21:36 Eos % (Auto) 0.6 % (0.0-4.3) 12/22/16 21:36 Baso % (Auto) 0.8 % (0.0-1.8) 12/22/16 21:36 Lymph # 1.1 K/mm3 (1.2-5.4) L 12/22/16 21:36 [place] # 0.5 K/mm3 (0.0-0.8) 12/22/16 21:36 Eos # 0.0 K/mm3 (0.0-0.4) 12/22/16 21:36 Baso # 0.0 K/mm3 (0.0-0.1) 12/22/16 21:36 Seg Neutrophils % 70.1 % (40.0-70.0) H 12/22/16 21:36 Seg Neutrophils # 3.9 K/mm3 (1.8-7.7) 12/22/16 21:36 Sodium 144 mmol/L (137-145) 12/23/16 06:02 Potassium 4.5 mmol/L (3.6-5.0) 12/23/16 06:02 Chloride 104.0 mmol/L (98-107) 12/23/16 06:02 Carbon Dioxide 26 mmol/L (22-30) 12/24/16 06:56 Anion Gap 23 mmol/L 12/23/16 06:02 BUN 38 mg/dL (9-20) H 12/24/16 06:56 Creatinine 1.8 mg/dL (0.8-1.5) H 12/24/16 06:56 Estimated GFR 47 ml/min 12/24/16 06:56 BUN/Creatinine Ratio 21.11 % 12/24/16 06:56 Glucose 100 mg/dL (75-100) 12/24/16 06:56 Calcium 8.5 mg/dL (8.4-10.2) 12/24/16 06:56 Troponin T 0.036 ng/mL (0.00-0.029) H 12/23/16 06:02 NT-Pro-B Natriuret Pep 5510 pg/mL (0-900) H 12/22/16 21:36 Triglycerides 64 mg/dL (2-149) 12/22/16 21:36 Cholesterol 145 mg/dL (50-199) 12/22/16 21:36 LDL Cholesterol Direct 108 mg/dL (50-130) 12/22/16 21:36 HDL Cholesterol 25 mg/dL (40-59) L 12/22/16 21:36 Cholesterol/HDL Ratio 5.80 % 12/22/16 21:36
[2016-12-24] MEDS: NORVASC PO SCH (10:48)
[2016-12-24] MEDS: ELIQUIS PO SCH ×3 (10:48→21:39)
[2016-12-24] MEDS: PEPCID PO SCH ×2 (10:48→21:39)
[2016-12-24] MEDS: CORDARONE PO SCH ×2 (10:48→21:39)
[2016-12-24] MEDS: FEOSOL PO SCH ×2 (10:48→21:39)
[2016-12-24] MEDS: BABY ASPIRIN PO SCH (10:49)
[2016-12-24] MEDS: COREG PO SCH ×2 (10:49→21:39)
--- NOTE | 2016-12-24 12:17 | Progress Note ---
Assessment and Plan Systolic Heart Failure s/t noncompliance with medications and fluid restrictions Nonischemic Cardiomyopathy, LVEF 20-25% Paroxysmal Atrial fibrillation/flutter on eliquis as an outpatient for anticoagulation. ardiac catheterization demonstrated normal coronary arteries Hypertension Acute on chronic kidney disease Obesity Plan: Optimal rate control for paroxysmal Afib Medical therapy for heart failure including diuretics, afterload reducing agents , beta blockers and oral anticoagulation. Advised strict low salt and fluid restricted diet. Subjective Date of service: 12/24/16 Interval history: Patient reports his breathing is better. Admits he is diuresing well Afib with RVR on telemetry. Objective Vital Signs Temp Pulse Resp BP BP Pulse Ox 12/24/16 07:25 120 H 12/24/16 04:50 98.4 F 121 H 18 134/88 93 12/24/16 00:50 97.7 F 122 H 18 105/83 95 12/23/16 21:44 123 H 104/77 12/23/16 21:00 124 H 12/23/16 19:41 123 H 104/77 100 12/23/16 19:10 122 H 12/23/16 17:41 122 H 95 - Physical Examination General: No Apparent Distress HEENT: Positive: PERRL Neck: Positive: trachea midline Cardiac: Positive: irregularly irregular Neuro: Positive: Grossly Intact Extremities: Present: +2 Edema - Labs and Meds Comprehensive Metabolic Panel 12/24/16 Range/Units 06:56 Carbon Dioxide 26 (22-30) mmol/L BUN 38 H (9-20) mg/dL Creatinine 1.8 H (0.8-1.5) mg/dL Glucose 100 (75-100) mg/dL Calcium 8.5 (8.4-10.2) mg/dL
[2016-12-24] MEDS ORDERED: ELIQUIS PO SCH (12:44)
--- NOTE | 2016-12-24 13:42 | Progress Note ---
Assessment and Plan Impression: * Acute kidney injury likely secondary to cardiorenal syndrome on stage III chronic kidney disease --Baseline SCr 1.4-1.5mg/dL * Acute on chronic systolic heart failure * Nonischemic Cardiomyopathy, LVEF 20-25% * Hypertension * Atrial fibrillation Plan: * Continue diuresis per cardiology * Monitor renal function * Optimization of cardiac function * Replete lytes prn * Sodium/fluid restricted diet * Avoid potential nephrotoxins Subjective Date of service: 12/24/16 Principal diagnosis: paulo on ckd Interval history: resting in bed Objective - Exam Narrative Exam: General appearance: well-developed, well-nourished EENT: ATNC Respiratory: Other (faint inspiratory crackles) Heart: irregular Gastrointestinal: Present: obese. Absent: tenderness, distended Integumentary: other (chronic venous stasis) Neurologic: no focal deficit Musculoskeletal: Present: other (2+ edema) Psychiatric: cooperative - Vital Signs Vital signs: Vital Signs - 12hr 12/24/16 12/24/16 04:50 07:25 Temperature 98.4 F Pulse Rate 121 H 120 H Respiratory 18 Rate Blood Pressure 134/88 [Right] O2 Sat by Pulse 93 Oximetry - Lab 12/22/16 21:36 12/24/16 06:56 Most recent lab results Calcium 8.5 mg/dL (8.4-10.2) 12/24/16 06:56
[2016-12-24] MEDS: LANOXIN PO SCH (18:58)
[2016-12-25] MEDS: ROBITUSSIN PO PRN ×4 (00:13→22:15)
[2016-12-25] MEDS: LASIX IV SCH ×2 (06:35→17:28)
--- NOTE | 2016-12-25 08:13 | Progress Note ---
Assessment and Plan Systolic Heart Failure s/t noncompliance with medications and fluid restrictions Nonischemic Cardiomyopathy, LVEF 20-25% Paroxysmal Atrial fibrillation/flutter on eliquis as an outpatient for anticoagulation. ardiac catheterization demonstrated normal coronary arteries Hypertension Acute on chronic kidney disease Obesity Plan: Optimal rate control for paroxysmal Afib Medical therapy for heart failure including diuretics, afterload reducing agents , beta blockers and oral anticoagulation. Advised strict low salt and fluid restricted diet. monitor daily BUN/Cr. Add ACEi prior to discharge once renal function is stable Continue anticoagulation with eliquis to 5 mg po bid Will consider MINNA guided cardioversion for paroxysmal typical flutter early next week if persistent over the weekend. Consider for flutter ablation outpatient Subjective Date of service: 12/25/16 Principal diagnosis: paulo on ckd Interval history: No acute events. Resting comfortably. No chest pain or SOB. Objective Vital Signs Temp Pulse Resp BP BP Pulse Ox 12/25/16 06:30 113 H 110/75 12/25/16 06:00 90 12/25/16 04:57 98.1 F 89 20 97/77 12/25/16 00:30 97.8 F 56 L 19 114/81 97 12/24/16 22:00 92 12/24/16 21:39 126 H 108/74 12/24/16 19:41 98.3 F 125 H 21 110/66 94 12/24/16 18:58 118 H 12/24/16 17:43 97/64 12/24/16 17:42 98.1 F 87 20 97/64 84 12/24/16 16:00 98.1 F 122 H 18 97/64 96 12/24/16 12:25 98.7 F 124 H 18 105/68 91 12/24/16 12:00 98.7 F 119 H 20 105/68 94 12/24/16 10:00 94 12/24/16 08:40 66 90 12/24/16 08:38 119 H 130/94 92 12/24/16 08:15 97.9 F 111 H 20 130/94 92 - Physical Examination General: No Apparent Distress HEENT: Positive: PERRL Neck: Positive: trachea midline Neuro: Positive: Grossly Intact Extremities: Present: +2 Edema - Labs and Meds Comprehensive Metabolic Panel 12/24/16 Range/Units 06:56 Carbon Dioxide 26 (22-30) mmol/L BUN 38 H (9-20) mg/dL Creatinine 1.8 H (0.8-1.5) mg/dL Glucose 100 (75-100) mg/dL Calcium 8.5 (8.4-10.2) mg/dL
[2016-12-25 08:17] LABS: BUN/Creatinine Ratio 18.23; Calcium 8.1 mg/dL (8.4-10.2); Chloride 102.2 mmol/L (98-107); Potassium 3.5 mmol/L (3.6-5.0)
[2016-12-25] MEDS: CORDARONE PO SCH ×2 (10:59→22:03)
[2016-12-25] MEDS: BABY ASPIRIN PO SCH (11:00)
[2016-12-25] MEDS: ZESTRIL PO SCH (11:01)
[2016-12-25] MEDS: ELIQUIS PO SCH ×2 (11:03→22:02)
[2016-12-25] MEDS: PEPCID PO SCH ×2 (11:03→22:02)
[2016-12-25] MEDS: COREG PO SCH ×2 (11:03→22:25)
[2016-12-25] MEDS: FEOSOL PO SCH ×2 (11:04→22:03)
[2016-12-25] MEDS: IMDUR PO SCH (11:04)
[2016-12-25] MEDS ORDERED: K-DUR PO ONE (11:17)
--- NOTE | 2016-12-25 11:20 | Progress Note ---
Assessment and Plan Assessment and plan: 56-year-old -Romanian male with past medical history significant for CAD, ischemic cardiomyopathy with ejection fraction of 10-15%, paroxysmal A. fib, hypertension presented to the emergency department complaining of midsternal chest pain, sob, LE edema, orthopnea and ROGEL Acute hypoxic respiratory failure -continue oxygen supplement, continue to diuresis - EKG normal sinus rhythm, no ST elevation - Patient has a recent cardiac workup, sp recent negative cath - Cardiology consult appreciated Acute on chronic systolic CHF exacerbation - Patient is on IV Lasix - Continue home medications, cardiology consult - recent ischemic workup, cath was negative last negative Hypertension - Controlled - Continue home medications Paroxysmal A. fib with hyper-coaguable state - Continue Eliquis, continue rate control CKD stage 3 use diuretics judiciously, nephrology consult appreciated DVT Prophylaxis -continue eliquis History Interval history: He states that shortness of breath and lower extremity edema is much improved now. He still has some orthopnea Hospitalist Physical - Physical exam Narrative exam: General.: Appears well, no distress, nontoxic HEENT: Moist mucous membranes, extraocular muscles intact, no lymphadenopathy Neck: supple Cardiac: S1-S2 heard Lungs: Bibasilar crackles Abdomen: soft , nontender, nondistended, bowel sounds positive Extremities: 2+ bipedal edema Skin: no rash or lesions Neurologic: no gross focal deficits Psych: appropriate behavior, appropriate mood, corporative, judgment intact - Constitutional Vitals: Temp Pulse Resp BP Pulse Ox 98.1 F 112 H 20 121/75 97 12/25/16 04:57 12/25/16 11:04 12/25/16 04:57 12/25/16 11:04 12/25/16 00:30 General appearance: Present: mild distress Results - Labs CBC & Chem 7: 12/22/16 21:36 12/25/16 07:22 Labs: Laboratory Last Values WBC 5.6 K/mm3 (4.5-11.0) 12/22/16 21:36 RBC 5.10 M/mm3 (3.65-5.03) H 12/22/16 21:36 Hgb 11.4 gm/dl (11.8-15.2) L 12/22/16 21:36 Hct 36.4 % (35.5-45.6) 12/22/16 21:36 MCV 71 fl (84-94) L 12/22/16 21:36 MCH 22 pg (28-32) L 12/22/16 21:36 MCHC 31 % (32-34) L 12/22/16 21:36 RDW 15.7 % (13.2-15.2) H 12/22/16 21:36 Plt Count 235 K/mm3 (140-440) 12/22/16 21:36 Lymph % (Auto) 19.2 % (13.4-35.0) 12/22/16 21:36 [place] % (Auto) 9.3 % (0.0-7.3) H 12/22/16 21:36 Eos % (Auto) 0.6 % (0.0-4.3) 12/22/16 21:36 Baso % (Auto) 0.8 % (0.0-1.8) 12/22/16 21:36 Lymph # 1.1 K/mm3 (1.2-5.4) L 12/22/16 21:36 [place] # 0.5 K/mm3 (0.0-0.8) 12/22/16 21:36 Eos # 0.0 K/mm3 (0.0-0.4) 12/22/16 21:36 Baso # 0.0 K/mm3 (0.0-0.1) 12/22/16 21:36 Seg Neutrophils % 70.1 % (40.0-70.0) H 12/22/16 21:36 Seg Neutrophils # 3.9 K/mm3 (1.8-7.7) 12/22/16 21:36 Sodium 143 mmol/L (137-145) 12/25/16 07:22 Potassium 3.5 mmol/L (3.6-5.0) L 12/25/16 07:22 Chloride 102.2 mmol/L (98-107) 12/25/16 07:22 Carbon Dioxide 27 mmol/L (22-30) 12/25/16 07:22 Anion Gap 17 mmol/L 12/25/16 07:22 BUN 31 mg/dL (9-20) H 12/25/16 07:22 Creatinine 1.7 mg/dL (0.8-1.5) H 12/25/16 07:22 Estimated GFR 51 ml/min 12/25/16 07:22 BUN/Creatinine Ratio 18.23 % 12/25/16 07:22 Glucose 101 mg/dL (75-100) H 12/25/16 07:22 Calcium 8.1 mg/dL (8.4-10.2) L 12/25/16 07:22 Troponin T 0.036 ng/mL (0.00-0.029) H 12/23/16 06:02 NT-Pro-B Natriuret Pep 5510 pg/mL (0-900) H 12/22/16 21:36 Triglycerides 64 mg/dL (2-149) 12/22/16 21:36 Cholesterol 145 mg/dL (50-199) 12/22/16 21:36 LDL Cholesterol Direct 108 mg/dL (50-130) 12/22/16 21:36 HDL Cholesterol 25 mg/dL (40-59) L 12/22/16 21:36 Cholesterol/HDL Ratio 5.80 % 12/22/16 21:36
[2016-12-25] MEDS: APRESOLINE PO SCH ×3 (11:22→22:25)
--- NOTE | 2016-12-25 11:25 | Progress Note ---
Assessment and Plan Impression: * Acute kidney injury likely secondary to cardiorenal syndrome on stage III chronic kidney disease --Baseline SCr 1.4-1.5mg/dL * Acute on chronic systolic heart failure * Nonischemic Cardiomyopathy, LVEF 20-25% * Hypertension * Atrial fibrillation Plan: * Continue diuresis per cardiology * Monitor renal function, cr is stable * Optimization of cardiac function * Replete lytes prn * Sodium/fluid restricted diet * Avoid potential nephrotoxins Subjective Date of service: 12/25/16 Principal diagnosis: paulo on ckd Interval history: resting in bed Objective - Exam Narrative Exam: General appearance: well-developed, well-nourished EENT: ATNC Respiratory: Other (faint inspiratory crackles) Heart: irregular Gastrointestinal: Present: obese. Absent: tenderness, distended Integumentary: other (chronic venous stasis) Neurologic: no focal deficit Musculoskeletal: Present: other (2+ edema) Psychiatric: cooperative - Vital Signs Vital signs: Vital Signs - 12hr 12/25/16 12/25/16 12/25/16 00:30 04:57 06:00 Temperature 97.8 F 98.1 F Pulse Rate 56 L 89 90 Respiratory 19 20 Rate Blood Pressure 114/81 Blood Pressure 97/77 [Right] O2 Sat by Pulse 97 Oximetry 12/25/16 12/25/16 12/25/16 06:30 11:01 11:03 Temperature Pulse Rate 113 H 112 H 112 H Respiratory Rate Blood Pressure 121/75 121/75 Blood Pressure 110/75 [Right] O2 Sat by Pulse Oximetry 12/25/16 11:04 Temperature Pulse Rate 112 H Respiratory Rate Blood Pressure 121/75 Blood Pressure [Right] O2 Sat by Pulse Oximetry - Lab 12/22/16 21:36 12/25/16 07:22 Most recent lab results Calcium 8.1 mg/dL (8.4-10.2) L 12/25/16 07:22
[2016-12-25] MEDS: LANOXIN PO SCH (17:28)
[2016-12-26] MEDS: LASIX IV SCH ×2 (05:54→17:28)
[2016-12-26] MEDS: APRESOLINE PO SCH ×3 (05:55→22:00)
[2016-12-26] MEDS: ROBITUSSIN PO PRN ×3 (07:53→22:25)
--- NOTE | 2016-12-26 08:53 | Progress Note ---
Assessment and Plan Systolic Heart Failure s/t noncompliance with medications and fluid restrictions Nonischemic Cardiomyopathy, LVEF 20-25% Paroxysmal Atrial fibrillation/flutter on eliquis as an outpatient for anticoagulation. ardiac catheterization demonstrated normal coronary arteries Hypertension Acute on chronic kidney disease Obesity Plan: Optimal rate control for paroxysmal Afib Medical therapy for heart failure including diuretics, afterload reducing agents , beta blockers and oral anticoagulation. Advised strict low salt and fluid restricted diet. monitor daily BUN/Cr. Add ACEi prior to discharge once renal function is stable Continue anticoagulation with eliquis to 5 mg po bid Will consider MINNA guided cardioversion for paroxysmal typical flutter early next week if persistent over the weekend. Consider for flutter ablation outpatient Subjective Date of service: 12/26/16 Principal diagnosis: paulo on ckd Interval history: No acute events. Resting comfortably. No chest pain or SOB. Objective Vital Signs Temp Pulse Resp BP BP Pulse Ox 12/26/16 08:29 98.4 F 20 117/90 12/26/16 04:05 97.6 F 117 H 20 104/73 94 12/26/16 02:00 107 H 12/26/16 00:02 122.0 F H 120 H 20 87/46 93 12/25/16 19:36 98 12/25/16 19:22 97.8 F 117 H 103/72 12/25/16 17:13 58 L 95 12/25/16 17:12 98.8 F 57 L 20 96/71 94 12/25/16 12:18 60 90 12/25/16 11:04 112 H 121/75 12/25/16 11:03 112 H 121/75 12/25/16 11:01 112 H 121/75 12/25/16 10:00 96 - Physical Examination General: No Apparent Distress HEENT: Positive: PERRL Neck: Positive: trachea midline Neuro: Positive: Grossly Intact Extremities: Present: +2 Edema
[2016-12-26 09:12] LABS: BUN/Creatinine Ratio 19.41; Calcium 8.4 mg/dL (8.4-10.2); Chloride 103.1 mmol/L (98-107); Potassium 3.7 mmol/L (3.6-5.0)
[2016-12-26] MEDS: COREG PO SCH ×2 (09:52→22:00)
[2016-12-26] MEDS: IMDUR PO SCH (09:53)
[2016-12-26] MEDS: K-DUR PO SCH (09:53)
[2016-12-26] MEDS: FEOSOL PO SCH ×2 (09:53→22:22)
[2016-12-26] MEDS: PEPCID PO SCH ×2 (09:53→22:21)
[2016-12-26] MEDS: BABY ASPIRIN PO SCH (09:53)
[2016-12-26] MEDS: ELIQUIS PO SCH ×2 (09:53→22:21)
[2016-12-26] MEDS: CORDARONE PO SCH ×2 (09:53→22:22)
[2016-12-26] MEDS: ZESTRIL PO SCH (09:53)
--- NOTE | 2016-12-26 10:31 | Progress Note ---
Assessment and Plan Assessment and plan: 56-year-old -[place] male with past medical history significant for CAD, ischemic cardiomyopathy with ejection fraction of 10-15%, paroxysmal A. fib, hypertension presented to the emergency department complaining of midsternal chest pain, sob, LE edema, orthopnea and ROGEL Acute hypoxic respiratory failure -continue oxygen supplement, continue to diuresis - EKG normal sinus rhythm, no ST elevation - Patient has a recent cardiac workup, sp recent negative cath - Cardiology consult appreciated Acute on chronic systolic CHF exacerbation - Patient is on IV Lasix - Continue home medications, cardiology consult - recent ischemic workup, cath was negative last negative - resume CRISTIAN inhibitor prior to DC Hypertension - Controlled - Continue home medications Paroxysmal A. fib /A. flutter, with hyper-coaguable state - Continue Eliquis, continue rate control - cardiology input appreciated "Will consider MINNA guided cardioversion for paroxysmal typical flutter early next week if persistent over the weekend" CKD stage 3 use diuretics judiciously, nephrology consult appreciated DVT Prophylaxis -continue eliquis History Interval history: He states that shortness of breath and lower extremity edema is much improved now. He still has some orthopnea Hospitalist Physical - Physical exam Narrative exam: General.: Appears well, no distress, nontoxic HEENT: Moist mucous membranes, extraocular muscles intact, no lymphadenopathy Neck: supple Cardiac: S1-S2 heard Lungs: clear Abdomen: soft , nontender, nondistended, bowel sounds positive Extremities: 1+ bipedal edema Skin: no rash or lesions Neurologic: no gross focal deficits Psych: appropriate behavior, appropriate mood, corporative, judgment intact - Constitutional Vitals: Temp Pulse Resp BP Pulse Ox 98.4 F 117 H 20 117/90 94 12/26/16 08:29 12/26/16 04:05 12/26/16 08:29 12/26/16 08:29 12/26/16 04:05 General appearance: Present: mild distress Results - Labs CBC & Chem 7: 12/22/16 21:36 12/26/16 06:50 Labs: Laboratory Last Values WBC 5.6 K/mm3 (4.5-11.0) 12/22/16 21:36 RBC 5.10 M/mm3 (3.65-5.03) H 12/22/16 21:36 Hgb 11.4 gm/dl (11.8-15.2) L 12/22/16 21:36 Hct 36.4 % (35.5-45.6) 12/22/16 21:36 MCV 71 fl (84-94) L 12/22/16 21:36 MCH 22 pg (28-32) L 12/22/16 21:36 MCHC 31 % (32-34) L 12/22/16 21:36 RDW 15.7 % (13.2-15.2) H 12/22/16 21:36 Plt Count 235 K/mm3 (140-440) 12/22/16 21:36 Lymph % (Auto) 19.2 % (13.4-35.0) 12/22/16 21:36 [place] % (Auto) 9.3 % (0.0-7.3) H 12/22/16 21:36 Eos % (Auto) 0.6 % (0.0-4.3) 12/22/16 21:36 Baso % (Auto) 0.8 % (0.0-1.8) 12/22/16 21:36 Lymph # 1.1 K/mm3 (1.2-5.4) L 12/22/16 21:36 [place] # 0.5 K/mm3 (0.0-0.8) 12/22/16 21:36 Eos # 0.0 K/mm3 (0.0-0.4) 12/22/16 21:36 Baso # 0.0 K/mm3 (0.0-0.1) 12/22/16 21:36 Seg Neutrophils % 70.1 % (40.0-70.0) H 12/22/16 21:36 Seg Neutrophils # 3.9 K/mm3 (1.8-7.7) 12/22/16 21:36 Sodium 145 mmol/L (137-145) 12/26/16 06:50 Potassium 3.7 mmol/L (3.6-5.0) 12/26/16 06:50 Chloride 103.1 mmol/L (98-107) 12/26/16 06:50 Carbon Dioxide 26 mmol/L (22-30) 12/26/16 06:50 Anion Gap 20 mmol/L 12/26/16 06:50 BUN 33 mg/dL (9-20) H 12/26/16 06:50 Creatinine 1.7 mg/dL (0.8-1.5) H 12/26/16 06:50 Estimated GFR 51 ml/min 12/26/16 06:50 BUN/Creatinine Ratio 19.41 % 12/26/16 06:50 Glucose 87 mg/dL (75-100) 12/26/16 06:50 Calcium 8.4 mg/dL (8.4-10.2) 12/26/16 06:50 Troponin T 0.036 ng/mL (0.00-0.029) H 12/23/16 06:02 NT-Pro-B Natriuret Pep 5510 pg/mL (0-900) H 12/22/16 21:36 Triglycerides 64 mg/dL (2-149) 12/22/16 21:36 Cholesterol 145 mg/dL (50-199) 12/22/16 21:36 LDL Cholesterol Direct 108 mg/dL (50-130) 12/22/16 21:36 HDL Cholesterol 25 mg/dL (40-59) L 12/22/16 21:36 Cholesterol/HDL Ratio 5.80 % 12/22/16 21:36
[2016-12-26] MEDS ORDERED: Fluarix Quad 2017-2018(36 MOS+) IM ONE (12:00)
--- NOTE | 2016-12-26 12:46 | Progress Note ---
Assessment and Plan Impression: * Acute kidney injury likely secondary to cardiorenal syndrome on stage III chronic kidney disease --Baseline SCr 1.4-1.5mg/dL * Acute on chronic systolic heart failure * Nonischemic Cardiomyopathy, LVEF 20-25% * Hypertension * Atrial fibrillation Plan: * Continue diuresis per cardiology * Monitor renal function, cr is stable * Optimization of cardiac function * Replete lytes prn * Sodium/fluid restricted diet * Avoid potential nephrotoxins Subjective Date of service: 12/26/16 Principal diagnosis: paulo on ckd Interval history: resting in bed Objective - Exam Narrative Exam: General appearance: well-developed, well-nourished EENT: ATNC Respiratory: Other (faint inspiratory crackles) Heart: irregular Gastrointestinal: Present: obese. Absent: tenderness, distended Integumentary: other (chronic venous stasis) Neurologic: no focal deficit Musculoskeletal: Present: other (2+ edema) Psychiatric: cooperative - Vital Signs Vital signs: Vital Signs - 12hr 12/26/16 12/26/16 12/26/16 02:00 04:05 08:29 Temperature 97.6 F 98.4 F Pulse Rate 107 H 117 H Respiratory 20 20 Rate Blood Pressure 104/73 117/90 O2 Sat by Pulse 94 Oximetry - Lab 12/22/16 21:36 12/26/16 06:50 Most recent lab results Calcium 8.4 mg/dL (8.4-10.2) 12/26/16 06:50
[2016-12-26] MEDS: LANOXIN PO SCH (17:29)
[2016-12-27] MEDS: ROBITUSSIN PO PRN ×2 (06:08→19:17)
[2016-12-27] MEDS: APRESOLINE PO SCH ×3 (06:08→21:47)
[2016-12-27] MEDS: LASIX IV SCH ×2 (06:09→17:35)
[2016-12-27 07:11] LABS: BUN/Creatinine Ratio 19.33; Calcium 8.2 mg/dL (8.4-10.2); Chloride 104.6 mmol/L (98-107); Potassium 3.9 mmol/L (3.6-5.0)
--- NOTE | 2016-12-27 10:11 | Progress Note ---
Assessment and Plan Impression: * Acute kidney injury likely secondary to cardiorenal syndrome on stage III chronic kidney disease --Baseline SCr 1.4-1.5mg/dL * Acute on chronic systolic heart failure * Nonischemic Cardiomyopathy, LVEF 20-25% * Hypertension * Atrial fibrillation Plan: * Continue diuresis per cardiology * Monitor renal function, cr is stable * Optimization of cardiac function * Replete lytes prn * Sodium/fluid restricted diet * Avoid potential nephrotoxins Subjective Date of service: 12/27/16 Principal diagnosis: paulo on ckd Interval history: resting in bed Objective - Exam Narrative Exam: General appearance: well-developed, well-nourished EENT: ATNC Respiratory: Other (faint inspiratory crackles) Heart: irregular Gastrointestinal: Present: obese. Absent: tenderness, distended Integumentary: other (chronic venous stasis) Neurologic: no focal deficit Musculoskeletal: Present: other (2+ edema) Psychiatric: cooperative - Vital Signs Vital signs: Vital Signs - 12hr 12/27/16 12/27/16 12/27/16 00:32 02:00 04:45 Temperature 98.2 F 98.1 F Pulse Rate 54 L 104 H 47 L Respiratory 20 20 Rate Blood Pressure 111/81 128/87 O2 Sat by Pulse 92 94 Oximetry 12/27/16 12/27/16 12/27/16 06:08 07:42 07:43 Temperature 98.3 F Pulse Rate 47 L 44 L 62 Respiratory 20 Rate Blood Pressure 128/87 105/51 O2 Sat by Pulse 90 90 Oximetry 12/27/16 09:30 Temperature Pulse Rate Respiratory Rate Blood Pressure O2 Sat by Pulse 98 Oximetry - Lab 12/22/16 21:36 12/27/16 06:16 Most recent lab results Calcium 8.2 mg/dL (8.4-10.2) L 12/27/16 06:16
[2016-12-27] MEDS: IMDUR PO SCH (11:08)
[2016-12-27] MEDS: ZESTRIL PO SCH (11:09)
[2016-12-27] MEDS: ELIQUIS PO SCH ×2 (11:09→21:46)
[2016-12-27] MEDS: BABY ASPIRIN PO SCH (11:09)
[2016-12-27] MEDS: COREG PO SCH ×2 (11:09→21:48)
[2016-12-27] MEDS: CORDARONE PO SCH ×2 (11:09→21:48)
[2016-12-27] MEDS: PEPCID PO SCH ×2 (11:10→21:46)
--- NOTE | 2016-12-27 12:04 | Progress Note ---
Assessment and Plan Systolic Heart Failure s/t noncompliance with medications and fluid restrictions Nonischemic Cardiomyopathy, LVEF 20-25% Persistent Atrial fibrillation/flutter on eliquis as an outpatient for anticoagulation. Cardiac catheterization demonstrated normal coronary arteries 10/2016 Hypertension Acute on chronic kidney disease Obesity Recommendations: Continue medical therapy for heart failure including diuretics, afterload reducing agents, beta blockers and oral anticoagulation. Advised strict low salt and fluid restricted diet. Subjective Date of service: 12/27/16 Principal diagnosis: paulo on ckd Interval history: Lower extremity edema is improving. Patient reports his breathing is better. Objective Vital Signs Temp Pulse Resp BP BP Pulse Ox 12/27/16 11:09 155/71 12/27/16 11:08 105/51 12/27/16 11:00 98.7 F 43 L 20 126/81 96 12/27/16 10:59 42 L 98 12/27/16 10:00 86 12/27/16 09:30 98 12/27/16 07:43 62 90 12/27/16 07:42 98.3 F 44 L 20 105/51 90 12/27/16 06:08 47 L 128/87 12/27/16 04:45 98.1 F 47 L 20 128/87 94 12/27/16 02:00 104 H 12/27/16 00:32 98.2 F 54 L 20 111/81 92 12/26/16 22:00 47 L 95/71 12/26/16 20:36 100 12/26/16 19:41 97.5 F L 47 L 18 95/71 94 12/26/16 17:29 110 H 12/26/16 16:29 97.3 F L 45 L 18 130/54 96 12/26/16 15:01 73 - Physical Examination General: No Apparent Distress HEENT: Positive: PERRL Neck: Positive: trachea midline Cardiac: Positive: irregularly irregular Neuro: Positive: Grossly Intact Extremities: Present: +1 Edema - Labs and Meds Comprehensive Metabolic Panel 12/27/16 Range/Units 06:16 Sodium 144 (137-145) mmol/L Potassium 3.9 (3.6-5.0) mmol/L Chloride 104.6 (98-107) mmol/L Carbon Dioxide 27 (22-30) mmol/L BUN 29 H (9-20) mg/dL Creatinine 1.5 (0.8-1.5) mg/dL Glucose 108 H (75-100) mg/dL Calcium 8.2 L (8.4-10.2) mg/dL
--- NOTE | 2016-12-27 12:35 | Progress Note ---
Assessment and Plan Assessment and plan: 56-year-old -[place] male with past medical history significant for CAD, ischemic cardiomyopathy with ejection fraction of 10-15%, paroxysmal A. fib, hypertension presented to the emergency department complaining of midsternal chest pain, sob, LE edema, orthopnea and ROGEL Acute hypoxic respiratory failure -continue oxygen supplement, continue to diuresis - EKG normal sinus rhythm, no ST elevation - Patient has a recent cardiac workup, sp recent negative cath - Cardiology consult appreciated Acute on chronic systolic CHF exacerbation, NICM - Patient is on IV Lasix - Continue home medications, cardiology consult appreciated - recent ischemic workup, cath was negative negative - resume CRISTIAN inhibitor prior to DC -noncompliance with medications and fluid restrictions Nonadherence to medical therapy -He is not compliant with low-salt diet, fluid restriction or medications -He has been counseled on improved compliance Hypertension - Controlled - Continue home medications Paroxysmal A. fib /A. flutter, with hyper-coaguable state - Continue Eliquis, optimize rate control - cardiology input appreciated CKD stage 3 use diuretics judiciously, nephrology consult appreciated DVT Prophylaxis -continue eliquis History Interval history: He states that shortness of breath and lower extremity edema is much improved now. orthopnea is also resolved Hospitalist Physical - Physical exam Narrative exam: General.: Appears well, no distress, nontoxic HEENT: Moist mucous membranes, extraocular muscles intact, no lymphadenopathy Neck: supple Cardiac: S1-S2 heard Lungs: clear Abdomen: soft , nontender, nondistended, bowel sounds positive Extremities: 1+ bipedal edema Skin: no rash or lesions Neurologic: no gross focal deficits Psych: appropriate behavior, appropriate mood, corporative, judgment intact - Constitutional Vitals: Temp Pulse Resp BP Pulse Ox 98.7 F 43 L 20 155/71 96 12/27/16 11:00 12/27/16 11:00 12/27/16 11:00 12/27/16 11:09 12/27/16 11:00 Results - Labs CBC & Chem 7: 12/22/16 21:36 12/27/16 06:16 Labs: Laboratory Last Values WBC 5.6 K/mm3 (4.5-11.0) 12/22/16 21:36 RBC 5.10 M/mm3 (3.65-5.03) H 12/22/16 21:36 Hgb 11.4 gm/dl (11.8-15.2) L 12/22/16 21:36 Hct 36.4 % (35.5-45.6) 12/22/16 21:36 MCV 71 fl (84-94) L 12/22/16 21:36 MCH 22 pg (28-32) L 12/22/16 21:36 MCHC 31 % (32-34) L 12/22/16 21:36 RDW 15.7 % (13.2-15.2) H 12/22/16 21:36 Plt Count 235 K/mm3 (140-440) 12/22/16 21:36 Lymph % (Auto) 19.2 % (13.4-35.0) 12/22/16 21:36 [place] % (Auto) 9.3 % (0.0-7.3) H 12/22/16 21:36 Eos % (Auto) 0.6 % (0.0-4.3) 12/22/16 21:36 Baso % (Auto) 0.8 % (0.0-1.8) 12/22/16 21:36 Lymph # 1.1 K/mm3 (1.2-5.4) L 12/22/16 21:36 [place] # 0.5 K/mm3 (0.0-0.8) 12/22/16 21:36 Eos # 0.0 K/mm3 (0.0-0.4) 12/22/16 21:36 Baso # 0.0 K/mm3 (0.0-0.1) 12/22/16 21:36 Seg Neutrophils % 70.1 % (40.0-70.0) H 12/22/16 21:36 Seg Neutrophils # 3.9 K/mm3 (1.8-7.7) 12/22/16 21:36 Sodium 144 mmol/L (137-145) 12/27/16 06:16 Potassium 3.9 mmol/L (3.6-5.0) 12/27/16 06:16 Chloride 104.6 mmol/L (98-107) 12/27/16 06:16 Carbon Dioxide 27 mmol/L (22-30) 12/27/16 06:16 Anion Gap 16 mmol/L 12/27/16 06:16 BUN 29 mg/dL (9-20) H 12/27/16 06:16 Creatinine 1.5 mg/dL (0.8-1.5) 12/27/16 06:16 Estimated GFR 58 ml/min 12/27/16 06:16 BUN/Creatinine Ratio 19.33 % 12/27/16 06:16 Glucose 108 mg/dL (75-100) H 12/27/16 06:16 Calcium 8.2 mg/dL (8.4-10.2) L 12/27/16 06:16 Troponin T 0.036 ng/mL (0.00-0.029) H 12/23/16 06:02 NT-Pro-B Natriuret Pep 5510 pg/mL (0-900) H 12/22/16 21:36 Triglycerides 64 mg/dL (2-149) 12/22/16 21:36 Cholesterol 145 mg/dL (50-199) 12/22/16 21:36 LDL Cholesterol Direct 108 mg/dL (50-130) 12/22/16 21:36 HDL Cholesterol 25 mg/dL (40-59) L 12/22/16 21:36 Cholesterol/HDL Ratio 5.80 % 12/22/16 21:36
[2016-12-27] MEDS: FEOSOL PO SCH ×2 (15:09→21:48)
[2016-12-27] MEDS: K-DUR PO SCH (15:09)
[2016-12-27] MEDS: LANOXIN PO SCH (17:53)
[2016-12-28] MEDS: APRESOLINE PO SCH (05:55)
[2016-12-28] MEDS: LASIX IV SCH (05:55)
[2016-12-28] MEDS: ROBITUSSIN PO PRN (05:55)
[2016-12-28 08:27] LABS: Calcium 8.4 mg/dL (8.4-10.2); Chloride 100.8 mmol/L (98-107); Potassium 4.1 mmol/L (3.6-5.0)
--- NOTE | 2016-12-28 10:08 | Progress Note ---
Assessment and Plan Impression: * Acute kidney injury likely secondary to cardiorenal syndrome on stage III chronic kidney disease --Baseline SCr 1.4-1.5mg/dL * Acute on chronic systolic heart failure * Nonischemic Cardiomyopathy, LVEF 20-25% * Hypertension * Atrial fibrillation Plan: * Continue diuresis per cardiology * Monitor renal function, cr is stable * Optimization of cardiac function * Replete lytes prn * Sodium/fluid restricted diet * Avoid potential nephrotoxins * ok to dc home from renal standpoint Subjective Date of service: 12/28/16 Principal diagnosis: paulo on ckd Interval history: resting in bed Objective - Exam Narrative Exam: General appearance: well-developed, well-nourished EENT: ATNC Respiratory: Other (faint inspiratory crackles) Heart: irregular Gastrointestinal: Present: obese. Absent: tenderness, distended Integumentary: other (chronic venous stasis) Neurologic: no focal deficit Musculoskeletal: Present: other (2+ edema) Psychiatric: cooperative - Vital Signs Vital signs: Vital Signs - 12hr 12/28/16 12/28/16 12/28/16 00:29 02:00 05:03 Temperature 98.5 F 97.4 F L Pulse Rate 65 65 68 Respiratory 20 18 Rate Blood Pressure 115/69 122/82 O2 Sat by Pulse 93 97 Oximetry 12/28/16 12/28/16 12/28/16 05:55 07:55 09:09 Temperature Pulse Rate 68 67 Respiratory Rate Blood Pressure 122/82 103/51 O2 Sat by Pulse Oximetry - Lab 12/22/16 21:36 12/28/16 07:25 Most recent lab results Calcium 8.4 mg/dL (8.4-10.2) 12/28/16 07:25
[2016-12-28] MEDS: COREG PO SCH (10:25)
[2016-12-28] MEDS: K-DUR PO SCH (10:25)
[2016-12-28] MEDS: ZESTRIL PO SCH (10:25)
[2016-12-28] MEDS: FEOSOL PO SCH (10:25)
[2016-12-28] MEDS: CORDARONE PO SCH (10:25)
[2016-12-28] MEDS: PEPCID PO SCH (10:25)
[2016-12-28] MEDS: IMDUR PO SCH (10:25)
[2016-12-28] MEDS: BABY ASPIRIN PO SCH (10:25)
[2016-12-28] MEDS: ELIQUIS PO SCH (10:26)
--- NOTE | 2016-12-28 10:51 | Discharge Summary ---
Providers - Providers Date of Admission: 12/22/16 23:11 Date of discharge: 12/28/16 Attending physician: GEMMA ARROYO 12/22/16 23:14 Consult to Physician [CONS] Routine Consulting Provider: ANDRY CURRAN Reason For Exam: chest pain Place consult to:: Lisa cardiology Notified:: stuart Was contact made?: Yes If yes, spoke with:: stuart Time called:: 08:53 12/23/16 11:11 Consult to Physician [CONS] Routine Consulting Provider: BOB LIZAMA Reason For Exam: ckd Place consult to:: amirah Notified:: yes Was contact made?: Yes Time called:: 12:28 Primary care physician: F[employer]ELANCE [employer] PRO[employer] MANAGER Hospitalization Condition: Fair Disposition: DC-01 TO HOME OR SELFCARE Exam - Constitutional Vitals: Temp Pulse Resp BP Pulse Ox 97.4 F L 67 18 103/51 97 12/28/16 05:03 12/28/16 07:55 12/28/16 05:03 12/28/16 09:09 12/28/16 05:03 Plan Activity: advance as tolerated Diet: low fat, low cholesterol, low salt, renal Additional Instructions: 1,Follow up with PCP in 1 week. 2.Follow up with strategic accounts manager in 1 week. 3.Follow up with Nephrology in 1 week Follow up with: PRIMARY CARE, [Primary Care Provider] - 3-5 Days Forms: Discharge Signature Page Prescriptions: Apixaban [Eliquis] 5 mg PO Q12HR #60 tablet hydrALAZINE [Apresoline TAB] 50 mg PO Q8HR #90 tablet ISOSORBIDE MONOnitrate [Imdur ER] 30 mg PO QDAY #30 tablet Lisinopril [Zestril TAB] 2.5 mg PO QDAY #30 tablet
--- NOTE | 2016-12-28 11:54 | Progress Note ---
Assessment and Plan Systolic Heart Failure s/t noncompliance with medications and fluid restrictions Nonischemic Cardiomyopathy, LVEF 20-25% Paroxysmal Atrial fibrillation/flutter currently in sinus rhythm on eliquis as an outpatient for anticoagulation. Cardiac catheterization demonstrated normal coronary arteries 10/2016 Hypertension Acute on chronic kidney disease Obesity Recommendations: Continue medical therapy for heart failure and paroxysmal Afib including diuretics, afterload reducing agents, beta blockers and oral anticoagulation. Advised strict low salt and fluid restricted diet. Once discharged, patient advised to follow up with his Manager Area in [facility]. Subjective Date of service: 12/28/16 Principal diagnosis: paulo on ckd Interval history: Patient reverted to sinus rhythm on telemetry. For planned discharge home today. Objective Vital Signs Temp Pulse Resp BP BP Pulse Ox 12/28/16 09:09 103/51 12/28/16 07:55 67 12/28/16 05:55 68 122/82 12/28/16 05:03 97.4 F L 68 18 122/82 97 12/28/16 02:00 65 12/28/16 00:29 98.5 F 65 20 115/69 93 12/27/16 19:27 97.2 F L 72 20 97/61 94 12/27/16 17:53 72 105/69 12/27/16 17:52 105/69 12/27/16 17:03 98.0 F 67 18 87/45 96 12/27/16 16:53 66 97 12/27/16 15:09 155/71 - Physical Examination General: No Apparent Distress HEENT: Positive: PERRL Neck: Positive: trachea midline Cardiac: Positive: Reg Rate and Rhythm Neuro: Positive: Grossly Intact Extremities: Present: +1 Edema - Labs and Meds Comprehensive Metabolic Panel 12/28/16 Range/Units 07:25 Chloride 100.8 (98-107) mmol/L Carbon Dioxide 29 (22-30) mmol/L BUN 29 H (9-20) mg/dL Creatinine 1.7 H (0.8-1.5) mg/dL Glucose 96 (75-100) mg/dL Calcium 8.4 (8.4-10.2) mg/dL
[2016-12-28 13:40] VITALS: BP 101/52
== END 2016-12-28 13:59 | disposition home or self-care (01) | DRG 291 ==
LOC: ED 19:22 → 4A 23:11
PROVIDERS: ADMIT Internal Medicine; ATTEND Internal Medicine
PROC: 3E0234Z Introduction of Serum, Toxoid and Vaccine into Muscle, Percutaneous Approach (ICD-10-PCS; principal; 2016-12-26)
DX: I13.0 Hypertensive heart and chronic kidney disease with heart failure and stage 1 through stage 4 chronic kidney disease, or unspecified chronic kidney disease (principal); J96.01 Acute respiratory failure with hypoxia; I50.43 Acute on chronic combined systolic (congestive) and diastolic (congestive) heart failure; N17.9 Acute kidney failure, unspecified; I48.1 Persistent atrial fibrillation; I48.92 Unspecified atrial flutter; N18.3 Chronic kidney disease, stage 3 (moderate); Z23 Encounter for immunization
CPT/HCPCS: 36415; 71020; 80048; 80061; 83880; 84484; 85025; 90686; 93005; 93010; 94760; A9270-GY; J1940; J2270

== ENCOUNTER 2017-03-07 10:14 | Inpatient (IN) | payer SELFPAY ==
--- NOTE | 2017-03-07 11:33 | Emergency Department Report ---
Chief Complaint: Dyspnea/Respdistress Stated Complaint: CHF Time Seen by Provider: 03/07/17 11:30 - HPI History of Present Illness: Patient with H/O CHF and HTN presents to ED with c/o SOB, worsening leg swelling and decreased appetite for the past week; denies CP and fevers - ROS Review of Systems: Negative except for those stated in HPI - Exam Physical Exam: NAD Heart - Tachycardic Lungs - CTAB Bilateral pitting edema in lower extremities MSE screening note: Focused history and physical exam performed. Due to findings the following was ordered: EKG, Chest x-ray, labs Patient to be seen by provider in Main ED ED Disposition for MSE Condition: Stable
[2017-03-07 11:34] LABS: Basophils % (Auto) 0.7 % (0.0-1.8); Eosinophils % (Auto) 0.3 % (0.0-4.3); Hematocrit 34.2 % (35.5-45.6); Hemoglobin 10.8 gm/dl (11.8-15.2); Mean Corpuscular HGB Conc 32 % (32-34); Platelet Count 362 K/mm3 (140-440); Red Blood Count 4.95 M/mm3 (3.65-5.03); Red Cell Distribution Width 17.6 % (13.2-15.2); White Blood Count 5.2 K/mm3 (4.5-11.0)
[2017-03-07 11:35] LABS: Mean Corpuscular Hemoglobin 22 pg (28-32); Mean Corpuscular Volume 69 fl (84-94)
[2017-03-07 11:45] LABS: Calcium 8.7 mg/dL (8.4-10.2); Chloride 101.6 mmol/L (98-107); Potassium 4.2 mmol/L (3.6-5.0)
--- NOTE | 2017-03-07 12:19 | XRay Report ---
ROUTINE CHEST, TWO VIEWS: HISTORY: Shortness of breath. Compared to 12/22/16. There is moderate cardiomegaly, mild pulmonary venous congestion and trace bilateral pleural effusions. No obvious pneumonia. No pneumothorax. A 2-lead pacemaker device is in position. IMPRESSION: CHF. No overwhelming change since 12/22/16.
[2017-03-07] MEDS ORDERED: LASIX IV ONE (12:37)
--- NOTE | 2017-03-07 12:41 | Emergency Department Report ---
ED Shortness of Breath HPI - General Chief Complaint: Dyspnea/Respdistress Stated Complaint: CHF Time Seen by Provider: 03/07/17 11:30 Source: patient Mode of arrival: Wheelchair Limitations: Physical Limitation - History of Present Illness Initial Comments: Patient is 56 years old male history of congestive heart failure with ejection fracture or 10%, presented to the ER with shortness of breath for one week, worse since last night associated with left-sided chest pain pressure and lower extremity swelling. Patient denied fever, nausea or vomiting. Patient stated that he is compliant with his medication and diet. MD Complaint: shortness of breath -: week(s) Pain Scale: 6 Known History Of: congestive heart failure Associated Symptoms: chest pain - Related Data Home Medications Medication Instructions Recorded Confirmed Last Taken Aspirin [Aspirin BABY CHEW TAB] 81 mg PO QDAY 03/24/16 03/07/17 1 Day Ago ~12/22/16 Atorvastatin Calcium [Lipitor] 80 mg PO HS 03/07/17 03/07/17 Unknown Carvedilol [Coreg] 6.25 mg PO Q12H 03/07/17 03/07/17 Unknown Potassium Chloride [K-Dur] 10 meq PO QDAY 03/07/17 03/07/17 Unknown Previous Rx's Medication Instructions Recorded Last Taken Type Furosemide [Lasix TAB] 40 mg PO QDAY #30 tablet 12/28/16 Unknown Rx ISOSORBIDE MONOnitrate [Imdur ER] 30 mg PO QDAY #30 tablet 12/28/16 Unknown Rx hydrALAZINE [Apresoline TAB] 50 mg PO Q8HR #90 tablet 12/28/16 03/06/17 Rx Allergies Allergy/AdvReac Type Severity Reaction Status Date / Time No Known Allergies Allergy Verified 04/29/16 10:41 ED Review of Systems ROS: Stated complaint: CHF Other details as noted in HPI Comment: All other systems reviewed and negative Constitutional: denies: chills, fever Respiratory: cough, orthopnea, shortness of breath, SOB with exertion, SOB at rest. denies: stridor, wheezing Cardiovascular: chest pain. denies: palpitations, dyspnea on exertion Gastrointestinal: denies: abdominal pain, nausea, vomiting, diarrhea Musculoskeletal: denies: back pain Neurological: weakness. denies: headache, numbness, paresthesias, confusion ED Past Medical Hx - Past Medical History Hx Hypertension: Yes Hx Congestive Heart Failure: Yes Hx Diabetes: Yes (pre-diabetic) Hx Renal Disease: Yes Hx Asthma: No Hx COPD: No Additional medical history: Atrial fibrillation, renal insufficiency. ENLARGED PROSTATE - Surgical History Additional Surgical History: pt had defribillator placed x1 month ago - Social History Smoking Status: Never Smoker Substance Use Type: None - Medications Home Medications: Home Medications Medication Instructions Recorded Confirmed Last Taken Type Aspirin [Aspirin BABY CHEW TAB] 81 mg PO QDAY 03/24/16 03/07/17 1 Day Ago History ~12/22/16 Furosemide [Lasix TAB] 40 mg PO QDAY #30 tablet 12/28/16 03/07/17 Unknown Rx ISOSORBIDE MONOnitrate [Imdur ER] 30 mg PO QDAY #30 tablet 12/28/16 03/07/17 Unknown Rx hydrALAZINE [Apresoline TAB] 50 mg PO Q8HR #90 tablet 12/28/16 03/07/17 Rx Atorvastatin Calcium [Lipitor] 80 mg PO HS 03/07/17 03/07/17 Unknown History Carvedilol [Coreg] 6.25 mg PO Q12H 03/07/17 03/07/17 Unknown History Potassium Chloride [K-Dur] 10 meq PO QDAY 03/07/17 03/07/17 Unknown History ED Physical Exam - General Limitations: Physical Limitation General appearance: alert, in distress (respiratory distress) - Head Head exam: Present: atraumatic, normocephalic - Eye Eye exam: Present: PERRL - ENT ENT exam: Present: normal exam, mucous membranes moist - Neck Neck exam: Present: normal inspection. Absent: tenderness, meningismus - Respiratory Respiratory exam: Present: respiratory distress, rales, decreased breath sounds. Absent: wheezes, rhonchi, stridor, prolonged expiratory - Cardiovascular Cardiovascular Exam: Present: tachycardia, irregular rhythm - GI/Abdominal GI/Abdominal exam: Present: soft, normal bowel sounds. Absent: distended, tenderness, guarding, rebound, rigid, organomegaly, mass, bruit, pulsatile mass , hernia - Extremities Exam Extremities exam: Present: normal inspection, full ROM, normal capillary refill , pedal edema (4+) - Back Exam Back exam: Present: normal inspection. Absent: CVA tenderness (R), CVA tenderness (L) - Neurological Exam Neurological exam: Present: alert, oriented X3, CN II-XII intact, normal gait ED Course Vital Signs 03/07/17 03/07/17 03/07/17 14:10 14:30 15:00 Pulse Rate 124 H 123 H Respiratory 25 H 29 H Rate Blood Pressure 149/114 150/117 O2 Sat by Pulse 100 100 Oximetry 03/07/17 03/07/17 03/07/17 15:30 16:00 17:03 Pulse Rate 123 H 124 H 123 H Respiratory 24 31 H Rate Blood Pressure 148/115 150/113 164/113 O2 Sat by Pulse Oximetry 03/07/17 03/07/17 18:27 18:39 Pulse Rate 120 H Respiratory Rate Blood Pressure 125/86 O2 Sat by Pulse 100 Oximetry ED Medical Decision Making - Lab Data Result diagrams: 03/07/17 11:10 03/07/17 11:10 - EKG Data -: EKG Interpreted by Me - EKG Data Interpretation: no acute changes - Radiology Data Radiology results: report reviewed cxr showed CHF. - Medical Decision Making Discuss with Dr Gastelum, He agreed to admit to his service. Critical care attestation.: If time is entered above; I have spent that time in minutes in the direct care of this critically ill patient, excluding procedure time. ED Disposition Clinical Impression: Chest pain in adult, Acute coronary syndrome, Acute CHF (congestive heart failure) Disposition: - OP ADMIT IP TO THIS HOSP Is pt being admited?: Yes Condition: Stable Instructions: Chest Pain (ED) Referrals: PRIMARY CARE, [Primary Care Provider] - 3-5 Days
[2017-03-07] MEDS ORDERED: BABY ASPIRIN PO ONE (13:51)
--- NOTE | 2017-03-07 13:54 | History and Physical Report ---
History of Present Illness Chief complaint: i cant breathe History of present illness: 56 YO Male with Systolic CHF EF 17%, S/P ICD Placement, Atrial Fib on Aspirin therapy, DM,Obesity, Metabolic Syndrome, Medication noncompliance presents to ED for evaluation. Pt states that he has experienced shortness of breath for the past week, with worsening symptoms over the past 1 day. Pt acknowledges orthopnea/PND, leg swelling, noncompliance with medication, diet. Pt denies fever, chills, CP, Palpitations, NVD, productive cough, recent ill contacts. Pt seen and evaluated in ED and was initially planned for discharge home, however, patient initially responded to resumption of home medication, but subsequently became tachycardic, and symptomatic. Pt reevaluated and found to be in recurrent respiratory distress. Pt admitted to telemetry with resumption of home medication. Past History Past Medical History: atrial fib, diabetes, heart failure, other (Obesity, Metabolic syndrome, ) Past Surgical History: Other (ICD Placement) Social history: single. denies: smoking, alcohol abuse, prescription drug abuse Family history: diabetes, hypertension Medications and Allergies Allergies Allergy/AdvReac Type Severity Reaction Status Date / Time No Known Allergies Allergy Verified 04/29/16 10:41 Home Medications Medication Instructions Recorded Confirmed Last Taken Type Aspirin [Aspirin BABY CHEW TAB] 81 mg PO QDAY 03/24/16 03/07/17 1 Day Ago History ~12/22/16 Furosemide [Lasix TAB] 40 mg PO QDAY #30 tablet 12/28/16 03/07/17 Unknown Rx ISOSORBIDE MONOnitrate [Imdur ER] 30 mg PO QDAY #30 tablet 12/28/16 03/07/17 Unknown Rx hydrALAZINE [Apresoline TAB] 50 mg PO Q8HR #90 tablet 12/28/16 03/07/17 Rx Atorvastatin Calcium [Lipitor] 80 mg PO HS 03/07/17 03/07/17 Unknown History Carvedilol [Coreg] 6.25 mg PO Q12H 03/07/17 03/07/17 Unknown History Potassium Chloride [K-Dur] 10 meq PO QDAY 03/07/17 03/07/17 Unknown History Review of Systems Constitutional: weight gain, no weight loss, no fever, no chills, no sweats Ears, nose, mouth and throat: no ear pain, no ear discharge, no tinnitis, no decreased hearing, no nose pain, no nasal congestion Cardiovascular: orthopnea, rapid/irregular heart beat, shortness of breath, paroxysmal nocturnal dyspnea, leg edema Respiratory: no cough, no cough with sputum, no excessive sputum, no hemoptysis Gastrointestinal: no abdominal pain, no nausea, no vomiting, no diarrhea, no constipation Genitourinary Male: no hematuria, no flank pain, no discharge, no urinary frequency, no urinary hesitancy Rectal: no pain, no incontinence, no bleeding Musculoskeletal: no neck stiffness, no neck pain, no shooting arm pain, no arm numbness/tingling, no low back pain Integumentary: no rash, no pruritis, no redness, no sores, no wounds Neurological: no transient paralysis, no paralysis, no weakness, no parathesias , no numbness Psychiatric: no anxiety, no memory loss, no change in sleep habits, no sleep disturbances, no insomnia, no hypersomnia Endocrine: no cold intolerance, no heat intolerance, no polyphagia, no excessive thirst, no polydipsia, no polyuria, no nocturia Hematologic/Lymphatic: no easy bruising, no easy bleeding Allergic/Immunologic: no urticaria, no allergic rhinitis, no wheezing Exam - Constitutional General appearance: Present: mild distress - EENT Eyes: Present: PERRL ENT: hearing intact, clear oral mucosa - Neck Neck: Present: supple, normal ROM - Respiratory Respiratory effort: labored Respiratory: bilateral: diminished, rhonchi - Cardiovascular Rhythm: other (tachycardic) - Extremities Extremities: pulses symmetrical, No edema Extremity abnormal: edema Peripheral Pulses: within normal limits - Abdominal General gastrointestinal: Present: soft, non-tender, non-distended, normal bowel sounds Male genitourinary: Present: normal - Integumentary Integumentary: Present: clear, dry, decreased turgor - Musculoskeletal Musculoskeletal: generalized weakness - Psychiatric Psychiatric: appropriate mood/affect, intact judgment & insight - Neurologic Neurologic: CNII-XII intact, moves all extremities Results - Labs CBC & Chem 7: 03/07/17 11:10 03/07/17 11:10 Labs: Abnormal lab results 03/07/17 03/07/17 03/07/17 Range/Units 11:10 11:10 11:10 Hgb 10.8 L (11.8-15.2) gm/dl Hct 34.2 L (35.5-45.6) % MCV 69 L (84-94) fl MCH 22 L (28-32) pg RDW 17.6 H (13.2-15.2) % [place] % (Auto) 12.8 H (0.0-7.3) % Lymph # 0.8 L (1.2-5.4) K/mm3 Seg Neutrophils % 70.3 H (40.0-70.0) % Carbon Dioxide 21 L (22-30) mmol/L BUN 31 H (9-20) mg/dL Creatinine 1.6 H (0.8-1.5) mg/dL Troponin T 0.253 H* (0.00-0.029) ng/mL NT-Pro-B Natriuret Pep 9231 H (0-900) pg/mL HDL Cholesterol 28 L (40-59) mg/dL Assessment and Plan - Patient Problems (1) Acute on chronic congestive heart failure Current Visit: No Status: Acute Qualifiers: Congestive heart failure type: systolic Qualified Code(s): I50.23 - Acute on chronic systolic (congestive) heart failure Plan to address problem: CHF Protocol: Cardiology consulted, afterload reduction, fluid restriction, monitor uop q shift, daily weight, monitor for negative fluid balance. (2) Diabetes Current Visit: Yes Status: Acute Plan to address problem: ADA diet, insulin, accu check (3) Noncompliance Current Visit: Yes Status: Acute Plan to address problem: Pt counseled regarding noncompliance with diet, medication. (4) HTN (hypertension) Current Visit: No Status: Chronic Qualifiers: Hypertension type: essential hypertension Qualified Code(s): I10 - Essential (primary) hypertension Plan to address problem: monitor bp q shift, IV hydralazine prn, resume coreg and hydralazine, continue medical management. (5) ARF (acute renal failure) Current Visit: Yes Status: Acute Plan to address problem: encourage gentle fluid intake, IAW fluid restriction, supportive care, monitor uop q shift, (6) Atrial fibrillation Current Visit: No Status: Chronic Qualifiers: Atrial fibrillation type: chronic Qualified Code(s): I48.2 - Chronic atrial fibrillation Plan to address problem: Resume rate control with beta kadi, resume therapeutic anticoagulation with eliquis. (7) DVT prophylaxis Current Visit: No Status: Acute Plan to address problem: scd to ble while in bed.
[2017-03-07] MEDS ORDERED: COREG PO ONE ×2 (16:37→17:44)
[2017-03-07] MEDS ORDERED: APRESOLINE PO ONE (16:39)
[2017-03-07] MEDS ORDERED: IMDUR PO ONE (17:00)
[2017-03-07] MEDS ORDERED: PROVENTIL IH PRN (20:01)
[2017-03-07] MEDS ORDERED: DULCOLAX PR PRN (20:01)
[2017-03-07] MEDS ORDERED: MILK OF MAGNESIA PO PRN (20:01)
[2017-03-07] MEDS ORDERED: ZOFRAN IV PRN (20:01)
[2017-03-07] MEDS ORDERED: TYLENOL PO PRN (20:01)
[2017-03-07] MEDS ORDERED: COREG ONE (21:09)
[2017-03-07] MEDS: COREG PO SCH (21:41)
[2017-03-07] MEDS ORDERED: NON-FORMULARY (Atorvastatin Calcium [Lipitor] 80 MG) PO SCH (22:00)
[2017-03-07] MEDS: ELIQUIS PO SCH ×2 (23:23→23:24)
[2017-03-07] MEDS: APRESOLINE PO SCH (23:24)
[2017-03-08] MEDS: APRESOLINE PO SCH ×3 (07:24→21:10)
[2017-03-08] MEDS: LASIX IV SCH ×2 (07:25→17:31)
--- NOTE | 2017-03-08 09:32 | Progress Note ---
Assessment and Plan Assessment and plan: 6 YO Male with Systolic CHF EF 17%, S/P ICD Placement, Atrial Fib on Aspirin therapy, DM,Obesity, Metabolic Syndrome, Medication noncompliance presents to ED for evaluation. Pt states that he has experienced shortness of breath for the past week, with worsening symptoms over the past 1 day. Pt acknowledges orthopnea/PND, leg swelling, noncompliance with medication, diet. Pt denies fever, chills, CP, Palpitations, NVD, productive cough, recent ill contacts. Pt seen and evaluated in ED and was initially planned for discharge home, however, patient initially responded to resumption of home medication, but subsequently became tachycardic, and symptomatic. Pt reevaluated and found to be in recurrent respiratory distress. Pt admitted to telemetry with resumption of home medication. (1) Acute on chronic congestive heart failure * CHF Protocol: Cardiology consulted, afterload reduction, fluid restriction, monitor uop q shift, daily weight, monitor for negative fluid balance. * Counselling provided * 4TH Admission this year, will discuss possible palliative care for this patient (2) Diabetes * ADA diet, insulin, accu check (3) Noncompliance * Pt counseled regarding noncompliance with diet, medication. * Discuss possible initiation of palliative care at home (4) HTN (hypertension) * monitor bp q shift, IV hydralazine prn, resume coreg and hydralazine, continue medical management. (5) Acute Kidney Infection on CKD * encourage gentle fluid intake, IAW fluid restriction, supportive care, monitor uop q shift, * Nephrology consult noted (6) Atrial fibrillation * Resume rate control with beta kadi, resume therapeutic anticoagulation with eliquis. 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 History Interval history: Patient seen and examined, reports improvement since yesterday but not yet at baseline. states he was not aware of his kidney and heart condition and sometimes eats salts occasionally due to family background Hospitalist Physical - Constitutional Vitals: Temp Pulse Resp BP Pulse Ox 98.3 F 124 H 22 126/87 94 03/08/17 07:46 03/08/17 06:19 03/08/17 07:46 03/08/17 07:45 03/08/17 07:47 General appearance: Present: no acute distress - EENT Eyes: Present: PERRL, EOM intact ENT: hearing intact, clear oral mucosa - Neck Neck: Present: supple, normal ROM - Respiratory Respiratory effort: labored Respiratory: bilateral: rhonchi (fine babisilar rales) - Cardiovascular Rhythm: irregularly irregular Heart Sounds: Present: S1 & S2 - Extremities Extremities: no ischemia, pulses intact, pulses symmetrical Extremity abnormal: edema (+2 b/l edema) Peripheral Pulses: within normal limits - Abdominal General gastrointestinal: soft, non-tender, non-distended, normal bowel sounds - Integumentary Integumentary: Present: warm - Psychiatric Psychiatric: appropriate mood/affect, cooperative - Neurologic Neurologic: CNII-XII intact, moves all extremities - Allied Health Allied health notes reviewed: nursing Results - Labs CBC & Chem 7: 03/07/17 11:10 03/07/17 11:10 Labs: Laboratory Last Values WBC 5.2 K/mm3 (4.5-11.0) 03/07/17 11:10 RBC 4.95 M/mm3 (3.65-5.03) 03/07/17 11:10 Hgb 10.8 gm/dl (11.8-15.2) L 03/07/17 11:10 Hct 34.2 % (35.5-45.6) L 03/07/17 11:10 MCV 69 fl (84-94) L 03/07/17 11:10 MCH 22 pg (28-32) L 03/07/17 11:10 MCHC 32 % (32-34) 03/07/17 11:10 RDW 17.6 % (13.2-15.2) H 03/07/17 11:10 Plt Count 362 K/mm3 (140-440) 03/07/17 11:10 Lymph % (Auto) 15.9 % (13.4-35.0) 03/07/17 11:10 [place] % (Auto) 12.8 % (0.0-7.3) H 03/07/17 11:10 Eos % (Auto) 0.3 % (0.0-4.3) 03/07/17 11:10 Baso % (Auto) 0.7 % (0.0-1.8) 03/07/17 11:10 Lymph # 0.8 K/mm3 (1.2-5.4) L 03/07/17 11:10 [place] # 0.7 K/mm3 (0.0-0.8) 03/07/17 11:10 Eos # 0.0 K/mm3 (0.0-0.4) 03/07/17 11:10 Baso # 0.0 K/mm3 (0.0-0.1) 03/07/17 11:10 Seg Neutrophils % 70.3 % (40.0-70.0) H 03/07/17 11:10 Seg Neutrophils # 3.7 K/mm3 (1.8-7.7) 03/07/17 11:10 Sodium 142 mmol/L (137-145) 03/07/17 11:10 Potassium 4.2 mmol/L (3.6-5.0) 03/07/17 11:10 Chloride 101.6 mmol/L (98-107) 03/07/17 11:10 Carbon Dioxide 21 mmol/L (22-30) L 03/07/17 11:10 Anion Gap 24 mmol/L 03/07/17 11:10 BUN 31 mg/dL (9-20) H 03/07/17 11:10 Creatinine 1.6 mg/dL (0.8-1.5) H 03/07/17 11:10 Estimated GFR 54 ml/min 03/07/17 11:10 BUN/Creatinine Ratio 19 % 03/07/17 11:10 Glucose 94 mg/dL (75-100) 03/07/17 11:10 Calcium 8.7 mg/dL (8.4-10.2) 03/07/17 11:10 Troponin T 0.253 ng/mL (0.00-0.029) H* 03/07/17 11:10 NT-Pro-B Natriuret Pep 9231 pg/mL (0-900) H 03/07/17 11:10 Triglycerides 60 mg/dL (2-149) 03/07/17 11:10 Cholesterol 126 mg/dL (50-199) 03/07/17 11:10 LDL Cholesterol Direct 86 mg/dL (50-130) 03/07/17 11:10 HDL Cholesterol 28 mg/dL (40-59) L 03/07/17 11:10 Cholesterol/HDL Ratio 4.50 % 03/07/17 11:10 - Imaging and Cardiology Chest x-ray: image reviewed (chf)
--- NOTE | 2017-03-08 09:38 | Consultation ---
History of Present Illness Consult date: 03/08/17 Consult reason: congestive heart failure History of present illness: 56yr old man with a history fo paroxysmal atrial flutter and a severe nonischemic cardiomyopathy. 4 months ago, cardiac catheterization demonstrated normal coronary arteries. An echocardiogram showed severe left ventricular dysfunction, ejection fraction 25-30%. 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 He is now admitted with CHF exacerbation. Patient reports shortness of breath for several days. Patient admits to noncompliance with dietary restrictions. He denies chest pain and palpitations. There was no syncope. His presenting EKG was atrial flutter with rapid ventricular response. Cardiac consultation was requested. Past History Past Medical History: atrial fib, diabetes, heart failure, renal failure Family history: diabetes, hypertension Medications and Allergies Allergies Allergy/AdvReac Type Severity Reaction Status Date / Time No Known Allergies Allergy Verified 04/29/16 10:41 Home Medications Medication Instructions Recorded Confirmed Last Taken Type Aspirin [Aspirin BABY CHEW TAB] 81 mg PO QDAY 03/24/16 03/07/17 1 Day Ago History ~12/22/16 Furosemide [Lasix TAB] 40 mg PO QDAY #30 tablet 12/28/16 03/07/17 Unknown Rx ISOSORBIDE MONOnitrate [Imdur ER] 30 mg PO QDAY #30 tablet 12/28/16 03/07/17 Unknown Rx hydrALAZINE [Apresoline TAB] 50 mg PO Q8HR #90 tablet 12/28/16 03/07/17 Rx Atorvastatin Calcium [Lipitor] 80 mg PO HS 03/07/17 03/07/17 Unknown History Carvedilol [Coreg] 6.25 mg PO Q12H 03/07/17 03/07/17 Unknown History Potassium Chloride [K-Dur] 10 meq PO QDAY 03/07/17 03/07/17 Unknown History Active Meds: Active Medications Acetaminophen (Tylenol) 650 mg PO Q4H PRN PRN Reason: Pain MILD(1-3)/Fever >100.5/REINA Albuterol (Proventil) 2.5 mg IH Q4HRT PRN PRN Reason: Shortness Of Breath Apixaban (Eliquis) 5 mg PO Q12HR NORMA PRN Reason: Protocol Last Admin: 03/07/17 23:24 Dose: 5 mg Atorvastatin Calcium (Lipitor) 80 mg PO QHS [facility] Last Admin: 03/07/17 23:24 Dose: Not Given Bisacodyl (Dulcolax) 10 mg SD QDAY PRN PRN Reason: Constipation unrelieved by MOM Carvedilol (Coreg) 6.25 mg PO Q12H [facility] Last Admin: 03/07/17 21:41 Dose: 6.25 mg Furosemide (Lasix) 40 mg IV BID@0600,1800 [facility] Last Admin: 03/08/17 07:25 Dose: 40 mg Hydralazine HCl (Apresoline) 50 mg PO Q8HR [facility] Last Admin: 03/08/17 07:24 Dose: 50 mg Isosorbide Mononitrate (Imdur) 30 mg PO QDAY [facility] Lisinopril (Zestril) 2.5 mg PO QDAY [facility] Magnesium Hydroxide (Milk Of Magnesia) 30 ml PO Q4H PRN PRN Reason: Constipation Ondansetron HCl (Zofran) 4 mg IV Q8H PRN PRN Reason: N/V unrelieved by Reglan Potassium Chloride (K-Dur) 10 meq PO QDAY [facility] Physical Examination Vital Signs Pulse Ox 100 03/07/17 14:10 General appearance: no acute distress HEENT: Positive: PERRL Cardiac: Positive: irregularly irregular Lungs: Positive: Decreased Breath Sounds Neuro: Positive: Grossly Intact Extremities: Present: +2 Edema Results 03/07/17 11:10 03/07/17 11:10 Lipids 03/07/17 Range/Units 11:10 Triglycerides 60 (2-149) mg/dL Cholesterol 126 (50-199) mg/dL HDL Cholesterol 28 L (40-59) mg/dL Cholesterol/HDL Ratio 4.50 % CBC 03/07/17 Range/Units 11:10 WBC 5.2 (4.5-11.0) K/mm3 RBC 4.95 (3.65-5.03) M/mm3 Hgb 10.8 L (11.8-15.2) gm/dl Hct 34.2 L (35.5-45.6) % Plt Count 362 (140-440) K/mm3 Lymph # 0.8 L (1.2-5.4) K/mm3 [place] # 0.7 (0.0-0.8) K/mm3 Eos # 0.0 (0.0-0.4) K/mm3 Baso # 0.0 (0.0-0.1) K/mm3 Comprehensive Metabolic Panel 03/07/17 Range/Units 11:10 Sodium 142 (137-145) mmol/L Potassium 4.2 (3.6-5.0) mmol/L Chloride 101.6 (98-107) mmol/L Carbon Dioxide 21 L (22-30) mmol/L BUN 31 H (9-20) mg/dL Creatinine 1.6 H (0.8-1.5) mg/dL Glucose 94 (75-100) mg/dL Calcium 8.7 (8.4-10.2) mg/dL Assessment and Plan Acute Systolic Heart Failure s/t noncompliance with dietary restrictions Nonischemic Cardiomyopathy, LVEF 20-25% Paroxysmal Atrial fibrillation/flutter on eliquis as an outpatient for anticoagulation. cardiac catheterization demonstrated normal coronary arteries 10/2016 Hypertension Acute on chronic kidney disease Obesity Recommendations: Medical therapy for heart failure and paroxysmal Afib including diuretics, afterload reducing agents, beta blockers and oral anticoagulation. Advised low salt and fluid restricted diet.
[2017-03-08] MEDS: COREG PO SCH ×2 (09:44→21:11)
[2017-03-08] MEDS: ELIQUIS PO SCH ×2 (09:44→21:11)
[2017-03-08] MEDS: IMDUR PO SCH (09:44)
[2017-03-08] MEDS: K-DUR PO SCH (09:45)
[2017-03-08] MEDS: ZESTRIL PO SCH (09:45)
[2017-03-08] MEDS ORDERED: BABY ASPIRIN PO SCH (10:00)
[2017-03-08] MEDS ORDERED: IMDUR PO SCH (10:00)
--- NOTE | 2017-03-08 10:07 | Consultation ---
History of Present Illness - History of Present Illness Thank you for the consultation patient was evaluated today. Source of information; patient himself current records were also reviewed History of presenting illness; Patient is a 6-year-old -Citizen Of [place] gentleman who has been known to me from prior admission. Patient presented to the hospital with complaints of increasing swelling shortness of breath poor appetite, which was gradually getting worse to a point that he was having hard time breathing He has known history of chronic kidney disease in the past his creatinine has been as high as mid twos patient has not been able to see us in the office as he currently does not have any insurance and according to him he lost his Medicaid and hence has not been able to make an appointment in the office patient does have history of severe cardiomyopathy with ejection fraction around 17% with atrial fibrillation Remotely he has used BCs and Goody's powder in the past chronically he has not been able to make an appointment in our office to see us for a follow -up. Past medical history is significant for chronic kidney disease Diabetes mellitus Obesity Hypertension cardiomyopathy ejection fraction 17% AICD placement Congestive heart failure Chronic edema Allergies: no known drug allergies Social history: denies any history of recreational drug or substance abuse Family history: noncontributory for renal related disorder Review of system is positive for increasing swelling both lower extremity Complete review of systems obtained pertinent positive above other's review of systems negative Physical examination General: No acute distress HEENT: Oral mucosa moist no pharyngeal erythema no pallor or icterus no uremic order Neck: Supple no evidence of any thyromegaly trachea midline no JVD Chest: Clear to auscultation no crackles are also wheezes anteriorly Heart: Regular rate and rhythm S1-S2 heard no S3-S4 Abdomen: Soft nontender no renal bruit no CVA tenderness no suprapubic fullness no organomegaly Extremity: dry skin no peripheral cyanosis pulses palpable 1+ edema Neurological: Alert awake follows command grossly nonfocal examination Back: Nontender thoracolumbar spine Musculoskeletal: No joint effusion noted Skin: No petechial rash/noted Assessment and plan 1.chronic kidney disease patient creatinine is currently close to 1.7, in the past his kidney function has been as high as 1.6-2 range, with recent change in diet or lifestyle renal function has stabilized 2.abnormal troponin: Patient is currently, being worked up in case if he is going to be exposed to radiocontrast his risk of radiocontrast nephropathy is going to be high and his case, discussed and educated 3.hypertension/mild tachycardia currently being followed by cardiology 4.obesity: Counseled and educated at length 5.patient must work on his diet lifestyle continuously to improve or stabilize his renal function 6.edema approximately 1+ assess the degree of proteinuria likely this appears to be multifactorial 7.severe cardiomyopathy with ejection fraction approximately 17% ICD placement 8.atrial fibrillation with low ejection fraction 9.high risk for cardiorenal syndrome and progressive decline in renal function due to chronic ischemic renal injury which will make him prone to progression towards ESRD Overall long-term renal prognosis remains very poor and his case Nature and issue of renal-related issues were discussed with patient, all questions were answered and simple Bengali Patient does have good understanding about renal-related issues. Renal prognosis is guarded at this time, especially if radiocontrast study is planned renal prognosis may be very poor Counseled and educated to get further education from [employer] and related links, and if any further question to clarify with me We'll continue to follow and make recommendations from renal standpoint If you have any questions please feel free to contact me at [phone] Past History Past Medical History: atrial fib, diabetes, heart failure, renal failure Past Surgical History: Other (ICD Placement) Social history: single. denies: smoking, alcohol abuse, prescription drug abuse Family history: diabetes, hypertension Medications and Allergies Allergies Allergy/AdvReac Type Severity Reaction Status Date / Time No Known Allergies Allergy Verified 04/29/16 10:41 Home Medications Medication Instructions Recorded Confirmed Last Taken Type Aspirin [Aspirin BABY CHEW TAB] 81 mg PO QDAY 03/24/16 03/07/17 1 Day Ago History ~12/22/16 Furosemide [Lasix TAB] 40 mg PO QDAY #30 tablet 12/28/16 03/07/17 Unknown Rx ISOSORBIDE MONOnitrate [Imdur ER] 30 mg PO QDAY #30 tablet 12/28/16 03/07/17 Unknown Rx hydrALAZINE [Apresoline TAB] 50 mg PO Q8HR #90 tablet 12/28/16 03/07/17 Rx Atorvastatin Calcium [Lipitor] 80 mg PO HS 03/07/17 03/07/17 Unknown History Carvedilol [Coreg] 6.25 mg PO Q12H 03/07/17 03/07/17 Unknown History Potassium Chloride [K-Dur] 10 meq PO QDAY 03/07/17 03/07/17 Unknown History Active Meds: Active Medications Acetaminophen (Tylenol) 650 mg PO Q4H PRN PRN Reason: Pain MILD(1-3)/Fever >100.5/REINA Albuterol (Proventil) 2.5 mg IH Q4HRT PRN PRN Reason: Shortness Of Breath Apixaban (Eliquis) 5 mg PO Q12HR [place]MA PRN Reason: Protocol Last Admin: 03/08/17 09:44 Dose: 5 mg Atorvastatin Calcium (Lipitor) 80 mg PO QHS [facility] Last Admin: 03/07/17 23:24 Dose: Not Given Bisacodyl (Dulcolax) 10 mg SD QDAY PRN PRN Reason: Constipation unrelieved by MOM Carvedilol (Coreg) 6.25 mg PO Q12H [facility] Last Admin: 03/08/17 09:44 Dose: 6.25 mg Furosemide (Lasix) 40 mg IV BID@0600,1800 [facility] Last Admin: 03/08/17 07:25 Dose: 40 mg Hydralazine HCl (Apresoline) 50 mg PO Q8HR [facility] Last Admin: 03/08/17 07:24 Dose: 50 mg Isosorbide Mononitrate (Imdur) 30 mg PO QDAY [facility] Last Admin: 03/08/17 09:44 Dose: 30 mg Lisinopril (Zestril) 2.5 mg PO QDAY [facility] Last Admin: 03/08/17 09:45 Dose: 2.5 mg Magnesium Hydroxide (Milk Of Magnesia) 30 ml PO Q4H PRN PRN Reason: Constipation Ondansetron HCl (Zofran) 4 mg IV Q8H PRN PRN Reason: N/V unrelieved by Reglan Potassium Chloride (K-Dur) 10 meq PO QDAY [facility] Last Admin: 03/08/17 09:45 Dose: 10 meq Exam - Vital Signs Vital signs: Vital Signs Pulse Ox 100 03/07/17 14:10 Results - Lab Results 03/07/17 11:10 03/07/17 11:10 Most recent lab results Calcium 8.7 mg/dL (8.4-10.2) 03/07/17 11:10
[2017-03-09] MEDS: APRESOLINE PO SCH ×3 (06:15→22:43)
[2017-03-09] MEDS: LASIX IV SCH ×2 (06:54→18:06)
--- NOTE | 2017-03-09 09:24 | Progress Note ---
Subjective Interval history: Patient was seen today for follow-up on multiple renal related issues Events of 24 hours vitals labs intake output medications were reviewed Interdisciplinary Notes were also reviewed Past medical history: Reviewed Social history: Reviewed Allergies: Reviewed Medication: Reviewed Labs: Reviewed Physical examination Gen.: No acute distress HEENT: Oral mucosa moist, mild pallor no icterus Neck: Supple no thyromegaly nodular mass or JVD Chest: Clear to auscultation anteriorly Heart: Regular rate and rhythm S1 and S2 heard Abdomen: Soft nontender no renal bruit no CVA tenderness no suprapubic fullness Extremity: Edema approximately 1+ dry skin no purpuric rash Dermatology: Dry skin no rash Neurological: Assessment and plan Chronic kidney disease patient's creatinine is currently at baseline Patient does need follow-up labs, order for CBC CMP and phosphorus as well as urine for protein creatinine ratio Congestive heart failure etc. patient: Counseling and education done Chronic edema both lower needs fluid extremity sodium restriction congestive heart failure education Obesity: Counseled and educated Risk of progression off renal failure quite high patient made aware Upon discharge she will need to make a follow-up appointment in the office Hypertension: Goal systolic blood pressure under 140 at this time Had a detailed discussion with patient about multiple renal related issues, explained and simple [place]. Patient does exhibit good understanding off multiple renal related issues We'll continue to follow and make recommendation from renal standpoint Objective - Vital Signs Vital signs: Vital Signs - 12hr 03/08/17 03/09/17 03/09/17 22:00 00:57 04:33 Temperature 97.6 F 98.9 F Pulse Rate 126 H 126 H 122 H Respiratory 17 20 Rate Blood Pressure 141/95 104/87 O2 Sat by Pulse 93 94 Oximetry - Lab 03/07/17 11:10 03/07/17 11:10 Most recent lab results Calcium 8.7 mg/dL (8.4-10.2) 03/07/17 11:10
[2017-03-09] MEDS: ELIQUIS PO SCH ×2 (09:27→22:42)
[2017-03-09] MEDS: IMDUR PO SCH (09:27)
[2017-03-09] MEDS: K-DUR PO SCH (09:27)
[2017-03-09] MEDS: ZESTRIL PO SCH (09:27)
[2017-03-09] MEDS: COREG PO SCH (09:31)
--- NOTE | 2017-03-09 10:12 | Progress Note ---
Assessment and Plan Assessment and plan: 56 YO Male with Systolic CHF EF 17%, S/P ICD Placement, Atrial Fib on Aspirin therapy, DM,Obesity, Metabolic Syndrome, Medication noncompliance presents to ED for evaluation. Pt states that he has experienced shortness of breath for the past week, with worsening symptoms over the past 1 day. Pt acknowledges orthopnea/PND, leg swelling, noncompliance with medication, diet. Pt denies fever, chills, CP, Palpitations, NVD, productive cough, recent ill contacts. Pt seen and evaluated in ED and was initially planned for discharge home, however, patient initially responded to resumption of home medication, but subsequently became tachycardic, and symptomatic. Pt reevaluated and found to be in recurrent respiratory distress. Pt admitted to telemetry with resumption of home medication. (1) Acute on chronic congestive heart failure * CHF Protocol: Cardiology consulted, afterload reduction, fluid restriction, monitor uop q shift, daily weight, monitor for negative fluid balance. * Continue current therapy * Counselling provided * 4TH Admission this year, will discuss possible palliative care for this patient (2) Diabetes * ADA diet, insulin, accu check (3) Noncompliance * Pt counseled regarding noncompliance with diet, medication. * Discuss possible initiation of palliative care at home (4) HTN (hypertension) * monitor bp q shift, IV hydralazine prn, resume coreg and hydralazine, continue medical management. (5) Acute Kidney Infection on CKD * encourage gentle fluid intake, IAW fluid restriction, supportive care, monitor uop q shift, * Nephrology consult noted (6) Atrial fibrillation with rvr * Resume rate control with beta kadi changed from coreg to metoprolol, continue therapeutic anticoagulation with eliquis. 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 SCD when in bed History Interval history: Patient seen and examined, continues to report improvement. Denies any chest pain, nausea, vomiting. Hospitalist Physical - Physical exam Narrative exam: General appearance: Present: no acute distress - EENT Eyes: Present: PERRL, EOM intact ENT: hearing intact, clear oral mucosa - Neck Neck: Present: supple, normal ROM - Respiratory Respiratory effort: labored Respiratory: bilateral: rhonchi (fine babisilar rales) - Cardiovascular Rhythm: irregularly irregular Heart Sounds: Present: S1 & S2 - Extremities Extremities: no ischemia, pulses intact, pulses symmetrical Extremity abnormal: edema (+1 b/l edema) Peripheral Pulses: within normal limits - Abdominal General gastrointestinal: soft, non-tender, non-distended, normal bowel sounds - Integumentary Integumentary: Present: warm - Psychiatric Psychiatric: appropriate mood/affect, cooperative - Neurologic Neurologic: CNII-XII intact, moves all extremities - Allied Health Allied health notes reviewed: nursing Results - Constitutional Vitals: Temp Pulse Resp BP Pulse Ox 98.2 F 72 20 113/73 98 03/09/17 09:35 03/09/17 09:35 03/09/17 09:35 03/09/17 09:35 03/09/17 09:35 General appearance: Present: no acute distress Results - Labs CBC & Chem 7: 03/10/17 05:17 03/10/17 05:17 Labs: Laboratory Last Values WBC 5.2 K/mm3 (4.5-11.0) 03/07/17 11:10 RBC 4.95 M/mm3 (3.65-5.03) 03/07/17 11:10 Hgb 10.8 gm/dl (11.8-15.2) L 03/07/17 11:10 Hct 34.2 % (35.5-45.6) L 03/07/17 11:10 MCV 69 fl (84-94) L 03/07/17 11:10 MCH 22 pg (28-32) L 03/07/17 11:10 MCHC 32 % (32-34) 03/07/17 11:10 RDW 17.6 % (13.2-15.2) H 03/07/17 11:10 Plt Count 362 K/mm3 (140-440) 03/07/17 11:10 Lymph % (Auto) 15.9 % (13.4-35.0) 03/07/17 11:10 [place] % (Auto) 12.8 % (0.0-7.3) H 03/07/17 11:10 Eos % (Auto) 0.3 % (0.0-4.3) 03/07/17 11:10 Baso % (Auto) 0.7 % (0.0-1.8) 03/07/17 11:10 Lymph # 0.8 K/mm3 (1.2-5.4) L 03/07/17 11:10 [place] # 0.7 K/mm3 (0.0-0.8) 03/07/17 11:10 Eos # 0.0 K/mm3 (0.0-0.4) 03/07/17 11:10 Baso # 0.0 K/mm3 (0.0-0.1) 03/07/17 11:10 Seg Neutrophils % 70.3 % (40.0-70.0) H 03/07/17 11:10 Seg Neutrophils # 3.7 K/mm3 (1.8-7.7) 03/07/17 11:10 Sodium 142 mmol/L (137-145) 03/07/17 11:10 Potassium 4.2 mmol/L (3.6-5.0) 03/07/17 11:10 Chloride 101.6 mmol/L (98-107) 03/07/17 11:10 Carbon Dioxide 21 mmol/L (22-30) L 03/07/17 11:10 Anion Gap 24 mmol/L 03/07/17 11:10 BUN 31 mg/dL (9-20) H 03/07/17 11:10 Creatinine 1.6 mg/dL (0.8-1.5) H 03/07/17 11:10 Estimated GFR 54 ml/min 03/07/17 11:10 BUN/Creatinine Ratio 19 % 03/07/17 11:10 Glucose 94 mg/dL (75-100) 03/07/17 11:10 Calcium 8.7 mg/dL (8.4-10.2) 03/07/17 11:10 Troponin T 0.253 ng/mL (0.00-0.029) H* 03/07/17 11:10 NT-Pro-B Natriuret Pep 9231 pg/mL (0-900) H 03/07/17 11:10 Triglycerides 60 mg/dL (2-149) 03/07/17 11:10 Cholesterol 126 mg/dL (50-199) 03/07/17 11:10 LDL Cholesterol Direct 86 mg/dL (50-130) 03/07/17 11:10 HDL Cholesterol 28 mg/dL (40-59) L 03/07/17 11:10 Cholesterol/HDL Ratio 4.50 % 03/07/17 11:10
--- NOTE | 2017-03-09 10:50 | Discharge Summary ---
Providers - Providers Date of Admission: 03/07/17 20:01 Attending physician: VANDANA LIMON MD 03/07/17 20:38 Consult to Physician [CONS] Routine Consulting Provider: ANDRY CURRAN Reason For Exam: chf Place consult to:: [facility] Notified:: Y Comment:: ADDED TO LIST 03/08/17 09:33 Consult to Physician [CONS] Routine Consulting Provider: ALICE MOORE Reason For Exam: CKD Place consult to:: renal Notified:: yes Was contact made?: Yes If yes, spoke with:: Dr macario Primary care physician: [employer] Hospitalization Reason for admission: CHF exacerbation Condition: Stable Hospital course: 76 YO Male with Systolic CHF EF 17%, S/P ICD Placement, Atrial Fib on Aspirin therapy, DM,Obesity, Metabolic Syndrome, Medication noncompliance presents to ED for evaluation. Pt states that he has experienced shortness of breath for the past week, with worsening symptoms over the past 1 day. Pt acknowledges orthopnea/PND, leg swelling, noncompliance with medication, diet. Pt denies fever, chills, CP, Palpitations, NVD, productive cough, recent ill contacts. Pt seen and evaluated in ED and was initially planned for discharge home, however, patient initially responded to resumption of home medication, but subsequently became tachycardic, and symptomatic. Pt reevaluated and found to be in recurrent respiratory distress. Pt admitted to telemetry with resumption of home medication. On admission patient was seen by pulverizer and is on CHF protocol with aggressive diuresis with significant improvement. He did have an extensive discussion about dietary discretion and also medication compliance the patient verbalized understanding. He is to have cardiology follow-up and primary care physician follow-up on discharge. His atrial fibrillation is rate controlled and will continue on Lopressor this time. The patient will benefit from daily weights at home (1) Acute on chronic congestive heart failure * CHF Protocol: Cardiology consulted, afterload reduction, fluid restriction, monitor uop q shift, daily weight, monitor for negative fluid balance. * Counselling provided * 4TH Admission this year, will discuss possible palliative care for this patient (2) Diabetes * ADA diet, insulin, accu check (3) Noncompliance * Pt counseled regarding noncompliance with diet, medication. * Discuss possible initiation of palliative care at home (4) HTN (hypertension) * monitor bp q shift, IV hydralazine prn, resume coreg and hydralazine, continue medical management. (5) Acute Kidney Infection on CKD * encourage gentle fluid intake, IAW fluid restriction, supportive care, monitor uop q shift, * Nephrology consult noted (6) Atrial fibrillation with RVR * Resume rate control with beta kadi, continue therapeutic anticoagulation with eliquis. 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 GENERAL: The patient appeared well nourished and normally developed. Vital signs as documented. HEAD: No signs of head trauma. EYES: Pupils are equal. Extraocular motions intact. EARS: Hearing grossly intact. MOUTH: Oropharynx is normal. NECK: No adenopathy, no JVD. CHEST: Chest with clear breath sounds bilaterally. No wheezes, rales, or rhonchi. CARDIAC: Regular rate and rhythm. S1 and S2, without murmurs, gallops, or rubs. VASCULAR: 1+ pitting edema. Edema. Peripheral pulses normal and equal in all extremities. ABDOMEN: Soft, without detectable tenderness. No sign of distention. No rebound or guarding, and no masses palpated. Bowel Sounds normal. MUSCULOSKELETAL: Good range of motion of all major joints. Extremities without clubbing, cyanosis 1+ edema. Bilaterally NEUROLOGIC EXAM: Alert and oriented x 3. No focal sensory or strength deficits. Speech normal. Follows commands. PSYCHIATRIC: Mood normal. SKIN: Chronic skin changes the lower extremity. Likely secondary to stasis. - Constitutional Vitals: Temp Pulse Resp BP Pulse Ox 98.2 F 72 20 113/73 98 03/09/17 09:35 03/09/17 09:35 03/09/17 09:35 03/09/17 09:35 03/09/17 09:35 Plan Activity: advance as tolerated, fall precautions Diet: low salt, diabetic Special Instructions: record daily weights, record daily BP diary, record blood sugar diary, home health RN Additional Instructions: need repeat Basic Metabolic profile lab to be arranged by PCP in 3-5 days Follow up with: PRIMARY MD RICKY [Primary Care Provider] - 3-5 Days ANDRY CURRAN MD [Staff Physician] - 7 Days Prescriptions: Apixaban [Eliquis] 5 mg PO Q12HR #60 tablet Aspirin [Aspirin BABY CHEW TAB] 81 mg PO QDAY #30 tab.chew Atorvastatin Calcium [Lipitor] 80 mg PO HS #30 tablet Furosemide [Lasix TAB] 40 mg PO QDAY #30 tablet hydrALAZINE [Apresoline TAB] 50 mg PO Q8HR #90 tablet ISOSORBIDE MONOnitrate [Imdur ER] 30 mg PO QDAY #30 tablet Lisinopril [Zestril TAB] 2.5 mg PO QDAY #30 tablet Metoprolol Xl [Metoprolol SUCCINATE ER TAB] 100 mg PO QDAY #30 tablet Potassium Chloride [K-Dur] 10 meq PO QDAY #30 tablet
--- NOTE | 2017-03-09 11:12 | Progress Note ---
Assessment and Plan Acute Systolic Heart Failure s/t noncompliance with dietary restrictions Nonischemic Cardiomyopathy, LVEF 20-25% Paroxysmal Atrial fibrillation/flutter on eliquis as an outpatient for anticoagulation. cardiac catheterization demonstrated normal coronary arteries 10/2016 Hypertension Acute on chronic kidney disease Obesity Recommendations: Medical therapy for heart failure and paroxysmal Afib including rate control, diuretics, afterload reducing agents, beta blockers and oral anticoagulation. Advised low salt and fluid restricted diet. Subjective Date of service: 03/09/17 Principal diagnosis: CHF Interval history: Patient is doing well. He denies chest pain or shortness of breath No events on tele Objective Vital Signs Temp Pulse Resp BP BP Pulse Ox 03/09/17 09:35 98.2 F 72 20 113/73 98 03/09/17 04:33 98.9 F 122 H 20 104/87 94 03/09/17 00:57 97.6 F 126 H 17 141/95 93 03/08/17 22:00 126 H 03/08/17 21:11 128 H 123/76 03/08/17 21:10 128 H 123/76 03/08/17 19:14 98.2 F 131 H 20 108/65 92 03/08/17 15:28 97.8 F 122 H 20 111/77 94 03/08/17 14:19 123 H 03/08/17 13:59 113/81 03/08/17 12:11 98.2 F 126 H 22 113/81 95 - Physical Examination HEENT: Positive: PERRL Neck: Positive: neck supple Cardiac: Positive: irregularly irregular Lungs: Positive: Normal Exam Neuro: Positive: Grossly Intact Extremities: Present: +2 Edema
[2017-03-09 12:28] LABS: Hematocrit 33.1 % (35.5-45.6); Hemoglobin 10.3 gm/dl (11.8-15.2); Mean Corpuscular HGB Conc 31 % (32-34); Platelet Count 368 K/mm3 (140-440); Red Cell Distribution Width 17.4 % (13.2-15.2); White Blood Count 6.3 K/mm3 (4.5-11.0)
[2017-03-09 12:33] LABS: Mean Corpuscular Hemoglobin 21 pg (28-32); Mean Corpuscular Volume 68 fl (84-94)
[2017-03-09] MEDS: TOPROL XL PO SCH (12:45)
[2017-03-09 12:47] LABS: Albumin 3.5 g/dL (3.9-5); Bilirubin,Total 1.1 mg/dL (0.1-1.2); Calcium 8.1 mg/dL (8.4-10.2); Chloride 101.2 mmol/L (98-107); Phosphorous 3.2 mg/dL (2.5-4.5); Potassium 3.3 mmol/L (3.6-5.0)
[2017-03-09 13:58] LABS: Anisocytosis 1+; Blastocytes % (Manual) 0 %; Elliptocytes 1+; Poikilocytosis 2+
[2017-03-09 13:59] LABS: Acanthocytes 1+; Burr Cells Few; Diff Status Complete; Helmet Cells 1+; Hypochromasia 1+; Ovalocytes 1+; Schistocytes 1+
[2017-03-10] MEDS: APRESOLINE PO SCH ×3 (06:03→22:32)
[2017-03-10] MEDS: LASIX IV SCH ×2 (06:03→18:03)
[2017-03-10 06:16] LABS: Hematocrit 33.3 % (35.5-45.6); Hemoglobin 10.3 gm/dl (11.8-15.2); Mean Corpuscular HGB Conc 31 % (32-34); Platelet Count 356 K/mm3 (140-440); Red Blood Count 4.78 M/mm3 (3.65-5.03); Red Cell Distribution Width 17.5 % (13.2-15.2); White Blood Count 5.6 K/mm3 (4.5-11.0)
[2017-03-10 06:18] LABS: Mean Corpuscular Hemoglobin 22 pg (28-32); Mean Corpuscular Volume 70 fl (84-94)
[2017-03-10 06:34] LABS: Potassium 3.3 mmol/L (3.6-5.0)
--- NOTE | 2017-03-10 09:16 | Progress Note ---
Subjective Principal diagnosis: CHF Interval history: Patient was seen today for follow-up on multiple renal related issues Events of 24 hours vitals labs intake output medications were reviewed Patient is being discharged today He is willing to make an appointment in the office soon as he gets the insurance Interdisciplinary Notes were also reviewed Past medical history: Reviewed Social history: Reviewed Allergies: Reviewed Medication: Reviewed Labs: Reviewed Physical examination Gen.: No acute distress HEENT: Oral mucosa moist, mild pallor no icterus Neck: Supple no thyromegaly nodular mass or JVD Chest: Clear to auscultation anteriorly Heart: Regular rate and rhythm S1 and S2 heard Abdomen: Soft nontender no renal bruit no CVA tenderness no suprapubic fullness Extremity: Edema approximately 1+ dry skin no purpuric rash Dermatology: Dry skin no rash Neurological: Assessment and plan Chronic kidney disease patient's creatinine is currently at baseline, in fact better today at 1.5 She was made aware about abnormal renal function/renal failure to make an appointment in the office for follow-up Congestive heart failure etc. patient: Counseling and education done, patient should benefit from this Chronic edema both lower needs fluid extremity sodium restriction congestive heart failure education fluid restriction sodium restriction daily weight monitoring Obesity: Counseled and educated, urine studies not done Blood pressure management lifestyle changes etc. Had a detailed discussion with patient about multiple renal related issues, explained and simple [place]ian. Patient does exhibit good understanding off multiple renal related issues We'll continue to follow and make recommendation from renal standpoint Objective - Vital Signs Vital signs: Vital Signs - 12hr 03/09/17 03/09/17 03/09/17 21:48 22:00 22:43 Temperature Pulse Rate 125 H Pulse Rate [ 120 H Radial] Respiratory 18 Rate Blood Pressure 115/79 Blood Pressure [Left] O2 Sat by Pulse 95 Oximetry 03/10/17 03/10/17 03/10/17 00:07 04:11 06:03 Temperature 97.5 F L 98.6 F Pulse Rate 100 H 97 H 97 H Pulse Rate [ Radial] Respiratory 20 22 Rate Blood Pressure 103/60 107/77 107/77 Blood Pressure [Left] O2 Sat by Pulse 91 94 Oximetry 03/10/17 03/10/17 07:30 09:09 Temperature 98.9 F Pulse Rate 120 H Pulse Rate [ Radial] Respiratory 18 Rate Blood Pressure Blood Pressure 121/92 [Left] O2 Sat by Pulse 99 90 Oximetry - Lab 03/10/17 05:17 03/10/17 05:17 Most recent lab results Calcium 8.0 mg/dL (8.4-10.2) L 03/10/17 05:17 Phosphorus 3.20 mg/dL (2.5-4.5) 03/09/17 11:57
[2017-03-10] MEDS: IMDUR PO SCH (09:19)
[2017-03-10] MEDS: ZESTRIL PO SCH (09:19)
[2017-03-10] MEDS: TOPROL XL PO SCH (09:19)
[2017-03-10] MEDS: K-DUR PO SCH (09:20)
[2017-03-10] MEDS: ELIQUIS PO SCH ×2 (09:20→22:34)
--- NOTE | 2017-03-10 09:50 | Progress Note ---
Assessment and Plan Assessment and plan: 56 YO Male with Systolic CHF EF 17%, S/P ICD Placement, Atrial Fib on Aspirin therapy, DM,Obesity, Metabolic Syndrome, Medication noncompliance presents to ED for evaluation. Pt states that he has experienced shortness of breath for the past week, with worsening symptoms over the past 1 day. Pt acknowledges orthopnea/PND, leg swelling, noncompliance with medication, diet. Pt denies fever, chills, CP, Palpitations, NVD, productive cough, recent ill contacts. Pt seen and evaluated in ED and was initially planned for discharge home, however, patient initially responded to resumption of home medication, but subsequently became tachycardic, and symptomatic. Pt reevaluated and found to be in recurrent respiratory distress. Pt admitted to telemetry with resumption of home medication. (1) Acute on chronic congestive heart failure * CHF Protocol: Cardiology consulted, afterload reduction, fluid restriction, monitor uop q shift, daily weight, monitor for negative fluid balance. * Continue current therapy but discussed with cardiology will add Milerone x 48hrs * Counselling provided * 4TH Admission this year, will discuss possible palliative care for this patient (2) Diabetes * ADA diet, insulin, accu check (3) Noncompliance * Pt counseled regarding noncompliance with diet, medication. * Discuss possible initiation of palliative care at home (4) HTN (hypertension) * monitor bp q shift, IV hydralazine prn, resume coreg and hydralazine, continue medical management. (5) Acute Kidney Infection on CKD * Improved to 1.5, IAW fluid restriction, supportive care, monitor uop q shift, * Nephrology consult noted (6) Atrial fibrillation with rvr * Resume rate control with beta kadi changed from coreg to metoprolol, continue therapeutic anticoagulation with eliquis. 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 SCD when in bed History Interval history: Patient seen and examined, continues to report improvement. Denies any chest pain, nausea, vomiting. still some shortness of breath Hospitalist Physical - Physical exam Narrative exam: General appearance: Present: no acute distress - EENT Eyes: Present: PERRL, EOM intact ENT: hearing intact, clear oral mucosa - Neck Neck: Present: supple, normal ROM - Respiratory Respiratory effort: labored Respiratory: bilateral: rhonchi (fine babisilar rales) - Cardiovascular Rhythm: irregularly irregular Heart Sounds: Present: S1 & S2 - Extremities Extremities: no ischemia, pulses intact, pulses symmetrical Extremity abnormal: edema (+1 b/l edema) Peripheral Pulses: within normal limits - Abdominal General gastrointestinal: soft, non-tender, non-distended, normal bowel sounds - Integumentary Integumentary: Present: warm - Psychiatric Psychiatric: appropriate mood/affect, cooperative - Neurologic Neurologic: CNII-XII intact, moves all extremities - Allied Health Allied health notes reviewed: nursing Results - Constitutional Vitals: Temp Pulse Resp BP Pulse Ox 98.9 F 120 H 18 121/92 90 03/10/17 09:09 03/10/17 09:09 03/10/17 09:09 03/10/17 09:19 03/10/17 09:09 General appearance: Present: no acute distress Results - Labs CBC & Chem 7: 03/10/17 05:17 03/10/17 05:17 Labs: Laboratory Last Values WBC 5.6 K/mm3 (4.5-11.0) 03/10/17 05:17 RBC 4.78 M/mm3 (3.65-5.03) 03/10/17 05:17 Hgb 10.3 gm/dl (11.8-15.2) L 03/10/17 05:17 Hct 33.3 % (35.5-45.6) L 03/10/17 05:17 MCV 70 fl (84-94) L 03/10/17 05:17 MCH 22 pg (28-32) L 03/10/17 05:17 MCHC 31 % (32-34) L 03/10/17 05:17 RDW 17.5 % (13.2-15.2) H 03/10/17 05:17 Plt Count 356 K/mm3 (140-440) 03/10/17 05:17 Lymph % (Auto) 15.9 % (13.4-35.0) 03/07/17 11:10 Ceiba % (Auto) Piano Assembler 03/09/17 11:57 Eos % (Auto) 0.3 % (0.0-4.3) 03/07/17 11:10 Baso % (Auto) 0.7 % (0.0-1.8) 03/07/17 11:10 Lymph # 0.8 K/mm3 (1.2-5.4) L 03/07/17 11:10 Ceiba # 0.7 K/mm3 (0.0-0.8) 03/07/17 11:10 Eos # 0.0 K/mm3 (0.0-0.4) 03/07/17 11:10 Baso # 0.0 K/mm3 (0.0-0.1) 03/07/17 11:10 Add Manual Diff Complete 03/09/17 11:57 Total Counted 100 03/09/17 11:57 Seg Neutrophils % 70.3 % (40.0-70.0) H 03/07/17 11:10 Seg Neuts % (Manual) 72.0 % (40.0-70.0) H 03/09/17 11:57 Band Neutrophils % 2.0 % 03/09/17 11:57 Lymphocytes % (Manual) 13.0 % (13.4-35.0) L 03/09/17 11:57 Reactive Lymphs % (Man) 0 % 03/09/17 11:57 Monocytes % (Manual) 9.0 % (0.0-7.3) H 03/09/17 11:57 Eosinophils % (Manual) 3.0 % (0.0-4.3) 03/09/17 11:57 Basophils % (Manual) 1.0 % (0.0-1.8) 03/09/17 11:57 Metamyelocytes % 0 % 03/09/17 11:57 Myelocytes % 0 % 03/09/17 11:57 Promyelocytes % 0 % 03/09/17 11:57 Blast Cells % 0 % 03/09/17 11:57 Nucleated RBC % Not Reportable 03/09/17 11:57 Seg Neutrophils # 3.7 K/mm3 (1.8-7.7) 03/07/17 11:10 Seg Neutrophils # Man 4.5 K/mm3 (1.8-7.7) 03/09/17 11:57 Band Neutrophils # 0.1 K/mm3 03/09/17 11:57 Lymphocytes # (Manual) 0.8 K/mm3 (1.2-5.4) L 03/09/17 11:57 Abs React Lymphs (Man) 0.0 K/mm3 03/09/17 11:57 Monocytes # (Manual) 0.6 K/mm3 (0.0-0.8) 03/09/17 11:57 Eosinophils # (Manual) 0.2 K/mm3 (0.0-0.4) 03/09/17 11:57 Basophils # (Manual) 0.1 K/mm3 (0.0-0.1) 03/09/17 11:57 Metamyelocytes # 0.0 K/mm3 03/09/17 11:57 Myelocytes # 0.0 K/mm3 03/09/17 11:57 Promyelocytes # 0.0 K/mm3 03/09/17 11:57 Blast Cells # 0.0 K/mm3 03/09/17 11:57 WBC Morphology Not Reportable 03/09/17 11:57 Hypersegmented Neuts Not Reportable 03/09/17 11:57 Hyposegmented Neuts Not Reportable 03/09/17 11:57 Hypogranular Neuts Not Reportable 03/09/17 11:57 Smudge Cells Not Reportable 03/09/17 11:57 Toxic Granulation Not Reportable 03/09/17 11:57 Toxic Vacuolation Not Reportable 03/09/17 11:57 Dohle Bodies Not Reportable 03/09/17 11:57 Pelger-Huet Anomaly Not Reportable 03/09/17 11:57 Andrew Rods Not Reportable 03/09/17 11:57 Platelet Estimate Appears normal 03/09/17 11:57 Clumped Platelets Not Reportable 03/09/17 11:57 Plt Clumps, EDTA Not Reportable 03/09/17 11:57 Large Platelets Not Reportable 03/09/17 11:57 Giant Platelets Not Reportable 03/09/17 11:57 Platelet Satelliting Not Reportable 03/09/17 11:57 Plt Morphology Comment Not Reportable 03/09/17 11:57 RBC Morphology Not Reportable 03/09/17 11:57 Dimorphic RBCs Not Reportable 03/09/17 11:57 Polychromasia Not Reportable 03/09/17 11:57 Hypochromasia 1+ 03/09/17 11:57 Poikilocytosis 2+ 03/09/17 11:57 Anisocytosis 1+ 03/09/17 11:57 Microcytosis Not Reportable 03/09/17 11:57 Macrocytosis Not Reportable 03/09/17 11:57 Spherocytes Not Reportable 03/09/17 11:57 Pappenheimer Bodies Not Reportable 03/09/17 11:57 Sickle Cells Not Reportable 03/09/17 11:57 Target Cells Not Reportable 03/09/17 11:57 Tear Drop Cells Not Reportable 03/09/17 11:57 Ovalocytes 1+ 03/09/17 11:57 Helmet Cells 1+ 03/09/17 11:57 Bow[place] Bodies Not Reportable 03/09/17 11:57 Waldron Rings Not Reportable 03/09/17 11:57 Herminia Cells Few 03/09/17 11:57 Bite Cells Not Reportable 03/09/17 11:57 Crenated Cell Not Reportable 03/09/17 11:57 Elliptocytes 1+ 03/09/17 11:57 Acanthocytes (Spur) 1+ 03/09/17 11:57 Rouleaux Not Reportable 03/09/17 11:57 Hemoglobin C Crystals Not Reportable 03/09/17 11:57 Schistocytes 1+ 03/09/17 11:57 Malaria parasites Not Reportable 03/09/17 11:57 Cipriano Bodies Not Reportable 03/09/17 11:57 Hem Pathologist Commnt No 03/09/17 11:57 Sodium 146 mmol/L (137-145) H 03/10/17 05:17 Potassium 3.3 mmol/L (3.6-5.0) L 03/10/17 05:17 Chloride 103.0 mmol/L (98-107) 03/10/17 05:17 Carbon Dioxide 30 mmol/L (22-30) 03/10/17 05:17 Anion Gap 16 mmol/L 03/10/17 05:17 BUN 24 mg/dL (9-20) H 03/10/17 05:17 Creatinine 1.5 mg/dL (0.8-1.5) 03/10/17 05:17 Estimated GFR 58 ml/min 03/10/17 05:17 BUN/Creatinine Ratio 16 % 03/10/17 05:17 Glucose 80 mg/dL (75-100) 03/10/17 05:17 Calcium 8.0 mg/dL (8.4-10.2) L 03/10/17 05:17 Phosphorus 3.20 mg/dL (2.5-4.5) 03/09/17 11:57 Total Bilirubin 1.10 mg/dL (0.1-1.2) 03/09/17 11:57 AST 63 units/L (5-40) H 03/09/17 11:57 ALT 104 units/L (7-56) H 03/09/17 11:57 Alkaline Phosphatase 80 units/L (35-129) 03/09/17 11:57 Troponin T 0.253 ng/mL (0.00-0.029) H* 03/07/17 11:10 NT-Pro-B Natriuret Pep 9231 pg/mL (0-900) H 03/07/17 11:10 Total Protein 7.0 g/dL (6.3-8.2) 03/09/17 11:57 Albumin 3.5 g/dL (3.9-5) L 03/09/17 11:57 Albumin/Globulin Ratio 1.0 % 03/09/17 11:57 Triglycerides 60 mg/dL (2-149) 03/07/17 11:10 Cholesterol 126 mg/dL (50-199) 03/07/17 11:10 LDL Cholesterol Direct 86 mg/dL (50-130) 03/07/17 11:10 HDL Cholesterol 28 mg/dL (40-59) L 03/07/17 11:10 Cholesterol/HDL Ratio 4.50 % 03/07/17 11:10
--- NOTE | 2017-03-10 11:30 | Progress Note ---
Assessment and Plan Acute Systolic Heart Failure s/t noncompliance with dietary restrictions Nonischemic Cardiomyopathy, LVEF 20-25% Paroxysmal Atrial fibrillation/flutter on eliquis for anticoagulation. cardiac catheterization demonstrated normal coronary arteries 10/2016 Hypertension Acute on chronic kidney disease Obesity Recommendations: Medical therapy for heart failure including diuretics, afterload reducing agents , beta blockers. We will add a trial of IV milrinone for aggressive management. Rate control and oral anticoagulation for atrial fibrillation. Advised low salt and fluid restricted diet. Subjective Date of service: 03/10/17 Principal diagnosis: CHF Interval history: Patient complains of shortness of breath with minimal exertion. Objective Vital Signs Temp Pulse Pulse Resp Resp BP BP 03/10/17 09:19 121/92 03/10/17 09:09 98.9 F 120 H 18 121/92 03/10/17 07:30 03/10/17 06:03 97 H 107/77 03/10/17 04:11 98.6 F 97 H 22 107/77 03/10/17 00:07 97.5 F L 100 H 20 103/60 03/09/17 22:43 125 H 115/79 03/09/17 22:00 120 H 18 03/09/17 21:48 03/09/17 20:24 123 H 03/09/17 20:17 18 03/09/17 19:30 97.8 F 125 H 20 115/79 03/09/17 18:13 98.9 F 112 H 20 115/70 03/09/17 18:01 98.6 F 67 20 109/74 03/09/17 14:00 128 H 03/09/17 13:26 99.2 F 125 H 20 115/70 Pulse Ox 03/10/17 09:19 03/10/17 09:09 90 03/10/17 07:30 99 03/10/17 06:03 03/10/17 04:11 94 03/10/17 00:07 91 03/09/17 22:43 03/09/17 22:00 03/09/17 21:48 95 03/09/17 20:24 03/09/17 20:17 03/09/17 19:30 95 03/09/17 18:13 93 03/09/17 18:01 95 03/09/17 14:00 03/09/17 13:26 94 - Physical Examination General: No Apparent Distress HEENT: Positive: PERRL Cardiac: Positive: irregularly irregular Neuro: Positive: Grossly Intact Extremities: Present: +2 Edema - Labs and Meds Cardiac Enzymes 03/09/17 Range/Units 11:57 AST 63 H (5-40) units/L CBC 03/09/17 03/10/17 Range/Units 11:57 05:17 WBC 6.3 5.6 (4.5-11.0) K/mm3 RBC 4.90 4.78 (3.65-5.03) M/mm3 Hgb 10.3 L 10.3 L (11.8-15.2) gm/dl Hct 33.1 L 33.3 L (35.5-45.6) % Plt Count 368 356 (140-440) K/mm3 Comprehensive Metabolic Panel 03/09/17 03/10/17 Range/Units 11:57 05:17 Sodium 143 146 H (137-145) mmol/L Potassium 3.3 L D 3.3 L (3.6-5.0) mmol/L Chloride 101.2 103.0 (98-107) mmol/L Carbon Dioxide 29 D 30 (22-30) mmol/L BUN 25 H 24 H (9-20) mg/dL Creatinine 1.5 1.5 (0.8-1.5) mg/dL Glucose 96 80 (75-100) mg/dL Calcium 8.1 L 8.0 L (8.4-10.2) mg/dL AST 63 H (5-40) units/L ALT 104 H (7-56) units/L Alkaline Phosphatase 80 (35-129) units/L Total Protein 7.0 (6.3-8.2) g/dL Albumin 3.5 L (3.9-5) g/dL
[2017-03-10] MEDS ORDERED: MILRINONE-D5W 20 MG/100 ML 20 MG/100 ML BAG IV SCH (13:00)
[2017-03-11] MEDS: APRESOLINE PO SCH ×3 (05:51→21:44)
[2017-03-11] MEDS: LASIX IV SCH ×2 (05:51→17:34)
[2017-03-11 06:40] LABS: Calcium 8.1 mg/dL (8.4-10.2); Chloride 102.6 mmol/L (98-107); Magnesium 1.8 mg/dL (1.7-2.3); Potassium 3.6 mmol/L (3.6-5.0)
--- NOTE | 2017-03-11 09:25 | Progress Note ---
Assessment and Plan Acute Systolic Heart Failure s/t noncompliance with dietary restrictions Nonischemic Cardiomyopathy, LVEF 20-25% Paroxysmal Atrial fibrillation/flutter on eliquis for anticoagulation. cardiac catheterization demonstrated normal coronary arteries 10/2016 Hypertension Acute on chronic kidney disease Obesity Recommendations: Continue medical therapy for heart failure including IV milrinone, IV diuretics , afterload reducing agents, beta blockers. Rate control and oral anticoagulation for atrial fibrillation. Low salt and fluid restricted diet. Subjective Date of service: 03/11/17 Principal diagnosis: CHF Interval history: Patient reports some improvement of his breathing. IV milrinone continues. Objective Vital Signs Temp Pulse Resp BP BP Pulse Ox 03/11/17 09:14 91 H 03/11/17 03:58 98.3 F 22 126/89 03/10/17 23:52 98.0 F 125 H 20 109/59 96 03/10/17 22:32 83/44 03/10/17 22:00 96 03/10/17 19:27 98.4 F 126 H 18 83/44 92 03/10/17 19:15 126 H 03/10/17 17:46 98.5 F 62 20 92/53 92 03/10/17 14:00 125 H 03/10/17 13:14 98.3 F 120 H 18 101/70 99 03/10/17 10:00 20 - Physical Examination General: No Apparent Distress HEENT: Positive: PERRL Cardiac: Positive: irregularly irregular Lungs: Positive: Decreased Breath Sounds Neuro: Positive: Grossly Intact Extremities: Present: +2 Edema - Labs and Meds Comprehensive Metabolic Panel 03/11/17 Range/Units 04:37 Sodium 144 (137-145) mmol/L Potassium 3.6 (3.6-5.0) mmol/L Chloride 102.6 (98-107) mmol/L Carbon Dioxide 27 (22-30) mmol/L BUN 23 H (9-20) mg/dL Creatinine 1.5 (0.8-1.5) mg/dL Glucose 93 (75-100) mg/dL Calcium 8.1 L (8.4-10.2) mg/dL
[2017-03-11] MEDS: ZESTRIL PO SCH (09:48)
[2017-03-11] MEDS: TOPROL XL PO SCH (09:49)
[2017-03-11] MEDS: IMDUR PO SCH (09:50)
[2017-03-11] MEDS: ZAROXOLYN PO SCH (09:50)
[2017-03-11] MEDS: K-DUR PO SCH (09:50)
[2017-03-11] MEDS: ELIQUIS PO SCH ×2 (09:52→21:44)
--- NOTE | 2017-03-11 10:37 | Progress Note ---
Subjective Principal diagnosis: CHF Objective - Vital Signs Vital signs: Vital Signs - 12hr 03/10/17 03/11/17 03/11/17 23:52 03:58 09:14 Temperature 98.0 F 98.3 F Pulse Rate 125 H 91 H Respiratory 20 22 Rate Blood Pressure 109/59 126/89 O2 Sat by Pulse 96 Oximetry 03/11/17 03/11/17 03/11/17 09:48 09:49 09:50 Temperature Pulse Rate 126 H 126 H 126 H Respiratory Rate Blood Pressure 120/74 122/74 122/74 O2 Sat by Pulse Oximetry - Lab 03/10/17 05:17 03/11/17 04:37 Most recent lab results Calcium 8.1 mg/dL (8.4-10.2) L 03/11/17 04:37 Phosphorus 3.20 mg/dL (2.5-4.5) 03/09/17 11:57 Magnesium 1.80 mg/dL (1.7-2.3) 03/11/17 04:37
[2017-03-11] MEDS: LANOXIN IV SCH ×2 (13:34→17:33)
--- NOTE | 2017-03-11 16:23 | Progress Note ---
<ROSAURA HILTON - Last Filed: 03/11/17 16:15> Assessment and Plan Assessment and plan: 56 YO Male with Systolic CHF EF 17%, S/P ICD Placement, Atrial Fib on Aspirin therapy, DM,Obesity, Metabolic Syndrome, Medication noncompliance presents to ED for evaluation. Pt states that he has experienced shortness of breath for the past week, with worsening symptoms over the past 1 day. Pt acknowledges orthopnea/PND, leg swelling, noncompliance with medication, diet. Pt denies fever, chills, CP, Palpitations, NVD, productive cough, recent ill contacts. Pt seen and evaluated in ED and was initially planned for discharge home, however, patient initially responded to resumption of home medication, but subsequently became tachycardic, and symptomatic. Pt reevaluated and found to be in recurrent respiratory distress. Pt admitted to telemetry with resumption of home medication. (1) Acute on chronic congestive heart failure * CHF Protocol: Cardiology consulted, afterload reduction, fluid restriction, monitor uop q shift, daily weight, monitor for negative fluid balance. * Continue current therapy but discussed with cardiology will add Milrinone x 48hrs * Counselling provided * 4TH Admission this year, will discuss possible palliative care for this patient (2) Diabetes * ADA diet, insulin, accu check (3) Noncompliance * Pt counseled regarding noncompliance with diet, medication. * Discuss possible initiation of palliative care at home (4) HTN (hypertension) * monitor bp q shift, IV hydralazine prn, resume metoprolol and hydralazine, continue medical management. (5) Acute Kidney Infection on CKD * Improved to 1.5, IAW fluid restriction, supportive care, monitor uop q shift, * Nephrology consult noted (6) Atrial fibrillation with rvr * Resume rate control with metoprolol, continue therapeutic anticoagulation with eliquis. 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 SCD when in bed History Interval history: Patient was seen and examined. Denies, SOB, CP, [place] Hospitalist Physical - Constitutional Vitals: Temp Pulse Resp BP Pulse Ox 97.9 F 120 H 20 96/64 92 03/11/17 12:47 03/11/17 13:34 03/11/17 12:47 03/11/17 13:34 03/11/17 12:47 General appearance: Present: no acute distress - EENT Eyes: Present: PERRL, EOM intact ENT: hearing intact, clear oral mucosa, dentition normal - Neck Neck: Present: supple, normal ROM - Respiratory Respiratory effort: normal Respiratory: bilateral: diminished - Cardiovascular Rhythm: irregularly irregular Heart Sounds: Present: S1 & S2 - Extremities Extremities: no ischemia Extremity abnormal: edema Peripheral Pulses: within normal limits - Abdominal General gastrointestinal: soft, non-tender - Integumentary Integumentary: Present: clear, warm, dry - Psychiatric Psychiatric: appropriate mood/affect, cooperative - Neurologic Neurologic: CNII-XII intact, moves all extremities - Allied Health Allied health notes reviewed: nursing Results - Labs CBC & Chem 7: 03/10/17 05:17 03/11/17 04:37 Labs: Laboratory Last Values WBC 5.6 K/mm3 (4.5-11.0) 03/10/17 05:17 RBC 4.78 M/mm3 (3.65-5.03) 03/10/17 05:17 Hgb 10.3 gm/dl (11.8-15.2) L 03/10/17 05:17 Hct 33.3 % (35.5-45.6) L 03/10/17 05:17 MCV 70 fl (84-94) L 03/10/17 05:17 MCH 22 pg (28-32) L 03/10/17 05:17 MCHC 31 % (32-34) L 03/10/17 05:17 RDW 17.5 % (13.2-15.2) H 03/10/17 05:17 Plt Count 356 K/mm3 (140-440) 03/10/17 05:17 Lymph % (Auto) 15.9 % (13.4-35.0) 03/07/17 11:10 Sabine % (Auto) Parts Inspector 03/09/17 11:57 Eos % (Auto) 0.3 % (0.0-4.3) 03/07/17 11:10 Baso % (Auto) 0.7 % (0.0-1.8) 03/07/17 11:10 Lymph # 0.8 K/mm3 (1.2-5.4) L 03/07/17 11:10 Sabine # 0.7 K/mm3 (0.0-0.8) 03/07/17 11:10 Eos # 0.0 K/mm3 (0.0-0.4) 03/07/17 11:10 Baso # 0.0 K/mm3 (0.0-0.1) 03/07/17 11:10 Add Manual Diff Complete 03/09/17 11:57 Total Counted 100 03/09/17 11:57 Seg Neutrophils % 70.3 % (40.0-70.0) H 03/07/17 11:10 Seg Neuts % (Manual) 72.0 % (40.0-70.0) H 03/09/17 11:57 Band Neutrophils % 2.0 % 03/09/17 11:57 Lymphocytes % (Manual) 13.0 % (13.4-35.0) L 03/09/17 11:57 Reactive Lymphs % (Man) 0 % 03/09/17 11:57 Monocytes % (Manual) 9.0 % (0.0-7.3) H 03/09/17 11:57 Eosinophils % (Manual) 3.0 % (0.0-4.3) 03/09/17 11:57 Basophils % (Manual) 1.0 % (0.0-1.8) 03/09/17 11:57 Metamyelocytes % 0 % 03/09/17 11:57 Myelocytes % 0 % 03/09/17 11:57 Promyelocytes % 0 % 03/09/17 11:57 Blast Cells % 0 % 03/09/17 11:57 Nucleated RBC % Not Reportable 03/09/17 11:57 Seg Neutrophils # 3.7 K/mm3 (1.8-7.7) 03/07/17 11:10 Seg Neutrophils # Man 4.5 K/mm3 (1.8-7.7) 03/09/17 11:57 Band Neutrophils # 0.1 K/mm3 03/09/17 11:57 Lymphocytes # (Manual) 0.8 K/mm3 (1.2-5.4) L 03/09/17 11:57 Abs React Lymphs (Man) 0.0 K/mm3 03/09/17 11:57 Monocytes # (Manual) 0.6 K/mm3 (0.0-0.8) 03/09/17 11:57 Eosinophils # (Manual) 0.2 K/mm3 (0.0-0.4) 03/09/17 11:57 Basophils # (Manual) 0.1 K/mm3 (0.0-0.1) 03/09/17 11:57 Metamyelocytes # 0.0 K/mm3 03/09/17 11:57 Myelocytes # 0.0 K/mm3 03/09/17 11:57 Promyelocytes # 0.0 K/mm3 03/09/17 11:57 Blast Cells # 0.0 K/mm3 03/09/17 11:57 WBC Morphology Not Reportable 03/09/17 11:57 Hypersegmented Neuts Not Reportable 03/09/17 11:57 Hyposegmented Neuts Not Reportable 03/09/17 11:57 Hypogranular Neuts Not Reportable 03/09/17 11:57 Smudge Cells Not Reportable 03/09/17 11:57 Toxic Granulation Not Reportable 03/09/17 11:57 Toxic Vacuolation Not Reportable 03/09/17 11:57 Dohle Bodies Not Reportable 03/09/17 11:57 Pelger-Huet Anomaly Not Reportable 03/09/17 11:57 Andrew Rods Not Reportable 03/09/17 11:57 Platelet Estimate Appears normal 03/09/17 11:57 Clumped Platelets Not Reportable 03/09/17 11:57 Plt Clumps, EDTA Not Reportable 03/09/17 11:57 Large Platelets Not Reportable 03/09/17 11:57 Giant Platelets Not Reportable 03/09/17 11:57 Platelet Satelliting Not Reportable 03/09/17 11:57 Plt Morphology Comment Not Reportable 03/09/17 11:57 RBC Morphology Not Reportable 03/09/17 11:57 Dimorphic RBCs Not Reportable 03/09/17 11:57 Polychromasia Not Reportable 03/09/17 11:57 Hypochromasia 1+ 03/09/17 11:57 Poikilocytosis 2+ 03/09/17 11:57 Anisocytosis 1+ 03/09/17 11:57 Microcytosis Not Reportable 03/09/17 11:57 Macrocytosis Not Reportable 03/09/17 11:57 Spherocytes Not Reportable 03/09/17 11:57 Pappenheimer Bodies Not Reportable 03/09/17 11:57 Sickle Cells Not Reportable 03/09/17 11:57 Target Cells Not Reportable 03/09/17 11:57 Tear Drop Cells Not Reportable 03/09/17 11:57 Ovalocytes 1+ 03/09/17 11:57 Helmet Cells 1+ 03/09/17 11:57 Bowles-Kings Bodies Not Reportable 03/09/17 11:57 [place] Rings Not Reportable 03/09/17 11:57 Herminia Cells Few 03/09/17 11:57 Bite Cells Not Reportable 03/09/17 11:57 Crenated Cell Not Reportable 03/09/17 11:57 Elliptocytes 1+ 03/09/17 11:57 Acanthocytes (Spur) 1+ 03/09/17 11:57 Rouleaux Not Reportable 03/09/17 11:57 Hemoglobin C Crystals Not Reportable 03/09/17 11:57 Schistocytes 1+ 03/09/17 11:57 Malaria parasites Not Reportable 03/09/17 11:57 Cipriano Bodies Not Reportable 03/09/17 11:57 Hem Pathologist Commnt No 03/09/17 11:57 Sodium 144 mmol/L (137-145) 03/11/17 04:37 Potassium 3.6 mmol/L (3.6-5.0) 03/11/17 04:37 Chloride 102.6 mmol/L (98-107) 03/11/17 04:37 Carbon Dioxide 27 mmol/L (22-30) 03/11/17 04:37 Anion Gap 18 mmol/L 03/11/17 04:37 BUN 23 mg/dL (9-20) H 03/11/17 04:37 Creatinine 1.5 mg/dL (0.8-1.5) 03/11/17 04:37 Estimated GFR 58 ml/min 03/11/17 04:37 BUN/Creatinine Ratio 15 % 03/11/17 04:37 Glucose 93 mg/dL (75-100) 03/11/17 04:37 Calcium 8.1 mg/dL (8.4-10.2) L 03/11/17 04:37 Phosphorus 3.20 mg/dL (2.5-4.5) 03/09/17 11:57 Magnesium 1.80 mg/dL (1.7-2.3) 03/11/17 04:37 Total Bilirubin 1.10 mg/dL (0.1-1.2) 03/09/17 11:57 AST 63 units/L (5-40) H 03/09/17 11:57 ALT 104 units/L (7-56) H 03/09/17 11:57 Alkaline Phosphatase 80 units/L (35-129) 03/09/17 11:57 Troponin T 0.253 ng/mL (0.00-0.029) H* 03/07/17 11:10 NT-Pro-B Natriuret Pep 9231 pg/mL (0-900) H 03/07/17 11:10 Total Protein 7.0 g/dL (6.3-8.2) 03/09/17 11:57 Albumin 3.5 g/dL (3.9-5) L 03/09/17 11:57 Albumin/Globulin Ratio 1.0 % 03/09/17 11:57 Triglycerides 60 mg/dL (2-149) 03/07/17 11:10 Cholesterol 126 mg/dL (50-199) 03/07/17 11:10 LDL Cholesterol Direct 86 mg/dL (50-130) 03/07/17 11:10 HDL Cholesterol 28 mg/dL (40-59) L 03/07/17 11:10 Cholesterol/HDL Ratio 4.50 % 03/07/17 11:10 <VANDANA LIMON - Last Filed: 03/11/17 17:24> Assessment and Plan Assessment and plan: I saw and evaluated the patient. I agree with the findings and the plan of care as documented in the Physician Bartender Manager's~note, with the following corrections and additions. Hospitalist Physical - Constitutional Vitals: Temp Pulse Resp BP Pulse Ox 97.9 F 120 H 20 96/64 92 03/11/17 12:47 03/11/17 13:34 03/11/17 12:47 03/11/17 13:34 03/11/17 12:47 Results - Labs CBC & Chem 7: 03/10/17 05:17 03/11/17 04:37 Labs: Laboratory Last Values WBC 5.6 K/mm3 (4.5-11.0) 03/10/17 05:17 RBC 4.78 M/mm3 (3.65-5.03) 03/10/17 05:17 Hgb 10.3 gm/dl (11.8-15.2) L 03/10/17 05:17 Hct 33.3 % (35.5-45.6) L 03/10/17 05:17 MCV 70 fl (84-94) L 03/10/17 05:17 MCH 22 pg (28-32) L 03/10/17 05:17 MCHC 31 % (32-34) L 03/10/17 05:17 RDW 17.5 % (13.2-15.2) H 03/10/17 05:17 Plt Count 356 K/mm3 (140-440) 03/10/17 05:17 Lymph % (Auto) 15.9 % (13.4-35.0) 03/07/17 11:10 Sabine % (Auto) Parts Inspector 03/09/17 11:57 Eos % (Auto) 0.3 % (0.0-4.3) 03/07/17 11:10 Baso % (Auto) 0.7 % (0.0-1.8) 03/07/17 11:10 Lymph # 0.8 K/mm3 (1.2-5.4) L 03/07/17 11:10 Sabine # 0.7 K/mm3 (0.0-0.8) 03/07/17 11:10 Eos # 0.0 K/mm3 (0.0-0.4) 03/07/17 11:10 Baso # 0.0 K/mm3 (0.0-0.1) 03/07/17 11:10 Add Manual Diff Complete 03/09/17 11:57 Total Counted 100 03/09/17 11:57 Seg Neutrophils % 70.3 % (40.0-70.0) H 03/07/17 11:10 Seg Neuts % (Manual) 72.0 % (40.0-70.0) H 03/09/17 11:57 Band Neutrophils % 2.0 % 03/09/17 11:57 Lymphocytes % (Manual) 13.0 % (13.4-35.0) L 03/09/17 11:57 Reactive Lymphs % (Man) 0 % 03/09/17 11:57 Monocytes % (Manual) 9.0 % (0.0-7.3) H 03/09/17 11:57 Eosinophils % (Manual) 3.0 % (0.0-4.3) 03/09/17 11:57 Basophils % (Manual) 1.0 % (0.0-1.8) 03/09/17 11:57 Metamyelocytes % 0 % 03/09/17 11:57 Myelocytes % 0 % 03/09/17 11:57 Promyelocytes % 0 % 03/09/17 11:57 Blast Cells % 0 % 03/09/17 11:57 Nucleated RBC % Not Reportable 03/09/17 11:57 Seg Neutrophils # 3.7 K/mm3 (1.8-7.7) 03/07/17 11:10 Seg Neutrophils # Man 4.5 K/mm3 (1.8-7.7) 03/09/17 11:57 Band Neutrophils # 0.1 K/mm3 03/09/17 11:57 Lymphocytes # (Manual) 0.8 K/mm3 (1.2-5.4) L 03/09/17 11:57 Abs React Lymphs (Man) 0.0 K/mm3 03/09/17 11:57 Monocytes # (Manual) 0.6 K/mm3 (0.0-0.8) 03/09/17 11:57 Eosinophils # (Manual) 0.2 K/mm3 (0.0-0.4) 03/09/17 11:57 Basophils # (Manual) 0.1 K/mm3 (0.0-0.1) 03/09/17 11:57 Metamyelocytes # 0.0 K/mm3 03/09/17 11:57 Myelocytes # 0.0 K/mm3 03/09/17 11:57 Promyelocytes # 0.0 K/mm3 03/09/17 11:57 Blast Cells # 0.0 K/mm3 03/09/17 11:57 WBC Morphology Not Reportable 03/09/17 11:57 Hypersegmented Neuts Not Reportable 03/09/17 11:57 Hyposegmented Neuts Not Reportable 03/09/17 11:57 Hypogranular Neuts Not Reportable 03/09/17 11:57 Smudge Cells Not Reportable 03/09/17 11:57 Toxic Granulation Not Reportable 03/09/17 11:57 Toxic Vacuolation Not Reportable 03/09/17 11:57 Dohle Bodies Not Reportable 03/09/17 11:57 Pelger-Huet Anomaly Not Reportable 03/09/17 11:57 Andrew Rods Not Reportable 03/09/17 11:57 Platelet Estimate Appears normal 03/09/17 11:57 Clumped Platelets Not Reportable 03/09/17 11:57 Plt Clumps, EDTA Not Reportable 03/09/17 11:57 Large Platelets Not Reportable 03/09/17 11:57 Giant Platelets Not Reportable 03/09/17 11:57 Platelet Satelliting Not Reportable 03/09/17 11:57 Plt Morphology Comment Not Reportable 03/09/17 11:57 RBC Morphology Not Reportable 03/09/17 11:57 Dimorphic RBCs Not Reportable 03/09/17 11:57 Polychromasia Not Reportable 03/09/17 11:57 Hypochromasia 1+ 03/09/17 11:57 Poikilocytosis 2+ 03/09/17 11:57 Anisocytosis 1+ 03/09/17 11:57 Microcytosis Not Reportable 03/09/17 11:57 Macrocytosis Not Reportable 03/09/17 11:57 Spherocytes Not Reportable 03/09/17 11:57 Pappenheimer Bodies Not Reportable 03/09/17 11:57 Sickle Cells Not Reportable 03/09/17 11:57 Target Cells Not Reportable 03/09/17 11:57 Tear Drop Cells Not Reportable 03/09/17 11:57 Ovalocytes 1+ 03/09/17 11:57 Helmet Cells 1+ 03/09/17 11:57 Bowles-Kings Bodies Not Reportable 03/09/17 11:57 [place] Rings Not Reportable 03/09/17 11:57 [place] Cells Few 03/09/17 11:57 Bite Cells Not Reportable 03/09/17 11:57 Crenated Cell Not Reportable 03/09/17 11:57 Elliptocytes 1+ 03/09/17 11:57 Acanthocytes (Spur) 1+ 03/09/17 11:57 Rouleaux Not Reportable 03/09/17 11:57 Hemoglobin C Crystals Not Reportable 03/09/17 11:57 Schistocytes 1+ 03/09/17 11:57 Malaria parasites Not Reportable 03/09/17 11:57 Cipriano Bodies Not Reportable 03/09/17 11:57 Hem Pathologist Commnt No 03/09/17 11:57 Sodium 144 mmol/L (137-145) 03/11/17 04:37 Potassium 3.6 mmol/L (3.6-5.0) 03/11/17 04:37 Chloride 102.6 mmol/L (98-107) 03/11/17 04:37 Carbon Dioxide 27 mmol/L (22-30) 03/11/17 04:37 Anion Gap 18 mmol/L 03/11/17 04:37 BUN 23 mg/dL (9-20) H 03/11/17 04:37 Creatinine 1.5 mg/dL (0.8-1.5) 03/11/17 04:37 Estimated GFR 58 ml/min 03/11/17 04:37 BUN/Creatinine Ratio 15 % 03/11/17 04:37 Glucose 93 mg/dL (75-100) 03/11/17 04:37 Calcium 8.1 mg/dL (8.4-10.2) L 03/11/17 04:37 Phosphorus 3.20 mg/dL (2.5-4.5) 03/09/17 11:57 Magnesium 1.80 mg/dL (1.7-2.3) 03/11/17 04:37 Total Bilirubin 1.10 mg/dL (0.1-1.2) 03/09/17 11:57 AST 63 units/L (5-40) H 03/09/17 11:57 ALT 104 units/L (7-56) H 03/09/17 11:57 Alkaline Phosphatase 80 units/L (35-129) 03/09/17 11:57 Troponin T 0.253 ng/mL (0.00-0.029) H* 03/07/17 11:10 NT-Pro-B Natriuret Pep 9231 pg/mL (0-900) H 03/07/17 11:10 Total Protein 7.0 g/dL (6.3-8.2) 03/09/17 11:57 Albumin 3.5 g/dL (3.9-5) L 03/09/17 11:57 Albumin/Globulin Ratio 1.0 % 03/09/17 11:57 Triglycerides 60 mg/dL (2-149) 03/07/17 11:10 Cholesterol 126 mg/dL (50-199) 03/07/17 11:10 LDL Cholesterol Direct 86 mg/dL (50-130) 03/07/17 11:10 HDL Cholesterol 28 mg/dL (40-59) L 03/07/17 11:10 Cholesterol/HDL Ratio 4.50 % 03/07/17 11:10
[2017-03-12] MEDS: LANOXIN IV SCH ×2 (01:56→06:32)
[2017-03-12] MEDS: LASIX IV SCH (06:32)
[2017-03-12] MEDS: APRESOLINE PO SCH (06:32)
--- NOTE | 2017-03-12 08:59 | Progress Note ---
Assessment and Plan Acute Systolic Heart Failure s/t noncompliance with dietary restrictions Nonischemic Cardiomyopathy, LVEF 20-25% Paroxysmal Atrial fibrillation/flutter on eliquis for anticoagulation. cardiac catheterization demonstrated normal coronary arteries 10/2016 Hypertension Acute on chronic kidney disease Obesity Recommendations: Continue medical therapy for heart failure including IV milrinone, IV diuretics , afterload reducing agents, beta blockers. (patient has lost 14 lbs since admission) Rate control and oral anticoagulation for atrial fibrillation. Low salt and fluid restricted diet. Subjective Date of service: 03/12/17 Principal diagnosis: CHF Interval history: Patient is feeling better He has lost 14 lbs since admission Objective Vital Signs Temp Pulse Resp BP Pulse Ox 03/12/17 04:43 98.2 F 48 L 19 125/56 84 03/12/17 01:56 82 03/11/17 22:00 18 03/11/17 19:27 98.7 F 118 H 20 104/52 88 03/11/17 17:33 52 L 106/66 03/11/17 15:55 98.6 F 56 L 18 95/47 98 03/11/17 15:49 98.7 F 50 L 18 106/66 96 03/11/17 13:34 120 H 96/64 03/11/17 12:47 97.9 F 120 H 20 96/49 92 03/11/17 09:50 126 H 122/74 03/11/17 09:49 126 H 122/74 03/11/17 09:48 126 H 120/74 03/11/17 09:14 91 H - Physical Examination General: No Apparent Distress HEENT: Positive: PERRL Neck: Positive: neck supple Cardiac: Positive: irregularly irregular Lungs: Positive: Normal Exam Neuro: Positive: Grossly Intact Extremities: Present: +2 Edema
--- NOTE | 2017-03-12 10:03 | Discharge Summary ---
Providers - Providers Date of Admission: 03/07/17 20:01 Attending physician: VANDANA LIMON MD 03/07/17 20:38 Consult to Physician [CONS] Routine Consulting Provider: ANDRY CURRAN Reason For Exam: chf Place consult to:: [facility] Notified:: Y Comment:: ADDED TO LIST 03/08/17 09:33 Consult to Physician [CONS] Routine Consulting Provider: ALICE MOORE Reason For Exam: CKD Place consult to:: renal Notified:: yes Was contact made?: Yes If yes, spoke with:: Dr macario Primary care physician: CLINICAL RN MANAGER Hospitalization Reason for admission: CHF Condition: Stable Hospital course: 56 YO Male with Systolic CHF EF 17%, S/P ICD Placement, Atrial Fib on Aspirin therapy, DM,Obesity, Metabolic Syndrome, Medication noncompliance presents to ED for evaluation. Pt states that he has experienced shortness of breath for the past week, with worsening symptoms over the past 1 day. Pt acknowledges orthopnea/PND, leg swelling, noncompliance with medication, diet. Pt denies fever, chills, CP, Palpitations, NVD, productive cough, recent ill contacts. Pt seen and evaluated in ED and was initially planned for discharge home, however, patient initially responded to resumption of home medication, but subsequently became tachycardic, and symptomatic. Pt reevaluated and found to be in recurrent respiratory distress. Pt admitted to telemetry with resumption of home medication. (1) Acute on chronic congestive heart failure * CHF Protocol: Cardiology consulted, patient wasa treated with lasix and then placed on milrinone with good diuresis, extensive counseling was provied about compliance and daily weight was instructed * patient lost 14kg will in the hospital (2) Diabetes * ADA diet, insulin, accu check (3) Noncompliance * Pt counseled regarding noncompliance with diet, medication. * Discuss possible initiation of palliative care at home (4) HTN (hypertension) * monitor bp q shift, IV hydralazine prn, resume metoprolol and hydralazine, continue medical management. (5) Acute Kidney Infection on CKD * Improved to 1.5, (6) Atrial fibrillation with rvr * Resumed rate control with metoprolol, continued therapeutic anticoagulation with eliquis. * Risk of stroke discussed in detail (7) Type 2 AL Secondary to Renal failure * cardiology following (8) Anemia of chronic disease * stable (9) Hypokalemia * Resolved Disposition: [id number]/[place]-[id number] HOME UNDER HOME [facility] Time spent for discharge: 35 mins Core Measure Documentation - Palliative Care Palliative Care/ Comfort Measures: Not Applicable - Core Measures Any of the following diagnoses?: heart failure - VTE Discharge Requirements Deep Vein Thrombosis/Pulmonary Embolism Present on Admission: No - Heart Failure Discharge Requirements CRISTIAN/ARB for LVSD if EF <40%: Yes Beta kadi at discharge: Yes Exam - Physical Exam Narrative exam: General appearance: Present: no acute distress - EENT Eyes: Present: PERRL, EOM intact ENT: hearing intact, clear oral mucosa - Neck Neck: Present: supple, normal ROM - Respiratory Respiratory effort: labored Respiratory: bilateral: diminshed - Cardiovascular Rhythm: irregularly irregular Heart Sounds: Present: S1 & S2 - Extremities Extremities: no ischemia, pulses intact, pulses symmetrical Extremity abnormal: edema (+1 b/l edema lower ext) Peripheral Pulses: within normal limits - Abdominal General gastrointestinal: soft, non-tender, non-distended, normal bowel sounds - Integumentary Integumentary: Present: warm - Psychiatric Psychiatric: appropriate mood/affect, cooperative - Neurologic Neurologic: CNII-XII intact, moves all extremities - Allied Health Allied health notes reviewed: nursing Results - Constitutional Vitals: Temp Pulse Resp BP Pulse Ox 98.2 F 48 L 19 125/56 84 03/12/17 04:43 03/12/17 04:43 03/12/17 04:43 03/12/17 04:43 03/12/17 04:43 Plan Activity: advance as tolerated, fall precautions Diet: low salt, diabetic Wound: per wound nurse instructions Special Instructions: other (elevate legs when ever sitting or lying down) Follow up with: [facility] [Provider Group] - 7 Days ANDRY CURRAN MD [Staff Physician] - 7 Days PRIMARY MD RICKY [Primary Care Provider] - 3-5 Days Prescriptions: Apixaban [Eliquis] 5 mg PO Q12HR #60 tablet Aspirin [Aspirin BABY CHEW TAB] 81 mg PO QDAY #30 tab.chew Atorvastatin Calcium [Lipitor] 80 mg PO HS #30 tablet Furosemide [Lasix TAB] 40 mg PO QDAY #30 tablet hydrALAZINE [Apresoline TAB] 50 mg PO Q8HR #90 tablet ISOSORBIDE MONOnitrate [Imdur ER] 30 mg PO QDAY #30 tablet Lisinopril [Zestril TAB] 2.5 mg PO QDAY #30 tablet Metolazone [Zaroxolyn] 5 mg PO QDAY #30 tablet Metoprolol Xl [Metoprolol SUCCINATE ER TAB] 100 mg PO QDAY #30 tablet Potassium Chloride [K-Dur] 10 meq PO QDAY #30 tablet
[2017-03-12] MEDS: K-DUR PO SCH (11:20)
[2017-03-12] MEDS: ELIQUIS PO SCH (11:20)
[2017-03-12] MEDS: ZAROXOLYN PO SCH (11:20)
[2017-03-12] MEDS: IMDUR PO SCH (11:22)
[2017-03-12] MEDS: ZESTRIL PO SCH (11:23)
[2017-03-12] MEDS: TOPROL XL PO SCH (11:25)
[2017-03-12 11:26] VITALS: BP 140/98
== END 2017-03-12 14:00 | disposition home health service (06) | DRG 280 ==
LOC: ED 10:14 → 4A 20:01
PROVIDERS: ADMIT Internal Medicine; ATTEND Internal Medicine
DX: I21.A1 Myocardial infarction type 2 (principal); I50.23 Acute on chronic systolic (congestive) heart failure; I13.0 Hypertensive heart and chronic kidney disease with heart failure and stage 1 through stage 4 chronic kidney disease, or unspecified chronic kidney disease; N17.9 Acute kidney failure, unspecified; I48.92 Unspecified atrial flutter; I42.9 Cardiomyopathy, unspecified; E11.22 Type 2 diabetes mellitus with diabetic chronic kidney disease; N18.9 Chronic kidney disease, unspecified; Z79.82 Long term (current) use of aspirin; Z95.810 Presence of automatic (implantable) cardiac defibrillator; E66.9 Obesity, unspecified; Z68.38 Body mass index [BMI] 38.0-38.9, adult; Z83.3 Family history of diabetes mellitus; Z82.49 Family history of ischemic heart disease and other diseases of the circulatory system; Z91.19 Patient's noncompliance with other medical treatment and regimen; D63.8 Anemia in other chronic diseases classified elsewhere; I48.0 Paroxysmal atrial fibrillation; E87.6 Hypokalemia
CPT/HCPCS: 36415; 71020; 80048; 80053; 80061; 83735; 83880; 84100; 84484; 85007; 85025; 85027; 93005; 93010; 94760; 96374; A9270-GY; J1160; J1940; J2260

== ENCOUNTER 2017-05-05 01:13 | Inpatient (IN) | payer OTHER ==
[2017-05-05 03:41] LABS: Hematocrit 32.2 % (35.5-45.6); Hemoglobin 10.1 gm/dl (11.8-15.2); Mean Corpuscular HGB Conc 31 % (32-34); Red Blood Count 4.84 M/mm3 (3.65-5.03)
--- NOTE | 2017-05-05 03:51 | XRay Report ---
FINAL REPORT EXAM: XR CHEST ROUTINE 2V HISTORY: Shortness of breath COMPARISON: None available. FINDINGS: Frontal lateral views the chest obtained. Mild to moderate cardiac enlargement. Left-sided cardiac defibrillator is in place. Hazy opacities mid to lower lungs with small effusions concerning for mild CHF. Superimposed pneumonia is not excluded. No pneumothorax. IMPRESSION: Findings concerning for mild CHF. Superimposed pneumonia is not excluded.
[2017-05-05 03:56] LABS: Mean Corpuscular Hemoglobin 21 pg (28-32); Mean Corpuscular Volume 67 fl (84-94); Platelet Count 327 K/mm3 (140-440); Red Cell Distribution Width 21.7 % (13.2-15.2)
[2017-05-05 03:58] LABS: BUN/Creatinine Ratio 28; Blood Urea Nitrogen 36 mg/dL (9-20); Calcium 8.6 mg/dL (8.4-10.2); Hemolysis Index 0
[2017-05-05 05:29] LABS: Band Neutrophils # (Manual) 0.2 K/mm3; Total Cells Counted 100
[2017-05-05 05:39] LABS: Anisocytosis 2+; Hypochromasia 2+
[2017-05-05 05:40] LABS: Acanthocytes 1+; Ovalocytes 1+; Schistocytes 2+
[2017-05-05 05:41] LABS: Large Platelets Few
[2017-05-05] MEDS ORDERED: LASIX IV ONE (06:36)
[2017-05-05] MEDS ORDERED: LASIX ONE (06:37)
--- NOTE | 2017-05-05 06:46 | Emergency Department Report ---
HPI - General Chief Complaint: Dyspnea/Respdistress Time Seen by Provider: 05/05/17 06:20 - HPI HPI: 56-year-old male presents to the emergency department with the complaint of some shortness of breath, orthopnea and "feeling woozy." He was dropped off by his son to be seen. He has a history of CHF, borderline diabetes , hypertension, atrial fibrillation, renal insufficiency. He has a internal defibrillator. He follows with [facility]. He says that he has been taking his home medications compliantly. He denies any chest pain, fever, nausea, vomiting or diaphoresis. No recent travel or sick contacts at home. Patient does admit to lower extremity swelling but says "I always have that." The patient had a stress test in October of last year that showed an EF of about 15%. He had a negative cardiac catheterization about the same time that did not show any significant stenosis of cardiac vessels and did not require any stents. ED Past Medical Hx - Past Medical History Previous Medical History?: Yes Hx Hypertension: Yes Hx Congestive Heart Failure: Yes Hx Diabetes: Yes (pre-diabetic) Hx Renal Disease: Yes Hx Asthma: No Hx COPD: No Additional medical history: Atrial fibrillation, renal insufficiency. ENLARGED PROSTATE - Surgical History Past Surgical History?: Yes Hx Internal Defibrillator: Yes Additional Surgical History: pt had defribillator placed x1 month ago - Social History Smoking Status: Never Smoker Substance Use Type: None - Medications Home Medications: Home Medications Medication Instructions Recorded Confirmed Last Taken Type Apixaban [Eliquis] 5 mg PO Q12HR #60 tablet 03/09/17 05/05/17 05/04/17 Rx Aspirin [Aspirin BABY CHEW TAB] 81 mg PO QDAY #30 tab.chew 03/09/17 05/05/1710/12 Rx Atorvastatin Calcium [Lipitor] 80 mg PO HS #30 tablet 03/09/17 05/05/17 Rx Furosemide [Lasix TAB] 40 mg PO QDAY #30 tablet 03/09/17 05/05/17 05/04/17 Rx ISOSORBIDE MONOnitrate [Imdur ER] 30 mg PO QDAY #30 tablet 03/09/17 05/05/1710/12 Rx Lisinopril [Zestril TAB] 2.5 mg PO QDAY #30 tablet 03/09/17 05/05/17 05/04/17 Rx Potassium Chloride [K-Dur] 10 meq PO QDAY #30 tablet 03/09/17 05/05/17 05/04/17 Rx hydrALAZINE [Apresoline TAB] 50 mg PO Q8HR #90 tablet 03/09/17 05/05/17 Rx Metoprolol Xl [Metoprolol 100 mg PO QDAY #30 tablet 03/10/17 05/05/17 05/04/17 Rx SUCCINATE ER TAB] Metolazone [Zaroxolyn] 5 mg PO QDAY #30 tablet 03/12/17 05/05/17 05/04/17 Rx ED Review of Systems ROS: Stated complaint: CHF Other details as noted in HPI Comment: All other systems reviewed and negative Constitutional: denies: chills, fever Eyes: denies: eye pain, eye discharge, vision change ENT: denies: ear pain, throat pain Respiratory: orthopnea, shortness of breath, SOB with exertion Cardiovascular: edema. denies: chest pain Gastrointestinal: denies: abdominal pain, nausea, diarrhea Genitourinary: denies: urgency, dysuria Musculoskeletal: denies: back pain, joint swelling, arthralgia Skin: denies: rash, lesions Neurological: denies: headache, weakness, paresthesias Physical Exam - Physical Exam Vital Signs: Vital Signs 05/05/17 05/05/17 05/05/17 02:41 03:13 03:20 Temperature 97.9 F Pulse Rate 85 96 H 98 H Respiratory 22 21 Rate Blood Pressure 141/97 O2 Sat by Pulse 93 Oximetry 05/05/17 05/05/17 05/05/17 04:00 05:00 06:00 Temperature Pulse Rate 84 88 86 Respiratory 22 21 24 Rate Blood Pressure 136/98 153/110 134/99 O2 Sat by Pulse 97 96 97 Oximetry Physical Exam: GENERAL: The patient is well-developed well-nourished. HENT: Normocephalic. Atraumatic. Patient has moist mucous membranes. EYES: Extraocular motions are intact. Pupils equal reactive to light bilaterally. NECK: Supple. Trachea is midline. CHEST/LUNGS: Coarse breath sounds throughout the chest. There is some tachypnea but no accessory muscle use. There is no respiratory distress noted. HEART/CARDIOVASCULAR: Regular. There is no tachycardia. There is no murmur. ABDOMEN: Abdomen is soft, nontender. Patient has normal bowel sounds. There is no abdominal distention. SKIN: Skin is warm and dry. There is 2+ pitting edema the bilateral lower extremities. NEURO: The patient is awake, alert, and oriented. The patient is cooperative. The patient has no focal neurologic deficits. The patient has normal speech. MUSCULOSKELETAL: There is no tenderness or deformity. There is no evidence of acute injury. ED Course Vital Signs 05/05/17 05/05/17 05/05/17 02:41 03:13 03:20 Temperature 97.9 F Pulse Rate 85 96 H 98 H Respiratory 22 21 Rate Blood Pressure 141/97 O2 Sat by Pulse 93 Oximetry 05/05/17 05/05/17 05/05/17 04:00 05:00 06:00 Temperature Pulse Rate 84 88 86 Respiratory 22 21 24 Rate Blood Pressure 136/98 153/110 134/99 O2 Sat by Pulse 97 96 97 Oximetry ED Medical Decision Making - Lab Data Result diagrams: 05/05/17 03:18 05/05/17 03:18 - EKG Data -: EKG Interpreted by Me EKG shows normal: sinus rhythm (with PVCs), axis (left axis deviation), intervals (prolonged QTC), QRS complexes (Q waves to the anterior and inferior leads), ST-T waves (nonspecific ST-T waves) Rate: normal - EKG Data When compared to previous EKG there are: changes noted (previous EKG in February 2017 showed atrial fibrillation) Interpretation: other (sinus rhythm, PVCs, prolonged QTC, Q waves in inferior and anterior leads) - Radiology Data Radiology results: image reviewed interpreted by me: Chest x-ray shows some moderate cardiomegaly and some pulmonary vascular congestion concerning for CHF. - Medical Decision Making Patient presents with shortness of breath and lower extremity edema. It appears to be an exacerbation and/or decompensation of heart failure. He was given IV Lasix and will be admitted to the hospital and was accepted by Dr. Villasenor. - Differential Diagnosis CHF, [place], Dysrythmia, Pneumonia Critical Care Time: No Critical care attestation.: If time is entered above; I have spent that time in minutes in the direct care of this critically ill patient, excluding procedure time. ED Disposition Clinical Impression: Acute on chronic systolic (congestive) heart failure, Shortness of breath, Leg edema Disposition: DC-[id number] OP ADMIT IP TO THIS HOSP Is pt being admited?: Yes Condition: Stable
[2017-05-05] MEDS ORDERED: HEPARIN SUB-Q SCH (09:00)
--- NOTE | 2017-05-05 09:23 | History and Physical Report ---
History of Present Illness Date of examination: 05/05/17 Date of admission: 05/05/17 08:00 History of present illness: 56 YO Male with Nonischemic cardiomyopathy EF 17%, S/P ICD Placement, Atrial Fib on eliquis therapy, DM, Obesity with Metabolic Syndrome, Medication noncompliance history was dropped to ED by his Son for evaluation. Pt states that he has experienced shortness of breath for the past week, with worsening symptoms over the past couple days. Patient acknowledges orthopnea/PND, chronic leg swelling, and stated that he has been complianant with medications and diet since his last discharge. Pt denies fever, chills, CP, Palpitations, NVD, productive cough, recent ill contacts. He follows with [facility], cardiac cath last year revealed no blockage and medical mx was recommended for him. he is getting admitted for further evaluation and management. Past History Past Medical History: atrial fib, diabetes, heart failure, other (Obesity, Metabolic syndrome, ) Past Surgical History: Other (ICD Placement) Social history: single. denies: smoking, alcohol abuse, prescription drug abuse Family history: diabetes, hypertension Review of System: Constitutional: no fever, no chills, no weight loss Ears, eyes, nose, mouth and throat: no nasal congestion, no nasal discharge, no sinus pressure, no vision change, no red eye. Neck: No neck pain or rigidity. Cardiovascular: No chest pain, + orthopnea, + palpitations, + leg swelling Respiratory:+ shortness of breath, no cough, no congestion, no wheezing Gastrointestinal: no abdominal pain, no nausea, no vomiting Genitourinary : no dysuria, no hematuria Musculoskeletal: no joint swelling or muscle ache Integumentary: no rash, no pruritis Neurological: no parathesias, no numbness, no tingling Endocrine: no cold or heat intolerance, no polyuria or polydipsia Hematologic/Lymphatic: no easy bruising, no easy bleeding, no gland swelling Allergic/Immunologic: no urticaria, no angioedema. Medications and Allergies Allergies Allergy/AdvReac Type Severity Reaction Status Date / Time No Known Allergies Allergy Verified 04/29/16 10:41 Home Medications Medication Instructions Recorded Confirmed Last Taken Type Apixaban [Eliquis] 5 mg PO Q12HR #60 tablet 03/09/17 05/05/17 05/04/17 Rx Aspirin [Aspirin BABY CHEW TAB] 81 mg PO QDAY #30 tab.chew 03/09/17 05/05/1710/12 Rx Atorvastatin Calcium [Lipitor] 80 mg PO HS #30 tablet 03/09/17 05/05/17 Rx Furosemide [Lasix TAB] 40 mg PO QDAY #30 tablet 03/09/17 05/05/17 05/04/17 Rx ISOSORBIDE MONOnitrate [Imdur ER] 30 mg PO QDAY #30 tablet 03/09/17 05/05/1710/12 Rx Lisinopril [Zestril TAB] 2.5 mg PO QDAY #30 tablet 03/09/17 05/05/17 05/04/17 Rx Potassium Chloride [K-Dur] 10 meq PO QDAY #30 tablet 03/09/17 05/05/17 05/04/17 Rx hydrALAZINE [Apresoline TAB] 50 mg PO Q8HR #90 tablet 03/09/17 05/05/17 Rx Metoprolol Xl [Metoprolol 100 mg PO QDAY #30 tablet 03/10/17 05/05/17 05/04/17 Rx SUCCINATE ER TAB] Metolazone [Zaroxolyn] 5 mg PO QDAY #30 tablet 03/12/17 05/05/17 05/04/17 Rx Active Meds: Active Medications Apixaban (Eliquis) 5 mg PO Q12HR [facility] PRN Reason: Protocol Aspirin (Baby Aspirin) 81 mg PO QDAY [facility] Heparin Sodium (Porcine) (Heparin) 5,000 unit SUB-Q Q8H [facility] Hydralazine HCl (Apresoline) 50 mg PO Q8HR [facility] Isosorbide Mononitrate (Imdur) 30 mg PO QDAY [facility] Lisinopril (Zestril) 2.5 mg PO QDAY [facility] Metoprolol Succinate (Toprol Xl) 100 mg PO QDAY [facility] Miscellaneous Medication (Atorvastatin Calcium [Lipitor]) 80 mg PO HS [facility] Potassium Chloride (K-Dur) 10 meq PO QDAY [facility] Exam - Physical Exam Narrative exam: GENERAL: well-developed and well-nourished AAM sitting on chair appeared to be in no discomfort. HEENT: Normocephalic. Atraumatic. No conjunctival congestion or icterus. Patient has moist mucous membranes. NECK: Supple. Trachea midline. CHEST/LUNGS: crackles auscultated bilaterally, breathing nonlabored. No wheezes . HEART/CARDIOVASCULAR: Regular in rate and rhythm. S1 and S2 positive. ABDOMEN: Abdomen is soft, nontender. Patient has normal bowel sounds. SKIN: There is no rash. Warm and dry. NEURO: No focal motor deficit. Follows command. MUSCULOSKELETAL: No joint effusion or tenderness. EXTRIMITY: + pedal edema, no cyanosis or clubbing. PSYCH: Cooperative. - Constitutional Vitals: Temp Pulse Resp BP Pulse Ox 98.0 F 87 22 146/109 97 05/05/17 08:30 05/05/17 08:30 05/05/17 08:30 05/05/17 08:30 05/05/17 08:30 Results - Labs CBC & Chem 7: 05/06/17 09:14 05/06/17 09:07 Labs: Abnormal lab results 05/05/17 05/05/17 05/05/17 Range/Units 03:18 03:18 03:18 Hgb 10.1 L (11.8-15.2) gm/dl Hct 32.2 L (35.5-45.6) % MCV 67 L (84-94) fl MCH 21 L (28-32) pg MCHC 31 L (32-34) % RDW 21.7 H (13.2-15.2) % Basophils % (Manual) 2.0 H (0.0-1.8) % Lymphocytes # (Manual) 1.0 L (1.2-5.4) K/mm3 BUN 36 H (9-20) mg/dL NT-Pro-B Natriuret Pep 6657 H (0-900) pg/mL - Imaging and Cardiology EKG: report reviewed Chest x-ray: report reviewed (pulmonary congestion) Assessment and Plan Acute on chronic CHF exacerbation Nonischemic Cardiomyopathy, LVEF 20-25% Paroxysmal Atrial fibrillation/flutter Hypertension HLD Chronic kidney disease Obesity ( metabolic syndrom) DM type 2 Sinus tachycardia, from CHF exacerbation - admit to telemetry bed - monitor with serial CE and EKG - will place on Aspirin, statin, and Lasix IV - will consult consult cardiology - cardiac catheterization demonstrated normal coronary arteries 10/2016. - cardiac diet now, daily weights, monitor in's and O's - cont afterload reduction, fluid restriction - cont on eliquis for anticoagulation. - provide DVT Px with scd
[2017-05-05] MEDS: TOPROL XL PO SCH (11:00)
[2017-05-05] MEDS: ZESTRIL PO SCH (11:00)
[2017-05-05] MEDS: BABY ASPIRIN PO SCH (11:00)
--- NOTE | 2017-05-05 11:44 | Consultation ---
History of Present Illness Consult date: 05/05/17 Consult reason: congestive heart failure History of present illness: This is a 56yr old man with a history of severe dilated nonischemic cardiomyopathy. 6 months ago, cardiac catheterization demonstrated normal coronary arteries. An echocardiogram showed severe left ventricular dysfunction , ejection fraction 25-30%. He also has a history of paroxysmal atrial fibrillation/flutter and was recommended eliquis for oral anticoagulation therapy. Patient presents to the ED with several days of shortness of breath and orthopnea, admitted with CHF exacerbation thus this cardiac consultation. Chest xray reports CHF. Lower extremity edema noted. Patient admits to compliance with his home medications but has not followed with his bpm analyst in [facility] in recent months. His ECG is a sinus rhythm with PVCs. Medications and Allergies Allergies Allergy/AdvReac Type Severity Reaction Status Date / Time No Known Allergies Allergy Verified 04/29/16 10:41 Home Medications Medication Instructions Recorded Confirmed Last Taken Type Apixaban [Eliquis] 5 mg PO Q12HR #60 tablet 03/09/17 05/05/17 05/04/17 Rx Aspirin [Aspirin BABY CHEW TAB] 81 mg PO QDAY #30 tab.chew 03/09/17 05/05/1710/12 Rx Atorvastatin Calcium [Lipitor] 80 mg PO HS #30 tablet 03/09/17 05/05/17 Rx Furosemide [Lasix TAB] 40 mg PO QDAY #30 tablet 03/09/17 05/05/17 05/04/17 Rx ISOSORBIDE MONOnitrate [Imdur ER] 30 mg PO QDAY #30 tablet 03/09/17 05/05/1710/12 Rx Lisinopril [Zestril TAB] 2.5 mg PO QDAY #30 tablet 03/09/17 05/05/17 05/04/17 Rx Potassium Chloride [K-Dur] 10 meq PO QDAY #30 tablet 03/09/17 05/05/17 05/04/17 Rx hydrALAZINE [Apresoline TAB] 50 mg PO Q8HR #90 tablet 03/09/17 05/05/17 Rx Metoprolol Xl [Metoprolol 100 mg PO QDAY #30 tablet 03/10/17 05/05/17 05/04/17 Rx SUCCINATE ER TAB] Metolazone [Zaroxolyn] 5 mg PO QDAY #30 tablet 03/12/17 05/05/17 05/04/17 Rx Active Meds: Active Medications Apixaban (Eliquis) 5 mg PO Q12HR [facility] PRN Reason: Protocol Aspirin (Baby Aspirin) 81 mg PO QDAY [facility] Last Admin: 05/05/17 11:00 Dose: 81 mg Atorvastatin Calcium (Lipitor) 80 mg PO QHS [facility] Furosemide (Lasix) 40 mg IV 0600,1800 [facility] Heparin Sodium (Porcine) (Heparin) 5,000 unit SUB-Q Q8H [facility] Last Admin: 05/05/17 09:24 Dose: 5,000 unit Hydralazine HCl (Apresoline) 50 mg PO Q8HR [facility] Isosorbide Mononitrate (Imdur) 30 mg PO QDAY [facility] Lisinopril (Zestril) 2.5 mg PO QDAY [facility] Last Admin: 05/05/17 11:00 Dose: 2.5 mg Metoprolol Succinate (Toprol Xl) 100 mg PO QDAY [facility] Last Admin: 05/05/17 11:00 Dose: 100 mg Potassium Chloride (K-Dur) 10 meq PO QDAY [facility] Physical Examination Vital Signs Temp Pulse Resp BP Pulse Ox 97.9 F 85 22 141/97 93 05/05/17 02:41 05/05/17 02:41 05/05/17 02:41 05/05/17 02:41 05/05/17 02:41 General appearance: mild distress HEENT: Positive: PERRL Cardiac: Positive: Reg Rate and Rhythm Lungs: Positive: Decreased Breath Sounds Neuro: Positive: Grossly Intact Results 05/05/17 03:18 05/05/17 03:18 CBC 05/05/17 Range/Units 03:18 WBC 5.2 (4.5-11.0) K/mm3 RBC 4.84 (3.65-5.03) M/mm3 Hgb 10.1 L (11.8-15.2) gm/dl Hct 32.2 L (35.5-45.6) % Plt Count 327 (140-440) K/mm3 Comprehensive Metabolic Panel 05/05/17 Range/Units 03:18 Sodium 141 (137-145) mmol/L Potassium 3.9 (3.6-5.0) mmol/L Chloride 101.0 (98-107) mmol/L Carbon Dioxide 25 (22-30) mmol/L BUN 36 H (9-20) mg/dL Creatinine 1.3 (0.8-1.5) mg/dL Glucose 100 (75-100) mg/dL Calcium 8.6 (8.4-10.2) mg/dL Assessment and Plan Acute Systolic Heart Failure Nonischemic Cardiomyopathy, LVEF 20-25% cardiac catheterization demonstrated normal coronary arteries 10/2016. Paroxysmal Atrial fibrillation/flutter on eliquis for anticoagulation. Hypertension Acute on chronic kidney disease Obesity Recommendations: Medical therapy for heart failure including diuretics, afterload reducing agents , beta blockers. We will add a trial of IV milrinone for aggressive management. Advised low salt and fluid restricted diet.
[2017-05-05] MEDS: IMDUR PO SCH (12:00)
[2017-05-05] MEDS: ELIQUIS PO SCH ×2 (12:00→22:31)
[2017-05-05] MEDS: K-DUR PO SCH (12:01)
[2017-05-05] MEDS: MILRINONE-D5W 20 MG/100 ML 20 MG/100 ML BAG IV SCH ×2 (13:28→20:50)
[2017-05-05] MEDS: APRESOLINE PO SCH ×2 (15:33→22:31)
[2017-05-05] MEDS: LASIX IV SCH (18:38)
[2017-05-05] MEDS ORDERED: NON-FORMULARY (Atorvastatin Calcium [Lipitor] 80 MG) PO SCH (22:00)
[2017-05-06] MEDS: MILRINONE-D5W 20 MG/100 ML 20 MG/100 ML BAG IV SCH ×3 (03:57→23:27)
[2017-05-06] MEDS: APRESOLINE PO SCH ×3 (05:14→21:28)
[2017-05-06] MEDS: LASIX IV SCH ×2 (05:14→21:24)
[2017-05-06 09:38] LABS: Hematocrit 30.2 % (35.5-45.6); Hemoglobin 8.9 gm/dl (11.8-15.2)
[2017-05-06 09:51] LABS: BUN/Creatinine Ratio 31; Blood Urea Nitrogen 40 mg/dL (9-20); Calcium 8.2 mg/dL (8.4-10.2); Hemolysis Index 2
--- NOTE | 2017-05-06 10:02 | Progress Note ---
Assessment and Plan Acute Systolic Heart Failure Nonischemic Cardiomyopathy, LVEF 20-25% cardiac catheterization demonstrated normal coronary arteries 10/2016. Paroxysmal Atrial fibrillation/flutter on eliquis for anticoagulation. Presence of AICD Hypertension Acute on chronic kidney disease Obesity Recommendations: Continue aggressive management with IV diuretic and IV milrinone for heart failure . Advised low salt and fluid restricted diet. Optimal rate control for his atrial flutter Subjective Date of service: 05/06/17 Interval history: Patient reports his breathing has improved. Rapid atrial flutter on telemetry this morning. Patient remains asymptomatic. Objective Vital Signs Temp Pulse Pulse Resp Resp BP Pulse Ox 05/06/17 05:14 85 131/81 05/06/17 04:51 98.1 F 58 L 18 131/81 96 05/06/17 00:36 98.4 F 68 18 110/66 98 05/05/17 22:31 75 143/86 05/05/17 21:09 118 H 22 22 99 05/05/17 20:30 85 05/05/17 20:28 98.3 F 75 18 143/86 98 05/05/17 19:37 80 20 100 05/05/17 19:30 63 20 119/69 05/05/17 19:12 83 28 H 132/83 73 L 05/05/17 19:03 74 17 132/83 76 L 05/05/17 19:00 62 20 132/83 74 L 05/05/17 18:54 68 24 126/81 72 L 05/05/17 18:30 73 23 126/81 05/05/17 18:00 64 18 119/79 68 L 05/05/17 17:30 74 19 125/88 05/05/17 17:00 90 25 H 130/92 83 L 05/05/17 16:30 77 22 120/79 05/05/17 16:00 77 19 116/74 82 L 05/05/17 15:33 69 120/85 05/05/17 15:30 78 19 120/85 82 L 05/05/17 15:00 65 17 127/89 89 05/05/17 14:30 75 22 121/84 91 05/05/17 14:00 69 22 126/84 05/05/17 13:30 77 21 126/84 05/05/17 13:00 80 34 H 120/78 05/05/17 12:30 79 31 H 119/92 89 05/05/17 12:00 93 H 31 H 128/95 05/05/17 11:52 95 H 28 H 133/95 81 L 05/05/17 11:00 94 H 32 H 133/95 05/05/17 10:30 92 H 30 H 135/94 88 05/05/17 10:00 91 H 25 H 149/99 89 - Physical Examination General: No Apparent Distress HEENT: Positive: PERRL Cardiac: Positive: Reg Rate and Rhythm Neuro: Positive: Grossly Intact - Labs and Meds CBC 05/06/17 Range/Units 09:14 Hgb 8.9 L (11.8-15.2) gm/dl Hct 30.2 L (35.5-45.6) % Comprehensive Metabolic Panel 05/06/17 Range/Units 09:07 Sodium 141 (137-145) mmol/L Potassium 3.9 (3.6-5.0) mmol/L Chloride 102.4 (98-107) mmol/L Carbon Dioxide 26 (22-30) mmol/L BUN 40 H (9-20) mg/dL Creatinine 1.3 (0.8-1.5) mg/dL Glucose 94 (75-100) mg/dL Calcium 8.2 L (8.4-10.2) mg/dL
[2017-05-06] MEDS: IMDUR PO SCH (10:49)
[2017-05-06] MEDS: K-DUR PO SCH (10:49)
[2017-05-06] MEDS: ELIQUIS PO SCH ×2 (10:49→21:24)
[2017-05-06] MEDS: BABY ASPIRIN PO SCH (10:49)
[2017-05-06] MEDS: ZESTRIL PO SCH (10:50)
[2017-05-06] MEDS: LOPRESSOR PO SCH ×2 (10:50→21:27)
--- NOTE | 2017-05-06 15:26 | Progress Note ---
Assessment and Plan /Acute on chronic CHF exacerbation with h/o Nonischemic Cardiomyopathy, LVEF 20- 25% - Continue aggressive management with IV diuretic and IV milrinone for heart failure - placed on Aspirin, statin, and Lasix IV, IV milrinone - cardiology following, appreciate recommendation - cardiac catheterization demonstrated normal coronary arteries 10/2016. - cardiac diet now, daily weights, monitor in's and O's - cont afterload reduction, fluid restriction /Paroxysmal Atrial fibrillation/flutter - cont on eliquis for anticoagulation - plan for ICD interrogation /Hypertension - cont current meds /HLD, on statin /Chronic kidney disease, Cr at baseline, cont to monitor BMP /Obesity ( metabolic syndrome) - dietary recommendation /DM type 2 - ADA diet, subcu insulin /provide DVT Px with scd, pt also on eliquis Brief History: 56 YO Male with Nonischemic cardiomyopathy EF 17%, S/P ICD Placement, Atrial Fib on eliquis therapy, DM, Obesity with Metabolic Syndrome, Medication noncompliance history was dropped to ED by his Son for evaluation. Pt states that he has experienced shortness of breath for the past week, with worsening symptoms over the past couple days. Patient acknowledges orthopnea/PND , chronic leg swelling, and stated that he has been complianant with medications and diet since his last discharge. Subjective Date of service: 05/06/17 Interval history: Pt seen and examined cont to c/o SOB even with rest tolerating diet states that was able to sleep last light for couple hours after many days Objective - Exam Narrative Exam: GENERAL: well-developed and well-nourished AAM sitting on chair appeared to be in no discomfort. HEENT: Normocephalic. Atraumatic. No conjunctival congestion or icterus. Patient has moist mucous membranes. NECK: Supple. Trachea midline. CHEST/LUNGS: crackles auscultated bilaterally, breathing nonlabored. No wheezes . HEART/CARDIOVASCULAR: Regular in rate and rhythm. S1 and S2 positive. ABDOMEN: Abdomen is soft, nontender. Patient has normal bowel sounds. SKIN: There is no rash. Warm and dry. NEURO: No focal motor deficit. Follows command. MUSCULOSKELETAL: No joint effusion or tenderness. EXTRIMITY: + pedal edema, no cyanosis or clubbing. PSYCH: Cooperative. - Constitutional Vitals: Vital Signs - 12hr 05/06/17 05/06/1705/06/18 04:51 05:14 09:08 Temperature 98.1 F 97.9 F Pulse Rate 58 L 85 75 Respiratory 18 16 Rate Blood Pressure 131/81 131/81 106/57 O2 Sat by Pulse 96 96 Oximetry 05/06/17 05/06/17 10:49 10:50 Temperature Pulse Rate 77 77 Respiratory Rate Blood Pressure 106/57 O2 Sat by Pulse Oximetry - Labs CBC & Chem 7: 05/09/17 09:05 05/09/17 09:05 Labs: Abnormal lab results 05/06/17 05/06/17 Range/Units 09:07 09:14 Hgb 8.9 L (11.8-15.2) gm/dl Hct 30.2 L (35.5-45.6) % BUN 40 H (9-20) mg/dL Calcium 8.2 L (8.4-10.2) mg/dL
[2017-05-06] MEDS: TOPROL XL PO SCH (23:27)
[2017-05-07] MEDS: LOPRESSOR PO SCH ×3 (03:46→21:53)
[2017-05-07 06:01] LABS: Hematocrit 29.8 % (35.5-45.6); Hemoglobin 9.1 gm/dl (11.8-15.2); Mean Corpuscular HGB Conc 31 % (32-34); Red Blood Count 4.48 M/mm3 (3.65-5.03)
[2017-05-07] MEDS: LASIX IV SCH ×2 (06:15→21:53)
[2017-05-07] MEDS: APRESOLINE PO SCH ×3 (06:15→22:02)
[2017-05-07 06:17] LABS: Mean Corpuscular Hemoglobin 20 pg (28-32); Mean Corpuscular Volume 66 fl (84-94); Platelet Count 338 K/mm3 (140-440); Red Cell Distribution Width 21.9 % (13.2-15.2)
[2017-05-07 06:25] LABS: BUN/Creatinine Ratio 27; Blood Urea Nitrogen 32 mg/dL (9-20); Hemolysis Index 23
[2017-05-07] MEDS: MILRINONE-D5W 20 MG/100 ML 20 MG/100 ML BAG IV SCH ×3 (06:56→21:53)
[2017-05-07 07:52] LABS: Total Cells Counted 100
[2017-05-07 07:53] LABS: Acanthocytes 1+; Anisocytosis 2+; Hypochromasia 2+; Macrocytosis 1+; Ovalocytes 1+; Poikilocytosis 1+; Schistocytes 1+
[2017-05-07] MEDS: IMDUR PO SCH (10:35)
[2017-05-07] MEDS: BABY ASPIRIN PO SCH (10:35)
[2017-05-07] MEDS: K-DUR PO SCH (10:35)
[2017-05-07] MEDS: ELIQUIS PO SCH ×2 (10:35→21:54)
[2017-05-07] MEDS: ZESTRIL PO SCH (10:36)
--- NOTE | 2017-05-07 11:27 | Progress Note ---
Assessment and Plan 1. Acute decompensated chronic combined systolic and diastolic heart failure 2. Dilated nonischemic cardiomyopathy LV ejection fraction 20-25% 3. Paroxysmal atrial fibrillation currently in sinus rhythm 4. Essential hypertension 5. Chronic kidney disease stage III 6. Obesity 7. Presence of a ICD Plan. Cardiac-almanza stable continue present management Subjective Date of service: 05/07/17 Interval history: No cardiac symptoms Objective Vital Signs Temp Pulse Pulse Resp Resp BP Pulse Ox 05/07/17 10:36 120 H 107/69 05/07/17 10:35 120 H 107/69 05/07/17 10:00 120 H 20 98 05/07/17 08:29 111 H 05/07/17 06:15 64 106/78 05/07/17 03:46 132 H 106/62 05/07/17 00:16 97.4 F L 61 20 98/63 100 05/06/17 22:12 141 H 05/06/17 21:28 60 91/53 05/06/17 21:27 60 91/53 05/06/17 20:39 98.7 F 60 20 91/53 96 05/06/17 20:26 22 98 05/06/17 20:25 22 05/06/17 18:25 98.0 F 57 L 16 101/65 98 05/06/17 17:18 55 L 88/55 05/06/17 12:53 97.8 F 53 L 16 88/55 96 - Physical Examination General: No Apparent Distress HEENT: Positive: PERRL Neck: Positive: neck supple, trachea midline Cardiac: Positive: Reg Rate and Rhythm, S1/S2, S3, PMI, Dilated, Laterally Displaced Lungs: Positive: clear to auscultation, No Wheeze, Rales, Rhonchi Neuro: Positive: Grossly Intact Abdomen: Positive: Soft, Active Bowel Sounds Extremities: Absent: edema - Labs and Meds CBC 05/07/17 Range/Units 05:36 WBC 4.4 L (4.5-11.0) K/mm3 RBC 4.48 (3.65-5.03) M/mm3 Hgb 9.1 L (11.8-15.2) gm/dl Hct 29.8 L (35.5-45.6) % Plt Count 338 (140-440) K/mm3 Comprehensive Metabolic Panel 05/07/17 Range/Units 05:36 Sodium 139 (137-145) mmol/L Potassium 3.9 (3.6-5.0) mmol/L Chloride 102.0 (98-107) mmol/L Carbon Dioxide 26 (22-30) mmol/L BUN 32 H (9-20) mg/dL Creatinine 1.2 (0.8-1.5) mg/dL Glucose 93 (75-100) mg/dL Calcium 8.0 L (8.4-10.2) mg/dL - Imaging and Cardiology EKG: report reviewed - Telemetry EKG Rhythm: Sinus Rhythm
--- NOTE | 2017-05-07 17:19 | Progress Note ---
Assessment and Plan /Acute on chronic CHF exacerbation with h/o Nonischemic Cardiomyopathy, LVEF 20- 25% - Continue aggressive management with IV diuretic and IV milrinone for heart failure - placed on Aspirin, statin, and Lasix IV, IV milrinone - cardiology following, appreciate recommendation - cardiac catheterization demonstrated normal coronary arteries 10/2016. - cardiac diet now, daily weights, monitor in's and O's - cont afterload reduction, fluid restriction /Paroxysmal Atrial fibrillation/flutter - cont on eliquis for anticoagulation - plan for ICD interrogation - Changed toprol XL to metoprolol 50 mg po every 8 hours for better HR control /Hypertension - cont current meds /HLD, on statin /Chronic kidney disease, Cr at baseline, cont to monitor BMP /Obesity ( metabolic syndrome) - dietary recommendation /DM type 2 - ADA diet, subcu insulin /provide DVT Px with scd, pt also on eliquis Brief History: 56 YO Male with Nonischemic cardiomyopathy EF 17%, S/P ICD Placement, Atrial Fib on eliquis therapy, DM, Obesity with Metabolic Syndrome, Medication noncompliance history was dropped to ED by his Son for evaluation. Pt states that he has experienced shortness of breath for the past week, with worsening symptoms over the past couple days. Patient acknowledges orthopnea/PND , chronic leg swelling, and stated that he has been complianant with medications and diet since his last discharge. Subjective Date of service: 05/07/17 Interval history: Pt seen and examined cont to c/o SOB even with rest, no improvement of breathing tolerating diet Objective - Exam Narrative Exam: GENERAL: well-developed and well-nourished AAM sitting on chair appeared to be in no discomfort. HEENT: Normocephalic. Atraumatic. No conjunctival congestion or icterus. Patient has moist mucous membranes. NECK: Supple. Trachea midline. CHEST/LUNGS: crackles auscultated bilaterally, breathing nonlabored. No wheezes . HEART/CARDIOVASCULAR: Regular in rate and rhythm. S1 and S2 positive. ABDOMEN: Abdomen is soft, nontender. Patient has normal bowel sounds. SKIN: There is no rash. Warm and dry. NEURO: No focal motor deficit. Follows command. MUSCULOSKELETAL: No joint effusion or tenderness. EXTRIMITY: + pedal edema, no cyanosis or clubbing. PSYCH: Cooperative. - Constitutional Vitals: Vital Signs - 12hr 05/07/17 05/07/17 05/07/17 06:15 08:29 09:45 Temperature 98.0 F Pulse Rate 64 111 H 55 L Pulse Rate [ Apical] Respiratory 24 Rate Blood Pressure 106/78 107/69 O2 Sat by Pulse 98 Oximetry 05/07/17 05/07/17 05/07/17 10:00 10:35 10:36 Temperature Pulse Rate 120 H 120 H Pulse Rate [ 120 H Apical] Respiratory 20 Rate Blood Pressure 107/69 107/69 O2 Sat by Pulse 98 Oximetry 05/07/17 05/07/17 05/07/17 13:15 13:29 14:53 Temperature 97.6 F Pulse Rate 52 L 145 H 145 H Pulse Rate [ Apical] Respiratory 20 Rate Blood Pressure 108/70 108/70 108/70 O2 Sat by Pulse 97 Oximetry - Labs CBC & Chem 7: 05/09/17 09:05 05/09/17 09:05 Labs: Abnormal lab results 05/07/17 05/07/17 Range/Units 05:36 05:36 WBC 4.4 L (4.5-11.0) K/mm3 Hgb 9.1 L (11.8-15.2) gm/dl Hct 29.8 L (35.5-45.6) % MCV 66 L (84-94) fl MCH 20 L (28-32) pg MCHC 31 L (32-34) % RDW 21.9 H (13.2-15.2) % Monocytes % (Manual) 13.0 H (0.0-7.3) % Eosinophils % (Manual) 5.0 H (0.0-4.3) % Lymphocytes # (Manual) 0.7 L (1.2-5.4) K/mm3 BUN 32 H (9-20) mg/dL Calcium 8.0 L (8.4-10.2) mg/dL
[2017-05-08] MEDS: LOPRESSOR PO SCH ×3 (03:56→19:45)
[2017-05-08] MEDS: MILRINONE-D5W 20 MG/100 ML 20 MG/100 ML BAG IV SCH ×2 (06:00→19:24)
[2017-05-08] MEDS: APRESOLINE PO SCH ×3 (06:02→21:36)
[2017-05-08] MEDS: LASIX IV SCH ×2 (06:02→19:24)
[2017-05-08] MEDS: IMDUR PO SCH (09:22)
[2017-05-08] MEDS: BABY ASPIRIN PO SCH (09:22)
[2017-05-08] MEDS: K-DUR PO SCH (09:22)
[2017-05-08] MEDS: ELIQUIS PO SCH ×2 (09:41→21:36)
[2017-05-08] MEDS: ZESTRIL PO SCH (09:42)
--- NOTE | 2017-05-08 11:09 | Progress Note ---
Assessment and Plan 1. Acute decompensated chronic combined systolic and diastolic heart failure 2. Dilated nonischemic cardiomyopathy LV ejection fraction 20-25% 3. Paroxysmal atrial fibrillation currently in sinus rhythm 4. Essential hypertension 5. Chronic kidney disease stage III 6. Obesity 7. Presence of a ICD Plan. Continues diuresis. Cardiac-almanza stable continue present management Subjective Date of service: 05/08/17 Interval history: No cardiac symptoms Objective Vital Signs Temp Pulse Resp Resp BP Pulse Ox 05/08/17 09:42 108/75 05/08/17 09:22 108/75 05/08/17 05:22 98.9 F 66 20 118/64 99 05/08/17 03:56 126 H 102/68 05/08/17 01:02 99.0 F 62 20 95/51 97 05/07/17 22:00 22 05/07/17 21:53 130 H 123/65 05/07/17 21:44 120 H 05/07/17 20:42 98.2 F 59 L 22 123/65 99 05/07/17 20:40 22 96 05/07/17 17:49 20 94/60 05/07/17 14:53 145 H 108/70 05/07/17 13:29 145 H 108/70 05/07/17 13:15 97.6 F 52 L 20 108/70 97 - Physical Examination General: No Apparent Distress HEENT: Positive: PERRL Neck: Positive: neck supple, trachea midline Cardiac: Positive: S1/S2, S3, PMI, Dilated, Laterally Displaced Lungs: Positive: clear to auscultation, No Wheeze, Rales, Rhonchi Neuro: Positive: Grossly Intact, No Lateralizing Findings Abdomen: Positive: Soft, Active Bowel Sounds Extremities: Present: +2 Edema, Other (vascular skin changes) - Imaging and Cardiology EKG: report reviewed
--- NOTE | 2017-05-08 15:55 | Progress Note ---
Assessment and Plan /Acute on chronic CHF exacerbation with h/o Nonischemic Cardiomyopathy, LVEF 20- 25% - Continue aggressive management with IV diuretic and IV milrinone for heart failure - placed on Aspirin, statin, and Lasix IV, IV milrinone - cardiology following, appreciate recommendation - cardiac catheterization demonstrated normal coronary arteries 10/2016. - cardiac diet now, daily weights, monitor in's and O's - cont afterload reduction, fluid restriction /Paroxysmal Atrial fibrillation/flutter - cont on eliquis for anticoagulation - plan for ICD interrogation - Changed toprol XL to metoprolol 50 mg po every 8 hours for better HR control /Hypertension - cont current meds /HLD, on statin /Chronic kidney disease, Cr at baseline, cont to monitor BMP /Obesity ( metabolic syndrome) - dietary recommendation /DM type 2 - ADA diet, subcu insulin /provide DVT Px with scd, pt also on eliquis Brief History: 56 YO Male with Nonischemic cardiomyopathy EF 17%, S/P ICD Placement, Atrial Fib on eliquis therapy, DM, Obesity with Metabolic Syndrome, Medication noncompliance history was dropped to ED by his Son for evaluation. Pt states that he has experienced shortness of breath for the past week, with worsening symptoms over the past couple days. Patient acknowledges orthopnea/PND , chronic leg swelling, and stated that he has been complianant with medications and diet since his last discharge. Subjective Date of service: 05/08/17 Interval history: Pt seen and examined staes breathing slightly better, but LE edema has not improved tolerating diet Objective - Exam Narrative Exam: GENERAL: well-developed and well-nourished AAM sitting on chair appeared to be in no discomfort. HEENT: Normocephalic. Atraumatic. No conjunctival congestion or icterus. Patient has moist mucous membranes. NECK: Supple. Trachea midline. CHEST/LUNGS: no crackles auscultated bilaterally, breathing nonlabored. No wheezes . HEART/CARDIOVASCULAR: Regular in rate and rhythm. S1 and S2 positive. ABDOMEN: Abdomen is soft, nontender. Patient has normal bowel sounds. SKIN: There is no rash. Warm and dry. NEURO: No focal motor deficit. Follows command. MUSCULOSKELETAL: No joint effusion or tenderness. EXTRIMITY: + pedal edema, no cyanosis or clubbing. PSYCH: Cooperative. - Constitutional Vitals: Vital Signs - 12hr 05/08/17 05/08/17 05/08/17 03:56 05:22 09:22 Temperature 98.9 F Pulse Rate 126 H 66 Respiratory 20 Rate Blood Pressure 102/68 118/64 108/75 O2 Sat by Pulse 99 Oximetry 05/08/17 05/08/17 05/08/17 09:25 09:42 13:39 Temperature 98.9 F 97.9 F Pulse Rate 20 L 60 Respiratory 20 20 Rate Blood Pressure 108/75 111/80 O2 Sat by Pulse 98 99 Oximetry 05/08/17 05/08/17 14:59 15:00 Temperature Pulse Rate Respiratory Rate Blood Pressure 100/65 100/65 O2 Sat by Pulse Oximetry - Labs CBC & Chem 7: 05/09/17 09:05 05/09/17 09:05
[2017-05-09] MEDS: MILRINONE-D5W 20 MG/100 ML 20 MG/100 ML BAG IV SCH ×3 (01:40→17:35)
[2017-05-09] MEDS: LOPRESSOR PO SCH ×3 (04:35→19:53)
[2017-05-09] MEDS: LASIX IV SCH ×2 (05:34→17:30)
[2017-05-09] MEDS: APRESOLINE PO SCH ×3 (05:34→21:43)
[2017-05-09 09:26] LABS: Hematocrit 29.2 % (35.5-45.6); Hemoglobin 9.1 gm/dl (11.8-15.2); Mean Corpuscular HGB Conc 31 % (32-34); Red Blood Count 4.47 M/mm3 (3.65-5.03)
[2017-05-09 09:27] LABS: Mean Corpuscular Hemoglobin 20 pg (28-32); Mean Corpuscular Volume 65 fl (84-94); Platelet Count 310 K/mm3 (140-440); Red Cell Distribution Width 21.8 % (13.2-15.2)
[2017-05-09 09:47] LABS: BUN/Creatinine Ratio 20; Blood Urea Nitrogen 22 mg/dL (9-20); Calcium 8.1 mg/dL (8.4-10.2); Hemolysis Index 2
[2017-05-09] MEDS: IMDUR PO SCH (09:52)
[2017-05-09] MEDS: ELIQUIS PO SCH ×2 (09:53→21:44)
[2017-05-09] MEDS: K-DUR PO SCH (09:53)
[2017-05-09] MEDS: ZESTRIL PO SCH (09:54)
[2017-05-09] MEDS: BABY ASPIRIN PO SCH (09:54)
--- NOTE | 2017-05-09 11:36 | Progress Note ---
Assessment and Plan Acute Systolic Heart Failure Nonischemic Cardiomyopathy, LVEF 20-25% cardiac catheterization demonstrated normal coronary arteries 10/2016. Paroxysmal Atrial fibrillation/flutter on eliquis for anticoagulation. on metoprolol for rate control. Presence of AICD Hypertension Acute on chronic kidney disease Obesity Recommendations: Continue aggressive management for decompensated heart failure including IV milrinone therapy.. Low sodium and fluid restricted diet. Optimal rate control for his atrial flutter. Subjective Date of service: 05/09/17 Interval history: Patient reports his breathing has improved. Objective Vital Signs Temp Pulse Pulse Resp Resp BP BP 05/09/17 09:54 108/60 05/09/17 09:52 58 L 108/60 05/09/17 09:28 58 L 05/09/17 09:22 98.0 F 53 L 20 112/68 05/09/17 05:42 98.2 F 60 20 165/91 05/09/17 05:34 122 H 114/33 05/09/17 04:35 124 H 165/91 05/09/17 01:05 97.5 F L 67 18 106/58 05/08/17 20:20 98.8 F 68 18 133/75 05/08/17 20:05 24 05/08/17 20:04 24 05/08/17 19:45 132 H 133/75 05/08/17 19:12 116 H 05/08/17 15:00 100/65 05/08/17 14:59 100/65 05/08/17 13:39 97.9 F 60 20 111/80 Pulse Ox 05/09/17 09:54 05/09/17 09:52 05/09/17 09:28 05/09/17 09:22 95 05/09/17 05:42 99 05/09/17 05:34 05/09/17 04:35 05/09/17 01:05 96 05/08/17 20:20 98 05/08/17 20:05 96 05/08/17 20:04 05/08/17 19:45 05/08/17 19:12 05/08/17 15:00 05/08/17 14:59 05/08/17 13:39 99 - Physical Examination General: No Apparent Distress HEENT: Positive: PERRL Neck: Positive: trachea midline Cardiac: Positive: irregularly irregular Lungs: Positive: Decreased Breath Sounds Neuro: Positive: Grossly Intact Extremities: Present: +2 Edema - Labs and Meds CBC 05/09/17 Range/Units 09:05 WBC 3.9 L (4.5-11.0) K/mm3 RBC 4.47 (3.65-5.03) M/mm3 Hgb 9.1 L (11.8-15.2) gm/dl Hct 29.2 L (35.5-45.6) % Plt Count 310 (140-440) K/mm3 Comprehensive Metabolic Panel 05/09/17 Range/Units 09:05 Sodium 140 (137-145) mmol/L Potassium 3.8 (3.6-5.0) mmol/L Chloride 97.5 L (98-107) mmol/L Carbon Dioxide 31 H (22-30) mmol/L BUN 22 H (9-20) mg/dL Creatinine 1.1 (0.8-1.5) mg/dL Glucose 108 H (75-100) mg/dL Calcium 8.1 L (8.4-10.2) mg/dL - Imaging and Cardiology EKG: report reviewed
--- NOTE | 2017-05-09 16:11 | Progress Note ---
Assessment and Plan /Acute on chronic CHF exacerbation with h/o Nonischemic Cardiomyopathy, LVEF 20- 25% - Continue aggressive management with IV diuretic and IV milrinone for heart failure - placed on Aspirin, statin, and Lasix IV, IV milrinone - cardiology following, appreciate recommendation - cardiac catheterization demonstrated normal coronary arteries 10/2016. - cardiac diet now, daily weights, monitor in's and O's - cont afterload reduction, fluid restriction /Paroxysmal Atrial fibrillation/flutter - cont on eliquis for anticoagulation - plan for ICD interrogation - Changed toprol XL to metoprolol 50 mg po every 8 hours for better HR control /Hypertension - cont current meds /HLD, on statin /Chronic kidney disease, Cr at baseline, cont to monitor BMP /Obesity ( metabolic syndrome) - dietary recommendation /DM type 2 - ADA diet, subcu insulin /provide DVT Px with scd, pt also on eliquis Brief History: 56 YO Male with Nonischemic cardiomyopathy EF 17%, S/P ICD Placement, Atrial Fib on eliquis therapy, DM, Obesity with Metabolic Syndrome, Medication noncompliance history was dropped to ED by his Son for evaluation. Pt states that he has experienced shortness of breath for the past week, with worsening symptoms over the past couple days. Patient acknowledges orthopnea/PND , chronic leg swelling, and stated that he has been complianant with medications and diet since his last discharge. Subjective Date of service: 05/09/17 Interval history: Pt seen and examined states breathing slightly better, improving LE edema tolerating diet Objective - Constitutional Vitals: Vital Signs - 12hr 05/09/17 05/09/17 05/09/17 04:35 05:34 05:42 Temperature 98.2 F Pulse Rate 124 H 122 H 60 Pulse Rate [ Apical] Respiratory 20 Rate Blood Pressure 165/91 114/33 Blood Pressure 165/91 [Left] O2 Sat by Pulse 99 Oximetry 05/09/17 05/09/17 05/09/17 09:22 09:28 09:52 Temperature 98.0 F Pulse Rate 53 L 58 L Pulse Rate [ 58 L Apical] Respiratory 20 Rate Blood Pressure 108/60 Blood Pressure 112/68 [Left] O2 Sat by Pulse 95 Oximetry 05/09/17 05/09/17 09:54 13:02 Temperature 98.3 F Pulse Rate 67 Pulse Rate [ Apical] Respiratory 20 Rate Blood Pressure 108/60 Blood Pressure 118/71 [Left] O2 Sat by Pulse Oximetry - Labs CBC & Chem 7: 05/09/17 09:05 05/09/17 09:05 Labs: Abnormal lab results 05/09/17 05/09/17 Range/Units 09:05 09:05 WBC 3.9 L (4.5-11.0) K/mm3 Hgb 9.1 L (11.8-15.2) gm/dl Hct 29.2 L (35.5-45.6) % MCV 65 L (84-94) fl MCH 20 L (28-32) pg MCHC 31 L (32-34) % RDW 21.8 H (13.2-15.2) % Chloride 97.5 L (98-107) mmol/L Carbon Dioxide 31 H (22-30) mmol/L BUN 22 H (9-20) mg/dL Glucose 108 H (75-100) mg/dL Calcium 8.1 L (8.4-10.2) mg/dL
[2017-05-10] MEDS: MILRINONE-D5W 20 MG/100 ML 20 MG/100 ML BAG IV SCH ×2 (01:13→12:55)
[2017-05-10] MEDS: LOPRESSOR PO SCH ×3 (05:14→19:00)
[2017-05-10] MEDS: APRESOLINE PO SCH ×2 (05:14→23:01)
[2017-05-10] MEDS: LASIX IV SCH (05:14)
--- NOTE | 2017-05-10 09:48 | Progress Note ---
Assessment and Plan Acute Systolic Heart Failure Nonischemic Cardiomyopathy, LVEF 20-25% cardiac catheterization demonstrated normal coronary arteries 10/2016. Paroxysmal Atrial fibrillation/flutter on eliquis for anticoagulation. on metoprolol for rate control. Presence of AICD Hypertension Acute on chronic kidney disease Obesity Recommendations: Continue aggressive management for nonischemic cardiomyopathy and paroxysmal atrial flutter. Advised low sodium and fluid restricted diet. Subjective Date of service: 05/10/17 Interval history: Patient reports his breathing has improved. Objective Vital Signs Temp Pulse Pulse Resp Resp BP BP 05/10/17 09:22 98.4 F 55 L 20 119/85 05/10/17 05:14 110 H 113/73 05/10/17 05:09 98.3 F 60 22 113/73 05/09/17 23:55 98.4 F 109 H 20 100/70 05/09/17 23:51 98.4 F 80 20 100/70 05/09/17 21:43 59 L 106/69 05/09/17 20:46 119 H 05/09/17 20:37 98.0 F 55 L 20 106/69 05/09/17 20:21 120 H 22 05/09/17 20:19 22 05/09/17 19:53 122 H 116/60 05/09/17 17:30 65 117/65 05/09/17 16:46 98.3 F 68 20 124/78 05/09/17 15:35 32.1 F L 72 20 118/60 05/09/17 15:29 98.3 F 66 20 124/78 05/09/17 15:00 117/65 05/09/17 13:02 98.3 F 67 20 118/71 05/09/17 10:48 98.3 F 20 118/71 05/09/17 09:54 108/60 05/09/17 09:52 58 L 108/60 Pulse Ox 05/10/17 09:22 94 05/10/17 05:14 05/10/17 05:09 92 05/09/17 23:55 97 05/09/17 23:51 92 05/09/17 21:43 05/09/17 20:46 05/09/17 20:37 95 05/09/17 20:21 96 05/09/17 20:19 05/09/17 19:53 05/09/17 17:30 02/12/18 16:46 92 05/09/17 15:35 99 05/09/17 15:29 90 05/09/17 15:00 05/09/17 13:02 05/09/17 10:48 05/09/17 09:54 05/09/17 09:52 - Physical Examination General: No Apparent Distress HEENT: Positive: PERRL Neck: Positive: trachea midline Cardiac: Positive: irregularly irregular Lungs: Positive: Decreased Breath Sounds Neuro: Positive: Grossly Intact Extremities: Present: +2 Edema - Labs and Meds Comprehensive Metabolic Panel 05/09/17 Range/Units 09:05 Sodium 140 (137-145) mmol/L Potassium 3.8 (3.6-5.0) mmol/L Chloride 97.5 L (98-107) mmol/L Carbon Dioxide 31 H (22-30) mmol/L BUN 22 H (9-20) mg/dL Creatinine 1.1 (0.8-1.5) mg/dL Glucose 108 H (75-100) mg/dL Calcium 8.1 L (8.4-10.2) mg/dL - Imaging and Cardiology EKG: report reviewed
[2017-05-10] MEDS: IMDUR PO SCH (12:34)
[2017-05-10] MEDS: BABY ASPIRIN PO SCH (12:45)
[2017-05-10] MEDS: K-DUR PO SCH (12:46)
[2017-05-10] MEDS: ELIQUIS PO SCH ×2 (12:55→23:00)
[2017-05-10] MEDS: ZESTRIL PO SCH (13:09)
--- NOTE | 2017-05-10 21:24 | Progress Note ---
Assessment and Plan Assessment and plan: Patient is a 56 yo man with Nonischemic cardiomyopathy EF 17%, S/P ICD Placement , Atrial Fib on eliquis therapy, DM, Obesity with Metabolic Syndrome, Medication noncompliance history presented with SOB /Acute on chronic CHF exacerbation with h/o Nonischemic Cardiomyopathy, LVEF 20- 25% - Continue aggressive management with IV diuretic and IV milrinone for heart failure - placed on Aspirin, statin, and Lasix IV, IV milrinone - cardiology following, appreciate recommendation - cardiac catheterization demonstrated normal coronary arteries 10/2016. - cardiac diet now, daily weights, monitor in's and O's - cont afterload reduction, fluid restriction /Paroxysmal Atrial fibrillation/flutter - cont on eliquis for anticoagulation - plan for ICD interrogation - Changed toprol XL to metoprolol 50 mg po every 8 hours for better HR control /Hypertension - cont current meds /HLD, on statin /Chronic kidney disease, Cr at baseline, cont to monitor BMP /Obesity ( metabolic syndrome) - dietary recommendation /DM type 2 - ADA diet, subcu insulin /provide DVT Px with scd, pt also on eliquis per Cardiology: "Acute Systolic Heart Failure Nonischemic Cardiomyopathy, LVEF 20-25% cardiac catheterization demonstrated normal coronary arteries 10/2016. Paroxysmal Atrial fibrillation/flutter on eliquis for anticoagulation. on metoprolol for rate control. Presence of AICD Hypertension Acute on chronic kidney disease Obesity Recommendations: Continue aggressive management for nonischemic cardiomyopathy and paroxysmal atrial flutter. Advised low sodium and fluid restricted diet." History Interval history: Patient is seen and examined. Follow up sob which is improving. Hospitalist Physical - Physical exam Narrative exam: General: No Apparent Distress, a/o x 3 HEENT: Positive: PERRL Neck: Positive: trachea midline Cardiac: Positive: irregularly irregular Lungs: Positive: Decreased Breath Sounds bilaterally Neuro: Positive: Grossly Intact Extremities: Present: +2 Edema - Constitutional Vitals: Temp Pulse Resp BP Pulse Ox 97.9 F 51 L 18 124/98 94 05/10/17 20:34 05/10/17 20:34 05/10/17 20:34 05/10/17 20:34 05/10/17 20:34 Results - Labs CBC & Chem 7: 05/09/17 09:05 05/09/17 09:05 Labs: Laboratory Last Values WBC 3.9 K/mm3 (4.5-11.0) L 05/09/17 09:05 RBC 4.47 M/mm3 (3.65-5.03) 05/09/17 09:05 Hgb 9.1 gm/dl (11.8-15.2) L 05/09/17 09:05 Hct 29.2 % (35.5-45.6) L 05/09/17 09:05 MCV 65 fl (84-94) L 05/09/17 09:05 MCH 20 pg (28-32) L 05/09/17 09:05 MCHC 31 % (32-34) L 05/09/17 09:05 RDW 21.8 % (13.2-15.2) H 05/09/17 09:05 Plt Count 310 K/mm3 (140-440) 05/09/17 09:05 Ross % (Auto) Loan Closer 05/07/17 05:36 Add Manual Diff Complete 05/07/17 05:36 Total Counted 100 05/07/17 05:36 Seg Neuts % (Manual) 63.0 % (40.0-70.0) 05/07/17 05:36 Band Neutrophils % 1.0 % 05/07/17 05:36 Lymphocytes % (Manual) 17.0 % (13.4-35.0) 05/07/17 05:36 Reactive Lymphs % (Man) 0 % 05/07/17 05:36 Monocytes % (Manual) 13.0 % (0.0-7.3) H 05/07/17 05:36 Eosinophils % (Manual) 5.0 % (0.0-4.3) H 05/07/17 05:36 Basophils % (Manual) 1.0 % (0.0-1.8) 05/07/17 05:36 Metamyelocytes % 0 % 05/07/17 05:36 Myelocytes % 0 % 05/07/17 05:36 Promyelocytes % 0 % 05/07/17 05:36 Blast Cells % 0 % 05/07/17 05:36 Nucleated RBC % Not Reportable 05/07/17 05:36 Seg Neutrophils # Man 2.8 K/mm3 (1.8-7.7) 05/07/17 05:36 Band Neutrophils # 0.0 K/mm3 05/07/17 05:36 Lymphocytes # (Manual) 0.7 K/mm3 (1.2-5.4) L 05/07/17 05:36 Abs React Lymphs (Man) 0.0 K/mm3 05/07/17 05:36 Monocytes # (Manual) 0.6 K/mm3 (0.0-0.8) 05/07/17 05:36 Eosinophils # (Manual) 0.2 K/mm3 (0.0-0.4) 05/07/17 05:36 Basophils # (Manual) 0.0 K/mm3 (0.0-0.1) 05/07/17 05:36 Metamyelocytes # 0.0 K/mm3 05/07/17 05:36 Myelocytes # 0.0 K/mm3 05/07/17 05:36 Promyelocytes # 0.0 K/mm3 05/07/17 05:36 Blast Cells # 0.0 K/mm3 05/07/17 05:36 Pathologist Review 05/05/17 03:18 WBC Morphology Not Reportable 05/07/17 05:36 Hypersegmented Neuts Not Reportable 05/07/17 05:36 Hyposegmented Neuts Not Reportable 05/07/17 05:36 Hypogranular Neuts Not Reportable 05/07/17 05:36 Smudge Cells Not Reportable 05/07/17 05:36 Toxic Granulation Not Reportable 05/07/17 05:36 Toxic Vacuolation Not Reportable 05/07/17 05:36 Dohle Bodies Not Reportable 05/07/17 05:36 Pelger-Huet Anomaly Not Reportable 05/07/17 05:36 Andrew Rods Not Reportable 05/07/17 05:36 Platelet Estimate Appears normal 05/07/17 05:36 Clumped Platelets Not Reportable 05/07/17 05:36 Plt Clumps, EDTA Not Reportable 05/07/17 05:36 Large Platelets Not Reportable 05/07/17 05:36 Giant Platelets Not Reportable 05/07/17 05:36 Platelet Satelliting Not Reportable 05/07/17 05:36 Plt Morphology Comment Not Reportable 05/07/17 05:36 RBC Morphology Not Reportable 05/07/17 05:36 Dimorphic RBCs Not Reportable 05/07/17 05:36 Polychromasia Not Reportable 05/07/17 05:36 Hypochromasia 2+ 05/07/17 05:36 Poikilocytosis 1+ 05/07/17 05:36 Anisocytosis 2+ 05/07/17 05:36 Microcytosis 1+ 05/07/17 05:36 Macrocytosis 1+ 05/07/17 05:36 Spherocytes Not Reportable 05/07/17 05:36 Pappenheimer Bodies Not Reportable 05/07/17 05:36 Sickle Cells Not Reportable 05/07/17 05:36 Target Cells Not Reportable 05/07/17 05:36 Tear Drop Cells Not Reportable 05/07/17 05:36 Ovalocytes 1+ 05/07/17 05:36 Helmet Cells Not Reportable 05/07/17 05:36 [place] Bodies Not Reportable 05/07/17 05:36 [place] Rings Not Reportable 05/07/17 05:36 [place] Cells Not Reportable 05/07/17 05:36 Bite Cells Not Reportable 05/07/17 05:36 Crenated Cell Not Reportable 05/07/17 05:36 Elliptocytes Not Reportable 05/07/17 05:36 Acanthocytes (Spur) 1+ 05/07/17 05:36 Rouleaux Not Reportable 05/07/17 05:36 Hemoglobin C Crystals Not Reportable 05/07/17 05:36 Schistocytes 1+ 05/07/17 05:36 Malaria parasites Not Reportable 05/07/17 05:36 Cipriano Bodies Not Reportable 05/07/17 05:36 Hem Pathologist Commnt No 05/07/17 05:36 Sodium 140 mmol/L (137-145) 05/09/17 09:05 Potassium 3.8 mmol/L (3.6-5.0) 05/09/17 09:05 Chloride 97.5 mmol/L (98-107) L 05/09/17 09:05 Carbon Dioxide 31 mmol/L (22-30) H 05/09/17 09:05 Anion Gap 15 mmol/L 05/09/17 09:05 BUN 22 mg/dL (9-20) H 05/09/17 09:05 Creatinine 1.1 mg/dL (0.8-1.5) 05/09/17 09:05 Estimated GFR > 60 ml/min 05/09/17 09:05 BUN/Creatinine Ratio 20 % 05/09/17 09:05 Glucose 108 mg/dL (75-100) H 05/09/17 09:05 Calcium 8.1 mg/dL (8.4-10.2) L 05/09/17 09:05 Magnesium 2.20 mg/dL (1.7-2.3) 05/06/17 09:07 Troponin T 0.017 ng/mL (0.00-0.029) 05/05/17 03:18 NT-Pro-B Natriuret Pep 6657 pg/mL (0-900) H 05/05/17 03:18
[2017-05-11] MEDS: LOPRESSOR PO SCH ×2 (03:54→11:11)
[2017-05-11] MEDS: APRESOLINE PO SCH ×3 (06:24→14:17)
[2017-05-11] MEDS: LASIX IV SCH ×2 (06:24→07:28)
[2017-05-11 06:35] LABS: Hematocrit 32.4 % (35.5-45.6); Hemoglobin 10.1 gm/dl (11.8-15.2); Mean Corpuscular HGB Conc 31 % (32-34); Red Blood Count 4.96 M/mm3 (3.65-5.03)
[2017-05-11 06:39] LABS: Mean Corpuscular Hemoglobin 20 pg (28-32); Mean Corpuscular Volume 65 fl (84-94); Platelet Count 349 K/mm3 (140-440); Red Cell Distribution Width 21.4 % (13.2-15.2)
[2017-05-11 06:57] LABS: BUN/Creatinine Ratio 22; Blood Urea Nitrogen 24 mg/dL (9-20); Calcium 8.7 mg/dL (8.4-10.2); Hemolysis Index 143
--- NOTE | 2017-05-11 10:43 | Progress Note ---
Assessment and Plan Acute Systolic Heart Failure Nonischemic Cardiomyopathy, LVEF 20-25% cardiac catheterization demonstrated normal coronary arteries 10/2016. Paroxysmal Atrial fibrillation/flutter on eliquis for anticoagulation. on metoprolol for rate control. Presence of AICD Hypertension Acute on chronic kidney disease Hyperkalemia zestril and KCL discontinued. Obesity Recommendations: Continue aggressive management for nonischemic cardiomyopathy and paroxysmal atrial flutter. Advised low sodium and fluid restricted diet. Subjective Date of service: 05/11/17 Interval history: Patient reports his breathing is better. Wants to go home. Objective Vital Signs Temp Pulse Pulse Resp Resp BP BP 05/11/17 09:43 90 90 05/11/17 07:07 98.2 F 51 L 18 125/81 05/11/17 05:20 97.6 F 58 L 20 121/64 05/11/17 03:54 115 H 05/11/17 01:38 22 05/11/17 00:51 98.2 F 60 18 139/99 05/10/17 20:34 97.9 F 51 L 18 124/98 05/10/17 19:15 110 H 22 05/10/17 19:00 56 L 05/10/17 16:43 98.4 F 54 L 20 126/88 05/10/17 13:09 142/104 05/10/17 12:45 142/104 05/10/17 12:34 142/104 Pulse Ox 05/11/17 09:43 05/11/17 07:07 90 05/11/17 05:20 98 05/11/17 03:54 05/11/17 01:38 05/11/17 00:51 94 05/10/17 20:34 94 05/10/17 19:15 05/10/17 19:00 05/10/17 16:43 95 05/10/17 13:09 05/10/17 12:45 05/10/17 12:34 - Physical Examination General: No Apparent Distress HEENT: Positive: PERRL Neck: Positive: trachea midline Cardiac: Positive: irregularly irregular Lungs: Positive: Decreased Breath Sounds Neuro: Positive: Grossly Intact Extremities: Present: +1 Edema - Labs and Meds CBC 05/11/17 Range/Units 06:06 WBC 4.1 L (4.5-11.0) K/mm3 RBC 4.96 (3.65-5.03) M/mm3 Hgb 10.1 L (11.8-15.2) gm/dl Hct 32.4 L (35.5-45.6) % Plt Count 349 (140-440) K/mm3 Comprehensive Metabolic Panel 05/11/17 Range/Units 06:06 Sodium 139 (137-145) mmol/L Potassium 5.9 H D (3.6-5.0) mmol/L Chloride 98.7 (98-107) mmol/L Carbon Dioxide 25 (22-30) mmol/L BUN 24 H (9-20) mg/dL Creatinine 1.1 (0.8-1.5) mg/dL Glucose 98 (75-100) mg/dL Calcium 8.7 (8.4-10.2) mg/dL - Imaging and Cardiology EKG: report reviewed
[2017-05-11] MEDS: ELIQUIS PO SCH (10:51)
[2017-05-11] MEDS: BABY ASPIRIN PO SCH (10:51)
[2017-05-11] MEDS: IMDUR PO SCH (10:53)
[2017-05-11 13:01] VITALS: BP 131/88
--- NOTE | 2017-05-11 14:32 | Discharge Summary ---
Providers - Providers Date of Admission: 05/05/17 08:00 Date of discharge: 05/11/17 Attending physician: VERNA ALANIS 05/05/17 08:01 Consult to Cardiology [CONS] Routine Consulting Provider: ANDRY CURRAN Reason For Exam: CHF Exacerbation Primary care physician: GEMMA DENNIS Hospitalization Condition: Stable Hospital course: Patient is a 56 yo man with Nonischemic cardiomyopathy EF 20-25%, w/ ICD, Atrial Fib on eliquis therapy, DM, Obesity with Metabolic Syndrome and Medication noncompliance history presented with SOB /Acute on chronic systolic exacerbation with h/o Nonischemic Cardiomyopathy, LVEF 20-25% - Continue aggressive management with IV diuretic and IV milrinone for heart failure - placed on Aspirin, statin, and Lasix IV, IV milrinone - cardiology following, appreciate recommendation - cardiac catheterization demonstrated normal coronary arteries 10/2016. - cardiac diet now, daily weights, monitor in's and O's - cont afterload reduction, fluid restriction /Paroxysmal Atrial fibrillation/flutter - cont on eliquis for anticoagulation - plan for ICD interrogation - Changed toprol XL to metoprolol 50 mg po every 8 hours for better HR control /Hypertension - cont current meds /HLD, on statin /Chronic kidney disease 3, Cr at baseline, cont to monitor BMP /Obesity ( metabolic syndrome) - dietary recommendation /DM type 2 - ADA diet, subcu insulin /provide DVT Px with scd, pt also on eliquis per Cardiology, Dr. Tamayo: "Acute Systolic Heart Failure Nonischemic Cardiomyopathy, LVEF 20-25% cardiac catheterization demonstrated normal coronary arteries 10/2016. Paroxysmal Atrial fibrillation/flutter on eliquis for anticoagulation. on metoprolol for rate control. Presence of AICD Hypertension Acute on chronic kidney disease Hyperkalemia zestril and KCL discontinued. Obesity Recommendations: Continue aggressive management for nonischemic cardiomyopathy and paroxysmal atrial flutter. Advised low sodium and fluid restricted diet. Acute on chronic systolic heart failure - doing better Persistent atrial flutter on eliquis Recommendations: Increase metoprolol to 75 mg po every 8 hours Switch IV lasix to po Bumex 1 mg bid Follow-up as outpatient in 1 week" Disposition: TO HOME OR SELFCARE Time spent for discharge: 36 minutes Core Measure Documentation - Palliative Care Palliative Care/ Comfort Measures: Not Applicable - Core Measures Any of the following diagnoses?: heart failure - Heart Failure Discharge Requirements CRISTIAN/ARB for LVSD if EF <40%: Yes Beta kadi at discharge: Yes Exam - Physical Exam Narrative exam: General: No Apparent Distress, a/o x 3 HEENT: Positive: PERRL Neck: Positive: trachea midline Cardiac: Positive: irregularly irregular Lungs: Positive: Decreased Breath Sounds bilaterally Neuro: Positive: Grossly Intact Extremities: Present: +2 Edema - Constitutional Vitals: Temp Pulse Resp BP Pulse Ox 98.2 F 90 18 131/88 92 05/11/17 12:52 05/11/17 09:43 05/11/17 12:52 05/11/17 12:52 05/11/17 08:05 Plan Activity: other (no strenous activity until cleared by cardiology) Diet: low salt Special Instructions: record daily weights Follow up with: PRIMARY CARE, [Referring] - 3-5 Days ANDRY CURRAN MD [Staff Physician] - 7 Days Prescriptions: Bumetanide [Bumex 1 mg tab] 1 mg PO BID #60 tab Metoprolol [Lopressor TAB] 50 mg PO Q8H #90 tablet Potassium Chloride [K-Dur] 10 meq PO BID #60 tablet
== END 2017-05-11 17:58 | disposition home or self-care (01) | DRG 291 ==
LOC: ED 01:13 → 4A 08:00
PROVIDERS: ADMIT Internal Medicine; ATTEND Internal Medicine
DX: I13.0 Hypertensive heart and chronic kidney disease with heart failure and stage 1 through stage 4 chronic kidney disease, or unspecified chronic kidney disease (principal); I50.23 Acute on chronic systolic (congestive) heart failure; I48.92 Unspecified atrial flutter; I42.0 Dilated cardiomyopathy; I48.0 Paroxysmal atrial fibrillation; E78.5 Hyperlipidemia, unspecified; N18.3 Chronic kidney disease, stage 3 (moderate); E66.9 Obesity, unspecified; E11.22 Type 2 diabetes mellitus with diabetic chronic kidney disease; E87.5 Hyperkalemia; R00.0 Tachycardia, unspecified; E88.81 Metabolic syndrome and other insulin resistance; Z95.810 Presence of automatic (implantable) cardiac defibrillator; Z68.38 Body mass index [BMI] 38.0-38.9, adult; Z83.3 Family history of diabetes mellitus; Z82.49 Family history of ischemic heart disease and other diseases of the circulatory system; Z79.01 Long term (current) use of anticoagulants; Z91.19 Patient's noncompliance with other medical treatment and regimen
CPT/HCPCS: 36415; 71046; 80048; 83735; 83880; 84132; 84484; 85007; 85014; 85018; 85025; 85027; 93005; 93010; 96372; 96374; A9270-GY; J1644; J1940; J2260

== ENCOUNTER 2019-02-10 13:51 | Observation (INO) | payer SELFPAY ==
--- NOTE | 2019-02-10 14:50 | Emergency Department Report ---
ED Syncope HPI - General Chief Complaint: Syncope Stated Complaint: SYNCOPE Time Seen by Provider: 02/10/19 14:27 - History of Present Illness Initial Comments: Patient is a 58-year-old male presents emergency room with complaints of a syncopal episode that occurred 30 minutes prior to arrival. Patient states that he was having an argument with his son when he had a syncopal episode. He states that he has been under increased stress. Patient is unsure if he hit his head. But states that he woke up on the floor. Patient states he is having left-sided chest pain described as a pressure. He states he is also having shor tness of breath. He denies any nausea, vomiting, fever, diaphoresis, abdominal pain, any other symptoms. Patient has a past medical history of CHF with an EF of 25-30% with defibrillator placement. - Related Data Allergies/Adverse Reactions: Allergies No Known Allergies Allergy (Verified 04/29/16 10:41) Home Medications: Ambulatory Orders Apixaban [Eliquis] 5 mg PO Q12HR #60 tablet 03/09/17 Aspirin [Aspirin BABY CHEW TAB] 81 mg PO QDAY #30 tab.chew 03/09/17 Atorvastatin Calcium [Lipitor] 80 mg PO HS #30 tablet 03/09/17 Furosemide [Lasix TAB] 40 mg PO QDAY #30 tablet 03/09/17 ISOSORBIDE MONOnitrate [Imdur ER] 30 mg PO QDAY #30 tablet 03/09/17 Lisinopril [Zestril TAB] 2.5 mg PO QDAY #30 tablet 03/09/17 Potassium Chloride [K-Dur] 10 meq PO QDAY #30 tablet 03/09/17 hydrALAZINE [Apresoline TAB] 50 mg PO Q8HR #90 tablet 03/09/17 Metoprolol Xl [Metoprolol SUCCINATE ER TAB] 100 mg PO QDAY #30 tablet 03/10/17 metOLazone [Zaroxolyn] 5 mg PO QDAY #30 tablet 03/12/17 Bumetanide [Bumex 1 mg tab] 1 mg PO BID #60 tab 05/11/17 Metoprolol [Lopressor TAB] 50 mg PO Q8H #90 tablet 05/11/17 Potassium Chloride [K-Dur] 10 meq PO BID #60 tablet 05/11/17 Cyclobenzaprine HCl [Flexeril 5 MG TAB] 5 mg PO TID PRN #21 tab 02/16/18 Ondansetron [Zofran Odt] 4 mg PO Q8HR PRN #14 tab.rapdis 02/16/18 traMADoL [Ultram 50 MG tab] 50 mg PO Q4HR PRN #14 tablet 02/16/18 ED Review of Systems ROS: Stated complaint: SYNCOPE Other details as noted in HPI Comment: All other systems reviewed and negative ED Past Medical Hx - Past Medical History Hx Hypertension: Yes Hx Heart Attack/AMI: No Hx Congestive Heart Failure: Yes Hx Diabetes: Yes (Pre-Diabetic) Hx Renal Disease: Yes Hx Asthma: No Hx COPD: No Hx HIV: No Additional medical history: Atrial fibrillation, renal insufficiency. ENLARGED PROSTATE - Surgical History Hx Internal Defibrillator: Yes Additional Surgical History: pt had defribillator placed x1 month ago - Social History Smoking Status: Never Smoker Substance Use Type: None - Medications Home Medications: Home Medications Medication Instructions Recorded Confirmed Last Taken Type Apixaban [Eliquis] 5 mg PO Q12HR #60 tablet 03/09/17 05/05/17 05/04/17 Rx Aspirin [Aspirin BABY CHEW TAB] 81 mg PO QDAY #30 tab.chew 03/09/17 05/05/17 05/04/17 Rx Atorvastatin Calcium [Lipitor] 80 mg PO HS #30 tablet 03/09/17 05/05/17 05/04/17 Rx Furosemide [Lasix TAB] 40 mg PO QDAY #30 tablet 03/09/17 05/05/17 05/04/17 Rx ISOSORBIDE MONOnitrate [Imdur ER] 30 mg PO QDAY #30 tablet 03/09/17 05/05/17 05/04/17 Rx Lisinopril [Zestril TAB] 2.5 mg PO QDAY #30 tablet 03/09/17 05/05/17 05/04/17 Rx Potassium Chloride [K-Dur] 10 meq PO QDAY #30 tablet 03/09/17 05/05/17 05/04/17 Rx hydrALAZINE [Apresoline TAB] 50 mg PO Q8HR #90 tablet 03/09/17 05/05/17 05/04/17 Rx Metoprolol Xl [Metoprolol 100 mg PO QDAY #30 tablet 03/10/17 05/05/17 05/04/17 Rx SUCCINATE ER TAB] metOLazone [Zaroxolyn] 5 mg PO QDAY #30 tablet 03/12/17 05/05/17 05/04/17 Rx Bumetanide [Bumex 1 mg tab] 1 mg PO BID #60 tab 05/11/17 Unknown Rx Metoprolol [Lopressor TAB] 50 mg PO Q8H #90 tablet 05/11/17 Unknown Rx Potassium Chloride [K-Dur] 10 meq PO BID #60 tablet 05/11/17 Unknown Rx Cyclobenzaprine HCl [Flexeril 5 MG 5 mg PO TID PRN #21 tab 02/16/18 Unknown Rx TAB] Ondansetron [Zofran Odt] 4 mg PO Q8HR PRN #14 tab.rapdis 02/16/18 Unknown Rx traMADoL [Ultram 50 MG tab] 50 mg PO Q4HR PRN #14 tablet 02/16/18 Unknown Rx ED Physical Exam - General Limitations: No Limitations General appearance: alert, in no apparent distress - Head Head exam: Present: atraumatic, normocephalic - Eye Eye exam: Present: normal appearance - ENT ENT exam: Present: mucous membranes moist - Neck Neck exam: Present: normal inspection, full ROM. Absent: tenderness - Respiratory Respiratory exam: Present: rales (bilateral bases). Absent: respiratory distress, wheezes, rhonchi, stridor, chest wall tenderness, accessory muscle use, decreased breath sounds, prolonged expiratory - Cardiovascular Cardiovascular Exam: Present: regular rate, normal rhythm - GI/Abdominal GI/Abdominal exam: Present: soft, distended, normal bowel sounds. Absent: tende rness, guarding, rebound, rigid - Neurological Exam Neurological exam: Present: alert, oriented X3, CN II-XII intact. Absent: motor sensory deficit - Psychiatric Psychiatric exam: Present: normal affect, normal mood - Skin Skin exam: Present: warm, dry ED Course Vital Signs 02/10/19 02/10/19 02/10/19 14:25 14:29 19:01 Temperature 98.2 F 97.9 F Pulse Rate 68 66 Respiratory 16 18 Rate Blood Pressure 109/84 117/78 Blood Pressure 135/70 [Right] O2 Sat by Pulse 100 97 94 Oximetry - Consultations Consultation #1: 02/10/19 18:[address] Gastelum, hospitalist regarding patient, will accept and resume care of patient, will admit to hospital, advised to write orders to [facility] observation ED Medical Decision Making - Lab Data Result diagrams: 02/10/19 16:03 02/10/19 16:03 Labs 02/10/19 02/10/19 02/10/19 14:31 16:03 16:03 WBC 4.0 L RBC 4.98 Hgb 11.2 L Hct 35.7 MCV 72 L MCH 23 L MCHC 31 L RDW 16.1 H Plt Count 171 Lymph % (Auto) 30.6 Walsh % (Auto) 13.4 H Eos % (Auto) 2.0 Baso % (Auto) 0.7 Lymph # 1.2 Walsh # 0.5 Eos # 0.1 Baso # 0.0 Seg Neutrophils % 53.3 Seg Neutrophils # 2.1 D-Dimer Sodium 144 Potassium 3.6 Chloride 102.3 Carbon Dioxide 26 Anion Gap 19 BUN 28 H Creatinine 1.8 H Estimated GFR 47 BUN/Creatinine Ratio 16 Glucose 95 POC Glucose 96 Calcium 8.8 Magnesium 2.30 Total Bilirubin 0.50 AST 18 ALT 10 Alkaline Phosphatase 57 Total Creatine Kinase 224 H CK-MB (CK-2) 2.4 CK-MB (CK-2) Rel Index 1.0 Troponin T < 0.010 NT-Pro-B Natriuret Pep Total Protein 7.9 Albumin 4.2 Albumin/Globulin Ratio 1.1 02/10/19 02/10/19 16:03 16:03 WBC RBC Hgb Hct MCV MCH MCHC RDW Plt Count Lymph % (Auto) Walsh % (Auto) Eos % (Auto) Baso % (Auto) Lymph # Walsh # Eos # Baso # Seg Neutrophils % Seg Neutrophils # D-Dimer 169.28 Sodium Potassium Chloride Carbon Dioxide Anion Gap BUN Creatinine Estimated GFR BUN/Creatinine Ratio Glucose POC Glucose Calcium Magnesium Total Bilirubin AST ALT Alkaline Phosphatase Total Creatine Kinase CK-MB (CK-2) CK-MB (CK-2) Rel Index Troponin T NT-Pro-B Natriuret Pep 393.6 Total Protein Albumin Albumin/Globulin Ratio - EKG Data EKG shows normal: sinus rhythm, axis Rate: normal - EKG Data 02/10/19 18:04 prolonged QTc 501 PVCs nonspecific intraventricular conduction delay q wave inferior unchanged from prior EKG in 2017 - Radiology Data Radiology results: report reviewed CHEST 1 VIEW 02/10/2019 2:39 PM INDICATION / CLINICAL INFORMATION: SOB, CP, hx of heart failure. COMPARISON: Chest x-ray on 05/05/2017 FINDINGS: SUPPORT DEVICES: Appropriate position of cardiac ICD leads. HEART / MEDIASTINUM: Stable mild cardiomegaly. LUNGS / PLEURA: No significant pulmonary or pleural abnormality. No pneumothorax. ADDITIONAL FINDINGS: No significant additional findings. IMPRESSION: 1. No acute findings. Signer Name: Surinder Aj MD Signed: 02/10/2019 3:21 PM Workstation Name: [id number] Transcribed By: KAMLESH Dictated By: Surinder Aj MD Electronically Authenticated By: Surinder Aj MD Signed Date/Time: 02/10/19 152 DD/ 1520 TD/TT: CT head/brain wo con INDICATION / CLINICAL INFORMATION: 58 years Male; MAIN: syncope pt unsure of hd injury. TECHNIQUE: Routine CT head without contrast. All CT scans at this location are performed using CT dose reduction for ALARA by means of automated exposure control. COMPARISON: None. FINDINGS: BRAIN / INTRACRANIAL CONTENTS: No acute hemorrhage, mass effect, midline shift, hydrocephalus, or acute, large territorial infarct. Wedge-shaped low density area s seen in the right temporal occipital external border zone. Though it is difficult to determine the age, this appears to be chronic (adjacent cortical sulci are not effaced). Periventricular and deep hemispheric low density areas are seen due to microvascular angiopathy. CRANIOCERVICAL JUNCTION: No significant abnormality. ORBITS: No significant abnormality of visualized orbits. SINUSES / MASTOIDS: No significant abnormality of the visualized paranasal sinuses or mastoid air cells. ADDITIONAL FINDINGS: In the sagittal images, there is suggestion of low density lesion in the cerebellar turcica posteriorly. I am unable to confirm this. IMPRESSION: No acute parenchymal lesion in the brain. Signer Name: Daphne Gillette MD Signed: 02/10/2019 3:15 PM Workstation Name: [id number] Transcribed By: KETAN Dictated By: Daphne Cerda MD Electronically Authenticated By: Daphne Cerda MD Signed Date/Time: 02/10/19 1515 DD/ 151 TD/TT: - Medical Decision Making Patient is a 58-year-old male presents emergency room with complaints of a syncopal episode that occurred 30 minutes prior to arrival. Patient states that he was having an argument with his son when he had a syncopal episode. He states that he has been under increased stress. Patient is unsure if he hit his head. But states that he woke up on the floor. Patient states he is having left-sided chest pain described as a pressure. He states he is also having shortness of breath. He denies any nausea, vomiting, fever, diaphoresis, abdominal pain, any other symptoms. Patient has a past medical history of CHF with an EF of 25-30% with defibrillator placement. VSS. CBC is stable. d-dimer is negative. pt has evidence of CABRERA with Cr 1.8. troponin is negative. bnp is normal. EKG with prolonged QTc 501, PVCs, nonspecific intraventricular conduction delay, q wave inferior, unchanged from prior EKG in 2017. CXR and CT head with no acute findings. given significant cardiac hx, symptoms of syncope and CP, pt will be admitted to the hospital. spoke with Dr. Gastelum, hospitalist regarding patient, will accept and resume care of patient, will admit to hospital, advised to write orders to med surg observation - Differential Diagnosis ACS, PE, CHF, aortic aneurysm, aortic dissection, arrhythmia, valve dysfxn Critical care attestation.: If time is entered above; I have spent that time in minutes in the direct care of this critically ill patient, excluding procedure time. ED Disposition Clinical Impression: CABRERA (acute kidney injury) Syncope Qualifiers: Syncope type: unspecified Qualified Code(s): R55 - Syncope and collapse Chest pain Qualifiers: Chest pain type: unspecified Qualified Code(s): R07.9 - Chest pain, unspecified Disposition: OP ADMIT IP TO THIS HOSP Is pt being admited?: Yes Does the pt Need Aspirin: No Condition: Fair
--- NOTE | 2019-02-10 15:19 | Cat Scan Report ---
CT head/brain wo con INDICATION / CLINICAL INFORMATION: 58 years Male; MAIN: syncope pt unsure of hd injury. TECHNIQUE: Routine CT head without contrast. All CT scans at this location are performed using CT dos e reduction for ALARA by means of automated exposure control. COMPARISON: None. FINDINGS: BRAIN / INTRACRANIAL CONTENTS: No acute hemorrhage, mass effect, midline shift, hydrocephalus, or acu te, large territorial infarct. Wedge-shaped low density area s seen in the right temporal occipital e xternal border zone. Though it is difficult to determine the age, this appears to be chronic (adjacen t cortical sulci are not effaced). Periventricular and deep hemispheric low density areas are seen du e to microvascular angiopathy. CRANIOCERVICAL JUNCTION: No significant abnormality. ORBITS: No significant abnormality of visualized orbits. SINUSES / MASTOIDS: No significant abnormality of the visualized paranasal sinuses or mastoid air kj ls. ADDITIONAL FINDINGS: In the sagittal images, there is suggestion of low density lesion in the cerebel lar turcica posteriorly. I am unable to confirm this. IMPRESSION: No acute parenchymal lesion in the brain. Signer Name: Daphne Gillette MD Signed: 02/10/2019 3:15 PM Workstation Name: [id number]
--- NOTE | 2019-02-10 15:25 | XRay Report ---
CHEST 1 VIEW 02/10/2019 2:39 PM INDICATION / CLINICAL INFORMATION: SOB, CP, hx of heart failure. COMPARISON: Chest x-ray on 05/05/2017 FINDINGS: SUPPORT DEVICES: Appropriate position of cardiac ICD leads. HEART / MEDIASTINUM: Stable mild cardiomegaly. LUNGS / PLEURA: No significant pulmonary or pleural abnormality. No pneumothorax. ADDITIONAL FINDINGS: No significant additional findings. IMPRESSION: 1. No acute findings. Signer Name: Surinder Aj MD Signed: 02/10/2019 3:21 PM Workstation Name: [id number]
[2019-02-10 16:38] LABS: Basophils % (Auto) 0.7 % (0.0-1.8); Eosinophils # (Auto) 0.1 K/mm3 (0.0-0.4); Hematocrit 35.7 % (35.5-45.6); Hemoglobin 11.2 gm/dl (11.8-15.2); Lymphocytes # (Auto) 1.2 K/mm3 (1.2-5.4); Lymphocytes % (Auto) 30.6 % (13.4-35.0); Mean Corpuscular HGB Conc 31 % (32-34); Mean Corpuscular Volume 72 fl (84-94); Monocytes # (Auto) 0.5 K/mm3 (0.0-0.8); Monocytes % (Auto) 13.4 % (0.0-7.3); Platelet Count 171 K/mm3 (140-440); Red Blood Count 4.98 M/mm3 (3.65-5.03); Red Cell Distribution Width 16.1 % (13.2-15.2)
[2019-02-10 16:55] LABS: Creatine Kinase MB 2.4 ng/mL (0.0-4.0)
[2019-02-10 16:57] LABS: Alanine Aminotransferase 10 units/L (7-56); Albumin 4.2 g/dL (3.9-5); BUN/Creatinine Ratio 16; Blood Urea Nitrogen 28 mg/dL (9-20); Calcium 8.8 mg/dL (8.4-10.2); Hemolysis Index 5
[2019-02-10] MEDS ORDERED: SODIUM CHLORIDE 0.9% 1000 ML 1,000 ML IV ONE (18:10)
[2019-02-10] MEDS ORDERED: SODIUM CHLORIDE 0.9% 1000 ML 1,000 ML IV SCH (19:00)
[2019-02-10] MEDS ORDERED: SODIUM CHLORIDE 0.9% 1000 ML 1,000 ML ONE (19:14)
--- NOTE | 2019-02-10 19:26 | Event Note ---
58 YO Male presents to ED for evaluation. Pt states that he passed out after an argument with a family member. Pt acknowledges multiple stressors, as well as decreased fluid intake. Pt treated with IVF resuscitation. Pt medically optimized and back to usual state of health. Pt discharged home and instructed to F/u pcp on tuesday, and F/U cardiology 3-5 days. Pt instructed to continue p rehospital medication as well as redord blood pressure log 2 times daily. ED Physical Exam - General Limitations: No Limitations General appearance: alert, in no apparent distress - Head Head exam: Present: atraumatic, normocephalic - Eye Eye exam: Present: normal appearance - ENT ENT exam: Present: mucous membranes moist - Neck Neck exam: Present: normal inspection, full ROM. Absent: tenderness - Respiratory Respiratory exam: CTA Bilaterally. Absent: respiratory distress, wheezes, rhonchi, stridor, chest wall tenderness, accessory muscle use, decreased breath sounds, prolonged expiratory - Cardiovascular Cardiovascular Exam: Present: regular rate, normal rhythm - GI/Abdominal GI/Abdominal exam: Present: soft, distended, normal bowel sounds. Absent: tenderness, guarding, rebound, rigid - Neurological Exam Neurological exam: Present: alert, oriented X3, CN II-XII intact. Absent: motor sensory deficit - Psychiatric Psychiatric exam: Present: normal affect, normal mood - Skin Skin exam: Present: warm, dry
[2019-02-11 00:08] VITALS: BP 126/68
== END 2019-02-11 00:30 | disposition home or self-care (01) ==
LOC: ED 13:51 → 3A 18:08
PROVIDERS: ADMIT Internal Medicine; ATTEND Internal Medicine
DX: N17.9 Acute kidney failure, unspecified (principal); R55 Syncope and collapse; I13.0 Hypertensive heart and chronic kidney disease with heart failure and stage 1 through stage 4 chronic kidney disease, or unspecified chronic kidney disease; I50.9 Heart failure, unspecified; N18.9 Chronic kidney disease, unspecified; R07.89 Other chest pain; Z79.82 Long term (current) use of aspirin
CPT/HCPCS: 36415; 70450; 71045; 80053; 82550; 82553; 82962; 83735; 83880; 84484; 85025; 85379; 93005; 93010; 96360; 99284; G0378; J7030